=== PATIENT | male | born 1955 | race Caucasian/White ===

== ENCOUNTER 2016-02-26 08:08 | Day surgery (SDC) | payer BC ==
[2016-02-23 09:57] VITALS: BMI 29.3
[~2016-02-26 08:08] MED LIST: LACTATED RINGERS 1,000 ML IV SCH; LIDOCAINE 1% 20 ML VIAL (10MG/ML) FOR IV START INTRADERMA PRN
[2016-02-26 08:38] VITALS: RESP 18; TEMP 98.6
[2016-02-26] MEDS ORDERED: LIDOCAINE 1% 20 ML VIAL (10MG/ML) FOR IV START INTRADERMA ONE (08:45)
[2016-02-26 08:50] LABS: Glucose,Whole Blood 197 mg/dL (75-99)
[2016-02-26] MEDS ORDERED: LIDOCAINE 1% INJ 10MG/ML (20 ML MDV) ONE (09:21)
[2016-02-26] MEDS ORDERED: PROPOFOL 10 MG/ML 20 ML VIAL IV ONE (09:21)
--- NOTE | 2016-02-26 09:56 | P.PCN ---
Date of Procedure: 02/26/16 Procedure(s) Performed: Procedure: Total colonoscopy. Preoperative diagnosis: Screening for neoplasia. Postoperative diagnosis: Exam within normal limits. Preparation: HalfLytely prep. Sedation: Was provided by anesthesia. Brief clinical history: The patient is a 60-year-old male who is referred for this evaluation for screening for neoplasia, age being his risk factor. He had a prior exam 10 years ago. At this time, he has no abdominal complaints, bleeding or anemia. Procedure: With the patient on his left lateral decubitus position and after informed consent and adequate sedation, the perianal area was inspected and it did not show any fissures or fistulas. There were no masses felt on digital rectal examination. The Olympus CFQ 160L video colonoscope was then inserted in the rectum in the usual fashion and advanced to the cecum. The preparation was good. The mucosa appeared healthy. No polyps or tumors were seen or any obvious diverticular disease. I retroflexed endoscope in the rectum before the endoscope was withdrawn. The patient tolerated the procedure well. Plan: The patient was reassured. He will follow up with you as planned and I recommended repeat exam in 10 years.
[2016-02-26 10:12] VITALS: BP 135/89; PULSE 70
== END 2016-02-26 10:45 | disposition home or self-care (01) ==
LOC: ORWHC2ENDO 08:08
DX: Z12.11 Encounter for screening for malignant neoplasm of colon (principal); E11.9 Type 2 diabetes mellitus without complications; M19.90 Unspecified osteoarthritis, unspecified site; I10 Essential (primary) hypertension; F41.9 Anxiety disorder, unspecified; K21.9 Gastro-esophageal reflux disease without esophagitis; G47.33 Obstructive sleep apnea (adult) (pediatric); Z88.8 Allergy status to other drugs, medicaments and biological substances; Z79.899 Other long term (current) drug therapy; Z79.84 Long term (current) use of oral hypoglycemic drugs
CPT/HCPCS: J2001; J2704; G0121; 45378; 99153

== ENCOUNTER 2016-11-21 18:26 | Inpatient (IN) | payer BC ==
[2016-11-21] MEDS ORDERED: SODIUM CHLORIDE 0.9% 1,000 ML IV ONE (19:07)
[2016-11-21] MEDS ORDERED: SODIUM CHLORIDE 0.9% 500 ML IV ONE (19:07)
--- NOTE | 2016-11-21 19:15 | ED ---
General Adult HPI - General Chief complaint: Altered Mental Status Stated complaint: Weakness, poss altered mental status Time Seen by Provider: 11/21/16 18:37 Source: patient, RN notes reviewed, old records reviewed Mode of arrival: wheelchair Limitations: no limitations - History of Present Illness Initial comments: This is a 61 male to the ED co altered mental status. Patient's poor story and history obtained by . Patient has a week or so increasing weakness lethargy sleeping. Patient's baseline activity level is not high but he has been and has recently undergoing change. No change in medications. Patient himself denies any complaints. But family states is acting appropriately and easily tries to walk he is very weak. Which is far from his baseline. Patient himself denies complaints of headache chest pain shortness of breath or abdominal pain, denies drugs Anselmo. Denies not taking any medications. Denies and family denies any prior history of similar symptoms - Related Data Home Medications Medication Instructions Recorded Confirmed ALPRAZolam [Alprazolam] 0.5 mg PO TID PRN 02/23/16 11/21/16 DULoxetine HCL [Cymbalta] 20 mg PO QAM 02/23/16 11/21/16 Enalapril [Vasotec] 20 mg PO DAILY 02/23/16 11/21/16 Hydrochlorothiazide [Hydrodiuril] 12.5 mg PO QAM 02/23/16 11/21/16 Hydrocodone/Acetaminophen [[place] 1 tab PO QID PRN 02/23/16 11/21/16 10-325] Metoprolol Tartrate [Lopressor] 50 mg PO DAILY 02/23/16 11/21/16 Omeprazole 20 mg PO DAILY 02/23/16 11/21/16 Zolpidem Tartrate [Zolpidem 10 mg PO HS 02/23/16 11/21/16 Tartrate] metFORMIN HCL [Glucophage] 1,000 mg PO BID 02/23/16 11/21/16 ARIPiprazole [Abilify] 10 mg PO DAILY 11/21/16 11/21/16 Atorvastatin Calcium [Lipitor] 80 mg PO DAILY 11/21/16 11/21/16 Pioglitazone [Actos] 45 mg PO DAILY 11/21/16 11/21/16 Allergies Allergy/AdvReac Type Severity Reaction Status Date / Time oxaprozin [From Daypro] Allergy Severe Swelling Verified 11/21/16 19:10 throat & tongue, reddened face Review of Systems ROS Statement: Those systems with pertinent positive or pertinent negative responses have been documented in the HPI. ROS Other: All systems not noted in ROS Statement are negative. Past Medical History Past Medical History: Diabetes Mellitus, GERD/Reflux, Hyperlipidemia, Hypertension, Osteoarthritis (OA), Sleep Apnea/CPAP/BIPAP Additional Past Medical History / Comment(s): Does not wear CPAP. Hx. of blurred vision. History of Any Multi-Drug Resistant Organisms: None Reported Past Surgical History: Hernia Repair, Joint Replacement, Orthopedic Surgery Additional Past Surgical History / Comment(s): 2 right rotator cuff repair. Lt hip replaced. Johnson. inguinal hernia repair. Past Anesthesia/Blood Transfusion Reactions: No Reported Reaction Additional Past Anesthesia/Blood Transfusion Reaction / Comment(s): States had transfusion at . Past Psychological History: Anxiety, Depression Smoking Status: Former smoker Past Alcohol Use History: Occasional Past Drug Use History: None Reported - Past Family History Brother(s) Family Medical History: Cancer, Deep Vein Thrombosis (DVT) Additional Family Medical History / Comment(s): 1 brother with Esophageal CA. 2 brothers with DVT. Sister(s) Family Medical History: Cancer Additional Family Medical History / Comment(s): Brain CA. General Exam Limitations: altered mental status General appearance: alert, in no apparent distress Head exam: Present: atraumatic, normocephalic, normal inspection Eye exam: Present: normal appearance, PERRL, EOMI. Absent: scleral icterus, conjunctival injection, periorbital swelling ENT exam: Present: normal exam, mucous membranes moist Neck exam: Present: normal inspection. Absent: tenderness, meningismus, lymphadenopathy Respiratory exam: Present: normal lung sounds bilaterally. Absent: respiratory distress, wheezes, rales, rhonchi, stridor Cardiovascular Exam: Present: regular rate, normal rhythm, normal heart sounds. Absent: systolic murmur, diastolic murmur, rubs, gallop, clicks GI/Abdominal exam: Present: soft, normal bowel sounds. Absent: distended, tenderness, guarding, rebound, rigid Extremities exam: Present: normal inspection, full ROM, normal capillary refill. Absent: tenderness, pedal edema, joint swelling, calf tenderness Back exam: Present: normal inspection Neurological exam: Present: alert, oriented X3, CN II-XII intact Psychiatric exam: Present: normal affect, normal mood Skin exam: Present: warm, dry, intact, normal color. Absent: rash Course Vital Signs 11/21/16 11/21/16 11/21/16 18:29 19:21 19:43 Temperature 97.9 F Pulse Rate 88 89 86 Respiratory 18 18 18 Rate Blood Pressure 137/78 128/65 136/75 O2 Sat by Pulse 94 L 95 94 L Oximetry 11/21/16 20:13 Temperature Pulse Rate 86 Respiratory 18 Rate Blood Pressure 145/75 O2 Sat by Pulse 94 L Oximetry - Reevaluation(s) Reevaluation #1: 11/21/16 19:57 Patient at this point has no clinical improvement Reevaluation #2: 11/21/16 20:33 Patient still five-week, no clinical improvement in symptoms EKG Findings - EKG Comments: EKG Findings:: EKG shows normal sinus rhythm rate 86, LA 146, QRS 78, QTC 421 Medical Decision Making - Medical Decision Making 61 male the ER for evaluation of weakness and lethargy, patient likely suffered recent and STEMI, no significant EKG changes noted, will admit for cardiac observation and neuro evaluation - Lab Data Result diagrams: 11/21/16 18:55 11/21/16 18:55 Lab Results 11/21/16 11/21/16 11/21/16 Range/Units 18:55 18:55 18:55 WBC 8.5 (3.8-10.6) k/uL RBC 4.68 (4.30-5.90) m/uL Hgb 14.3 (13.0-17.5) gm/dL Hct 46.3 (39.0-53.0) % MCV 98.9 (80.0-100.0) fL MCH 30.6 (25.0-35.0) pg MCHC 30.9 L (31.0-37.0) g/dL RDW 16.7 H (11.5-15.5) % Plt Count 300 (150-450) k/uL Neutrophils % 65 % Lymphocytes % 22 % Monocytes % 6 % Eosinophils % 3 % Basophils % 1 % Neutrophils # 5.5 (1.3-7.7) k/uL Lymphocytes # 1.9 (1.0-4.8) k/uL Monocytes # 0.5 (0-1.0) k/uL Eosinophils # 0.3 (0-0.7) k/uL Basophils # 0.1 (0-0.2) k/uL Hypochromasia Slight Anisocytosis Slight Macrocytosis Slight PT (9.0-12.0) sec INR (<1.2) APTT (22.0-30.0) sec Sodium 137 (137-145) mmol/L Potassium 4.9 (3.5-5.1) mmol/L Chloride 95 L (98-107) mmol/L Carbon Dioxide 29 (22-30) mmol/L Anion Gap 13 mmol/L BUN 15 (9-20) mg/dL Creatinine 0.73 (0.66-1.25) mg/dL Est GFR (MDRD) Af Amer >60 (>60 ml/min/1.73 sqM) Est GFR (MDRD) Non-Af >60 (>60 ml/min/1.73 sqM) Glucose 291 H (74-99) mg/dL Calcium 9.5 (8.4-10.2) mg/dL Phosphorus 3.8 (2.5-4.5) mg/dL Magnesium 1.6 (1.6-2.3) mg/dL Total Bilirubin 0.6 (0.2-1.3) mg/dL AST 30 (17-59) U/L ALT 54 (21-72) U/L Alkaline Phosphatase 110 (38-126) U/L Ammonia (<30) umol/L Total Creatine Kinase 43 L (55-170) U/L CK-MB (CK-2) 0.9 (0.0-2.4) ng/mL CK-MB (CK-2) Rel Index 2.1 Troponin I 0.081 H* (0.000-0.034) ng/mL Total Protein 7.2 (6.3-8.2) g/dL Albumin 4.4 (3.5-5.0) g/dL Urine Color Urine Appearance (Clear) Urine pH (5.0-8.0) Ur Specific [place] (1.001-1.035) Urine Protein (Negative) Urine Glucose (UA) (Negative) Urine Ketones (Negative) Urine Blood (Negative) Urine Nitrite (Negative) Urine Bilirubin (Negative) Urine Urobilinogen (<2.0) mg/dL Ur Leukocyte Esterase (Negative) Urine Opiates Screen (NotDetected) Ur Oxycodone Screen (NotDetected) Urine Methadone Screen (NotDetected) Ur Propoxyphene Screen (NotDetected) Ur Barbiturates Screen (NotDetected) U Tricyclic Antidepress (NotDetected) Ur Phencyclidine Scrn (NotDetected) Ur Amphetamines Screen (NotDetected) U Methamphetamines Scrn (NotDetected) U Benzodiazepines Scrn (NotDetected) Urine Cocaine Screen (NotDetected) U Marijuana (THC) Screen (NotDetected) 11/21/16 11/21/16 11/21/16 Range/Units 18:55 19:21 19:25 WBC (3.8-10.6) k/uL RBC (4.30-5.90) m/uL Hgb (13.0-17.5) gm/dL Hct (39.0-53.0) % MCV (80.0-100.0) fL MCH (25.0-35.0) pg MCHC (31.0-37.0) g/dL RDW (11.5-15.5) % Plt Count (150-450) k/uL Neutrophils % % Lymphocytes % % Monocytes % % Eosinophils % % Basophils % % Neutrophils # (1.3-7.7) k/uL Lymphocytes # (1.0-4.8) k/uL Monocytes # (0-1.0) k/uL Eosinophils # (0-0.7) k/uL Basophils # (0-0.2) k/uL Hypochromasia Anisocytosis Macrocytosis PT 11.1 (9.0-12.0) sec INR 1.1 (<1.2) APTT 22.7 (22.0-30.0) sec Sodium (137-145) mmol/L Potassium (3.5-5.1) mmol/L Chloride (98-107) mmol/L Carbon Dioxide (22-30) mmol/L Anion Gap mmol/L BUN (9-20) mg/dL Creatinine (0.66-1.25) mg/dL Est GFR (MDRD) Af Amer (>60 ml/min/1.73 sqM) Est GFR (MDRD) Non-Af (>60 ml/min/1.73 sqM) Glucose (74-99) mg/dL Calcium (8.4-10.2) mg/dL Phosphorus (2.5-4.5) mg/dL Magnesium (1.6-2.3) mg/dL Total Bilirubin (0.2-1.3) mg/dL AST (17-59) U/L ALT (21-72) U/L Alkaline Phosphatase (38-126) U/L Ammonia 23 (<30) umol/L Total Creatine Kinase (55-170) U/L CK-MB (CK-2) (0.0-2.4) ng/mL CK-MB (CK-2) Rel Index Troponin I (0.000-0.034) ng/mL Total Protein (6.3-8.2) g/dL Albumin (3.5-5.0) g/dL Urine Color Light Yellow Urine Appearance Clear (Clear) Urine pH 5.5 (5.0-8.0) Ur Specific [place] 1.005 (1.001-1.035) Urine Protein Negative (Negative) Urine Glucose (UA) 3+ H (Negative) Urine Ketones Negative (Negative) Urine Blood Negative (Negative) Urine Nitrite Negative (Negative) Urine Bilirubin Negative (Negative) Urine Urobilinogen <2.0 (<2.0) mg/dL Ur Leukocyte Esterase Negative (Negative) Urine Opiates Screen Detected H (NotDetected) Ur Oxycodone Screen Not Detected (NotDetected) Urine Methadone Screen Not Detected (NotDetected) Ur Propoxyphene Screen Not Detected (NotDetected) Ur Barbiturates Screen Not Detected (NotDetected) U Tricyclic Antidepress Not Detected (NotDetected) Ur Phencyclidine Scrn Not Detected (NotDetected) Ur Amphetamines Screen Not Detected (NotDetected) U Methamphetamines Scrn Not Detected (NotDetected) U Benzodiazepines Scrn Detected H (NotDetected) Urine Cocaine Screen Not Detected (NotDetected) U Marijuana (THC) Screen Not Detected (NotDetected) - Radiology Data Radiology results: report reviewed (CT brain and chest x-ray are negative), image reviewed Critical Care Time Critical Care Time: Yes Total Critical Care Time: 31 Disposition Clinical Impression: Altered mental status, NSTEMI (non-ST elevated myocardial infarction), Weakness Disposition: ADMITTED IP TO THIS HOSP Condition: Fair Instructions: Altered Mental Status (ED) Referrals: Palmer Ariza MD [Primary Care Provider] - 1-2 days
[2016-11-21 19:20] LABS: Anisocytosis Slight; Basophils # (A) 0.1 k/uL (0-0.2); Basophils % (A) 1 %; CH 30.9; CHCM 31.5; Eosinophils # (A) 0.3 k/uL (0-0.7); Eosinophils % (A) 3 %; HCT 46.3 % (39.0-53.0); HDW 3.23; HGB 14.3 gm/dL (13.0-17.5); Hypochromasia Slight; Luc # (Auto) 0.19; Luc % (Auto) 2; Lymphocytes # (A) 1.9 k/uL (1.0-4.8); Lymphocytes % (A) 22 %; MCH 30.6 pg (25.0-35.0); MCHC 30.9 g/dL (31.0-37.0); MCV 98.9 fL (80.0-100.0); Macrocytosis Slight; Mean Platelet Volume 8.6; Monocytes # (A) 0.5 k/uL (0-1.0); Monocytes % (A) 6 %; Neutrophils # (A) 5.5 k/uL (1.3-7.7); Neutrophils % (A) 65 %; RBC 4.68 m/uL (4.30-5.90); RDW 16.7 % (11.5-15.5); WBC 8.5 k/uL (3.8-10.6)
[2016-11-21 19:33] LABS: ALT 54 U/L (21-72); AST 30 U/L (17-59); Alkaline Phosphatase 110 U/L (38-126); Anion Gap 13 mmol/L; Blood Urea Nitrogen 15 mg/dL (9-20); Calcium 9.5 mg/dL (8.4-10.2); Carbon Dioxide 29 mmol/L (22-30); Chloride 95 mmol/L (98-107); Glucose 291 mg/dL (74-99); Magnesium 1.6 mg/dL (1.6-2.3); Non-African American GFR(MDRD) >60 (>60 ml/min/1.73 sqM); Phosphorus 3.8 mg/dL (2.5-4.5); Potassium 4.9 mmol/L (3.5-5.1); Sodium 137 mmol/L (137-145); Total Bilirubin 0.6 mg/dL (0.2-1.3); Total Protein 7.2 g/dL (6.3-8.2)
[2016-11-21 19:38] LABS: Appearance,Urine Clear (Clear); Bilirubin,Urine Negative (Negative); Glucose,Urine (UA) 3+ (Negative); Ketones,Urine Negative (Negative); Leukocyte Esterase,Urine Negative (Negative); Nitrite,Urine Negative (Negative); PH, Urine 5.5 (5.0-8.0); Protein,Urine Negative (Negative); Specific Gravity,Urine 1.005 (1.001-1.035); UA Billing (MACRO vs. MICRO) CHEM; Urobilinogen,Urine <2.0 mg/dL (<2.0)
[2016-11-21 19:47] LABS: Partial Thromboplastin Time 22.7 sec (22.0-30.0)
[2016-11-21 19:48] LABS: INR 1.1 (<1.2); Prothrombin Time 11.1 sec (9.0-12.0)
[2016-11-21 20:04] LABS: Creatine Kinase MB 0.9 ng/mL (0.0-2.4)
--- NOTE | 2016-11-21 20:04 | CT ---
EXAMINATION TYPE: CT brain wo con DATE OF EXAM: 11/21/2016 COMPARISON: NONE HISTORY: Altered mental status. CT DLP: 1266.00 mGycm Automated exposure control for dose reduction was used. FINDINGS: There are generalized changes of sulcal prominence and ventriculomegaly, compatible with atrophic jamie nge. There is mild, diffuse periventricular white matter lucency, compatible with chronic white matte r ischemic change. There is no acute focal lesion, mass effect or midline shift identified. I do not see evidence of intracranial blood. There is underaeration of the mastoid air cells. There is minimal ethmoidal sinus mucosal disease. No depressed skull fracture is seen. IMPRESSION: 1. NO ACUTE INTRACRANIAL ABNORMALITY. 2. MILD ATROPHY. 3. CHRONIC WHITE MATTER ISCHEMIC CHANGE. 4. MINIMAL SINUS MUCOSAL DISEASE INVOLVING THE ETHMOID SINUSES. 5. UNDERAERATION OF THE MASTOID AIR CELLS MAY REFLECT CHRONIC MASTOIDITIS.
--- NOTE | 2016-11-21 20:05 | XR ---
EXAMINATION TYPE: XR chest 2V DATE OF EXAM: 11/21/2016 HISTORY: altered mental status. REFERENCE: Previous study dated 01/07/2012. FINDINGS: The heart is enlarged. The lungs are clear. Pleural spaces are clear. IMPRESSION: CARDIOMEGALY.
[2016-11-21 20:20] LABS: Troponin I 0.081 ng/mL (0.000-0.034)
[2016-11-21] MEDS ORDERED: NITROGLYCERIN SL TABS 0.4 MG TAB SUBLINGUAL PRN (20:25)
[2016-11-21] MEDS ORDERED: ASPIRIN 81 MG PO STA (20:25)
[2016-11-21] MEDS ORDERED: HEPARIN SODIUM,PORCINE 5,000 UNIT/ML 1 ML VIAL IV ONE (20:25)
[2016-11-21] MEDS ORDERED: HEPARIN SODIUM,PORCINE 5,000 UNIT/ML 1 ML VIAL IV PRN (20:25)
[2016-11-21] MEDS ORDERED: HEPARIN SODIUM,PORCINE/D5W PMX 25,000 UNIT in DEXTROSE/WATER 1 500ML.BAG IV SCH (20:30)
[2016-11-21] MEDS ORDERED: ACETAMINOPHEN TAB 325 MG TAB PO PRN (23:31)
[2016-11-21] MEDS ORDERED: MELATONIN 3 MG TABLET PO PRN (23:33)
[2016-11-22 01:52] LABS: Creatine Kinase MB 0.8 ng/mL (0.0-2.4)
[2016-11-22 01:53] LABS: Troponin I 0.067 ng/mL (0.000-0.034)
[2016-11-22] MEDS: PANTOPRAZOLE 40 MG TABLET PO SCH (06:32)
[2016-11-22 06:41] LABS: Mean Platelet Volume 8.1
[2016-11-22 07:03] LABS: Cholesterol 224 mg/dL (<200); HDL Cholesterol 40 mg/dL (40-60)
[2016-11-22 07:16] LABS: Creatine Kinase MB 0.9 ng/mL (0.0-2.4)
[2016-11-22 07:28] LABS: Troponin I 0.07 ng/mL (0.000-0.034)
[2016-11-22 07:35] LABS: Glucose,Whole Blood 223 mg/dL (75-99)
[2016-11-22] MEDS ORDERED: ALPRAZolam 0.5 MG TAB PO PRN (07:56)
[2016-11-22] MEDS ORDERED: ATORVASTATIN 80 MG TAB PO STA (07:56)
[2016-11-22] MEDS ORDERED: NITROGLYCERIN SL TABS 0.4 MG TAB SUBLINGUAL PRN ×2 (07:56→11:15)
[2016-11-22] MEDS ORDERED: ASPIRIN 325 MG TAB PO STA (07:56)
[2016-11-22] MEDS ORDERED: SODIUM CHLORIDE 0.9% 1,000 ML in EMPTY BAG 1 BAG IV ONE (07:56)
--- NOTE | 2016-11-22 08:19 | P.HPIM ---
History of Present Illness Chief complaint Patient presented here yesterday evening to the emergency room with weakness and change in mental status. History of present illness Patient is a 61-year-old gentleman who apparently according to patient and family history for the past week or so he has been in bed most of the time apparently been very weak. Not up to his usual baseline activity. The patient states that he has been taking his medications regularly. He has not been checking his blood sugars at home. He denied any fever or chills. No chest pain. No nausea or vomiting. He has not been using his BiPAP for his sleep apnea. He states that he has gained a lot of weight. Past medical history The patient does have underlying history for several years of diabetes type 2 Hyperlipidemia History of hypertension History of underlying depression and anxiety History of osteoarthritis of the lumbar spine for which he is on chronic analgesics. Patient has history of sleep apnea but has not been using his BiPAP or had evaluation lately. He has declined in the past. Gastroesophageal reflux. Surgical history: positive for total hip replacement on the left and previous repair of right shoulder 2. He has had throat and nasal surgery in the past History of penile surgery for correction of abnormality by Dr. Weldon. Bilateral hernia repair. Medications: ALLERGIES to Daypro /oxaprozin with throat and tongue swelling. Home medications Metformin thousand milligrams twice a day Zolpidem 10 mg at at bedtime for insomnia Actos 45 mg daily Omeprazole 20 mg daily Metoprolol tartrate 50 mg daily Hydrocodone/acetaminophen 10-325 one 4 times a day as needed for pain Hydrochlorothiazide 12.5 daily Enalapril 20 mg daily Cymbalta 20 mg in the morning Atorvastatin 80 mg daily Abilify 10 mg daily Alprazolam 0.53 times a day if needed for anxiety. Family history: Patient has had 1 brother with esophageal cancer. 2 brothers have had problems with DVTs. One family member also with underlying brain cancer. Social history: The patient is a former smoker. Only occasional alcohol usage. He does live locally with his . He is not employed. Physical examination: Patient is easily arousable this morning. Vital signs reveal temperature of 97 with a pulse of 99 and regular with respirations of 18 and unlabored and blood pressure 138/97. He is 92% saturated on 2 L nasal cannula. Head and neck exam unremarkable. Extraocular movements intact. No carotid bruits or adenopathy or definitive thyromegaly detected. Lungs are clear to auscultation. Heart tones are regular without murmurs or rubs. Abdomen is obese but nontender without organomegaly. Extremities revealed grade 1-2 edema. Rectal and genital exam deferred. Neurologically she is overall alert. Moving all extremities without focal weakness. Cranial nerves intact. Laboratory White count 8.5 with hemoglobin 14.3 and an MCV of 98.9. Platelets 300 INR 1.1 with a PTT of 22.7 Electrolytes generally unremarkable. Sodium 137. Potassium 4.9. BUN of 15 with creatinine of 0.73 given him a GFR greater than 60. Blood sugar was 291. Liver function tests were unremarkable. CKs have been low in the 30-40 range. Troponins have been mildly elevated with initial troponin 0.081 which is decreased on third reading down to 0.070 Cholesterol is elevated with an LDL cholesterol 140 and total cholesterol 224. B12 and TSH values were normal. Urine was negative for leukocyte esterase. But 3+ glucose positive Toxicology and urine detected opiates and benzodiazepine consistent with his usage. EKG showed normal sinus rhythm without evidence of acute ischemic changes. Chest x-ray showed element of cardiomegaly but otherwise lungs were clear. Computed tomography scan of the brain showed no acute intracranial abnormality. Impressions: 1. Elevated troponin values possibly indicating some myocardial ischemia. Discussed with cardiology this morning and plans are for likely catheterization to evaluate further. Patient does have the multiple local risk factors as listed above in the past medical history. 2. Obstructive sleep apnea that is not being treated as patient is not using his BiPAP at home. And this may be affecting mental status. 3. Patient has been long time user of opiates and benzodiazepine. No definite history of any over the taking of his medication by office records. 4. Underlying depression which has been chronic but may be worsening 5. Other past medical history as listed above including his underlying diabetes , hypertension and hyperlipidemia that raises risk for underlying coronary artery disease. 6. Please see other comorbidities in the past medical history Plans: At this point plans are for cardiology evaluation with catheterization and echocardiogram. Neurology has also been consulted through the emergency room for their evaluation. We have held or decreased his benzodiazepine and opiates for now. He will need further outpatient evaluation for sleep apnea and proper treatment. B12 and thyroid studies are normal. Basic chemistries other than blood sugar and hematology are unremarkable. Further recommendations for evaluation and treatment pending clinical response and results of above. Past Medical History Past Medical History: Diabetes Mellitus, GERD/Reflux, Hyperlipidemia, Hypertension, Osteoarthritis (OA), Sleep Apnea/CPAP/BIPAP Additional Past Medical History / Comment(s): Does not wear CPAP. Hx. of blurred vision. History of Any Multi-Drug Resistant Organisms: None Reported Past Surgical History: Hernia Repair, Joint Replacement, Orthopedic Surgery Additional Past Surgical History / Comment(s): 2 right rotator cuff repair. Lt hip replaced. Johnson. inguinal hernia repair. Past Anesthesia/Blood Transfusion Reactions: No Reported Reaction Additional Past Anesthesia/Blood Transfusion Reaction / Comment(s): States had transfusion at . Past Psychological History: Anxiety, Depression Smoking Status: Never smoker Past Alcohol Use History: Occasional Additional Past Alcohol Use History / Comment(s): Smoked 1 ppd for 1 year, started at age 17y.o. Past Drug Use History: None Reported - Past Family History Brother(s) Family Medical History: Cancer, Deep Vein Thrombosis (DVT) Additional Family Medical History / Comment(s): 1 brother with Esophageal CA. 2 brothers with DVT. Sister(s) Family Medical History: Cancer Additional Family Medical History / Comment(s): Brain CA. Medications and Allergies Home Medications Medication Instructions Recorded Confirmed Type ALPRAZolam [Alprazolam] 0.5 mg PO TID PRN 02/23/16 11/21/16 History DULoxetine HCL [Cymbalta] 20 mg PO QAM 02/23/16 11/21/16 History Enalapril [Vasotec] 20 mg PO DAILY 02/23/16 11/21/16 History Hydrochlorothiazide [Hydrodiuril] 12.5 mg PO QAM 02/23/16 11/21/16 History Hydrocodone/Acetaminophen [[place] 1 tab PO QID PRN 02/23/16 11/21/16 History 10-325] Metoprolol Tartrate [Lopressor] 50 mg PO DAILY 02/23/16 11/21/16 History Omeprazole 20 mg PO DAILY 02/23/16 11/21/16 History Zolpidem Tartrate [Zolpidem 10 mg PO HS 02/23/16 11/21/16 History Tartrate] metFORMIN HCL [Glucophage] 1,000 mg PO BID 02/23/16 11/21/16 History ARIPiprazole [Abilify] 10 mg PO DAILY 11/21/16 11/21/16 History Atorvastatin Calcium [Lipitor] 80 mg PO DAILY 11/21/16 11/21/16 History Pioglitazone [Actos] 45 mg PO DAILY 11/21/16 11/21/16 History Allergies Allergy/AdvReac Type Severity Reaction Status Date / Time oxaprozin [From Daypro] Allergy Severe Swelling Verified 11/21/16 19:10 throat & tongue, reddened face Physical Exam Vitals: Vital Signs Temp Pulse Pulse Resp BP BP Pulse Ox 11/22/16 04:00 99 18 11/22/16 03:58 97.0 F L 99 18 138/97 92 L 11/22/16 00:00 97.0 F L 91 16 140/78 92 L 11/21/16 22:00 86 18 11/21/16 21:14 80 18 137/60 94 L 11/21/16 20:47 97.6 F 86 16 132/90 96 11/21/16 20:43 84 18 146/70 95 11/21/16 20:13 86 18 145/75 94 L 11/21/16 19:43 86 18 136/75 94 L 11/21/16 19:21 89 18 128/65 95 11/21/16 18:29 97.9 F 88 18 137/78 94 L Intake and Output 11/21/16 11/22/16 11/22/16 22:59 06:59 14:59 Intake Total 1115 Balance 1115 Intake: Intake, IV Titration 1115 Amount Heparin Sodium,Porcine/ 315 D5w Pmx 25,000 unit In Dextrose/Water 1 500ml. bag @ 10.6 UNITS/KG/HR 20 mls/hr IV .Q24H SAMIR Rx#: [id number] Sodium Chloride 0.9% 1, 800 000 ml @ 100 mls/hr IV . Q10H ONE Rx#:[id number] Other: Voiding Method Toilet Toilet # Voids 1 Weight 94.3 kg 97.7 kg Results CBC & Chem 7: 11/22/16 06:26 11/21/16 18:55 Labs: Abnormal Lab Results - Last 24 Hours (Table) 11/21/16 11/21/16 11/21/16 Range/Units 18:55 18:55 18:55 MCHC 30.9 L (31.0-37.0) g/dL RDW 16.7 H (11.5-15.5) % Chloride 95 L (98-107) mmol/L Glucose 291 H (74-99) mg/dL POC Glucose (mg/dL) (75-99) mg/dL Total Creatine Kinase 43 L (55-170) U/L Troponin I 0.081 H* (0.000-0.034) ng/mL Triglycerides (<150) mg/dL Cholesterol (<200) mg/dL LDL Cholesterol, Calc (0-99) mg/dL Urine Glucose (UA) (Negative) Urine Opiates Screen (NotDetected) U Benzodiazepines Scrn (NotDetected) 11/21/16 11/22/16 11/22/16 Range/Units 19:25 00:56 06:26 MCHC (31.0-37.0) g/dL RDW (11.5-15.5) % Chloride (98-107) mmol/L Glucose (74-99) mg/dL POC Glucose (mg/dL) (75-99) mg/dL Total Creatine Kinase 36 L 31 L (55-170) U/L Troponin I 0.067 H* 0.070 H* (0.000-0.034) ng/mL Triglycerides (<150) mg/dL Cholesterol (<200) mg/dL LDL Cholesterol, Calc (0-99) mg/dL Urine Glucose (UA) 3+ H (Negative) Urine Opiates Screen Detected H (NotDetected) U Benzodiazepines Scrn Detected H (NotDetected) 11/22/16 11/22/16 Range/Units 06:26 07:33 MCHC (31.0-37.0) g/dL RDW (11.5-15.5) % Chloride (98-107) mmol/L Glucose (74-99) mg/dL POC Glucose (mg/dL) 223 H (75-99) mg/dL Total Creatine Kinase (55-170) U/L Troponin I (0.000-0.034) ng/mL Triglycerides 221 H (<150) mg/dL Cholesterol 224 H (<200) mg/dL LDL Cholesterol, Calc 140 H (0-99) mg/dL Urine Glucose (UA) (Negative) Urine Opiates Screen (NotDetected) U Benzodiazepines Scrn (NotDetected) Microbiology - Last 24 Hours (Table) 11/21/16 19:25 Urine Culture - Preliminary Urine,Voided Thrombosis Risk Factor Assmnt - Choose All That Apply Any of the Below Risk Factors Present?: Yes Each Factor Represents 1 point: Age 41-60 years Other Risk Factors: No Thrombosis Risk Factor Assessment Total Risk Factor Score: 1 Thrombosis Risk Factor Assessment Level: Low Risk
[2016-11-22] MEDS: INSULIN LISPRO (humaLOG) 300 UNIT/3 ML VIAL SQ SCH ×4 (08:24→21:26)
--- NOTE | 2016-11-22 08:27 | CONS ---
CONSULTATION Mr. Cade is a 61-year-old male with known history of hypertension, hyperlipidemia, diabetes mellitus, who presented according to him because his felt that he was not acting right. There was a question of slurred speech and some drooping in the face. This morning he feels that his speech and face are normal. He said that those symptoms have been going on for about a week. He denies any symptoms of chest discomfort. He denies any dyspnea, yet he is not active physically. He has no PND, orthopnea, or peripheral edema. No dizziness, palpitation, or syncope. He has no prior documented history of coronary artery disease. His coronary risk factors are remarkable for hypertension, hyperlipidemia, and diabetes. He is a nonsmoker. MEDICATION: His medications include alprazolam, Abilify, Lipitor 80 mg daily, Cymbalta 20 mg daily, Vasotec 20 mg daily, hydrochlorothiazide 12.5 mg daily, metoprolol tartrate 50 mg daily, omeprazole 20 mg daily, Actos 45 mg daily. metformin 1 gram twice a day and zolpidem. REVIEW OF SYSTEMS: RESPIRATORY SYSTEM: He has no recent wheezing. No cough. No history of documented obstructive lung disease. He has history of obstructive sleep apnea, but he has not been using his CPAP. GI SYSTEM: No recent GI bleeding. No peptic ulcer disease. SYSTEM: No dysuria or hematuria. NERVOUS SYSTEM: No stroke or seizure. PHYSICAL EXAMINATION: A 61-year-old male, alert, oriented, in no apparent distress. Blood pressure 138/90 with a heart rate in 90s. HEAD: Normocephalic. EYES: Sclerae anicteric. NECK: Good upstroke. No bruits. No jugular venous distention. LUNGS: Clear to auscultation. HEART: Regular rate and rhythm. S1, S2. No S3. No rub. No significant murmur. ABDOMEN: Soft, nontender. Positive bowel sounds. No organomegaly. EXTREMITIES: No edema. Intact distal pulses. LAB DATA: Lab data revealed a cholesterol 224, LDL of 140. BUN and creatinine 15 and 0.73. Troponin 0.081, 0.067, 0.070. Potassium 4.9. Hemoglobin 14.3. CT scan of the brain revealed no acute event. EKG revealed a sinus mechanism with a normal axis and intervals; no acute changes. Chest x-ray revealed cardiomegaly. IMPRESSION: 1. Change in mental status of unclear etiology. 2. Elevation of the troponin in a patient with multiple risk factors, rule out non ST- segment elevation myocardial infarction. 3. History of hypertension. 4. Hyperlipidemia. 5. Diabetes mellitus. 6. Obstructive sleep apnea, not treated. RECOMMENDATION: I would recommend to obtain echocardiogram. I have recommended proceeding with coronary angiography to assess his status and guide his treatment. The rationale behind the procedure as well as the risks and complication were discussed with the patient who is in full understanding and agreement. Depending on his progress, further recommendation will be made. Thank you for this consult. We will follow with you. MMODL / IJN: [id number] /
[2016-11-22] MEDS: ATORVASTATIN 80 MG TAB PO SCH (08:30)
[2016-11-22] MEDS: METOPROLOL TARTRATE 50 MG TAB PO SCH (08:30)
[2016-11-22] MEDS ORDERED: ASPIRIN 325 MG TAB PO SCH (09:00)
--- NOTE | 2016-11-22 09:27 | ECHOF ---
Referral Reason:elevTrop MEASUREMENTS -------- HEIGHT: 170.2 cm WEIGHT: 97.5 kg BP: 138/97 RVIDd: 3.3 cm (< 3.3) IVSd: 1.4 cm (0.6 - 1.1) LVIDd: 3.5 cm (3.9 - 5.3) LVPWd: 1.4 cm (0.6 - 1.1) IVSs: 1.6 cm LVIDs: 2.5 cm LVPWs: 2.1 cm LA Diam: 3.4 cm (2.7 - 3.8) LAESV Index (A-L): 20.38 ml/m Ao Diam: 3.6 cm (2.0 - 3.7) AV Cusp: 1.6 cm (1.5 - 2.6) MV EXCURSION: 14.577 mm (> 18.000) MV EF SLOPE: 57 mm/s (70 - 150) EPSS: 0.7 cm MV E Ottoniel: 1.07 m/s MV DecT: 204 ms MV A Ottoniel: 1.25 m/s MV E/A Ratio: 0.86 AV maxP.19 mmHg AV meanP.23 mmHg RAP: 5.00 mmHg RVSP: 26.20 mmHg FINDINGS -------- Sinus rhythm. This was a technically adequate study. The left ventricular size is normal. There is moderate concentric left ventricular hypertrophy. Overall left ventricular systolic function is normal with, an EF between 60 - 65 %. The right ventricle is mildly enlarged. Normal LA size by volume 22+/-6 ml/m2. The right atrium is normal in size. There is mild aortic valve sclerosis. The mitral valve leaflets are mildly thickened. There is trace mitral regurgitation. Mild tricuspid regurgitation present. Right ventricular systolic pressure is normal at < 35 mmHg. Trace/mild (physiologic) pulmonic regurgitation. The aortic root size is normal. Normal inferior vena cava with normal inspiratory collapse consistent with estimated right atrial pressure of 5 mmHg. There is no pericardial effusion. CONCLUSIONS -------- 1. Sinus rhythm. 2. The mitral valve leaflets are mildly thickened. 3. There is trace mitral regurgitation. 4. Mild tricuspid regurgitation present. 5. Right ventricular systolic pressure is normal at < 35 mmHg. 6. Trace/mild (physiologic) pulmonic regurgitation. 7. The aortic root size is normal. 8. Normal inferior vena cava with normal inspiratory collapse consistent with estimated right atrial pressure of 5 mmHg. 9. There is no pericardial effusion. 10. This was a technically adequate study. 11. The left ventricular size is normal. 12. There is moderate concentric left ventricular hypertrophy. 13. Overall left ventricular systolic function is normal with, an EF between 60 - 65 %. 14. The right ventricle is mildly enlarged. 15. Normal LA size by volume 22+/-6 ml/m2. 16. The right atrium is normal in size. 17. There is mild aortic valve sclerosis. HEAT TREATER HELPER: Josy Portillo RDCS
[2016-11-22] MEDS ORDERED: LIDOCAINE 2% INJ 20 MG/ML (20 ML MDV) ONE (09:34)
[2016-11-22] MEDS ORDERED: VERAPAMIL 2.5 MG/ML 2 ML AMP ONE (09:34)
[2016-11-22] MEDS ORDERED: HEPARIN SODIUM 1,000 UN/ML (10ML VL) ONE (09:34)
[2016-11-22] MEDS ORDERED: fentaNYL (PF) 50 MCG/ML 2 ML AMP ONE (09:34)
[2016-11-22] MEDS ORDERED: diphenhydrAMINE 50 MG/ML 1 ML VIAL ONE (09:34)
[2016-11-22] MEDS ORDERED: IV FLUID CONTINUATION 1,000 ML IV ONE (09:47)
[2016-11-22] MEDS ORDERED: fentaNYL (PF) 50 MCG/ML 2 ML AMP IV ONE (10:00)
[2016-11-22] MEDS ORDERED: LIDOCAINE 2% INJ 20 MG/ML SQ ONE (10:07)
[2016-11-22 10:13] LABS: Hemoglobin A1C 8.2 % (4.2-6.1)
[2016-11-22] MEDS ORDERED: VERAPAMIL SYRINGE (5 MG/10 ML) INTRAARTER ONE (10:18)
[2016-11-22] MEDS ORDERED: PRASUGREL 10 MG TAB ONE (10:33)
[2016-11-22] MEDS ORDERED: BIVALIRUDIN BOLUS 250 MG/50 ML IV ONE (10:33)
[2016-11-22] MEDS ORDERED: BIVALIRUDIN 250 MG in SODIUM CHLORIDE 0.9% 40 ML IV ONE (10:33)
[2016-11-22] MEDS ORDERED: PRASUGREL 10 MG TAB PO ONE (10:36)
[2016-11-22] MEDS ORDERED: NITROGLYCERIN 1000MCG/10ML SYRINGE INTRACORON ONE (10:37)
[2016-11-22] MEDS ORDERED: IOHEXOL 350 MG/ML 125ML BOTTLE INJ ONE (10:55)
[2016-11-22] MEDS ORDERED: ATROPINE SULFATE 0.1 MG/ML 10ML SYRINGE IV PRN (11:15)
[2016-11-22] MEDS ORDERED: MAG HYDROX/AL HYDROX/SIMETH 30 ML CUP PO PRN (11:15)
[2016-11-22] MEDS ORDERED: ZOLPIDEM 5 MG TAB PO PRN (11:15)
[2016-11-22] MEDS ORDERED: SODIUM CHLORIDE 0.9% 1,000 ML IV SCH (11:15)
[2016-11-22] MEDS ORDERED: RX INFO: IV CONTRAST WAS GIVEN 1 EACH MISC MISCELLANE PRN (11:15)
[2016-11-22 11:30] LABS: Glucose,Whole Blood 175 mg/dL (75-99)
--- NOTE | 2016-11-22 11:30 | CC ---
CARDIAC CATHETERIZATION REPORT Mr. Cade is 61-year-old male known history of hypertension, hyperlipidemia, diabetes mellitus, who presented with vague symptoms of not feeling well, getting confused with some issue with the speech. On presentation, he was found to have abnormal troponins and in view of that and in view of his multiple risk factors, recommendation was made regarding cardiac catheterization. The procedure as well as the risks and the complications were discussed with the patient who is in full understanding and agreement. PROCEDURE: Patient was brought to the labeling specialist in the fasting semi-sedated state after receiving fentanyl and Benadryl and obtaining moderate conscious sedated state. Using Xylocaine anesthesia in the Seldinger technique, a 6-Wallisian sheath was introduced in the right radial artery. Selective right and left coronary angiography was performed using 5- Wallisian 3-1/2 bend right and left Andrea catheter. Multiple views of the coronary artery including hemiaxial views were obtained. Following that, a 5-Wallisian tight pigtail catheter was introduced in the left ventricle and a 30-degree JORDAN view of the left ventricle was obtained. Following that, catheters were removed. Images were reviewed. FINDINGS: FLUOROSCOPY: There was calcification involving the ostium of the right coronary artery as well as the proximal LAD. LEFT MAIN: This is a short size vessel bifurcating left circumflex and left anterior descending artery. The left main coronary artery has no evidence of high-grade stenosis. LEFT ANTERIOR DESCENDING ARTERY: This is a large-size vessel reaching to the apex with a wraparound apex segment giving rise to 2 diagonal branches. The second one is large in caliber. The left anterior descending artery proximally has a 30% plaque without any evidence of high-grade stenosis. LEFT CIRCUMFLEX: This is a nondominant vessel giving rise to 2 obtuse marginal branches. The left circumflex as well as branches have no evidence of obstructive coronary artery disease. RIGHT CORONARY ARTERY: This is a large dominant vessel bifurcating in PDA and posterolateral segment and branches. The ostium is calcified. In the mid segment, there is a long tubular lesion with area of stenosis up to 70% to 80%. The rest of the vessel has no high-grade stenosis. LEFT VENTRICULOGRAM: The left ventriculogram was performed in 30-degree JORDAN view and revealed a mid inferior wall hypokinesis. The ejection fraction is estimated at 50%. There was no significant mitral regurgitation. HEMODYNAMICS: There was no gradient across the aortic valve. The left ventricular end- diastolic pressure was 20 to 24 mmHg. CONCLUSION: 1. Calcified ostial right coronary artery as well as proximal left anterior descending artery. 2. Significant disease in the mid right coronary artery. 3. Mild disease in the proximal left anterior descending artery. 4. Minimally impaired left ventricular systolic function. RECOMMENDATION: In view of finding and the anatomy, I recommend proceeding with angioplasty and stenting of the right coronary artery. The procedure as well as the risks and the complications were discussed with the patient who is in full understanding and agreement. MMODL / IJN: [id number] /
--- NOTE | 2016-11-22 11:39 | PTCA ---
PERCUTANEOUSTRANS CORORONARY ANGIOGRAPHY Mr. Cade is a 61-year-old male who presented with symptoms of change in mental status and was found to have abnormal troponin. He has a history of diabetes, hyperlipidemia, and hypertension. He underwent cardiac catheterization, was found to have significant disease involving the mid right coronary artery. In view of that, recommendation was made regarding angioplasty and stenting. The procedure as well as the risks and the complications were discussed with the patient who is in full understanding and agreement. PROCEDURE: A 6-Lao FR4 guiding catheter was introduced in the system. After cannulating the right coronary ostium, 0.014 balanced medium weight J-wire was advanced across the lesion, positioned distally, attempts to advance a 2.75 x 28 mm Xience Alpine stent were unsuccessful. That stent was removed and another 0.014 balanced medium weight J- wire was advanced next to the first one in a sadaf fashion and the stent was advanced, positioned, deployed and post dilated at 14 atmospheres. After the last inflation, after appropriate wait, the balloon and the guidewire were withdrawn back in the guiding catheter. Images were obtained and repeated. Those images reveal stable successful stenting. At that point, the guiding catheter, the balloon and the guidewire were removed. The sheath was removed. Hemostasis was obtained with deployment of a TR band. There was no immediate complication. The patient was returned to his room in stable condition. Of note, the patient received Angiomax per protocol as well as oral loading dose of Effient. He had no significant chest pain with the inflation, but he had EKG changes that resolved at the end of procedure. At the start of his cardiac catheterization, he received care intra-arterial verapamil. RESULTS: Successful stenting of a long segment of the mid right coronary artery with reduction of stenosis from 80% to 0%. RECOMMENDATION: The patient will be continued on aspirin, Effient, beta blockers, JOSE EDUARDO inhibitor, statin. The importance of dual antiplatelet treatment was discussed with the patient and his family and they are in full understanding and agreement. Duration of the procedure is 49 minutes. MMODL / IJN: [id number] /
--- NOTE | 2016-11-22 11:45 | LTR ---
November 22, 2016 Re: Palmer Lemusevelyn Dear Dr. Ariza: I had the opportunity to perform cardiac catheterization and coronary angioplasty and stenting on Mr. Cade at [facility] on the 22 of November and a full copy procedure note will be forwarded to you. In brief, he was found to have a significant stenosis in the mid right coronary artery, underwent successful stenting of that vessel using a drug-eluting stent. I am hopeful that this procedure will stabilize his status. Thank you again for allowing me the opportunity to participate in his care. Please feel free to call for any questions. Sincerely yours, MD NOVA LakeL / LOREEN: [id number] /
[2016-11-22 11:55] VITALS: BMI 33.7
[2016-11-22] MEDS: PIOGLITAZONE 45 MG TAB PO SCH (12:03)
[2016-11-22] MEDS: ARIPiprazole 10 MG TAB PO SCH (12:03)
[2016-11-22] MEDS: HYDROCHLOROTHIAZIDE 12.5 MG CAP PO SCH (12:03)
[2016-11-22] MEDS: LISINOPRIL 20 MG TAB PO SCH (12:03)
[2016-11-22] MEDS: ALPRAZolam 0.25 MG TAB PO PRN ×2 (12:09→21:30)
[2016-11-22] MEDS: HYDROcodone/APAP 10-325MG 1 EACH TAB PO PRN ×2 (15:18→21:24)
[2016-11-22 16:29] LABS: Glucose,Whole Blood 223 mg/dL (75-99)
--- NOTE | 2016-11-22 20:30 | P.CNNES ---
History of Present Illness Consult date: 11/22/16 Requesting physician: Phil Myrick Reason for Consult: altered mental status Chief complaint: altered mental status, chest pain, unstable angina History of Present Illness: Neurology is being requested to consult on a 61-year-old male who reports that he has been having extreme fatigue and inability to perform activities of daily living over the past week. Patient has also been noted to be very weak. Patient is also reported not to be at his normal baseline activity level. Patient stated that he had been taking his medications regularly. He has not been monitoring his blood sugars as directed. Patient does have a history of sleep apnea but has not been using his BiPAP machine as directed. Patient also states he has been gaining weight on a regular basis. Patient states he also was presented to the ED at the encouragement of his who noted that his fatigue was becoming an escalating situation and he was becoming less alert and interactive. On contact, the patient was alert and oriented 3, supine in bed, resting in no acute distress. Family is at the bedside including his . Patient states that since he has had cardiac catheterization earlier this morning he has increased energy, decreased fatigue and increased mentation. He states that he does not have any other lateralizing weakness, no neurological symptoms. Patient's spouse agreed that the patient has no neurological symptoms as discussed and was improving significantly. Review of Systems all systems not noted in HPI or negative. Past Medical History Past Medical History: Diabetes Mellitus, GERD/Reflux, Hyperlipidemia, Hypertension, Osteoarthritis (OA), Sleep Apnea/CPAP/BIPAP Additional Past Medical History / Comment(s): Does not wear CPAP. Hx. of blurred vision. History of Any Multi-Drug Resistant Organisms: None Reported Past Surgical History: Hernia Repair, Joint Replacement, Orthopedic Surgery Additional Past Surgical History / Comment(s): 2 right rotator cuff repair. Lt hip replaced. Johnson. inguinal hernia repair. Past Anesthesia/Blood Transfusion Reactions: No Reported Reaction Additional Past Anesthesia/Blood Transfusion Reaction / Comment(s): States had transfusion at . Past Psychological History: Anxiety, Depression Smoking Status: Never smoker Past Alcohol Use History: Occasional Additional Past Alcohol Use History / Comment(s): Smoked 1 ppd for 1 year, started at age 17y.o. Past Drug Use History: None Reported - Past Family History Brother(s) Family Medical History: Cancer, Deep Vein Thrombosis (DVT) Additional Family Medical History / Comment(s): 1 brother with Esophageal CA. 2 brothers with DVT. Sister(s) Family Medical History: Cancer Additional Family Medical History / Comment(s): Brain CA. Medications and Allergies Home Medications Medication Instructions Recorded Confirmed Type ALPRAZolam [Alprazolam] 0.5 mg PO TID PRN 02/23/16 11/21/16 History DULoxetine HCL [Cymbalta] 20 mg PO QAM 02/23/16 11/21/16 History Enalapril [Vasotec] 20 mg PO DAILY 02/23/16 11/21/16 History Hydrochlorothiazide [Hydrodiuril] 12.5 mg PO QAM 02/23/16 11/21/16 History Hydrocodone/Acetaminophen [Mendham 1 tab PO QID PRN 02/23/16 11/21/16 History 10-325] Metoprolol Tartrate [Lopressor] 50 mg PO DAILY 02/23/16 11/21/16 History Omeprazole 20 mg PO DAILY 02/23/16 11/21/16 History Zolpidem Tartrate [Zolpidem 10 mg PO HS 02/23/16 11/21/16 History Tartrate] metFORMIN HCL [Glucophage] 1,000 mg PO BID 02/23/16 11/21/16 History ARIPiprazole [Abilify] 10 mg PO DAILY 11/21/16 11/21/16 History Atorvastatin Calcium [Lipitor] 80 mg PO DAILY 11/21/16 11/21/16 History Pioglitazone [Actos] 45 mg PO DAILY 11/21/16 11/21/16 History Allergies Allergy/AdvReac Type Severity Reaction Status Date / Time oxaprozin [From Daypro] Allergy Severe Swelling Verified 11/21/16 19:10 throat & tongue, reddened face Physical Examination - Vital Signs Vital Signs: Vital Signs Temp Pulse Pulse Pulse Resp BP BP 11/22/16 15:16 98.2 F 88 16 148/91 11/22/16 14:00 84 16 142/78 11/22/16 13:00 83 20 138/83 11/22/16 12:30 84 20 134/89 11/22/16 12:00 83 20 140/90 11/22/16 11:45 79 20 123/90 11/22/16 11:30 78 20 135/93 10/06/17 11:15 98.2 F 78 22 114/84 11/22/16 08:00 97.9 F 99 24 135/83 11/22/16 04:00 99 18 11/22/16 03:58 97.0 F L 99 18 138/97 11/22/16 00:00 97.0 F L 91 16 140/78 11/21/16 22:00 86 18 11/21/16 21:14 80 18 137/60 11/21/16 20:47 97.6 F 86 16 132/90 11/21/16 20:43 84 18 146/70 Pulse Ox 11/22/16 15:16 95 11/22/16 14:00 96 11/22/16 13:00 95 11/22/16 12:30 98 11/22/16 12:00 96 11/22/16 11:45 97 11/22/16 11:30 97 11/22/16 11:15 96 11/22/16 08:00 96 11/22/16 04:00 11/22/16 03:58 92 L 11/22/16 00:00 92 L 11/21/16 22:00 11/21/16 21:14 94 L 11/21/16 20:47 96 11/21/16 20:43 95 Intake and Output 11/22/16 11/22/16 11/22/16 06:59 14:59 22:59 Intake Total 8687 952 2382 Output Total 450 Balance 1115 369 590 Intake: IV 129 800 Sodium Chloride 0.9% 1, 800 000 ml @ 100 mls/hr IV . Q10H [facility] Rx#:[id number] Intake, IV Titration 1115 Amount Heparin Sodium,Porcine/ 315 D5w Pmx 25,000 unit In Dextrose/Water 1 500ml. bag @ 10.6 UNITS/KG/HR 20 mls/hr IV .Q24H [facility] Rx#: [id number] Sodium Chloride 0.9% 1, 800 000 ml @ 100 mls/hr IV . Q10H [facility] Rx#:[id number] Oral 240 240 Output: Urine 450 Other: Voiding Method Toilet Toilet Urinal Urinal # Voids 2 Weight 97.7 kg 97.7 kg Patient Weight 11/23/16 06:59 Weight 97.7 kg Constitutional: AOx3, cooperative HEENT: NC/AT, no facial asymmetry is seen. Throat: Supple, no masses Respiratory: No increased work of breathing Cardiac: Regular rate and Rhythm GI: non tender, non distended Musculoskeletal: Plow Mechanic strengths are equal bilaterally 5/5, Lower extremity strengths are equal bilaterally at 5/5. Neurological: CN II-XII in tact, patient was AOx3, speech and language are normal, no unilateralizing weakness, no seizure activity note on physical exam. Sensation was normal. Integementary: no rash, no erythema Psychiatric: mood and affect appropriate Results - Laboratory Findings CBC and BMP: 11/22/16 06:26 11/21/16 18:55 Abnormal Lab Findings: Abnormal Labs 11/21/16 11/21/16 11/21/16 18:55 18:55 18:55 MCHC 30.9 L RDW 16.7 H Chloride 95 L Glucose 291 H POC Glucose (mg/dL) Hemoglobin A1c Total Creatine Kinase 43 L Troponin I 0.081 H* Triglycerides Cholesterol LDL Cholesterol, Calc Urine Glucose (UA) Urine Opiates Screen U Benzodiazepines Scrn 11/21/16 11/22/16 11/22/16 19:25 00:56 06:26 MCHC RDW Chloride Glucose POC Glucose (mg/dL) Hemoglobin A1c Total Creatine Kinase 36 L 31 L Troponin I 0.067 H* 0.070 H* Triglycerides Cholesterol LDL Cholesterol, Calc Urine Glucose (UA) 3+ H Urine Opiates Screen Detected H U Benzodiazepines Scrn Detected H 11/22/16 11/22/16 11/22/16 06:26 06:26 07:33 MCHC RDW Chloride Glucose POC Glucose (mg/dL) 223 H Hemoglobin A1c 8.2 H Total Creatine Kinase Troponin I Triglycerides 221 H Cholesterol 224 H LDL Cholesterol, Calc 140 H Urine Glucose (UA) Urine Opiates Screen U Benzodiazepines Scrn 11/22/16 11/22/16 11:19 16:26 MCHC RDW Chloride Glucose POC Glucose (mg/dL) 175 H 223 H Hemoglobin A1c Total Creatine Kinase Troponin I Triglycerides Cholesterol LDL Cholesterol, Calc Urine Glucose (UA) Urine Opiates Screen U Benzodiazepines Scrn - Diagnostic Findings Comments: CT brain was negative Assessment and Plan (1) Altered mental status Status: Acute (2) Weakness Status: Acute Plan: 1. Altered mental status 2. Fatigue 3. Hyperlipidemia On physical exam and after discussing the matter with the patient, it does appear with reasonable medical certainty that the patient's current status which caused him to present at the ED was most likely related to his cardiac status and subsequent cardiac cath. CT of the brain was negative. Physical exam revealed no neurological deficits. Musculoskeletal assessment was equal bilaterally. At this time it does not appear that the patient has any neurological etiology that requires follow-up or diagnostic workup at this time. Status: Neurology will be available to reconsult on an as-needed basis. At this point, the patient can be cleared from a neurological standpoint. Contact our office with any questions or any request for reconsult. I discussed the patient's pertinent medical information with Dr. Garcia. He agrees with the plan of care as implemented.
[2016-11-22 21:01] LABS: Glucose,Whole Blood 205 mg/dL (75-99)
[2016-11-23] MEDS: HYDROcodone/APAP 10-325MG 1 EACH TAB PO PRN ×2 (03:48→09:51)
[2016-11-23 06:12] LABS: Glucose,Whole Blood 229 mg/dL (75-99)
[2016-11-23] MEDS: INSULIN LISPRO (humaLOG) 300 UNIT/3 ML VIAL SQ SCH ×2 (06:16→12:07)
[2016-11-23] MEDS: PANTOPRAZOLE 40 MG TABLET PO SCH (06:16)
[2016-11-23 07:03] LABS: Mean Platelet Volume 8.2
[2016-11-23 07:22] LABS: Anion Gap 10 mmol/L; Blood Urea Nitrogen 10 mg/dL (9-20); Calcium 9.1 mg/dL (8.4-10.2); Carbon Dioxide 28 mmol/L (22-30); Chloride 101 mmol/L (98-107); Glucose 247 mg/dL (74-99); Non-African American GFR(MDRD) >60 (>60 ml/min/1.73 sqM); Potassium 4.8 mmol/L (3.5-5.1); Sodium 139 mmol/L (137-145)
[2016-11-23] MEDS ORDERED: ASPIRIN 81 MG PO SCH (09:00)
--- NOTE | 2016-11-23 09:37 | P.DS ---
Providers Date of admission: 11/21/16 20:25 Attending physician: Palmer Ariza Consults: 11/21/16 20:25 Consult Physician Routine Consulting Provider: Kim Garcia Consult Reason/Comments: ams Do you want consulting provider notified?: Yes Consult Physician Urgent Consulting Provider: Ramon Boyd Consult Reason/Comments: nstemi Do you want consulting provider notified?: Yes 11/22/16 11:15 Consult Physician Routine Consulting Provider: [facility] Consult Reason/Comments: Post Interventional patient Do you want consulting provider notified?: Already Contacted Primary care physician: Palmer Ariza The patient is a 61-year-old patient who presented initially to the emergency room with weakness and change in mental status. Evaluation showed elevation of his troponin and patient was admitted to the telemetry unit where he was seen in consult by cardiology. EKG did not show much in the way of ischemic changes but further troponin levels were still elevated. Echocardiogram revealed generally good LV function with an ejection fraction of 60-65%. There was mild right ventricular enlargement. Right ventricular systolic pressure was normal at less than 35 mmHg. Other laboratory values revealed a white count of 8.5 with a hemoglobin 14.3 and a platelet count of 300. Coagulation studies were unremarkable with an INR of 1.1 and a PTT of 22.7. Electrolytes were normal and a BUN of 15 with a creatinine of 0.73 related to a GFR greater than 60. Blood sugar was elevated to 91. Other liver function testing was good. A TSH was normal at 1.69 and vitamin B12 normal at 368. Her cholesterol was elevated to with a total of 224 , triglycerides 221, LDL cholesterol 140 and HDL cholesterol 40. Urinalysis was negative for infection along with culture. Chest x-ray and CAT scan did not show any acute changes. Patient was seen in consultation by neurology who did not feel that further workup was necessary. Please refer to the consultation. Patient underwent cardiac catheterization and because of the mid right coronary stenosis he underwent stenting using a drug eluding stent. Discharge medications pending any further changes per cardiology: Effient 10 mg daily Aspirin 81 mg daily Xanax 0.5 mg 3 times a day Abilify 10 mg daily Atorvastatin 80 mg daily Hydrochlorothiazide 12.5 daily Enalapril 20 mg daily Cymbalta 20 mg daily Resume metformin thousand milligrams twice a day Zolpidem 10 mg at at bedtime for sleep as needed Actos 45 mg daily for diabetes Omeprazole 20 mg daily for gastroesophageal reflux Metoprolol titrate 50 mg daily Hydrocodone/acetaminophen 10-325 one 4 times a day when necessary for pain Final discharge diagnoses: 1. Non-ST segment myocardial infarction with stenosis and now angioplasty and stenting with a drug-eluting stent of the mid right coronary artery. 2. Sleep apnea for which he will need further referral to the sleep center for study and new BiPAP machine. 3. Obesity 4. Diabetes type 2 5. Hyperlipidemia 6. Hypertension 7 history of depression and anxiety 8 lumbar osteoarthritis for which he is on chronic analgesics 9 gastroesophageal reflux 10 surgical history with the left hip replacement and right shoulder surgeries in the past History of nasal surgery Bilateral hernia repair History of penile surgery by Dr. Weldon, urology. We did discuss with patient that down the line besides further treatment of the sleep apnea there are available intensive classes for control of weight and diabetes as an outpatient. Along with possible cardiac rehab. And these can be arranged as an outpatient. He has declined in the past. Hopefully patient will be motivated in the future. He should now to continue with gradual ambulation. Use of his home sleep BiPAP and future sleep study. Follow-up with myself next week Follow-up with cardiology as they schedule. Patient Condition at Discharge: Fair Plan - Discharge Summary New Discharge Prescriptions: No Action metFORMIN HCL [Glucophage] 1,000 mg PO BID Omeprazole 20 mg PO DAILY Enalapril [Vasotec] 20 mg PO DAILY Hydrochlorothiazide [Hydrodiuril] 12.5 mg PO QAM Zolpidem Tartrate [Zolpidem Tartrate] 10 mg PO HS Metoprolol Tartrate [Lopressor] 50 mg PO DAILY Hydrocodone/Acetaminophen [[place] 10-325] 1 tab PO QID PRN PRN Reason: Pain DULoxetine HCL [Cymbalta] 20 mg PO QAM ALPRAZolam [Alprazolam] 0.5 mg PO TID PRN PRN Reason: Anxiety Pioglitazone [Actos] 45 mg PO DAILY ARIPiprazole [Abilify] 10 mg PO DAILY Atorvastatin Calcium [Lipitor] 80 mg PO DAILY Discharge Medication List ALPRAZolam [Alprazolam] 0.5 mg PO TID PRN 02/23/16 [History] DULoxetine HCL [Cymbalta] 20 mg PO QAM 02/23/16 [History] Enalapril [Vasotec] 20 mg PO DAILY 02/23/16 [History] Hydrochlorothiazide [Hydrodiuril] 12.5 mg PO QAM 02/23/16 [History] Hydrocodone/Acetaminophen [[place] 10-325] 1 tab PO QID PRN 02/23/16 [History] Metoprolol Tartrate [Lopressor] 50 mg PO DAILY 02/23/16 [History] Omeprazole 20 mg PO DAILY 02/23/16 [History] Zolpidem Tartrate [Zolpidem Tartrate] 10 mg PO HS 02/23/16 [History] metFORMIN HCL [Glucophage] 1,000 mg PO BID 02/23/16 [History] ARIPiprazole [Abilify] 10 mg PO DAILY 11/21/16 [History] Atorvastatin Calcium [Lipitor] 80 mg PO DAILY 11/21/16 [History] Pioglitazone [Actos] 45 mg PO DAILY 11/21/16 [History] Follow up Appointment(s)/Referral(s): Palmer Ariza MD [Primary Care Provider] - 1-2 days Patient Instructions/Handouts: Altered Mental Status (ED) Activity/Diet/Wound Care/Special Instructions: REFERRAL TO SLEEP CENTER AFTER DISCHARGE Pt copay for Effient is $10/month
[2016-11-23] MEDS: HYDROCHLOROTHIAZIDE 12.5 MG CAP PO SCH (09:45)
[2016-11-23] MEDS: METOPROLOL TARTRATE 50 MG TAB PO SCH (09:45)
[2016-11-23] MEDS: ARIPiprazole 10 MG TAB PO SCH (09:45)
[2016-11-23] MEDS: LISINOPRIL 20 MG TAB PO SCH (09:45)
[2016-11-23] MEDS: PIOGLITAZONE 45 MG TAB PO SCH (09:45)
[2016-11-23] MEDS: ATORVASTATIN 80 MG TAB PO SCH (09:46)
[2016-11-23] MEDS ORDERED: PRASUGREL 10 MG TAB PO SCH (11:16)
[2016-11-23 11:43] LABS: Glucose,Whole Blood 241 mg/dL (75-99)
[2016-11-23 12:43] VITALS: BP 121/80; PULSE 73; RESP 18; TEMP 97.2
--- NOTE | 2016-11-23 13:16 | PN ---
PROGRESS NOTE Mr. Cade 61-year-old male who presented with change in mental status, was noted to have abnormal 3rd troponin, underwent cardiac catheterization. He was found to have significant obstructive disease in the mid right coronary artery, underwent stenting of that vessel. He is doing well this morning. He is denying any chest pain. His breathing has been stable. He denies any dizziness or palpitation. He denies any nausea. He feels better overall. He continues to be at this time on aspirin once a day, Effient 10 mg daily, Lipitor 80 mg daily, metoprolol tartrate 50 mg daily, lisinopril 40 mg daily. PHYSICAL EXAMINATION: Blood pressure 140/90 with a heart rate in the 90s. LUNGS: Clear. Heart regular rate and rhythm. S1, S2. No S3. No rub. ABDOMEN: Soft, nontender. EXTREMITIES: No edema. Right radial pulse is intact. LAB DATA: Revealed BUN creatinine of 10 and 0.7, potassium 4.8. IMPRESSION: 1. Status post stenting of the right coronary artery with non ST-segment elevation myocardial infarction. 2. Hypertension. 3. Hyperlipidemia. 4. Diabetes mellitus. RECOMMENDATION: The patient should be able to be discharged home today and followed as an outpatient. MMODL / IJN: [id number] /
== END 2016-11-23 13:26 | disposition home or self-care (01) | DRG 247 ==
LOC: EC 18:26 → 6SEL 20:25
PROVIDERS: ADMIT Internal Medicine; ATTEND Internal Medicine
PROC: B2111ZZ Fluoroscopy of Multiple Coronary Arteries using Low Osmolar Contrast (ICD-10-PCS; 2016-11-22)
PROC: B2151ZZ Fluoroscopy of Left Heart using Low Osmolar Contrast (ICD-10-PCS; 2016-11-22)
PROC: 027034Z Dilation of Coronary Artery, One Artery with Drug-eluting Intraluminal Device, Percutaneous Approach (ICD-10-PCS; principal; 2016-11-22 09:41)
PROC: 4A023N7 Measurement of Cardiac Sampling and Pressure, Left Heart, Percutaneous Approach (ICD-10-PCS; 2016-11-22 09:41)
DX: I21.4 Non-ST elevation (NSTEMI) myocardial infarction (principal); E11.69 Type 2 diabetes mellitus with other specified complication; E66.9 Obesity, unspecified; E78.5 Hyperlipidemia, unspecified; F32.9 Major depressive disorder, single episode, unspecified; F41.9 Anxiety disorder, unspecified; G47.00 Insomnia, unspecified; G47.33 Obstructive sleep apnea (adult) (pediatric); I10 Essential (primary) hypertension; K21.9 Gastro-esophageal reflux disease without esophagitis; M47.816 Spondylosis without myelopathy or radiculopathy, lumbar region; R41.82 Altered mental status, unspecified; Z79.84 Long term (current) use of oral hypoglycemic drugs; Z79.899 Other long term (current) drug therapy; Z87.891 Personal history of nicotine dependence; Z96.642 Presence of left artificial hip joint; Z88.8 Allergy status to other drugs, medicaments and biological substances
CPT/HCPCS: 36415; 70450; 71020; 80048; 80053; 80061; 80306; 81003; 82140; 82550; 82553; 82607; 83036; 83735; 84100; 84443; 84484; 85025; 85049; 85610; 85730; 87086; 93005; 93306; 93458; 96361; 96365; 96376; 99291

== ENCOUNTER → 2017-02-13 | Outpatient (CLI) | payer BC ==
--- NOTE | 2017-02-13 22:01 | CONS ---
CONSULTATION DATE OF SERVICE: 02/13/2017 A 61-year-old gentleman has been evaluated in the sleep center for obstructive sleep apnea-hypopnea syndrome. HISTORY OF PRESENT ILLNESS AND SLEEP-WAKE EVALUATION: The patient had been diagnosed with obstructive sleep apnea around 2005. At that time, he was recommended to use the treatment with positive air pressure with a pressure of 11 cm of water. The patient started to use it for a short period of time, but had difficulties with the mask and stopped using it. After that, patient underwent oral surgery for obstructive sleep apnea by Dr. Philip and after surgery, his snoring became less than before, but then the patient again developed all symptoms of sleep apnea. At the present time, his sleep schedule is from around 9:00 p.m. until 7:30 a.m. Sometimes he has problem with falling asleep. He has TV set in bedroom. He snores, has episodes of stopped breathing during sleep. According to his , wakes up with a choking, nocturia, dry mouth, grinding teeth, panic attack, heartburn, gasping for air, sweating and sleep talking. The patient wakes up from sleep up to 4 times with 3 episodes of nocturia. No history of hypnagogic hallucinations, sleep paralysis or cataplexy. Snoring is very loud. During the day, patient feels significantly sleepy. [place] Sleepiness Scale in extremely high range of 21. Recently patient has been hospitalized with difficulties to breathe and after that, he strongly recommended to restart treatment with the CPAP. Medications at the present time are: 1. Alprazolam. 2. Aspirin. 3. Cymbalta. 4. [place]. 5. Metoprolol. 6. Omeprazole. 7. Effient. 8. Metformin. 9. Amlodipine. 10.Augmentin. 11.Levemir. 12.DuoNeb. PAST MEDICAL HISTORY: Positive for hypertension, coronary artery disease, diabetes, hyperlipidemia, acid reflux, back problems, shoulder problems. PAST SURGICAL HISTORY: Stent insertion during this year after heart attack in November of 2016, left hip replacement and possibly UPPP around 2005. SOCIAL HISTORY: Negative for smoking. Alcohol consumption occasional. FAMILY HISTORY: Hypertension, heart problems, hyperlipidemia, sleep apnea, snoring, lung problem, arthritis, acid reflux, ulcers, diabetes, nasal polyps, mental illness. REVIEW OF SYSTEMS: Multiple awakenings from sleep with choking and gasping for air, extremely high sleepiness during the day. PHYSICAL EXAMINATION: GENERAL gentleman without distress. VITAL SIGNS BP 114/69, HR 94, RR 16, height 5 feet 7 inches, weight 212.8, BMI 33.2, temperature 97.6, oxygen saturation at room air 92%. HEENT PERRLA, EOMI, evaluation of oropharynx showed tongue protrudes midline, extremely low position of soft palate. Mallampati IV. Restriction of nasal breathing bilaterally. Neck Supple, no JVD. Thyroid is not palpable. Wide neck, 16-3/4 inches in circumference. LUNGS Clear to percussion and to auscultation. Good air exchange. No wheezing or rhonchi. HEART S1, S2 regular. No murmurs, gallops, or rubs. ABDOMEN Obese, soft and nontender. Bowel sounds are present. No organomegaly appreciated. EXTREMITIES No clubbing or cyanosis, up to 1+ ankle edema. 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 Cranial nerves 2 to 7 intact. There is no fasciculation or atrophy. noted. No focal deficits observed. IMPRESSION: 1. Snoring, witnessed episodes of sleep apnea, extremely low position of soft palate, multiple awakenings from sleep, obstructive sleep apnea-hypopnea syndrome. 2. Extremely high excessive daytime sleepiness. [place] Sleepiness Scale of 21. Hypersomnia should be included in differential diagnosis. 3. Coronary artery disease, status post heart attack in November of 2016, status post stent insertions. 4. Hypertension. 5. Diabetes mellitus. 6. Acid reflux. 7. Hyperlipidemia. 8. Back pain. 9. Shoulder problems. 10.Status post left hip replacement. 11.Status post uvulopalatopharyngoplasty. PLAN: 1. Polysomnography for evaluation of patient's breathing during sleep. 2. CPAP/BiPAP titration if sleep study confirms obstructive sleep apnea-hypopnea syndrome. 3. Preferable position during sleep on the side. 4. No driving if patient feels any sleepiness. Patient is aware of civil and criminal liability for unsafe driving. 5. I will see patient for follow up visit to explain results of testing and following plan. Thank you very much for referring this patient for re-evaluation. Sincerely, Cameron Garcia MD, PhD, FAASM Diplomat of [employer] X Ray Technologist of [facility] [place] MMFÁTIMAL / LOREEN: [id number] /
== END | disposition home or self-care (01) ==
LOC: SLEEP 15:29
PROVIDERS: ATTEND Internal Medicine
DX: G47.33 Obstructive sleep apnea (adult) (pediatric) (principal); I25.10 Atherosclerotic heart disease of native coronary artery without angina pectoris; I10 Essential (primary) hypertension; K21.9 Gastro-esophageal reflux disease without esophagitis; E11.9 Type 2 diabetes mellitus without complications; E78.5 Hyperlipidemia, unspecified; Z96.642 Presence of left artificial hip joint; Z98.890 Other specified postprocedural states; Z79.899 Other long term (current) drug therapy; Z79.4 Long term (current) use of insulin; Z79.82 Long term (current) use of aspirin
CPT/HCPCS: 99211

== ENCOUNTER → 2017-03-07 | Outpatient (CLI) | payer BC ==
[2017-03-07 11:21] LABS: ALT 35 U/L (21-72); AST 21 U/L (17-59); Albumin 4.4 g/dL (3.5-5.0); Alkaline Phosphatase 115 U/L (38-126); Anion Gap 12 mmol/L; Blood Urea Nitrogen 13 mg/dL (9-20); Calcium 10.2 mg/dL (8.4-10.2); Carbon Dioxide 32 mmol/L (22-30); Chloride 99 mmol/L (98-107); Cholesterol 222 mg/dL (<200); Glucose 122 mg/dL (74-99); HDL Cholesterol 36 mg/dL (40-60); LDL Cholesterol,Calculated 137 mg/dL (0-99); Potassium 4.8 mmol/L (3.5-5.1); Sodium 143 mmol/L (137-145); Total Bilirubin 0.7 mg/dL (0.2-1.3); Total Protein 7.3 g/dL (6.3-8.2); Triglycerides 246 mg/dL (<150)
== END | disposition home or self-care (01) ==
LOC: LABWHC1 10:07
PROVIDERS: ATTEND Internal Medicine Interventional Cardiology
DX: E78.2 Mixed hyperlipidemia (principal)
CPT/HCPCS: 36415; 80053; 80061

== ENCOUNTER → 2017-06-26 | Outpatient (CLI) | payer BC ==
--- NOTE | 2017-06-26 17:26 | PN ---
PROGRESS NOTE DATE OF SERVICE: 06/26/2017 61-year-old gentleman has been followed in Sleep Center for treatment of obstructive sleep apnea-hypopnea syndrome. Recently patient had a home sleep apnea test and CPAP titration and I discussed results of the sleep studies with patient in details. Home sleep apnea test showed severe sleep apnea with apnea-hypopnea index 71.8 and oxygen desaturation to 61%. Subsequently, patient was started on treatment with CPAP and today is his first visit with his CPAP unit. He sleeps better with the machine. He does not feel tired and sleepy during the day as before. I checked his CPAP unit. CPAP pressure is 14 cm of water. Usage is 100% of the time more than 4 hours. Average usage is 10.2 hours. Apnea-hypopnea index on the machine for the last month only 2.3. The patient is using nasal pillows mask and machine showed quite significant leak 55 L/minute which is probably related to opening his mouth. [place] Sleepiness Scale today is 0. MEDICATIONS: Metformin, amlodipine, Levemir, DuoNeb, alprazolam, aspirin, duloxetine, hydrochlorothiazide, metoprolol, omeprazole, [place], Effient. PHYSICAL EXAM: During physical examination, patient in no distress. BP 117/74, HR 82, RR 16, weight 192, temp 98.2, oxygen saturation on room air 99%. Oropharynx low position of soft palate. Neck Supple, no JVD. Thyroid is not palpable. LUNGS Clear to percussion and to auscultation. Good air exchange. No wheezing or rhonchi. HEART S1, S2 regular. No murmurs, gallops, or rubs. ABDOMEN: Obese. Soft and nontender. Bowel sounds are present. No organomegaly appreciated. EXTREMITIES No clubbing or cyanosis. 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 Cranial nerves 2 to 7 intact. There is no fasciculation or atrophy. noted. No focal deficits observed. IMPRESSION: 1. Extremely severe obstructive sleep apnea-hypopnea syndrome; apnea-hypopnea index 71.8 with oxygen desaturation 61% by results of home sleep apnea test on control with CPAP at 14 cm of water. The patient demonstrated 100% compliance with treatment benefitting from treatment. 2. Hypertension. 3. Coronary artery disease, status post heart attack in November 2016 and status post stent insertion. 4. Diabetes mellitus. 5. Acid reflux. 6. Hyperlipidemia. 7. Back problem. 8. Shoulder problems. 9. Status post left hip replacement. 10.Status post uvulopalatopharyngoplasty. PLAN: 1. Patient will continue to use CPAP every night for the whole night. 2. Watching and losing weight. 3. Sleep hygiene with time in bed for at least 8 hours. 4. No driving if feeling sleepiness. 5. Followup visit in 10 months. 6. We will add a chinstrap to the treatment. Thank you very much for allowing me to participate in the management of your patient. Sincerely, Cameron Garcia MD, PhD, FAASM Diplomat of [employer] Lead Business Systems Analyst of [facility] [place] MMODL / LOREEN: [id number] /
== END | disposition home or self-care (01) ==
LOC: SLEEP 16:34
PROVIDERS: ATTEND Internal Medicine
DX: G47.33 Obstructive sleep apnea (adult) (pediatric) (principal); I25.10 Atherosclerotic heart disease of native coronary artery without angina pectoris; E11.9 Type 2 diabetes mellitus without complications; K21.9 Gastro-esophageal reflux disease without esophagitis; E78.5 Hyperlipidemia, unspecified; Z96.642 Presence of left artificial hip joint; Z98.890 Other specified postprocedural states; Z99.89 Dependence on other enabling machines and devices; Z79.84 Long term (current) use of oral hypoglycemic drugs; Z79.51 Long term (current) use of inhaled steroids; Z86.79 Personal history of other diseases of the circulatory system; Z79.82 Long term (current) use of aspirin; Z95.5 Presence of coronary angioplasty implant and graft; Z79.891 Long term (current) use of opiate analgesic; Z79.899 Other long term (current) drug therapy

== ENCOUNTER → 2017-12-26 | Outpatient (CLI) | payer BC ==
[2017-12-26 19:07] LABS: Albumin 4.9 g/dL (3.80-4.90); Albumin/Globulin Ratio 2.23 (1.20-2.10); Anion Gap 13.2 mmol/L (4.00-12.00); Calcium 9.6 mg/dL (8.7-10.3); Carbon Dioxide 25.8 mmol/L (21.6-31.8); Globulin 2.2 g/dL (2.1-3.7); LDL Cholesterol,Calculated 95.6 mg/dL (0.0-131.0); Potassium 4.2 mmol/L (3.5-5.5); Total Bilirubin 0.6 mg/dL (0.2-1.2); Total Protein 7.1 g/dL (6.2-8.2); VLDL Calculation 45.4 mg/dL (5.00-40.00)
== END | disposition home or self-care (01) ==
LOC: LABWHC1 11:32
PROVIDERS: ATTEND Internal Medicine Interventional Cardiology
DX: E78.2 Mixed hyperlipidemia (principal)
CPT/HCPCS: 36415; 80053; 80061

== ENCOUNTER 2018-03-03 21:38 | Emergency (ER) | payer BC ==
[2018-03-03 21:52] LABS: Glucose,Whole Blood 354 mg/dL (75-99)
[2018-03-03] MEDS ORDERED: INSULIN REGULAR 100 UNIT/ML VIAL SQ ONE (22:02)
[2018-03-03] MEDS ORDERED: predniSONE 20 MG TAB PO STA (22:05)
[2018-03-03] MEDS ORDERED: valACYclovir 500 MG TAB PO STA (22:05)
--- NOTE | 2018-03-03 22:12 | ED ---
Neuro HPI - General Chief Complaint: Neuro Symptoms/Deficit Stated Complaint: Rt side of face numb Time Seen by Provider: 03/03/18 21:51 Source: patient Mode of arrival: ambulatory Limitations: no limitations - History of Present Illness Is the patient presenting with stroke symptoms?: No Initial Comments: Palmer is a 62-year-old male with past medical history documented below who presents the emergency department today for evaluation of right-sided facial droop. Patient reports he's been in his usual state of health aside from having hyperglycemia. He reports that around 8:30 this evening he noticed that the right side of his mouth seemed to be drooping and his eyes seemed to be watering. The symptoms prompted his to bring him to the ER for evaluation. Patient reports that the symptoms began suddenly. He has had around runny nose and congestion recently but attributed this to seasonal ALLERGIES. Patient denies any headache, vision change, trouble with speech or swallowing, weakness in the arms or legs, trouble with walking. - Related Data Home Medications: Home Medications Medication Instructions Recorded Confirmed ALPRAZolam [Alprazolam] 0.5 mg PO TID PRN 02/23/16 03/03/18 Hydrochlorothiazide [Hydrodiuril] 12.5 mg PO QAM 02/23/16 03/03/18 Metoprolol Tartrate [Lopressor] 50 mg PO DAILY 02/23/16 03/03/18 Omeprazole 20 mg PO DAILY 02/23/16 03/03/18 metFORMIN HCL [Glucophage] 1,000 mg PO BID 02/23/16 03/03/18 Aspirin 81 mg PO DAILY 02/02/17 03/03/18 Prasugrel [Effient] 10 mg PO DAILY 02/02/17 03/03/18 HYDROcodone/APAP 7.5-325MG [[place] 1 tab PO QID PRN 03/03/18 03/03/18 7.5-325] Insulin Detemir [Levemir Flextouch] 44 units SQ HS 03/03/18 03/03/18 amLODIPine [Norvasc] 10 mg PO DAILY 03/03/18 03/03/18 Previous Rx's Medication Instructions Recorded predniSONE [Deltasone] See Taper PO DAILY #21 tablet 03/03/18 valACYclovir HCL [Valtrex] 1,000 mg PO Q8HR #30 tab 03/03/18 Allergies/Adverse Reactions: Allergies Allergy/AdvReac Type Severity Reaction Status Date / Time oxaprozin [From Daypro] Allergy Severe Swelling Verified 03/03/18 22:02 throat & tongue, reddened face Review of Systems ROS Statement: Those systems with pertinent positive or pertinent negative responses have been documented in the HPI. ROS Other: All systems not noted in ROS Statement are negative. General Exam - General Exam Comments Initial Comments: GENERAL: Patient is well-developed and well-nourished. Patient is nontoxic and well-hydrated and is in no distress. HENT: Normocephalic, Atraumatic. Neck is soft and supple. TMs normal bilaterally No significant lymphadenopathy is noted. Oropharynx is clear. Moist mucous membranes. Neck has full range of motion without eliciting any pain. EYES: The sclera were anicteric and conjunctiva were pink and moist. Extraocular movements were intact and pupils were equal round and reactive to light. Right eye is tearing PULMONARY: Unlabored respirations. Good breath sounds bilaterally. No audible rales rhonchi or wheezing was noted. CARDIOVASCULAR: There is a regular rate and rhythm without any murmurs gallops or rubs. ABDOMEN: Soft and nontender with normal bowel sounds. SKIN: Skin is clear with no lesions or rashes and otherwise unremarkable. NEUROLOGIC: Patient is alert and oriented x3. Normal speech, volume and content. Symmetrical smile. Right-sided facial droop involving the forehead, eyebrow, inability to fully close the right eye, tearing of the right eye MUSCULOSKELETAL: Normal extremities with adequate strength and full range of motion. No lower extremity swelling or edema. No calf tenderness. LYMPHATICS: No significant lymphadenopathy is noted PSYCHIATRIC: Normal psychiatric evaluation. 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 Level of Consciousness: (0) alert 1b. LOC Questions: (0) answers correctly 1c. LOC Commands: (0) performs tasks correctly 2. Best Gaze: (0) normal 3. Visual: (0) no visual loss 4. Facial Palsy: (3) complete paralysis 5a. Motor Arm Left: (0) no drift 5b. Motor Arm Right: (0) no drift 6a. Motor Leg Left: (0) no drift 6b. Motor Leg Right: (0) no drift 7. Limb Ataxia: (0) absent 8. Sensory: (0) normal 9. Best Language: (0) no aphasia 10. Dysarthria: (0) normal 11. Extinction/Inattention: (0) no abnormality - Medical Decision Making The patient was seen and evaluated immediately upon arrival to the emergency department for assessment of possible stroke Physical exam is concerning for Mustafa's palsy as the patient's right-sided facial droop involves the forehead and the inability to close his right eye completely as well as tearing of the right eye At this time I do not have any concern for acute stroke - we'll plan to treat for Mustafa's palsy with steroids and Valtrex The patient's [id number] glucose is elevated in the 340s, patient does have a history of poorly controlled diabetes, insulin ordered Patient's glucose decreasing At this time patient is stable for discharge with out patient follow up, all questions pertaining to care were answered to the best of my ability and return parameters were discussed. Patient discharged home in stable condition with prescriptions for Valtrex and prednisone taper. Patient was advised that prednisone can cause hyperglycemia he needs to monitor her sugars closely and follow with his primary care physician closely. - EKG Data -: EKG Interpreted by Me EKG shows normal: sinus rhythm Rate: normal EKG obtained at 9:58 PM, rate is 97 rhythm is sinus surgery normal axis, normal intervals, MD 166, QRS 70, QTC 46. There are no acute ST elevations or depressions no evidence of acute ischemia infarction or arrhythmia. 03/03/18 22:40 Past Medical History Past Medical History: Diabetes Mellitus, GERD/Reflux, Hyperlipidemia, Hypertension, Myocardial Infarction (SC), Osteoarthritis (OA), Sleep Apnea/CPAP/ BIPAP Additional Past Medical History / Comment(s): Obesity, diabetes mellitus, hyperlipidemia, hypertension, coronary artery disease with recent acute myocardial infarction post cardiac catheterization and angioplasty and stenting of RCA. The patient had a successful stenting of RCA. Acid reflux. Obstructive sleep apnea the patient is not wearing any CPAP therapy. Last Myocardial Infarction Date:: 11/17/16 History of Any Multi-Drug Resistant Organisms: None Reported Past Surgical History: Heart Catheterization With Stent, Hernia Repair, Joint Replacement, Orthopedic Surgery Additional Past Surgical History / Comment(s): 2 right rotator cuff repair. Lt hip replaced. Johnson. inguinal hernia repair. Past Anesthesia/Blood Transfusion Reactions: No Reported Reaction Additional Past Anesthesia/Blood Transfusion Reaction / Comment(s): States had transfusion at . Date of Last Stent Placement:: NOV 2016 Past Psychological History: Anxiety, Depression Smoking Status: Never smoker Past Alcohol Use History: None Reported Past Drug Use History: None Reported - Past Family History Brother(s) Family Medical History: Cancer, Deep Vein Thrombosis (DVT) Additional Family Medical History / Comment(s): 1 brother with Esophageal CA. 2 brothers with DVT. Sister(s) Family Medical History: Cancer Additional Family Medical History / Comment(s): Brain CA. Course Vital Signs 03/03/18 03/04/18 21:46 00:09 Temperature 98.9 F 98.7 F Pulse Rate 100 91 Respiratory 20 16 Rate Blood Pressure 163/98 158/86 O2 Sat by Pulse 100 98 Oximetry Critical Care Time Critical Care Time: Yes Total Critical Care Time: 15 Critical Care Time: Critical care time was exclusive of separately billable procedures and treating other patients. Critical care was necessary to treat or prevent imminent or life-threatening deterioration. Critical care was time spent personally by me on the following activities: development of treatment plan with patient or surrogate, discussions with consultants, discussions with primary provider, evaluation of patient's response to treatment, examination of patient, obtaining history from patient or surrogate, ordering and performing treatments and interventions, ordering and review of laboratory studies, ordering and review of radiographic studies, pulse oximetry, re-evaluation of patient's condition and review of old charts. Disposition Clinical Impression: Mustafa's palsy Disposition: HOME SELF-CARE Condition: Stable Instructions: Mustafa Palsy (ED) Prescriptions: predniSONE [Deltasone] See Taper PO DAILY #21 tablet valACYclovir HCL [Valtrex] 1,000 mg PO Q8HR #30 tab Is patient prescribed a controlled substance at d/c from ED?: No Referrals: Palmer Ariza MD [Primary Care Provider] - 1-2 days
[2018-03-03 23:10] LABS: Glucose,Whole Blood 315 mg/dL (75-99)
[2018-03-04 00:09] VITALS: BP 158/86; PULSE 91; RESP 16; TEMP 98.7
[2018-03-04 00:34] LABS: Glucose,Whole Blood 277 mg/dL (75-99)
== END 2018-03-04 00:13 | disposition home or self-care (01) ==
LOC: EC 21:38
DX: G51.0 Bell's palsy (principal); E11.65 Type 2 diabetes mellitus with hyperglycemia; J34.89 Other specified disorders of nose and nasal sinuses; I10 Essential (primary) hypertension; I25.10 Atherosclerotic heart disease of native coronary artery without angina pectoris; K21.9 Gastro-esophageal reflux disease without esophagitis; M19.90 Unspecified osteoarthritis, unspecified site; I25.2 Old myocardial infarction; Z88.6 Allergy status to analgesic agent; Z79.4 Long term (current) use of insulin; Z79.02 Long term (current) use of antithrombotics/antiplatelets; Z79.82 Long term (current) use of aspirin; Z79.899 Other long term (current) drug therapy; Z95.5 Presence of coronary angioplasty implant and graft; Z96.642 Presence of left artificial hip joint
CPT/HCPCS: 36415; 93005; 99284; J7512

== ENCOUNTER → 2018-03-12 | Outpatient (CLI) | payer BC ==
[2018-03-12 14:28] LABS: Blood Urea Nitrogen 19 mg/dL (9-20)
--- NOTE | 2018-03-12 15:07 | CT ---
EXAMINATION TYPE: CT brain wo/w con DATE OF EXAM: 03/12/2018 COMPARISON: 02/02/2017 HISTORY: Facial weakness right side face, bells palsy CT DLP: 2345 mGycm Automated exposure control for dose reduction was used. CONTRAST: CT scan of the head is performed without and with IV Contrast, patient injected with 100 mL of Isovue 300. FINDINGS: There is no evidence of acute intracranial hemorrhage, acute ischemic changes, mass, mass-effect, or extra-axial fluid collection. There is no effacement of cerebral sulci or basal subarachnoid cisterns . There is no hydrocephalus. There is no midline shift. Lewis-white matter distinction is preserved. Patchy white matter hypodensities in both cerebral hemispheres unchanged from prior. Moderate mucosal thickening throughout the ethmoid air cells. Opacification within the right mastoid air cells. IMPRESSION: 1. Degenerative and nonspecific white matter changes most typical of remote white matter ischemia. 2. Small remote lacunar infarction involving the basal ganglia 3. No pathologic enhancement. 4. Extensive severe changes of severe sinusitis. 5. Correlate for chronic mastoiditis.
--- NOTE | 2018-03-12 15:17 | US ---
EXAMINATION TYPE: US carotid duplex BILAT DATE OF EXAM: 03/12/2018 COMPARISON: CLINICAL HISTORY: R29.810 facial weakness. 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 HTN. No hx of TIA. EXAM MEASUREMENTS: RIGHT: Peak Systolic Velocity (PSV) cm/sec ----- Right CCA: 83.3 ----- Right ICA: 86.6 ----- Right ECA: 184.6 ICA/CCA ratio: 1.0 RIGHT: End Diastole cm/sec ----- Right CCA: 21.6 ----- Right ICA: 22.7 ----- Right ECA: 36.7 LEFT: Peak Systolic Velocity (PSV) cm/sec ----- Left CCA: 91.5 ----- Left ICA: 120.0 ----- Left ECA: 112.2 ICA/CCA ratio: 1.3 LEFT: End Diastole cm/sec ----- Left CCA: 22.8 ----- Left ICA: 33.2 ----- Left ECA: 26.7 VERTEBRALS (direction of flow): Right Vertebral: Antegrade Left Vertebral: Antegrade Rhythm: Normal Plaque seen in bilateral bulbs. Bilateral wall thickening. No elevated velocities or significant st enosis. IMPRESSION: 1. Atheromatous plaquing. Significant flow-limiting stenosis within the internal carotid arteries is not evident. 2. There is some mild narrowing of less than 50% within the left internal carotid system. Criteria for Assigning % of Stenosis / Diameter reduction (Estimation based on the indirect measurements of the internal carotid artery velocities (ICA PSV). 1. Normal (no stenosis)=ICA PSV < 125 cm/s: ratio < 2.0: ICA EDV<40 cm/s. 2. Less than 50% stenosis=ICA PSV < 125 cm/s: ratio < 2.0: ICA EDV<40 cm/s. 3. 50 to 69% stenosis=ICA PSV of 125 to 230 cm/s: ration 2.0 ? 4.0: ICA EDV 40-100 cm/s. 4. Greater than 70% stenosis to near occlusion= ICA PSV > 230 cm/s: ratio > 4.0: ICA EDV > 100 cm/s. 5. Near occlusion= ICA PSV velocities may be low or undetectable: variable ratio and ICA EDV. 6. Total occlusion=unable to detect flow.
== END ==
LOC: RADCTMAIN 13:39
PROVIDERS: ATTEND Internal Medicine
DX: I65.22 Occlusion and stenosis of left carotid artery (principal); I70.90 Unspecified atherosclerosis; R90.89 Other abnormal findings on diagnostic imaging of central nervous system
CPT/HCPCS: 82565; 84520; 93880; 70470; 36415; Q9967

== ENCOUNTER → 2018-06-15 | Outpatient (CLI) | payer BC ==
[2018-06-15 12:18] LABS: HCT 41.7 % (39.0-53.0); HGB 13.5 gm/dL (13.0-17.5); MCH 28.8 pg (25.0-35.0); MCHC 32.5 g/dL (31.0-37.0); MCV 88.5 fL (80.0-100.0); Mean Platelet Volume 7.8; Platelet Count 306 k/uL (150-450); RBC 4.71 m/uL (4.30-5.90); RDW 13.5 % (11.5-15.5); WBC 9.7 k/uL (3.8-10.6)
[2018-06-15 16:41] LABS: Albumin/Globulin Ratio 2.63 (1.60-3.17); Anion Gap 12.9 mmol/L (4.00-12.00); Calcium 9.9 mg/dL (8.7-10.3); Carbon Dioxide 27.1 mmol/L (21.6-31.8); Globulin 1.9 g/dL (1.6-3.3); LDL Cholesterol,Calculated 80.8 mg/dL (0.0-131.0); Potassium 4.6 mmol/L (3.5-5.5); Total Protein 6.9 g/dL (6.2-8.2); VLDL Calculation 76.2 mg/dL (5.00-40.00)
[2018-06-15 20:00] LABS: Hemoglobin A1C 8.6 % (4.0-6.0)
== END ==
LOC: LABWHC1 11:11
PROVIDERS: ATTEND Internal Medicine
DX: E11.9 Type 2 diabetes mellitus without complications (principal); E87.8 Other disorders of electrolyte and fluid balance, not elsewhere classified; E78.49 Other hyperlipidemia; R53.83 Other fatigue
CPT/HCPCS: 36415; 80053; 80061; 83036; 85027

== ENCOUNTER 2018-08-16 22:36 | Observation (INO) | payer BC ==
[2018-08-16] MEDS ORDERED: DIPH,PERTUS(ACELL)TETVAC-LF 0.5 ML VIAL IM ONE (22:43)
[2018-08-16] MEDS ORDERED: SODIUM CHLORIDE 0.9% 1,000 ML IV STA (22:43)
--- NOTE | 2018-08-16 22:59 | ED ---
Trauma HPI <ArleneJuanita Handy - Last Filed: 08/17/18 01:25> - General Source: EMS Mode of arrival: EMS Limitations: no limitations <Shawanda Barton - Last Filed: 08/17/18 03:30> - General Stated Complaint: Fall/Head Injury Time Seen by Provider: 08/16/18 22:43 - History of Present Illness Initial Comments: Palmer is a 62-year-old gentleman who presents the emergency department today after a mechanical trip and fall. Patient reports that he has been drinking alcohol throughout the afternoon, he states he's had a 12 pack of beer followed by 2 or 3 tall cans. Patient states he was sitting in a chair when he stood lost his balance and fell forward falling through a glass door. He does not believe he lost consciousness. He does take aspirin but no other antiplatelet or anticoagulant medications. Patient's noted immediate bleeding and called 911. (Shawanda Barton) - Related Data Home Medications Medication Instructions Recorded Confirmed ALPRAZolam [Alprazolam] 0.5 mg PO TID PRN 02/23/16 08/16/18 RX: Hydrochlorothiazide 12.5 mg PO QAM 02/23/16 08/16/18 [Hydrodiuril] RX: Metoprolol Tartrate [Lopressor] 50 mg PO DAILY 02/23/16 08/16/18 RX: Omeprazole 20 mg PO DAILY 02/23/16 08/16/18 metFORMIN HCL [Glucophage] 1,000 mg PO BID 02/23/16 08/16/18 Prasugrel [Effient] 10 mg PO DAILY 02/02/17 08/16/18 RX: Aspirin 81 mg PO DAILY 02/02/17 08/16/18 Insulin Detemir [Levemir Flextouch] 60 units SQ HS 03/03/18 08/16/18 amLODIPine [Norvasc] 10 mg PO DAILY 03/03/18 08/16/18 DULoxetine HCL [Cymbalta] 20 mg PO DAILY 08/16/18 08/16/18 HYDROcodone/APAP 10-325MG [Farson 1 tab PO BID PRN 08/16/18 08/16/18 10-325] Ipratropium-Albuterol Nebulize 3 ml INHALATION RT-QID PRN 08/16/18 08/16/18 [Duoneb 0.5 mg-3 mg/3 ml Soln] Pioglitazone HCl [Actos] 15 mg PO DAILY 08/16/18 08/16/18 Allergies Allergy/AdvReac Type Severity Reaction Status Date / Time oxaprozin [From Daypro] Allergy Severe Swelling Verified 08/16/18 23:27 throat & tongue, reddened face Review of Systems ROS Other: All systems not noted in ROS Statement are negative. <Juanita Jacobs L - Last Filed: 08/17/18 01:25> ROS Other: All systems not noted in ROS Statement are negative. <Shawanda Barton P - Last Filed: 08/17/18 03:30> ROS Statement: Those systems with pertinent positive or pertinent negative responses have been documented in the HPI. Past Medical History Past Medical History: Diabetes Mellitus, GERD/Reflux, Hyperlipidemia, Hypertension, Myocardial Infarction ([place]), Osteoarthritis (OA), Sleep Apnea/CPAP/BIPAP Additional Past Medical History / Comment(s): Obesity, diabetes mellitus, hyperlipidemia, hypertension, coronary artery disease with recent acute myocardial infarction post cardiac catheterization and angioplasty and stenting of RCA. The patient had a successful stenting of RCA. Acid reflux. Obstructive sleep apnea the patient is not wearing any CPAP therapy. Last Myocardial Infarction Date:: 11/17/16 History of Any Multi-Drug Resistant Organisms: None Reported Past Surgical History: Heart Catheterization With Stent, Hernia Repair, Joint Replacement, Orthopedic Surgery Additional Past Surgical History / Comment(s): 2 right rotator cuff repair. Lt hip replaced. Johnson. inguinal hernia repair. Past Anesthesia/Blood Transfusion Reactions: No Reported Reaction Additional Past Anesthesia/Blood Transfusion Reaction / Comment(s): States had transfusion at . Date of Last Stent Placement:: NOV 2016 Past Psychological History: Anxiety, Depression Smoking Status: Never smoker Past Alcohol Use History: Heavy Past Drug Use History: None Reported - Past Family History Brother(s) Family Medical History: Cancer, Deep Vein Thrombosis (DVT) Additional Family Medical History / Comment(s): 1 brother with Esophageal CA. 2 brothers with DVT. Sister(s) Family Medical History: Cancer Additional Family Medical History / Comment(s): Brain CA. <Shawanda Barton P - Last Filed: 08/17/18 03:30> General Exam Limitations: no limitations <Shawanda Barton - Last Filed: 08/17/18 03:30> - General Exam Comments Initial Comments: Physical Exam GENERAL: Intoxicated with head injury HENT: Normocephalic Laceration to left cheek approximately 3cm in laceration Laceration to left cheek overlying TMJ, flap in nature, approximately 3cm in total length, small arteriole bleeding Laceration to posterior pinna of the ear with visible cartilage Patient is able to smile, raises eyebrows, open and close eyes, pop out cheeks and has normal motor and sensory of left face no signs of facial nerve damage EYES: PERRL, EOMI PULMONARY: Unlabored respirations. No audible rales rhonchi or wheezing was noted. CARDIOVASCULAR: There is a regular rate and rhythm without any murmurs gallops or rubs. ABDOMEN: Soft and nontender with normal bowel sounds. SKIN: Lacerations as noted above : Deferred NEUROLOGIC: Patient is alert and oriented x3. Moving all extremities spontaneously Slurred speech MUSCULOSKELETAL: Normal extremities with adequate strength and full range of motion. No lower extremity swelling or edema. No calf tenderness. PSYCHIATRIC: Normal psychiatric evaluation (Shawanda Barton) Course <Shawanda Barton - Last Filed: 08/17/18 03:30> Vital Signs 08/16/18 08/16/18 08/16/18 22:37 23:33 23:35 Temperature 98.6 F Pulse Rate 83 81 Respiratory 18 18 Rate Blood Pressure 147/88 131/82 O2 Sat by Pulse 99 91 L 94 L Oximetry 08/17/18 08/17/18 08/17/18 00:17 01:10 01:15 Temperature Pulse Rate 82 98 71 Respiratory 18 18 18 Rate Blood Pressure 123/78 119/87 90/75 O2 Sat by Pulse 97 96 100 Oximetry 08/17/18 08/17/18 01:56 03:11 Temperature 97.7 F Pulse Rate 82 84 Respiratory 18 19 Rate Blood Pressure 129/83 119/75 O2 Sat by Pulse 98 94 L Oximetry - Reevaluation(s) Reevaluation #1: Patient has been resting comfortably in bed since laceration repair. At this time the 4 x 4 dressing applied to his ear does have some blood but there is not soaking through and no additional bleeding. 08/17/18 03:30 (Shawanda Barton) Procedures - Laceration Laceration #1 Consent Obtained: verbal consent Indication: laceration Site: face (Left cheek) Size (cm): 1 Description: linear Depth: simple, single layer Anesthetic Used: lidocaine 1% Anesthesia Technique: local infiltration Amount (mls): 1 Pre-repair: irrigated extensively Type of Sutures: nylon Size of Sutures: 4-0 Number of Sutures: 2 Technique: simple, interrupted Patient Tolerated Procedure: well Laceration #2 Consent Obtained: verbal consent Indication: laceration Site: face (Large laceration extending from below the ear to up behind the ear.) Size (cm): 6 Description: flap, irregular Depth: simple, single layer Anesthetic Used: lidocaine 1% Anesthesia Technique: local infiltration Amount (mls): 2 Pre-repair: wound explored, irrigated extensively Type of Sutures: nylon Size of Sutures: 4-0 Number of Sutures: 12 Technique: simple, interrupted Complications: bleeding Patient Tolerated Procedure: well Laceration #3 Consent Obtained: verbal consent Indication: laceration Site: other (Left earlobe) Size (cm): 0 (0.5cm) Description: linear Depth: simple, single layer Anesthetic Used: lidocaine 1% Anesthesia Technique: local infiltration Amount (mls): 1 Pre-repair: irrigated extensively Type of Sutures: nylon Size of Sutures: 5-0 Number of Sutures: 2 Technique: simple, interrupted Patient Tolerated Procedure: well <Juanita Jacobs - Last Filed: 08/17/18 01:25> - Laceration Laceration #2 Additional Comments: Hematoma under the wound. Bleeding is controlled at this time (Juanita Jacobs) Medical Decision Making - Lab Data Result diagrams: 08/16/18 22:53 08/16/18 22:53 <Juanita Jaocbs - Last Filed: 08/17/18 01:25> - Lab Data Result diagrams: 08/17/18 01:25 08/16/18 22:53 <Shawanda Barton - Last Filed: 08/17/18 03:30> - Medical Decision Making Patient was seen and evaluated, history was obtained from the patient and EMS The patient was intoxicated had a mechanical fall through a glass door and has multiple lacerations the left side of his face, bleeding controlled with direct pressure There is concern for possible underlying jaw fracture as there is clicking with opening the jaw, she reports this is chronic however I will CT brain and cervical spine as well as facial bones Labs and imaging were ordered TDaP was ordered and administered Ancef was ordered due to the laceration to the ear and concern for underlying exposed cartilage Laceration repair was done by mid-level provider Juanita Jacobs. Patient had persistent oozing of blood during laceration repair, after repair the patient was noted become pale and diaphoretic. Blood glucose at that time was 208. TXA was ordered and then Mr. for persistent bleeding The hemoglobin was ordered and resulted with a hemoglobin of 11.8 Patient remained hemodynamically stable, he was able to stand at bedside provide a urine Results were discussed with the patient and at bedside given that he is remarkably intoxicated, somewhat confused and has persistent ooze of blood from the left ear decision was made to admit the patient. Patient care was discussed with trauma physician contour path tape mill operator Dr. Marquez who agrees with plan for admission and requests that medicine be consult at. Patient care was discussed with the patient's primary care physician Dr. Ariza who is familiar with the patient and will medically manage the patient while in the hospital. (Shawanda Barton) - Lab Data Lab Results 08/16/18 08/16/18 08/16/18 Range/Units 22:53 22:53 22:53 WBC 15.8 H (3.8-10.6) k/uL RBC 4.25 L (4.30-5.90) m/uL Hgb 12.2 L (13.0-17.5) gm/dL Hct 36.9 L (39.0-53.0) % MCV 86.9 (80.0-100.0) fL MCH 28.8 (25.0-35.0) pg MCHC 33.2 (31.0-37.0) g/dL RDW 13.9 (11.5-15.5) % Plt Count 336 (150-450) k/uL Neutrophils % % Lymphocytes % % Monocytes % % Monocytes % (Manual) 45 % Eosinophils % % Eosinophils % (Manual) 43 % Basophils % % Metamyelocytes % 5 % Myelocytes % 7 % Neutrophils # (1.3-7.7) k/uL Lymphocytes # (1.0-4.8) k/uL Monocytes # (0-1.0) k/uL Monocytes # (Manual) 7.11 H (0-1.0) k/uL Eosinophils # (0-0.7) k/uL Eosinophils # (Manual) 6.79 H (0-0.7) k/uL Basophils # (0-0.2) k/uL Metamyelocytes # (Man) 0.79 H (0) k/uL Myelocytes # (Manual) 1.11 H (0) k/uL Nucleated RBCs 0 (0-0) /100 WBC Manual Slide Review Performed RBC Morphology Normal PT 10.4 (9.0-12.0) sec INR 1.0 (<1.2) APTT 24.8 (22.0-30.0) sec Sodium 129 L (137-145) mmol/L Potassium 4.0 (3.5-5.1) mmol/L Chloride 89 L (98-107) mmol/L Carbon Dioxide 23 (22-30) mmol/L Anion Gap 17 mmol/L BUN 10 (9-20) mg/dL Creatinine 0.73 (0.66-1.25) mg/dL Est GFR (CKD-EPI)AfAm >90 (>60 ml/min/1.73 sqM) Est GFR (CKD-EPI)NonAf >90 (>60 ml/min/1.73 sqM) Glucose 179 H (74-99) mg/dL POC Glucose (mg/dL) (75-99) mg/dL POC Glu Roll On Man ID Calcium 9.0 (8.4-10.2) mg/dL Total Bilirubin 0.7 (0.2-1.3) mg/dL AST 27 (17-59) U/L ALT 31 (21-72) U/L Alkaline Phosphatase 83 (38-126) U/L Troponin I (0.000-0.034) ng/mL Total Protein 7.1 (6.3-8.2) g/dL Albumin 4.5 (3.5-5.0) g/dL Urine Color Urine Appearance (Clear) Urine pH (5.0-8.0) Ur Specific [place] (1.001-1.035) Urine Protein (Negative) Urine Glucose (UA) (Negative) Urine Ketones (Negative) Urine Blood (Negative) Urine Nitrite (Negative) Urine Bilirubin (Negative) Urine Urobilinogen (<2.0) mg/dL Ur Leukocyte Esterase (Negative) Urine Opiates Screen (NotDetected) Ur Oxycodone Screen (NotDetected) Urine Methadone Screen (NotDetected) Ur Propoxyphene Screen (NotDetected) Ur Barbiturates Screen (NotDetected) U Tricyclic Antidepress (NotDetected) Ur Phencyclidine Scrn (NotDetected) Ur Amphetamines Screen (NotDetected) U Methamphetamines Scrn (NotDetected) U Benzodiazepines Scrn (NotDetected) Urine Cocaine Screen (NotDetected) U Marijuana (THC) Screen (NotDetected) Serum Alcohol 235 H* mg/dL Blood Type Blood Type Recheck Antibody Screen Spec Expiration Date 08/16/18 08/16/18 08/16/18 Range/Units 22:53 22:53 23:11 WBC (3.8-10.6) k/uL RBC (4.30-5.90) m/uL Hgb (13.0-17.5) gm/dL Hct (39.0-53.0) % MCV (80.0-100.0) fL MCH (25.0-35.0) pg MCHC (31.0-37.0) g/dL RDW (11.5-15.5) % Plt Count (150-450) k/uL Neutrophils % % Lymphocytes % % Monocytes % % Monocytes % (Manual) % Eosinophils % % Eosinophils % (Manual) % Basophils % % Metamyelocytes % % Myelocytes % % Neutrophils # (1.3-7.7) k/uL Lymphocytes # (1.0-4.8) k/uL Monocytes # (0-1.0) k/uL Monocytes # (Manual) (0-1.0) k/uL Eosinophils # (0-0.7) k/uL Eosinophils # (Manual) (0-0.7) k/uL Basophils # (0-0.2) k/uL Metamyelocytes # (Man) (0) k/uL Myelocytes # (Manual) (0) k/uL Nucleated RBCs (0-0) /100 WBC Manual Slide Review RBC Morphology PT (9.0-12.0) sec INR (<1.2) APTT (22.0-30.0) sec Sodium (137-145) mmol/L Potassium (3.5-5.1) mmol/L Chloride (98-107) mmol/L Carbon Dioxide (22-30) mmol/L Anion Gap mmol/L BUN (9-20) mg/dL Creatinine (0.66-1.25) mg/dL Est GFR (CKD-EPI)AfAm (>60 ml/min/1.73 sqM) Est GFR (CKD-EPI)NonAf (>60 ml/min/1.73 sqM) Glucose (74-99) mg/dL POC Glucose (mg/dL) (75-99) mg/dL POC Glu Roll On Man ID Calcium (8.4-10.2) mg/dL Total Bilirubin (0.2-1.3) mg/dL AST (17-59) U/L ALT (21-72) U/L Alkaline Phosphatase (38-126) U/L Troponin I <0.012 (0.000-0.034) ng/mL Total Protein (6.3-8.2) g/dL Albumin (3.5-5.0) g/dL Urine Color Colorless Urine Appearance Clear (Clear) Urine pH 5.0 (5.0-8.0) Ur Specific [place] 1.003 (1.001-1.035) Urine Protein Negative (Negative) Urine Glucose (UA) Negative (Negative) Urine Ketones Negative (Negative) Urine Blood Negative (Negative) Urine Nitrite Negative (Negative) Urine Bilirubin Negative (Negative) Urine Urobilinogen <2.0 (<2.0) mg/dL Ur Leukocyte Esterase Negative (Negative) Urine Opiates Screen Detected H (NotDetected) Ur Oxycodone Screen Not Detected (NotDetected) Urine Methadone Screen Not Detected (NotDetected) Ur Propoxyphene Screen Not Detected (NotDetected) Ur Barbiturates Screen Not Detected (NotDetected) U Tricyclic Antidepress Not Detected (NotDetected) Ur Phencyclidine Scrn Not Detected (NotDetected) Ur Amphetamines Screen Not Detected (NotDetected) U Methamphetamines Scrn Not Detected (NotDetected) U Benzodiazepines Scrn Detected H (NotDetected) Urine Cocaine Screen Not Detected (NotDetected) U Marijuana (THC) Screen Not Detected (NotDetected) Serum Alcohol mg/dL Blood Type A Positive Blood Type Recheck CABO Indicated Antibody Screen NEGATIVE Spec Expiration Date 08/19/2018235208/17/18 08/17/18 Range/Units 01:25 01:25 WBC 12.8 H (3.8-10.6) k/uL RBC 4.03 L (4.30-5.90) m/uL Hgb 11.8 L (13.0-17.5) gm/dL Hct 34.9 L (39.0-53.0) % MCV 86.5 (80.0-100.0) fL MCH 29.4 (25.0-35.0) pg MCHC 34.0 (31.0-37.0) g/dL RDW 13.8 (11.5-15.5) % Plt Count 409 (150-450) k/uL Neutrophils % 54 % Lymphocytes % 36 % Monocytes % 4 % Monocytes % (Manual) % Eosinophils % 4 % Eosinophils % (Manual) % Basophils % 1 % Metamyelocytes % % Myelocytes % % Neutrophils # 6.9 (1.3-7.7) k/uL Lymphocytes # 4.5 (1.0-4.8) k/uL Monocytes # 0.5 (0-1.0) k/uL Monocytes # (Manual) (0-1.0) k/uL Eosinophils # 0.5 (0-0.7) k/uL Eosinophils # (Manual) (0-0.7) k/uL Basophils # 0.1 (0-0.2) k/uL Metamyelocytes # (Man) (0) k/uL Myelocytes # (Manual) (0) k/uL Nucleated RBCs (0-0) /100 WBC Manual Slide Review RBC Morphology PT (9.0-12.0) sec INR (<1.2) APTT (22.0-30.0) sec Sodium (137-145) mmol/L Potassium (3.5-5.1) mmol/L Chloride (98-107) mmol/L Carbon Dioxide (22-30) mmol/L Anion Gap mmol/L BUN (9-20) mg/dL Creatinine (0.66-1.25) mg/dL Est GFR (CKD-EPI)AfAm (>60 ml/min/1.73 sqM) Est GFR (CKD-EPI)NonAf (>60 ml/min/1.73 sqM) Glucose (74-99) mg/dL POC Glucose (mg/dL) 207 H (75-99) mg/dL POC Glu Roll On Man ID Arft Eduardo Calcium (8.4-10.2) mg/dL Total Bilirubin (0.2-1.3) mg/dL AST (17-59) U/L ALT (21-72) U/L Alkaline Phosphatase (38-126) U/L Troponin I (0.000-0.034) ng/mL Total Protein (6.3-8.2) g/dL Albumin (3.5-5.0) g/dL Urine Color Urine Appearance (Clear) Urine pH (5.0-8.0) Ur Specific [place] (1.001-1.035) Urine Protein (Negative) Urine Glucose (UA) (Negative) Urine Ketones (Negative) Urine Blood (Negative) Urine Nitrite (Negative) Urine Bilirubin (Negative) Urine Urobilinogen (<2.0) mg/dL Ur Leukocyte Esterase (Negative) Urine Opiates Screen (NotDetected) Ur Oxycodone Screen (NotDetected) Urine Methadone Screen (NotDetected) Ur Propoxyphene Screen (NotDetected) Ur Barbiturates Screen (NotDetected) U Tricyclic Antidepress (NotDetected) Ur Phencyclidine Scrn (NotDetected) Ur Amphetamines Screen (NotDetected) U Methamphetamines Scrn (NotDetected) U Benzodiazepines Scrn (NotDetected) Urine Cocaine Screen (NotDetected) U Marijuana (THC) Screen (NotDetected) Serum Alcohol mg/dL Blood Type Blood Type Recheck Antibody Screen Spec Expiration Date Critical Care Time Critical Care Time: Yes Total Critical Care Time: 30 <Shawanda Barton - Last Filed: 08/17/18 03:30> Disposition <Juanita Jacobs - Last Filed: 08/17/18 01:25> <Shawanda Barton - Last Filed: 08/17/18 03:30> Clinical Impression: Fall, Laceration of left cheek, Laceration of left ear, Alcohol intoxication Disposition: ADMITTED IP TO THIS [facility] Condition: Stable Referrals: Palmer Ariza MD [Primary Care Provider] - 1-2 days
[2018-08-16 23:28] LABS: HCT 36.9 % (39.0-53.0); HGB 12.2 gm/dL (13.0-17.5); MCH 28.8 pg (25.0-35.0); MCHC 33.2 g/dL (31.0-37.0); MCV 86.9 fL (80.0-100.0); Mean Platelet Volume 7.3; Platelet Count 336 k/uL (150-450); RBC 4.25 m/uL (4.30-5.90); RDW 13.9 % (11.5-15.5); WBC 15.8 k/uL (3.8-10.6)
[2018-08-16] MEDS ORDERED: BUPIVACAINE (PF) 0.25% 30 ML VIAL SQ ONE (23:33)
[2018-08-16] MEDS ORDERED: LIDOCAINE 1% INJ 10MG/ML (20 ML MDV) SQ ONE (23:33)
[2018-08-16 23:35] LABS: Partial Thromboplastin Time 24.8 sec (22.0-30.0); Prothrombin Time 10.4 sec (9.0-12.0)
[2018-08-16 23:38] LABS: African American GFR (CKD) >90 (>60 ml/min/1.73 sqM); Albumin 4.5 g/dL (3.5-5.0); Anion Gap 17 mmol/L; Blood Urea Nitrogen 10 mg/dL (9-20); Carbon Dioxide 23 mmol/L (22-30); Chloride 89 mmol/L (98-107); Glucose 179 mg/dL (74-99); Sodium 129 mmol/L (137-145); Total Bilirubin 0.7 mg/dL (0.2-1.3); Total Protein 7.1 g/dL (6.3-8.2)
[2018-08-16 23:40] LABS: ALT 31 U/L (21-72); AST 27 U/L (17-59); Alcohol 235 mg/dL; Alkaline Phosphatase 83 U/L (38-126)
[2018-08-16 23:49] LABS: Appearance,Urine Clear (Clear); Bilirubin,Urine Negative (Negative); Blood,Urine Negative (Negative); Color,Urine Colorless; Glucose,Urine (UA) Negative (Negative); Ketones,Urine Negative (Negative); Leukocyte Esterase,Urine Negative (Negative); Nitrite,Urine Negative (Negative); Protein,Urine Negative (Negative); Specific Gravity,Urine 1.003 (1.001-1.035); Urobilinogen,Urine <2.0 mg/dL (<2.0)
[2018-08-16 23:57] LABS: Eosinophils # (M) 6.79 k/uL (0-0.7); Metamyelocytes # (M) 0.79 k/uL (0); Metamyelocytes % 5 %; Monocytes # (M) 7.11 k/uL (0-1.0); Myelocytes # (M) 1.11 k/uL (0); Myelocytes % 7 %; Nucleated Red Blood Cells 0 /100 WBC (0-0); Total Cells Counted 100
[2018-08-16 23:59] LABS: Amphetamine Screen,Urine Not Detected (NotDetected); Barbiturate Screen,Urine Not Detected (NotDetected); Benzodiazepines Screen,Urine Detected (NotDetected); Cocaine Screen,Urine Not Detected (NotDetected); Methadone Screen, Urine Not Detected (NotDetected); Opiate Screen,Urine Detected (NotDetected); Oxycodone Screen, Urine Not Detected (NotDetected); Phencyclidine Screen,Urine Not Detected (NotDetected); Tricyclic Antidepressant,Urine Not Detected (NotDetected); Urn Cannabinoid Scrn Not Detected (NotDetected)
--- NOTE | 2018-08-17 00:03 | XR ---
EXAM: XR Chest, 1 View CLINICAL HISTORY: ITS.REASON XR Reason: trauma TECHNIQUE: Frontal view of the chest. COMPARISON: No relevant prior studies available. FINDINGS: Lungs: Possible left base infiltrate. Lateral view could further assess.. Pleural space: Unremarkable. No pneumothorax. Heart: Mild cardiomegaly. Mediastinum: Unremarkable. Bones/joints: Unremarkable. IMPRESSION: No evidence of acute thoracic injury. Possible left base infiltrate. Lateral view could further assess. Mild cardiomegaly.
--- NOTE | 2018-08-17 00:04 | XR ---
EXAM: XR Pelvis, 1 or 2 Views CLINICAL HISTORY: ITS.REASON XR Reason: Trauma TECHNIQUE: Frontal view of the pelvis. COMPARISON: No relevant prior studies available. FINDINGS: Bones/joints: Left femoral head prosthesis. No acute fracture. No dislocation. Soft tissues: Unremarkable. IMPRESSION: No fracture or dislocation
--- NOTE | 2018-08-17 00:23 | CT ---
EXAM: CT Head Without Intravenous Contrast CLINICAL HISTORY: ITS.REASON CT Reason: trauma TECHNIQUE: Axial computed tomography images of the head/brain without intravenous contrast. CTDI is 25.8 mGy and DLP is 746.8 mGy-cm. This CT exam was performed using one or more of the following dose reduction techniques: automated exposure control, adjustment of the mA and/or kV according to patient size, and/or use of iterative reconstruction technique. COMPARISON: 03/12/18 FINDINGS: Brain: No intracranial hemorrhage or mass effect. Chronic basal ganglia infarcts. Generalized involutional and microvascular ischemic changes again noted. Ventricles: Unremarkable. No ventriculomegaly. Bones/joints: Unremarkable. No acute fracture. Soft tissues: Suspected superficial lacerations to the left occipitoparietal scalp. These are difficult to identify as there is cloth against the skin. Sinuses: Sinus disease has markedly improved in the interval. Mastoid air cells: Interval development of right mastoid and middle ear effusions. No temporal bone fracture to explain this finding. Consider otomastoiditis. IMPRESSION: No acute brain or skull injury. Chronic brain findings as above. Interval development of right mastoid and middle ear effusions. EXAM: CT Cervical Spine Without Intravenous Contrast CLINICAL HISTORY: ITS.REASON CT Reason: trauma TECHNIQUE: Axial computed tomography images of the cervical spine without intravenous contrast. CTDI is 14.8 mGy and DLP is 391.3 mGy-cm. This CT exam was performed using one or more of the following dose reduction techniques: automated exposure control, adjustment of the mA and/or kV according to patient size, and/or use of iterative reconstruction technique. COMPARISON: No relevant prior studies available. FINDINGS: Vertebrae: No acute fracture. Discs/spinal canal/neural foramina: Degenerative changes are most pronounced at the atlantodental joint. Soft tissues: Carotid atherosclerosis. IMPRESSION: No fracture
--- NOTE | 2018-08-17 00:28 | CT ---
EXAM: CT Maxillofacial Without Intravenous Contrast CLINICAL HISTORY: ITS.REASON CT Reason: trauma TECHNIQUE: Axial computed tomography images of the face without intravenous contrast. CTDI is 25.8 mGy and DLP is 746.8 mGy-cm. This CT exam was performed using one or more of the following dose reduction techniques: automated exposure control, adjustment of the mA and/or kV according to patient size, and/or use of iterative reconstruction technique. COMPARISON: Head CT of 03/12/18. FINDINGS: Bones/joints: No acute fracture. Deformity of the tip of the nasal bridge appears chronic Soft tissues: Question superficial laceration or other injury along the left lateral face/periauricular region, but difficult to assess as there is a cloth against the face. Orbits: Unremarkable. Sinuses: Mild frontoethmoidal and maxillary sinus mucosal thickening. This has significantly improved since prior head CT. IMPRESSION: No acute fracture.
[2018-08-17] MEDS ORDERED: TRANEXAMIC ACID 1,000 MG in SODIUM CHLORIDE 0.9% 250 ML IV ONE (01:20)
[2018-08-17] MEDS ORDERED: TRANEXAMIC ACID 1,000 MG in SODIUM CHLORIDE 0.9% 100 ML IV STA (01:20)
[2018-08-17 01:26] LABS: Glucose,Whole Blood 207 mg/dL (75-99)
[2018-08-17 01:57] LABS: Basophils # (A) 0.1 k/uL (0-0.2); Basophils % (A) 1 %; Eosinophils # (A) 0.5 k/uL (0-0.7); Eosinophils % (A) 4 %; HCT 34.9 % (39.0-53.0); HGB 11.8 gm/dL (13.0-17.5); Lymphocytes # (A) 4.5 k/uL (1.0-4.8); Lymphocytes % (A) 36 %; MCH 29.4 pg (25.0-35.0); MCV 86.5 fL (80.0-100.0); Mean Platelet Volume 7.4; Monocytes # (A) 0.5 k/uL (0-1.0); Monocytes % (A) 4 %; Neutrophils # (A) 6.9 k/uL (1.3-7.7); Neutrophils % (A) 54 %; Platelet Count 409 k/uL (150-450); RBC 4.03 m/uL (4.30-5.90); RDW 13.8 % (11.5-15.5); WBC 12.8 k/uL (3.8-10.6)
[2018-08-17] MEDS ORDERED: NALOXONE 0.4 MG/ML 1 ML VIAL IV PRN (03:17)
[2018-08-17] MEDS ORDERED: IPRATROPIUM-ALBUTEROL 3 ML NEB INHALATION PRN (03:24)
--- NOTE | 2018-08-17 07:50 | P.CONS ---
History of Present Illness - History of Present Illness The patient presented yesterday after a fall and head injury. History of present illness The patient is a 62-year-old gentleman who apparently had been drinking heavily yesterday evening. When he got up from sitting in a chair he apparently fell through a glass door. He told me he does not remember anything after that until awakening in the emergency room. Patient is on chronic analgesics and benzodiazepines for chronic pain and anxiety. In the emergency room apparently patient had laceration to the left cheek. 3 cm. Also laceration to the left cheek overlying the TMJ. 3 cm also. An laceration to the left ear. 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 ALLERGIES: Daypro with tongue swelling. Home medications Actos 15 mg daily DuoNeb respiratory treatments 4 times a day as needed Levemir insulin 60 units subcu at at bedtime [place] one tablet twice a day as needed for pain Alprazolam 0.5 mg 3 times a day for anxiety Cymbalta 20 mg daily for depression Metformin 1000 mg twice a day for his diabetes Amlodipine 10 mg daily for blood pressure Effient 10 mg daily Omeprazole 20 mg daily Metoprolol tartrate 50 mg daily Hydrochlorothiazide 12.5 daily Aspirin 81 mg daily Review of systems Patient is morning denies any chest pain. No shortness of breath. No visual changes. No nausea or vomiting. No urinary or bowel symptoms. No focal weakness. Family history 1 brother with esophageal cancer. 2 brothers have had DVTs in the past. Also a family member with brain cancer. Social history Patient is a former smoker. He is disabled and unable to work. Lives locally with his in the area. Physical examination Generally patient is alert this morning following instructions. Able to converse appropriately. Last vital signs show temperature 90.8 with a pulse of 47-89. Respirations 15, blood pressure 124/62 and he is 97% saturated on room air. The scalp is bandaged with a Pj wrap. Extraocular movements are intact. Pupils are equal and reactive. Neck is not stiff. Lungs are clear to auscultation. Heart tones were regular without murmurs. Abdomen is soft and nontender. Rectal scrotal exam deferred. Extremities reveal no edema. Neurologically he is alert and oriented. Moving all extremities. No focal weakness noted. Laboratory White counts a been 15.8 and 12.8. Hemoglobin 12.2 and 11.8. Stable. Platelet count is good. INR is 1.0 with a PTT of 24.8. Initial blood sugar was 179. Liver function tests were stable. Albumin 4.5. Urinalysis was clear. Drug screen was positive for alcohol at 235. Also positive for opiates and benzodiazepine as patient is taking them for his chronic problems. CT of brain and cervical spine did not show any evidence of fracture or intracranial abnormalities. Chest x-ray shows mild cardiomegaly but no evidence of intrathoracic injury. Impression Fall with facial lacerations. Likely postconcussive syndrome. No evidence for acute cardiac abnormality or arrhythmia. Patient has multiple comorbidities as stated above. Did discuss at length with patient that alcohol combining with his other medications is definitely contraindicated the patient states that this will not happen again. We'll continue his basic maintenance medications for the underlying medical concerns as previously listed. He will be on Accu-Cheks with coverage for his diabetes. Further recommendations to follow pending clinical response. Past Medical History Past Medical History: Diabetes Mellitus, GERD/Reflux, Hyperlipidemia, Hypertension, Myocardial Infarction (NV), Osteoarthritis (OA), Sleep Apnea/CPAP/BIPAP Additional Past Medical History / Comment(s): Obesity, diabetes mellitus, hyperlipidemia, hypertension, coronary artery disease with recent acute myocardial infarction post cardiac catheterization and angioplasty and stenting of RCA. The patient had a successful stenting of RCA. Acid reflux. Obstructive sleep apnea the patient is not wearing any CPAP therapy. Last Myocardial Infarction Date:: 11/17/16 History of Any Multi-Drug Resistant Organisms: None Reported Past Surgical History: Heart Catheterization With Stent, Hernia Repair, Joint Replacement, Orthopedic Surgery Additional Past Surgical History / Comment(s): 2 right rotator cuff repair. Lt hip replaced. Johnson. inguinal hernia repair. Past Anesthesia/Blood Transfusion Reactions: No Reported Reaction Additional Past Anesthesia/Blood Transfusion Reaction / Comm: States had transfusion at . Date of Last Stent Placement:: NOV 2016 Past Psychological History: Anxiety, Depression Smoking Status: Current every day smoker Past Alcohol Use History: Heavy Additional Past Alcohol Use History / Comment(s): Smoked 1 ppd per year, started at age 17y.o; Drinks 6-12 beers about 3 days a week Past Drug Use History: None Reported - Past Family History Brother(s) Family Medical History: Cancer, Deep Vein Thrombosis (DVT) Additional Family Medical History / Comment(s): 1 brother with Esophageal CA. 2 brothers with DVT. Sister(s) Family Medical History: Cancer Additional Family Medical History / Comment(s): Brain CA. Medications and Allergies Home Medications Medication Instructions Recorded Confirmed Type ALPRAZolam [Alprazolam] 0.5 mg PO TID PRN 02/23/16 08/16/18 History Hydrochlorothiazide [Hydrodiuril] 12.5 mg PO QAM 02/23/16 08/16/18 History Metoprolol Tartrate [Lopressor] 50 mg PO DAILY 02/23/16 08/16/18 History Omeprazole 20 mg PO DAILY 02/23/16 08/16/18 History metFORMIN HCL [Glucophage] 1,000 mg PO BID 02/23/16 08/16/18 History Aspirin 81 mg PO DAILY 02/02/17 08/16/18 History Prasugrel [Effient] 10 mg PO DAILY 02/02/17 08/16/18 History Insulin Detemir [Levemir Flextouch] 60 units SQ HS 03/03/18 08/16/18 History amLODIPine [Norvasc] 10 mg PO DAILY 03/03/18 08/16/18 History DULoxetine HCL [Cymbalta] 20 mg PO DAILY 08/16/18 08/16/18 History HYDROcodone/APAP 10-325MG [[place] 1 tab PO BID PRN 08/16/18 08/16/18 History 10-325] Ipratropium-Albuterol Nebulize 3 ml INHALATION RT-QID PRN 08/16/18 08/16/18 History [Duoneb 0.5 mg-3 mg/3 ml Soln] Pioglitazone HCl [Actos] 15 mg PO DAILY 08/16/18 08/16/18 History Allergies Allergy/AdvReac Type Severity Reaction Status Date / Time oxaprozin [From Daypro] Allergy Severe Swelling Verified 08/16/18 23:27 throat & tongue, reddened face Physical Exam Vitals: Vital Signs Temp Pulse Pulse Resp BP BP Pulse Ox 08/17/18 04:51 98.0 F 47 L 15 124/62 97 08/17/18 04:06 97.8 F 89 18 119/84 96 08/17/18 04:00 18 08/17/18 03:57 17 08/17/18 03:11 84 19 119/75 94 L 08/17/18 01:56 97.7 F 82 18 129/83 98 08/17/18 01:15 71 18 90/75 100 08/17/18 01:10 98 18 119/87 96 08/17/18 00:17 82 18 123/78 97 08/16/18 23:35 94 L 08/16/18 23:33 81 18 131/82 91 L 08/16/18 22:37 98.6 F 83 18 147/88 99 Intake and Output 08/16/18 08/17/18 08/17/18 22:59 06:59 14:59 Other: Voiding Method Urinal # Voids 1 Weight 86.636 kg Results CBC & Chem 7: 08/17/18 01:25 08/16/18 22:53 Labs: Abnormal Lab Results - Last 24 Hours (Table) 08/16/18 08/16/18 08/16/18 Range/Units 22:53 22:53 23:11 WBC 15.8 H (3.8-10.6) k/uL RBC 4.25 L (4.30-5.90) m/uL Hgb 12.2 L (13.0-17.5) gm/dL Hct 36.9 L (39.0-53.0) % Monocytes # (Manual) 7.11 H (0-1.0) k/uL Eosinophils # (Manual) 6.79 H (0-0.7) k/uL Metamyelocytes # (Man) 0.79 H (0) k/uL Myelocytes # (Manual) 1.11 H (0) k/uL Sodium 129 L (137-145) mmol/L Chloride 89 L (98-107) mmol/L Glucose 179 H (74-99) mg/dL POC Glucose (mg/dL) (75-99) mg/dL Urine Opiates Screen Detected H (NotDetected) U Benzodiazepines Scrn Detected H (NotDetected) Serum Alcohol 235 H* mg/dL 08/17/18 08/17/18 Range/Units 01:25 01:25 WBC 12.8 H (3.8-10.6) k/uL RBC 4.03 L (4.30-5.90) m/uL Hgb 11.8 L (13.0-17.5) gm/dL Hct 34.9 L (39.0-53.0) % Monocytes # (Manual) (0-1.0) k/uL Eosinophils # (Manual) (0-0.7) k/uL Metamyelocytes # (Man) (0) k/uL Myelocytes # (Manual) (0) k/uL Sodium (137-145) mmol/L Chloride (98-107) mmol/L Glucose (74-99) mg/dL POC Glucose (mg/dL) 207 H (75-99) mg/dL Urine Opiates Screen (NotDetected) U Benzodiazepines Scrn (NotDetected) Serum Alcohol mg/dL
[2018-08-17 08:45] LABS: Glucose,Whole Blood 205 mg/dL (75-99)
[2018-08-17] MEDS: INSULIN ASPART (NovoLOG) 100 UNIT/ML VIAL SQ SCH ×4 (08:49→19:56)
[2018-08-17] MEDS: DULoxetine HCL 20 MG CAPSULE.DR PO SCH (08:50)
[2018-08-17] MEDS: METOPROLOL TARTRATE 50 MG TAB PO SCH (08:50)
[2018-08-17] MEDS: HYDROCHLOROTHIAZIDE 12.5 MG CAP PO SCH (08:50)
[2018-08-17] MEDS: PANTOPRAZOLE 40 MG TABLET PO SCH (08:50)
[2018-08-17] MEDS: HYDROcodone/APAP 10-325MG 1 EACH TAB PO PRN ×2 (10:08→19:57)
[2018-08-17 11:51] LABS: Glucose,Whole Blood 163 mg/dL (75-99)
[2018-08-17 15:51] VITALS: RESP 18
[2018-08-17 16:54] LABS: Glucose,Whole Blood 158 mg/dL (75-99)
[2018-08-17 19:54] LABS: Glucose,Whole Blood 178 mg/dL (75-99)
[2018-08-17 23:46] VITALS: TEMP 97.5
[2018-08-18 06:39] LABS: Glucose,Whole Blood 222 mg/dL (75-99)
--- NOTE | 2018-08-18 07:36 | P.PN ---
Progress Note - Text The patient was brought into the hospital yesterday after an episode where he had been drinking heavily and an attempt to stand up apparently passed out and fell through a glass door suffering lacerations to the left side of his face. X-rays and CAT scans were negative for any intracranial injury or fractures. He does have underlying history of coronary artery disease, diabetes, hypertension, hyperlipidemia. He also has chronic back pain for which she is on [facility] and also chronic anxiety for which she is on a benzodiazepine. The patient is easily arousable this morning. Denies any unusual pain. Vital signs show a temperature of 97.5 with a pulse of 100 and regular. Respirations are 18. Blood pressure 118/82 and he is 99% saturated on 2 L nasal cannula. Lung and heart exam is clear and regular. He is alert and moving all extremities without focal deficits. Blood sugar Accu-Cheks have ranged from 158 up to 222. Impressions and plans Patient with episode of postural hypotension and fall. Postconcussive syndrome. Patient did suffer multiple lacerations to the left side of his face and ear. Discussed with patient and with nursing staff this morning. From the medical standpoint patient can be discharged today. Recommend follow- up with surgery regarding the wounds for further care and suture removal. Patient to resume his home medications. Routine office follow up for his medical concerns
[2018-08-18 07:39] VITALS: BP 132/87; PULSE 110
[2018-08-18 08:01] LABS: Basophils # (A) 0.1 k/uL (0-0.2); Basophils % (A) 1 %; Eosinophils # (A) 0.2 k/uL (0-0.7); Eosinophils % (A) 2 %; HCT 32.2 % (39.0-53.0); Lymphocytes # (A) 1.8 k/uL (1.0-4.8); Lymphocytes % (A) 18 %; MCH 29.7 pg (25.0-35.0); MCHC 34.1 g/dL (31.0-37.0); Mean Platelet Volume 7.6; Monocytes # (A) 0.7 k/uL (0-1.0); Monocytes % (A) 7 %; Neutrophils # (A) 7.2 k/uL (1.3-7.7); Neutrophils % (A) 70 %; Platelet Count 334 k/uL (150-450); RDW 14.3 % (11.5-15.5); WBC 10.3 k/uL (3.8-10.6)
[2018-08-18 08:32] LABS: African American GFR (CKD) >90 (>60 ml/min/1.73 sqM); Anion Gap 14 mmol/L; Blood Urea Nitrogen 10 mg/dL (9-20); Calcium 9.6 mg/dL (8.4-10.2); Carbon Dioxide 26 mmol/L (22-30); Chloride 98 mmol/L (98-107); Glucose 217 mg/dL (74-99); Potassium 3.9 mmol/L (3.5-5.1); Sodium 138 mmol/L (137-145)
[2018-08-18] MEDS: INSULIN ASPART (NovoLOG) 100 UNIT/ML VIAL SQ SCH ×2 (08:44→12:32)
[2018-08-18] MEDS: PANTOPRAZOLE 40 MG TABLET PO SCH (08:44)
[2018-08-18] MEDS: HYDROCHLOROTHIAZIDE 12.5 MG CAP PO SCH (08:45)
[2018-08-18] MEDS: METOPROLOL TARTRATE 50 MG TAB PO SCH (08:45)
[2018-08-18] MEDS: DULoxetine HCL 20 MG CAPSULE.DR PO SCH (08:45)
[2018-08-18] MEDS ORDERED: ALPRAZolam 0.25 MG TAB PO PRN (08:45)
[2018-08-18] MEDS: HYDROcodone/APAP 10-325MG 1 EACH TAB PO PRN (09:05)
[2018-08-18 11:49] LABS: Glucose,Whole Blood 214 mg/dL (75-99)
--- NOTE | 2018-08-19 05:58 | DS ---
DISCHARGE SUMMARY Mr. Cade is a 62-year-old who was brought in by EMS to the emergency room here at [facility]. Apparently, patient had a fall as he was getting up from a chair in his home. He had been drinking and actually fell through some glass, suffering lacerations to the left side of his face and the ear. The patient states that he does not remember coming into the emergency room. He denied any chest pain or unusual shortness of breath. The patient was sutured in the emergency room. Apparently had a 3 cm laceration over the left cheek overlying the TMJ region and also a laceration on the left cheek, 3 cm. The patient's testing showed a white count of 15.8 with a hemoglobin 12.2 that decreased down to 11.8. INR was 1.0, PTT 24.8. Blood sugar 179. Liver function tests were stable. Urinalysis was clear. CT scan of the brain and cervical spine did not show any evidence of fracture or intracranial abnormalities. Chest x-ray showed some mild cardiomegaly but no intrathoracic injury. He did have a drug screen was positive for alcohol at a level of 235, also positive for opiates and benzodiazepine which patient was taking for his other chronic problems. The patient was observed in the observation unit, did not have any problems with his blood pressure during hospitalization and was able to be ambulated without difficulties and at this time plans are for discharge to home. He will continue taking his home medications that will include alprazolam 0.5 mg 3 times a day, aspirin 81 mg daily, Cymbalta 20 mg daily, hydrocortisone 1 twice a day, hydrochlorothiazide 12.5 daily. He is on Levemir insulin 60 units subcu at bedtime. He is on DuoNeb respiratory treatments 3 times a day, metoprolol 50 mg daily and omeprazole 20 mg daily, Actos 15 mg daily, Effient 10 mg daily, Norvasc 10 mg daily and metformin a 1000 mg twice a day. He is to follow up with Dr. Torres from surgery for suture removal and myself over the next week. FINAL DISCHARGE DIAGNOSES BEING: Fall with glass injury at the left face, requiring sutures for the lacerations as previously described associated with concussion and closed head injury with the patient having a medical history for treated type 2 diabetes, hyperlipidemia, hypertension, depression and anxiety, chronic osteoarthritic back pain of the lumbar spine, sleep apnea, gastroesophageal reflux, previous total left hip replacement and previous right shoulder surgeries x2, previous bilateral hernia repairs, underlying coronary artery disease with previous catheterization and stenting of the right coronary artery. JARRED / LOREEN: [id number] / MTDD
== END 2018-08-18 14:15 | disposition home or self-care (01) ==
LOC: EC 22:36 → 1SOBS 08-17 03:17
PROVIDERS: ADMIT Internal Medicine; ATTEND Internal Medicine
DX: S01.412A Laceration without foreign body of left cheek and temporomandibular area, initial encounter (principal); S01.312A Laceration without foreign body of left ear, initial encounter; F07.81 Postconcussional syndrome; F10.129 Alcohol abuse with intoxication, unspecified; Z23 Encounter for immunization; W01.0XXA Fall on same level from slipping, tripping and stumbling without subsequent striking against object, initial encounter; I25.10 Atherosclerotic heart disease of native coronary artery without angina pectoris; F32.9 Major depressive disorder, single episode, unspecified; Y90.7 Blood alcohol level of 200-239 mg/100 ml; G47.33 Obstructive sleep apnea (adult) (pediatric); E11.9 Type 2 diabetes mellitus without complications; F17.210 Nicotine dependence, cigarettes, uncomplicated; E78.5 Hyperlipidemia, unspecified; F41.9 Anxiety disorder, unspecified; I10 Essential (primary) hypertension; M47.9 Spondylosis, unspecified; K21.9 Gastro-esophageal reflux disease without esophagitis; I25.2 Old myocardial infarction; Z95.5 Presence of coronary angioplasty implant and graft; Z96.642 Presence of left artificial hip joint; Z79.899 Other long term (current) drug therapy; Z79.82 Long term (current) use of aspirin; Z79.4 Long term (current) use of insulin; Z88.8 Allergy status to other drugs, medicaments and biological substances; Z80.0 Family history of malignant neoplasm of digestive organs; Z80.8 Family history of malignant neoplasm of other organs or systems; Z83.2 Family history of diseases of the blood and blood-forming organs and certain disorders involving the immune mechanism
CPT/HCPCS: 96366 ×2; 96365; 96367; 99291; 12014; 36415 ×2; 93005; 86900; 86901; 80053; 80048; 84484; 85025 ×3; 85610; 85730; 86850; 81003; 80306; 80320; 72170; 71045; 72125; 70486; 70450; 90715; G0378 ×2; J0690; J2001

== ENCOUNTER → 2018-09-04 | Day surgery (SDC) | payer BC ==
--- NOTE | 2018-09-03 23:27 | HP ---
HISTORY AND PHYSICAL HISTORY AND PHYSICAL ADDENDUM: CHIEF COMPLAINT: Dehiscent laceration of the left ear. HISTORY OF PRESENT ILLNESS: It is to be noted that this patient was originally scheduled to undergo surgery on 08/28/2018. However, he called and canceled the surgery and rescheduled it for 09/04/2018. Please refer to the history and physical for his surgery that was scheduled for 08/28/2018 for details. There have not been any changes in the history of present illness, past medical history, review of systems or the physical exam since that time. IMPRESSION: Dehiscent laceration of the left ear. PLAN: The patient is scheduled to undergo closure of dehiscent laceration of the left ear under general anesthesia in the morning. Attention RNs in the pre-surgical area: I have ordered for this patient to receive 3 grams of Ancef IV, to be given once an intravenous line has been established. If the pharmacy department sends a different pre-surgical prophylactic antibiotic to the pre- surgical area for this patient, please cancel that order and return that medication to the pharmacy department. Also, please make sure that the patient's account is credited appropriately. In addition, because of this patient's history of heavy alcohol use, I have not ordered any Ofirmev. I have discussed the risks, benefits and alternative therapies for the above-mentioned procedure and for both sedation/analgesia as well as necessary blood product administration, if indicated, as they pertain to this patient. The patient has indicated his or her understanding and acceptance of the risks and procedures discussed. MMDARLINE / LOREEN: [id number] /
[~2018-09-04] MED LIST changes: +BACITRACIN OINT 1 EACH PACKET TOPICAL ONE; +DEXAMETHASONE SOD PHOS (MDV) 100 MG/10 ML VIAL ONE; +DEXAMETHASONE SOD PHOSPHATE 10 MG/ML 1 ML VIAL IV ONE; +LACTATED RINGERS 1,000 ML IV ONE; +LIDOCAINE 1% 20 ML VIAL (10MG/ML) FOR IV START INTRADERMA ONE; -LIDOCAINE 1% 20 ML VIAL (10MG/ML) FOR IV START INTRADERMA PRN; +MIDAZOLAM 2 MG/2 ML VIAL ONE; +NEOSTIGMINE 1 MG/ML 10 ML VIAL ONE; +ONDANSETRON 4 MG/2 ML VIAL IVP ONE; +PROPOFOL 10 MG/ML 20 ML VIAL IV ONE; +Pre Op ABX Message 1 EACH MISC MISCELLANE ONE; +ROCURONIUM BROMIDE 10 MG/ML 10 ML VIAL IV ONE; +SUCCINYLCHOLINE CHLORIDE VIAL 200 MG/10 ML VIAL IV ONE; +fentaNYL (PF) 50 MCG/ML 2 ML AMP ONE
[2018-09-04 10:17] LABS: Glucose,Whole Blood 153 mg/dL (75-99)
[2018-09-04 12:44] VITALS: RESP 16; TEMP 97
[2018-09-04 12:52] LABS: Glucose,Whole Blood 157 mg/dL (75-99)
[2018-09-04 13:48] VITALS: BP 141/88; PULSE 87
--- NOTE | 2018-09-05 18:07 | OP ---
OPERATIVE REPORT DATE OF SERVICE: 09/04/2018. PREOPERATIVE DIAGNOSIS: Dehiscent wound/laceration of the inferior aspect of the left ear. POSTOPERATIVE DIAGNOSIS: Dehiscent wound/laceration of the inferior aspect of the left ear. ANESTHESIA: General. OPERATIVE PROCEDURE: Complex repair of a dehiscent/laceration of the left ear and reconstruction withan advancement flap . SURGEON: Dr. Steward. COMPLICATIONS: None. ESTIMATED BLOOD LOSS: Less than 20 mL. OPERATIVE PROCEDURE: The patient is placed on the operating table in supine position. After an uneventful induction and endotracheal intubation, satisfactory general anesthesia was obtained. Next, the patient's left ear was draped and prepped in the usual and customary fashion. Initial inspection revealed that the wound had dehisced and there were several remaining sutures which were cut and discarded. In addition to this, the wound had started to epithelialize along the edges and furthermore there was a necrotic edge of the skin flap that was present at the inferior aspect of the laceration. Further inspection of this flap revealed that some epithelialization had started to occurred especially along the posterior aspect of the laceration. Therefore, initially the edge of the skin edge of the wound was de-epithelialized using a pair of sharp Barry scissors. In addition to this, a superficial layer of the fatty tissue was removed from the wound bed on the patient's face in an effort to improve the vascular supply. The necrotic tip of the wound flap was excised and discarded. Approximately a 3-5 mm necrotic portion of this flap had to be excised using a pair of straight sharp Barry scissors. Furthermore, the edges of the flap which had been created by laceration, had to be de-epithelialized and again this was accomplished using a pair of sharp Barry scissors. This was done to the point that the skin was removed so that there was bleeding along all edges of the skin ensuring good vascularization. Because of the removal of a portion of the skin flap, it was elected to create a small inferior advancement flap so that the wound could be closed without tension/distortion. This advancement flap was created inferiorly in the usual and customary fashion. The wound was closed in multiple layers in a complex fashion. That is to say, the subcutaneous fat layers were carefully approximated for the earlobe and the face using 4-0 rapid absorbing vicryl interrupted buried sutures to tack this area down. Nex,t attention was directed toward the posterior aspect of the wound and significant undermining had to be accomplished along both the edges of the flap itself as well as along the edges of the wound in the bed. This was necessary even though an advancement flap had been created. Care was taken not to disrupt the natural blood supply to the skin. The skin edges were approximated beginning posteriorly using 4-0 rapid absorbing Vicryl in an interrupted fashion. This interrupted suturing was continued inferiorly and working around to the anterior aspect of the ear. The very inferior aspect of the earlobe was carefully approximated in its more natural position again using 4-0 rapid absorbing Vicryl in interrupted fashion. The closure was continued on to the anterior portion of this flap that had been created by the laceration again using 4-0 rapid absorbing Vicryl in an interrupted fashion. Care was taken not to strangulate any of the tissues because of the patient's known underlying poorly controlled type 1 diabetes mellitus. All efforts were made to ensure a well-vascularized bed for this the flap to become adherent. Bacitracin ointment was applied to the to the incision and no dressing was applied. Cautery was avoided in an effort to decrease the amount of traumatized/damaged tissue in the wound bed as well as in an effort to avoid further disrupting the blood supply. Estimated blood loss was less than 20 mL. This procedure took approximately 2 hours and 7 minutes, which is well beyond the normal 15 to 20 minutes that this would have taken to close this wound primarily at the time of the patient's initial injury.The reason for the extended time was because again the wound had dehisced, healing had already commenced, and there was significant epithelialization along the wound edges and finally because there was necrosis of the tip of the flap that had been created by the laceration. Resection of this flap necessitated the creation of an advancement flap in an effort to approximate the closure in a tension free manner. Therefore, this was a complex closure. At this point, the procedure was terminated. There were no intraoperative complications. The patient tolerated the procedure well and was returned to the recovery room in satisfactory condition. NOVAL / LOREEN: [id number] / [place]TD[place]
== END | disposition home or self-care (01) ==
LOC: OR 09:07
PROVIDERS: ATTEND Otolaryngology
DX: T81.33XA Disruption of traumatic injury wound repair, initial encounter (principal); E10.9 Type 1 diabetes mellitus without complications; I25.10 Atherosclerotic heart disease of native coronary artery without angina pectoris; Z95.1 Presence of aortocoronary bypass graft; I25.2 Old myocardial infarction; I10 Essential (primary) hypertension; K21.9 Gastro-esophageal reflux disease without esophagitis; G47.33 Obstructive sleep apnea (adult) (pediatric); Z99.89 Dependence on other enabling machines and devices; Z79.82 Long term (current) use of aspirin; Z79.4 Long term (current) use of insulin; Z79.891 Long term (current) use of opiate analgesic; Z79.899 Other long term (current) drug therapy; Z88.6 Allergy status to analgesic agent
CPT/HCPCS: 14060; J2250; J0330; J1100 ×2; J2710; J0690; J2405; J3010; J2704

== ENCOUNTER → 2020-02-24 | Outpatient (CLI) | payer BC ==
--- NOTE | 2020-02-24 16:25 | MR ---
EXAMINATION TYPE: MR lumbar spine wo con DATE OF EXAM: 02/24/2020 COMPARISON: None HISTORY: Low back pain. CONTRAST: 0 mL intravenous Gadavist. TECHNIQUE: Multiplanar, multisequence images of the lumbar spine were acquired. FINDINGS: L5-S1: No significant disc bulge or disc herniation. No spinal canal stenosis. No foraminal stenosi s. L4-L5: No significant disc bulge or disc herniation. No spinal canal stenosis. No foraminal stenosi s. L3-L4: No significant disc bulge or disc herniation. No spinal canal stenosis. No foraminal stenosi s. L2-L3: No significant disc bulge or disc herniation. No spinal canal stenosis. No foraminal stenosi s. L1-L2: No significant disc bulge or disc herniation. No spinal canal stenosis. No foraminal stenosi s. T12-L1: No significant disc bulge or disc herniation. No spinal canal stenosis. No foraminal stenos is. IMPRESSION: 1. Normal MRI lumbar spine
== END | disposition home or self-care (01) ==
LOC: RADMRIMAIN 15:13
PROVIDERS: ATTEND Nurse Practitioner Family
DX: M47.819 Spondylosis without myelopathy or radiculopathy, site unspecified (principal)
CPT/HCPCS: 72148

== ENCOUNTER → 2020-03-02 | Outpatient (CLI) | payer BC ==
--- NOTE | 2020-03-03 00:02 | SFUN ---
SLEEP CENTER FOLLOW UP NOTE DATE OF SERVICE: 03/02/2020 64-year-old gentleman who has been followed in Sleep Center for treatment of obstructive sleep apnea-hypopnea syndrome. The patient successfully continued to use his CPAP equipment getting his supplies, did not come to sleep center for about 2 and half years. Leon Sleepiness Scale today increased to 16. I checked his CPAP unit. CPAP pressure is 14 cm of water, usage 29 out of 30 nights for more than 4 hours. Average usage 8.8 hours per night. Leak is increased to 36 L/minute. Apnea-hypopnea index at the same time absolutely perfect only 2.2. The patient using an AirFit P10 medium size nasal pillow mask. MEDICATIONS: Metformin, Levemir, alprazolam, aspirin 81 mg, hydrochlorothiazide, metoprolol, omeprazole, [place]. PHYSICAL EXAM: Patient in no distress. BP 149/83, HR 72, RR of 15, height 5 feet 7 inches, weight 202, BMI 31.6, temperature 98.1. Oxygen saturation at room air 97%. Oropharynx: Low position of soft palate. NECK: Supple, no JVD. Thyroid is not palpable. LUNGS: Clear to percussion and to auscultation. Good air exchange. No wheezing or rhonchi. HEART: S1, S2 regular. No murmurs, gallops, or rubs. ABDOMEN: Slightly obese. Soft and nontender. Bowel sounds are present. No organomegaly appreciated. EXTREMITIES: No clubbing or cyanosis. [employer]: Awake, alert, and oriented X3. Cranial nerves 2 to 7 intact. There is no fasciculation or atrophy. noted. No focal deficits observed. IMPRESSION: 1. Obstructive sleep apnea-hypopnea syndrome in severe range. Apnea-hypopnea index on the basic of sleep study was 71.8 with oxygen desaturation to 61%. The patient demonstrated 100% compliance with treatment benefitting from treatment. 2. Obesity. 3. Hypertension. 4. Coronary artery disease, status post heart attack in November 2016 and post stent insertion. 5. Diabetes mellitus. 6. Acid reflux. 7. Hyperlipidemia. 8. Shoulder problems. 9. Back problems. 10.Status post left hip replacement. 11.Status post uvulopalatopharyngoplasty. PLAN: 1. 1.Patient will continue to use PAP equipment every night for the whole night. 2. 2.Sleep hygiene with regular time in bed for at least 7-1/2 to 8 hours. 3. 3.Precautions related to driving. No driving if feeling sleepiness. 4. 4.I will maintain all necessary prescription for PAP supplies including mask, tube, filters. 5. 5. Watching weight. 6. 6. No driving if feeling sleepiness. 7. 7.Follow-up visit in 6 months or earlier if patient has any problems. Thank you very much for allowing me to participate in management of your patient. Sincerely, Cameron Garcia MD, PhD, FAASM Diplomat of [employer] Script Editor of [facility] Cameron Garcia MD, PhD, FAASM Diplomat of [employer] Script Editor of [facility] MMDARLINE / DARLIN: [id number] /
== END | disposition home or self-care (01) ==

== ENCOUNTER → 2020-03-29 | Outpatient (CLI) | payer BC ==
[2020-03-29 12:14] VITALS: BP 142/78; PULSE 88; RESP 16; TEMP 97.7
--- NOTE | 2020-03-29 12:27 | P.PAINCN ---
History of Present Illness - Reason for Consult Consult date: 03/29/20 - History of Present Illness Palmer 64-year-old gentleman presented today for new patient evaluation secondary to low back pain. He reports she's had back pain for quite some time. He describes his pain as a aching sensation limiting his activity and a daily basis. He feels unable stand for long periods time. He feels that walking for more than a few minutes causes significant pain as well. He denies any radiation to the lower extremities. His a history of left total hip replacement 2007. He has a history of right shoulder surgery in the past as well. Overall he denies any radiation into his lower extremities, denies any bowel or bladder incontinence. At this point he uses benzodiazepines as well as hydrocodone 7.5 mg 4 times a day. MRI of the lumbar spine was reviewed and is completely normal. There are no changes noted. Review of Systems Negative except as noted in the HPI Past Medical History Past Medical History: Coronary Artery Disease (CAD), Diabetes Mellitus, GERD/Reflux, Hyperlipidemia, Hypertension, Myocardial Infarction (IN), Osteoarthritis (OA), Sleep Apnea/CPAP/BIPAP Additional Past Medical History / Comment(s): Obstructive sleep apnea the patient is not wearing any CPAP therapy. Recently fell through a storm door and has lacerations to his L ear. Last Myocardial Infarction Date:: 11/17/16 History of Any Multi-Drug Resistant Organisms: None Reported Past Surgical History: Heart Catheterization With Stent, Hernia Repair, Joint Replacement, Orthopedic Surgery Additional Past Surgical History / Comment(s): 2 right rotator cuff repair. Lt hip replaced. Johnson. inguinal hernia repair. Past Anesthesia/Blood Transfusion Reactions: No Reported Reaction Additional Past Anesthesia/Blood Transfusion Reaction / Comm: States had transfusion at . Date of Last Stent Placement:: NOV 2016 Past Psychological History: Anxiety, Depression Smoking Status: Unknown if ever smoked Past Alcohol Use History: Occasional Additional Past Alcohol Use History / Comment(s): Smoked 1 ppd per year, started at age 17y.o; Drinks 6-12 beers about 3 days a week Past Drug Use History: None Reported - Past Family History Brother(s) Family Medical History: Cancer, Deep Vein Thrombosis (DVT) Additional Family Medical History / Comment(s): 1 brother with Esophageal CA. 2 brothers with DVT. Sister(s) Family Medical History: Cancer Additional Family Medical History / Comment(s): Brain CA. Medications and Allergies Home Medications Medication Instructions Recorded Confirmed Type ALPRAZolam [Alprazolam] 0.5 mg PO TID PRN 02/23/16 09/02/18 History Metoprolol Tartrate [Lopressor] 50 mg PO DAILY 02/23/16 09/02/18 History Omeprazole 20 mg PO DAILY 02/23/16 09/02/18 History hydroCHLOROthiazide [Hydrodiuril] 12.5 mg PO QAM 02/23/16 09/02/18 History metFORMIN HCL [Glucophage] 1,000 mg PO BID 02/23/16 09/04/18 History Aspirin 81 mg PO DAILY 02/02/17 09/04/18 History Insulin Detemir [Levemir Flextouch] 66 units SQ HS 03/03/18 09/04/18 History amLODIPine [Norvasc] 10 mg PO DAILY 03/03/18 09/02/18 History DULoxetine HCL [Cymbalta] 20 mg PO DAILY 08/16/18 09/02/18 History HYDROcodone/APAP 10-325MG [Newton 1 tab PO BID PRN 08/16/18 09/02/18 History 10-325] Ipratropium-Albuterol Nebulize 3 ml INHALATION RT-QID PRN 08/16/18 09/02/18 History [Duoneb 0.5 mg-3 mg/3 ml Soln] Pioglitazone HCl [Actos] 15 mg PO DAILY 08/16/18 09/02/18 History Cefdinir [Omnicef] 600 mg PO Q24HR #20 capsule 09/03/18 Rx Allergies Allergy/AdvReac Type Severity Reaction Status Date / Time oxaprozin [From Daypro] Allergy Severe Swelling Verified 09/02/18 10:57 throat & tongue, reddened face Physical Exam Vitals: Vital Signs Temp Pulse Resp BP Pulse Ox 03/29/20 12:08 97.7 F 88 16 142/78 98 Intake and Output 03/28/20 03/29/20 03/29/20 22:59 06:59 14:59 Other: Weight 88.451 kg General: Awake and alert oriented 3 no distress Respiratory exam: No audible wheezing no accessory muscle usage Cardiovascular exam: regular rate, palpable bilateral pulses, no lower extremity edema Abdominal exam: No distention nontender to palpation Cervical spine: Normal alignment, Spurling's negative, facet loading negative, 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 Straight leg raise is negative. Limited range of motion due to pain with flexion, extension and side bending. Sacroiliac joints: Nontender to palpation, CHENG is negative, Gaenselon negative Neuro exam: Normal sensation in bilateral upper extremities, deep tendon reflexes are 2+ bilateral upper extremities. Normal sensation in bilateral lower extremities. Deep tendon reflexes are 2+ in lower extremities Psych exam: Cooperative, appropriate mood Assessment and Plan Assessment: #1 low back pain #2 chronic opioid dependence Plan: This point discussed with Palmer that his pain is likely not due to his lumbar spine pathology. I believe he has significant atrophy of the muscles in the lumbar spine secondary to chronic debility. He does not exercise, he does not walk, he does not work. I expect and that he will likely not improve unless he gets back to physical activity. I've offered physical therapy prescription that he reports he like to get up from his primary care doctor. He wants to continue using Newton. He is inquiring about higher doses. Using pain medications are not appropriate for his condition. Also explained that he is using benzodiazepines this increases the risk of respiratory depression and . He is welcome to follow up as needed in the future. I have spent 35 minutes on patient care today. The time was used to review the medical records including relevant urine studies and Prescription history (MAPs), review of the available imaging, evaluation and examination of the patient, coordination of care with the medical staff and if applicable referring physicians, as well as creation of the medical record. PQRS Measure Charge Sheet Measure #130: Documentation of Current Meds in Medical Chart: Patient's medications documented in chart PQRS Narrative: Smoking Status Former smoker Blood Pressure 142/78 Pain Intensity [Lower Back] 5 Scale Used Numeric (1 - 10) Hx Alcohol Use (MH) No Home Medications: Ambulatory Orders ALPRAZolam [Alprazolam] 0.5 mg PO TID PRN 02/23/16 Metoprolol Tartrate [Lopressor] 50 mg PO DAILY 02/23/16 Omeprazole 20 mg PO DAILY 02/23/16 hydroCHLOROthiazide [Hydrodiuril] 12.5 mg PO QAM 02/23/16 metFORMIN HCL [Glucophage] 1,000 mg PO BID 02/23/16 Aspirin 81 mg PO DAILY 02/02/17 Insulin Detemir [Levemir Flextouch] 66 units SQ HS 03/03/18 amLODIPine [Norvasc] 10 mg PO DAILY 03/03/18 DULoxetine HCL [Cymbalta] 20 mg PO DAILY 08/16/18 HYDROcodone/APAP 10-325MG [Newton 10-325] 1 tab PO BID PRN 08/16/18 Ipratropium-Albuterol Nebulize [Duoneb 0.5 mg-3 mg/3 ml Soln] 3 ml INHALATION RT-QID PRN 08/16/18 Pioglitazone HCl [Actos] 15 mg PO DAILY 08/16/18 Cefdinir [Omnicef] 600 mg PO Q24HR #20 capsule 09/03/18
== END | disposition home or self-care (01) ==
LOC: PNWHC3 11:52
PROVIDERS: ATTEND Hospitalist
DX: M54.5 Low back pain (principal); F11.20 Opioid dependence, uncomplicated; I10 Essential (primary) hypertension; E11.9 Type 2 diabetes mellitus without complications; I25.10 Atherosclerotic heart disease of native coronary artery without angina pectoris; K21.9 Gastro-esophageal reflux disease without esophagitis; E78.5 Hyperlipidemia, unspecified; I21.9 Acute myocardial infarction, unspecified; Z79.82 Long term (current) use of aspirin; Z79.4 Long term (current) use of insulin; Z79.899 Other long term (current) drug therapy; Z88.8 Allergy status to other drugs, medicaments and biological substances
CPT/HCPCS: 99211

== ENCOUNTER → 2020-10-12 | Outpatient (CLI) | payer BC ==
--- NOTE | 2020-10-12 13:17 | XR ---
EXAMINATION TYPE: XR chest 2V DATE OF EXAM: 10/12/2020 COMPARISON: 08/16/2018 HISTORY: 64 year-old male shortness of breath TECHNIQUE: Frontal and lateral views FINDINGS: The cardiomediastinal silhouette, aorta, and pulmonary vasculature are within normal limits. Mild hyp erinflation. Lungs and pleural spaces are clear. IMPRESSION: Mild hyperinflation may relate to depth of inspiration or underlying emphysema. Otherwise, no acute c ardiopulmonary process.
[2020-10-12 20:24] LABS: Chol/HDL Ratio 6.81
== END | disposition home or self-care (01) ==
LOC: LABWHC1 11:31
PROVIDERS: ATTEND Family Medicine
DX: J98.11 Atelectasis (principal); E78.5 Hyperlipidemia, unspecified
CPT/HCPCS: 36415; 71046; 80061; 83721

== ENCOUNTER → 2020-10-27 | Outpatient (CLI) | payer BC ==
[2020-10-27 22:30] LABS: African American GFR (CKD) 93.1 (60.0-200.0); Albumin 4.7 g/dL (3.80-4.90); Albumin/Globulin Ratio 2.14 (1.60-3.17); Anion Gap 13.2 mmol/L (4.00-12.00); Carbon Dioxide 27.8 mmol/L (21.6-31.8); Chol/HDL Ratio 4.26; Globulin 2.2 g/dL (1.6-3.3); LDL Cholesterol,Calculated 76.4 mg/dL (0.0-131.0); Non-African American GFR(CKD) 80.3 (60.0-200.0); Potassium 4.7 mmol/L (3.5-5.5); Total Bilirubin 0.5 mg/dL (0.3-1.2); Total Protein 6.9 g/dL (6.2-8.2); VLDL Calculation 34.6 mg/dL (5.00-40.00)
== END | disposition home or self-care (01) ==
LOC: LABWHC1 09:28
PROVIDERS: ATTEND Nurse Practitioner Adult Health
DX: I10 Essential (primary) hypertension (principal); E78.2 Mixed hyperlipidemia
CPT/HCPCS: 36415; 80053; 80061

== ENCOUNTER 2020-10-31 05:48 | Day surgery (SDC) | payer BC ==
[2020-10-25 14:48] VITALS: BMI 30.7
[2020-10-31] MEDS ORDERED: ALPRAZolam 0.5 MG TAB PO PRN (05:50)
[2020-10-31] MEDS ORDERED: SODIUM CHLORIDE 0.9% 1,000 ML in EMPTY BAG 1 BAG IV ONE (05:50)
[2020-10-31] MEDS ORDERED: ALPRAZolam 0.25 MG TAB PO PRN (05:50)
[2020-10-31] MEDS ORDERED: NITROGLYCERIN SL TABS 0.4 MG TAB SUBLINGUAL PRN ×2 (05:50→08:39)
[2020-10-31] MEDS ORDERED: SODIUM CHLORIDE 0.9% 1,000 ML IV ONE (06:17)
[2020-10-31 06:26] LABS: Glucose,Whole Blood 130 mg/dL (75-99)
[2020-10-31 06:34] VITALS: RESP 16; TEMP 98.2
[2020-10-31 06:34] LABS: Basophils # (A) 0.1 k/uL (0-0.2); Basophils % (A) 1 %; Eosinophils # (A) 0.5 k/uL (0-0.7); Eosinophils % (A) 3 %; HCT 43.7 % (39.0-53.0); HGB 15.1 gm/dL (13.0-17.5); Lymphocytes # (A) 3.1 k/uL (1.0-4.8); Lymphocytes % (A) 22 %; MCH 30.9 pg (25.0-35.0); MCHC 34.5 g/dL (31.0-37.0); MCV 89.7 fL (80.0-100.0); Monocytes % (A) 7 %; Neutrophils # (A) 9.2 k/uL (1.3-7.7); Neutrophils % (A) 65 %; Platelet Count 365 k/uL (150-450); RBC 4.87 m/uL (4.30-5.90); RDW 13.9 % (11.5-15.5); WBC 14.1 k/uL (3.8-10.6)
[2020-10-31] MEDS ORDERED: METOPROLOL TARTRATE 50 MG TAB PO ONE (07:00)
[2020-10-31] MEDS ORDERED: ATORVASTATIN 80 MG TAB PO ONE (07:00)
[2020-10-31] MEDS ORDERED: LIDOCAINE 1% INJ 10MG/ML (20 ML MDV) ONE (07:07)
[2020-10-31] MEDS ORDERED: fentaNYL (PF) 50 MCG/ML 2 ML AMP ONE (07:08)
[2020-10-31] MEDS ORDERED: VERAPAMIL 2.5 MG/ML 2 ML AMP ONE (07:08)
[2020-10-31] MEDS ORDERED: HEPARIN SODIUM 1,000 UN/ML (10ML VL) ONE (07:37)
[2020-10-31] MEDS ORDERED: fentaNYL (PF) 50 MCG/ML 2 ML AMP IV ONE (07:43)
[2020-10-31] MEDS ORDERED: LIDOCAINE 1% INJ 10MG/ML (10 ML MDV) SQ ONE (07:46)
[2020-10-31] MEDS ORDERED: VERAPAMIL SYRINGE (5 MG/10 ML) INTRAARTER ONE (07:48)
[2020-10-31] MEDS ORDERED: MIDAZOLAM 2 MG/2 ML VIAL IV ONE (07:49)
[2020-10-31] MEDS: HEPARIN SODIUM 1,000 UN/ML (10ML VL) IV ONE ×4 (07:52→08:36)
[2020-10-31] MEDS ORDERED: CLOPIDOGREL 75 MG TAB ONE (07:58)
[2020-10-31] MEDS ORDERED: CLOPIDOGREL 75 MG TAB PO ONE (08:02)
[2020-10-31] MEDS ORDERED: IOPAMIDOL-370 125ML BTL INJ ONE (08:22)
[2020-10-31] MEDS ORDERED: IOPAMIDOL-370 100ML BTL INJ ONE (08:30)
[2020-10-31] MEDS ORDERED: ZOLPIDEM 5 MG TAB PO PRN (08:39)
[2020-10-31] MEDS ORDERED: ATROPINE SULFATE 0.1 MG/ML 10ML SYRINGE IV PRN (08:39)
[2020-10-31] MEDS ORDERED: MAG HYDROX/AL HYDROX/SIMETH 30 ML CUP PO PRN (08:39)
[2020-10-31] MEDS ORDERED: RX INFO: IV CONTRAST WAS GIVEN 1 EACH MISC MISCELLANE PRN (08:39)
[2020-10-31] MEDS ORDERED: SODIUM CHLORIDE 0.9% 1,000 ML IV SCH (08:45)
--- NOTE | 2020-10-31 09:16 | CC ---
CARDIAC CATHETERIZATION REPORT Mr. De La Torre is a 64-year-old male with a known history of coronary artery disease status post percutaneous revascularization in 2017, history of hypertension, hyperlipidemia, diabetes who presented with progressive symptoms of dyspnea on exertion with minimal activity. In view of that, recommendation was made regarding cardiac catheterization. The procedure as well as the risks and the complications were discussed with the patient who is in full understanding and agreement. 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 Selective left and left coronary angiography performed using 5-Yemeni 3 and a half bend right and left Andrea catheter. Multiple views of the coronary arteries including hemiaxial views were obtained. Following that, a 5-Yemeni tight pigtail catheter was introduced in the left ventricle and left ventricular end-diastolic pressure was calculated. Following that, catheter was removed. Images were reviewed. FINDINGS: FLUOROSCOPY: There was calcification involving the left anterior descending artery, left main and mid right coronary artery. SELECTIVE CORONARY ANGIOGRAM: LEFT MAIN: This is a large-sized vessel bifurcating into left circumflex, left anterior descending artery, left main coronary artery has no evidence of high-grade stenosis. LEFT ANTERIOR DESCENDING ARTERY: This is a large-sized vessel reaching to the apex giving rise to a moderately sized diagonal branch in the mid segment. The left anterior descending coronary artery has mild intimal disease in the proximal mid segment of 10 to 20% without any evidence of high-grade stenosis. LEFT CIRCUMFLEX: This is a nondominant, moderate sized vessel giving rise to an obtuse marginal branch that is tortuous. The left circumflex has mild intimal disease proximally of 20 to 30% without any evidence of high-grade stenosis. RIGHT CORONARY ARTERY: This is a large dominant vessel bifurcating distally into PDA and posterolateral segment and branches. The distal right coronary artery has a 95% stenosis prior to the bifurcation. The mid segment has two areas of stenosis up to 90%. The stented segment in the mid right coronary artery is patent. LEFT VENTRICULOGRAM: Left ventriculogram was not performed. HEMODYNAMICS: There was no gradient across the aortic valve. The left ventricular end-diastolic pressure was 16-20 mmHg. CONCLUSION: 1. Patent stent to the RCA with critical stenosis in the distal RCA and the proximal mid segment. 2. Mild disease in the left circumflex. 3. Calcified coronary arteries. RECOMMENDATION: In view of findings and anatomy, I recommend proceeding with angioplasty and stenting. The procedure as well as the risks and the complications were discussed with the patient who is in full understanding and agreement. MMDARLINE / DARLIN: [id number] /
--- NOTE | 2020-10-31 09:16 | PTCA ---
PERCUTANEOUSTRANS CORORONARY ANGIOGRAPHY Mr. Cade is a 64-year-old male with a history of coronary artery disease who presented with symptoms of progressive dyspnea, underwent cardiac catheterization and was found to have severe stenosis involving the distal and proximal mid segment of the RCA. In view of that, recommendation made regarding angioplasty and stenting. The procedure as well as the risks and the complications were discussed with the patient who is in full understanding and agreement. PROCEDURE: A 6-Malagasy FR4 guiding catheter was introduced into the system. After cannulating the right coronary ostium, a 0.014 balanced medium weight J-wire was advanced across the lesion positioned distally. Then a 2.5 x 12 mm NC Trek balloon was advanced and inflation in distal and mid segments were done at maximum of 10 atmospheres. Following that, the balloon was removed and another 0.014 balanced medium weight J-wire was advanced next to the first one in a sadaf fashion. Subsequently a 2.75 x 15 mm Xience Skypoint stent was advanced distally, deployed and postdilated at 16 atmospheres. After removing the balloon, a 3.0 x 23 mm Xience SkyPoint stent was deployed in the mid segment and deployed and was dilated at 16 atmospheres. After the last inflation, after appropriate wait, the balloon and the guidewire were withdrawn back in the guiding catheter. Images were obtained and repeated. Those images reveal stable successful stenting. At that point, the guiding catheter, the balloon and the guidewire were removed. The sheath was removed. Hemostasis was obtained with deployment of a TR band. There was no immediate complication. Patient is returned to his room in stable condition. Of note, the patient received a total of 9000 units of intravenous heparin during the procedure and oral loading dose of clopidogrel. His ACT was followed. He had EKG changes with the mid inflation but no significant chest discomfort. RESULT: 1. Successful stenting of the distal right coronary artery with reduction of stenosis from 95% percent to 0%. 2. Successful stenting of the mid right coronary artery with reduction of stenosis from 90% to 0%. RECOMMENDATIONS: Patient will be continued on aspirin, Plavix, JOSE EDUARDO inhibitor and statin. The importance of dual antiplatelet treatment was discussed with the patient and his family who are in full understanding and agreement. Duration of sedation is 44 minutes. MMODL / IJN: [id number] / [facility]
--- NOTE | 2020-10-31 09:19 | LTR ---
DATE OF SERVICE: 10/31/[address] De La Torre: I had the pleasure of performing cardiac catheterization and coronary angioplasty and stenting on Mr. Cade at [facility] on October 31. A full copy of procedure note will be forwarded to you. In brief, he was found to have severe stenosis involving the mid and distal right coronary artery, underwent successful stenting of that vessel. I am hopeful that this procedure will stabilize his status. Thank you again for allowing me to participate in his care. Please feel free to call for any questions. Sincerely, JARRED / LOREEN: [id number] /
[2020-10-31] MEDS ORDERED: DULoxetine HCL 20 MG CAPSULE.DR PO SCH (12:00)
[2020-10-31] MEDS ORDERED: PIOGLITAZONE 15 MG TAB PO SCH (12:00)
[2020-10-31] MEDS ORDERED: PANTOPRAZOLE 40 MG TABLET PO SCH (12:00)
[2020-10-31] MEDS ORDERED: HYDROcodone/APAP 7.5-325MG 1 EACH TAB PO ONE (12:51)
[2020-10-31] MEDS ORDERED: HYDROcodone/APAP 7.5-325MG 1 EACH TAB ONE (12:52)
[2020-10-31 13:46] VITALS: BP 126/80; PULSE 68
[2020-10-31] MEDS ORDERED: INSULIN DETEMIR (LEVEMIR) 100 UNIT/ML SYR SQ SCH (21:00)
[2020-11-01] MEDS ORDERED: METOPROLOL TARTRATE 50 MG TAB PO SCH (09:00)
[2020-11-01] MEDS ORDERED: ASPIRIN 81 MG PO SCH (09:00)
[2020-11-01] MEDS ORDERED: CLOPIDOGREL 75 MG TAB PO SCH (09:00)
[2020-11-01] MEDS ORDERED: NON FORMULARY DRUG (Empagliflozin [Jardiance] 10 MG Tablet) PO SCH (09:00)
== END 2020-10-31 13:35 | disposition home or self-care (01) ==
LOC: CATHCVL 05:48 → 6NMEDSUR 11:18 → CATHCVL 13:35
PROVIDERS: ATTEND Internal Medicine Interventional Cardiology
DX: I25.10 Atherosclerotic heart disease of native coronary artery without angina pectoris (principal); I25.84 Coronary atherosclerosis due to calcified coronary lesion; Z95.5 Presence of coronary angioplasty implant and graft; I10 Essential (primary) hypertension; E11.9 Type 2 diabetes mellitus without complications; M19.90 Unspecified osteoarthritis, unspecified site; I34.0 Nonrheumatic mitral (valve) insufficiency; Z79.899 Other long term (current) drug therapy; Z79.82 Long term (current) use of aspirin; E78.2 Mixed hyperlipidemia; Z82.49 Family history of ischemic heart disease and other diseases of the circulatory system
CPT/HCPCS: 93458; 85025; 87635; C9600; J2250; J3010; J1644; J2001; Q9967 ×2

== ENCOUNTER → 2020-11-16 | Outpatient (CLI) | payer BC ==
--- NOTE | 2020-11-17 08:27 | US ---
EXAMINATION TYPE: US abdomen complete DATE OF EXAM: 11/16/2020 COMPARISON: NONE CLINICAL HISTORY: R94.5 Abnormal liver function test. EXAM MEASUREMENTS: Liver Length: 15.0 cm Gallbladder Wall: 0.2 cm CBD: 0.3 cm Spleen: 11.0 cm Right Kidney: 12.2 x 5.9 x 5.2 cm Left Kidney: 11.8 x 5.4 x 4.2 cm Pancreas: limited by overlying Liver: increased echogenicity within the liver. There is a 3.0cm hypoechoic area within the liver, a dditional evaluation recommended. Gallbladder: wnl Evidence for sonographic Cisneros's sign: no CBD: visualized portions wnl, limited by overlying bowel gas Spleen: wnl Right Kidney: wnl Left Kidney: wnl Upper IVC: wnl Abd Aorta: visualized portions wnl, limited by overlying midline bowel gas IMPRESSION: 1. Ill-defined hypoechoic region within the liver. CT with contrast is recommended for additional emerita luation.
== END | disposition home or self-care (01) ==
LOC: RADUSWWP 15:41
PROVIDERS: ATTEND Family Medicine
DX: R94.5 Abnormal results of liver function studies (principal)
CPT/HCPCS: 76700

== ENCOUNTER → 2020-12-07 | Outpatient (CLI) | payer BC ==
--- NOTE | 2020-12-07 17:02 | CT ---
EXAMINATION TYPE: CT abdomen w con DATE OF EXAM: 12/07/2020 COMPARISON: Ultrasound 11/16/2020 HISTORY: Liver lesion CT DLP: 1301.4 mGycm CONTRAST: CT scan of the abdomen is performed with Oral Contrast and with IV Contrast, patient injected with 10 0 mL of Isovue 300. FINDINGS: LUNG BASES-: No visible nodule. No infiltrate. LIVER/GB: No calcified gallstones. No space occupying hepatic lesion. Biliary tree is of normal ca liber. PANCREAS: No inflammation. No distinct mass. SPLEEN: No splenic enlargement. No lesion seen. ADRENALS: No nodule. No thickening. KIDNEYS/BLADDER: No hydronephrosis. No nephrolithiasis. No distinct renal mass. Urinary bladder g rossly unremarkable. BOWEL: Normal appendix. Normal bowel caliber. No inflammation. LYMPH NODES: No greater than 1cm abdominal or pelvic lymph nodes are appreciated. AORTA: No significant abnormality. OSSEOUS STRUCTURES: No significant abnormality is seen. OTHER: No significant additional abnormality is seen. IMPRESSION: 1. No hepatic lesion is identified at this time.
== END | disposition home or self-care (01) ==
LOC: RADCTMAIN 15:48
PROVIDERS: ATTEND Family Medicine
DX: K76.9 Liver disease, unspecified (principal)
CPT/HCPCS: 82565; 84520; 74160; 36415; Q9967

== ENCOUNTER 2020-12-27 16:34 | Inpatient (IN) | payer BC ==
[2020-12-27 17:46] LABS: Glucose,Whole Blood 113 mg/dL (75-99)
--- NOTE | 2020-12-27 18:03 | ED ---
Neuro HPI - General Chief Complaint: Neuro Symptoms/Deficit Stated Complaint: abn MRI results Time Seen by Provider: 12/27/20 17:00 Source: patient Mode of arrival: ambulatory Limitations: no limitations - History of Present Illness Is the patient presenting with stroke symptoms?: Yes Initial Comments: Patient is a 65-year-old male with past medical history of diabetes, coronary artery disease, MA with stent placement who presents to the emergency department with abnormal MRI results. Patient follows with Dr. Light in the outpatient setting. Reported to him one month ago that he was having headaches and Dr. Light ordered an MRI. States that starting one week ago he began having left- sided facial droop. 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 He knew he had his MRI upcoming and therefore waited to be seen. Patient had his MRI done yesterday which demonstrated an acute infarct involving the right basal ganglia. was called today and was told results. He was told to go immediately into the hospital. He denies previous history of stroke. No worsening symptoms. States that his facial droop is improving. Denies any visual changes. No speech difficulties. Denies any unilateral numbness or weakness in the extremities. No fevers or chills. No head trauma. No other alleviating, precipitating or modifying factors - Related Data Home Medications: Home Medications Medication Instructions Recorded Confirmed ALPRAZolam [Alprazolam] 0.5 mg PO BID PRN 02/23/16 12/27/20 Omeprazole 20 mg PO DAILY 02/23/16 12/27/20 hydroCHLOROthiazide [Hydrodiuril] 12.5 mg PO DAILY 02/23/16 12/27/20 metFORMIN HCL [Glucophage] 1,000 mg PO BID 02/23/16 12/27/20 Aspirin 81 mg PO DAILY 02/02/17 12/27/20 Insulin Detemir [Levemir Flextouch 75 units SQ HS 03/03/18 12/27/20 Pen] Pioglitazone HCl [Actos] 15 mg PO DAILY 08/16/18 12/27/20 Empagliflozin [Jardiance] 10 mg PO DAILY 10/25/20 12/27/20 Atorvastatin Calcium [Lipitor] 80 mg PO HS 12/27/20 12/27/20 DULoxetine HCL [Cymbalta] 60 mg PO DAILY 12/27/20 12/27/20 Ezetimibe [Zetia] 10 mg PO DAILY 12/27/20 12/27/20 HYDROcodone/APAP 7.5-325MG [[place] 1 tab PO DAILY PRN 12/27/20 12/27/20 7.5-325] Metoprolol Tartrate [Lopressor] 100 mg PO DAILY 12/27/20 12/27/20 [place]-3 Fatty Acids/Fish Oil [Fish 1 cap PO DAILY 12/27/20 12/27/20 Oil 1,000 mg Softgel] Previous Rx's Medication Instructions Recorded Ticagrelor [Brilinta] 90 mg PO BID #60 tab 12/29/20 Allergies/Adverse Reactions: Allergies Allergy/AdvReac Type Severity Reaction Status Date / Time oxaprozin [From Daypro] Allergy Severe Swelling Verified 12/27/20 19:54 throat & tongue, reddened face Review of Systems ROS Statement: Those systems with pertinent positive or pertinent negative responses have been documented in the HPI. ROS Other: All systems not noted in ROS Statement are negative. General Exam Limitations: no limitations General appearance: alert, in no apparent distress Head exam: Present: atraumatic, normocephalic, normal inspection Eye exam: Present: normal appearance, PERRL, EOMI. Absent: scleral icterus, conjunctival injection, periorbital swelling ENT exam: Present: mucous membranes moist, other (left sided facial droop - left lower face) Neck exam: Present: normal inspection. Absent: tenderness, meningismus, lymphadenopathy Respiratory exam: Present: normal lung sounds bilaterally. Absent: respiratory distress, wheezes, rales, rhonchi, stridor Cardiovascular Exam: Present: regular rate, normal rhythm, normal heart sounds. Absent: systolic murmur, diastolic murmur, rubs, gallop, clicks GI/Abdominal exam: Present: soft, normal bowel sounds. Absent: distended, tenderness, guarding, rebound, rigid Extremities exam: Present: normal inspection, full ROM, normal capillary refill. Absent: tenderness, pedal edema, joint swelling, calf tenderness Back exam: Present: normal inspection Neurological exam: Present: alert, oriented X3, CN II-XII intact Psychiatric exam: Present: normal affect, normal mood Skin exam: Present: warm, dry, intact, normal color. Absent: rash Stroke MDM - Lab Data Result diagrams: 12/28/20 06:08 12/28/20 06:08 Lab Results 12/27/20 12/27/20 12/27/20 Range/Units 17:44 18:18 18:18 WBC 10.2 (3.8-10.6) k/uL RBC 4.64 (4.30-5.90) m/uL Hgb 13.9 (13.0-17.5) gm/dL Hct 42.1 (39.0-53.0) % MCV 90.7 (80.0-100.0) fL MCH 29.9 (25.0-35.0) pg MCHC 32.9 (31.0-37.0) g/dL RDW 13.8 (11.5-15.5) % Plt Count 309 (150-450) k/uL MPV 8.2 Neutrophils % 62 % Lymphocytes % 27 % Monocytes % 6 % Eosinophils % 3 % Basophils % 1 % Neutrophils # 6.3 (1.3-7.7) k/uL Lymphocytes # 2.7 (1.0-4.8) k/uL Monocytes # 0.6 (0-1.0) k/uL Eosinophils # 0.3 (0-0.7) k/uL Basophils # 0.1 (0-0.2) k/uL PT 10.0 (9.0-12.0) sec INR 0.9 (<1.2) APTT 23.3 (22.0-30.0) sec Sodium (137-145) mmol/L Potassium (3.5-5.1) mmol/L Chloride (98-107) mmol/L Carbon Dioxide (22-30) mmol/L Anion Gap mmol/L BUN (9-20) mg/dL Creatinine (0.66-1.25) mg/dL Est GFR (CKD-EPI)AfAm (>60 ml/min/1.73 sqM) Est GFR (CKD-EPI)NonAf (>60 ml/min/1.73 sqM) Glucose (74-99) mg/dL POC Glucose (mg/dL) 113 H (75-99) mg/dL POC Glu Company Secretary ID Jignesh Ramey Calcium (8.4-10.2) mg/dL Total Bilirubin (0.2-1.3) mg/dL AST (17-59) U/L ALT (4-49) U/L Alkaline Phosphatase (38-126) U/L Troponin I (0.000-0.034) ng/mL Total Protein (6.3-8.2) g/dL Albumin (3.5-5.0) g/dL 12/27/20 12/27/20 Range/Units 18:18 18:18 WBC (3.8-10.6) k/uL RBC (4.30-5.90) m/uL Hgb (13.0-17.5) gm/dL Hct (39.0-53.0) % MCV (80.0-100.0) fL MCH (25.0-35.0) pg MCHC (31.0-37.0) g/dL RDW (11.5-15.5) % Plt Count (150-450) k/uL MPV Neutrophils % % Lymphocytes % % Monocytes % % Eosinophils % % Basophils % % Neutrophils # (1.3-7.7) k/uL Lymphocytes # (1.0-4.8) k/uL Monocytes # (0-1.0) k/uL Eosinophils # (0-0.7) k/uL Basophils # (0-0.2) k/uL PT (9.0-12.0) sec INR (<1.2) APTT (22.0-30.0) sec Sodium 137 (137-145) mmol/L Potassium 4.4 (3.5-5.1) mmol/L Chloride 96 L (98-107) mmol/L Carbon Dioxide 30 (22-30) mmol/L Anion Gap 11 mmol/L BUN 14 (9-20) mg/dL Creatinine 0.76 (0.66-1.25) mg/dL Est GFR (CKD-EPI)AfAm >90 (>60 ml/min/1.73 sqM) Est GFR (CKD-EPI)NonAf >90 (>60 ml/min/1.73 sqM) Glucose 117 H (74-99) mg/dL POC Glucose (mg/dL) (75-99) mg/dL POC Glu Company Secretary ID Calcium 10.1 (8.4-10.2) mg/dL Total Bilirubin 0.5 (0.2-1.3) mg/dL AST 26 (17-59) U/L ALT 32 (4-49) U/L Alkaline Phosphatase 106 (38-126) U/L Troponin I <0.012 (0.000-0.034) ng/mL Total Protein 7.8 (6.3-8.2) g/dL Albumin 4.8 (3.5-5.0) g/dL - Medical Decision Making On arrival reviewed the patient's MRI results which demonstrates a right basal ganglia infarct. Symptoms are greater than one week old. Laboratory studies are completed and reviewed. Recommended admission for neurology consultation. Patient given an aspirin. Spoke with sound physicians who agreed to admit the patient. 12/27/20 18:59 EKG demonstrates a sinus rhythm with a ventricular rate of 71. OK interval 170. Dressing V2. QTC of 408. No acute ST segment elevations or depressions concerning for ischemic changes Past Medical History Past Medical History: Coronary Artery Disease (CAD), Diabetes Mellitus, GERD/Reflux, Hyperlipidemia, Hypertension, Myocardial Infarction (MA), Osteoarthritis (OA), Sleep Apnea/CPAP/BIPAP Additional Past Medical History / Comment(s): uses cpap, shortness of breath , bells palsy Last Myocardial Infarction Date:: 11/17/16 History of Any Multi-Drug Resistant Organisms: None Reported Past Surgical History: Heart Catheterization With Stent, Hernia Repair, Joint Replacement, Orthopedic Surgery Additional Past Surgical History / Comment(s): 2 right rotator cuff repair. Lt hip replaced. Johnson. inguinal hernia repair. Past Anesthesia/Blood Transfusion Reactions: No Reported Reaction Additional Past Anesthesia/Blood Transfusion Reaction / Comment(s): States had transfusion at . Date of Last Stent Placement:: NOV 2016 Past Psychological History: Anxiety, Depression Smoking Status: Never smoker Past Alcohol Use History: None Reported Past Drug Use History: None Reported - Past Family History Brother(s) Family Medical History: Cancer, Deep Vein Thrombosis (DVT) Additional Family Medical History / Comment(s): 1 brother with Esophageal CA. 2 brothers with DVT. Sister(s) Family Medical History: Cancer Additional Family Medical History / Comment(s): Brain CA. Course Vital Signs 12/27/20 12/27/20 12/27/20 16:59 17:36 22:50 Temperature 98.1 F Pulse Rate 78 80 79 Pulse Rate [ Pulse Oximetery ] Respiratory 20 16 20 Rate Blood Pressure 142/83 166/91 152/80 Blood Pressure [Right Arm] O2 Sat by Pulse 97 98 96 Oximetry 12/28/20 12/28/20 12/28/20 00:45 02:00 03:54 Temperature 97.6 F Pulse Rate Pulse Rate [ 72 Pulse Oximetery ] Respiratory 18 18 18 Rate Blood Pressure Blood Pressure 124/73 [Right Arm] O2 Sat by Pulse 95 Oximetry 12/28/20 12/28/20 12/28/20 09:42 12:47 16:00 Temperature Pulse Rate 85 Pulse Rate [ 66 69 Pulse Oximetery ] Respiratory 18 18 16 Rate Blood Pressure 149/104 Blood Pressure 138/82 131/85 [Right Arm] O2 Sat by Pulse 91 L 91 L 97 Oximetry Disposition Clinical Impression: Cerebrovascular accident (CVA) Disposition: ADMITTED IP TO THIS [facility] Condition: Stable Is patient prescribed a controlled substance at d/c from ED?: No Decision to Admit Reason: Admit from EC Decision Date: 12/27/20 Decision Time: 19:05
[2020-12-27 18:21] LABS: Basophils # (A) 0.1 k/uL (0-0.2); Basophils % (A) 1 %; Eosinophils # (A) 0.3 k/uL (0-0.7); Eosinophils % (A) 3 %; HCT 42.1 % (39.0-53.0); HGB 13.9 gm/dL (13.0-17.5); Lymphocytes # (A) 2.7 k/uL (1.0-4.8); Lymphocytes % (A) 27 %; MCH 29.9 pg (25.0-35.0); MCHC 32.9 g/dL (31.0-37.0); MCV 90.7 fL (80.0-100.0); Mean Platelet Volume 8.2; Monocytes # (A) 0.6 k/uL (0-1.0); Monocytes % (A) 6 %; Neutrophils # (A) 6.3 k/uL (1.3-7.7); Neutrophils % (A) 62 %; Platelet Count 309 k/uL (150-450); RBC 4.64 m/uL (4.30-5.90); RDW 13.8 % (11.5-15.5); WBC 10.2 k/uL (3.8-10.6)
[2020-12-27 18:30] LABS: INR 0.9 (<1.2); Partial Thromboplastin Time 23.3 sec (22.0-30.0)
[2020-12-27 18:32] LABS: AST 26 U/L (17-59); African American GFR (CKD) >90 (>60 ml/min/1.73 sqM); Albumin 4.8 g/dL (3.5-5.0); Anion Gap 11 mmol/L; Blood Urea Nitrogen 14 mg/dL (9-20); Calcium 10.1 mg/dL (8.4-10.2); Carbon Dioxide 30 mmol/L (22-30); Chloride 96 mmol/L (98-107); Glucose 117 mg/dL (74-99); Non-African American GFR(CKD) >90 (>60 ml/min/1.73 sqM); Potassium 4.4 mmol/L (3.5-5.1); Sodium 137 mmol/L (137-145); Total Bilirubin 0.5 mg/dL (0.2-1.3); Total Protein 7.8 g/dL (6.3-8.2)
[2020-12-27 18:33] LABS: ALT 32 U/L (4-49); Alkaline Phosphatase 106 U/L (38-126)
[2020-12-27 18:41] LABS: Appearance,Urine Clear (Clear); Bilirubin,Urine Negative (Negative); Blood,Urine Negative (Negative); Color,Urine Colorless; Glucose,Urine (UA) 4+ (Negative); Ketones,Urine Negative (Negative); Leukocyte Esterase,Urine Negative (Negative); Nitrite,Urine Negative (Negative); PH, Urine 6.5 (5.0-8.0); Protein,Urine Negative (Negative); Specific Gravity,Urine 1.001 (1.001-1.035); Urobilinogen,Urine <2.0 mg/dL (<2.0)
[2020-12-27] MEDS ORDERED: NALOXONE 0.4 MG/ML 1 ML VIAL IV PRN (19:05)
[2020-12-27] MEDS ORDERED: ASPIRIN 325 MG TAB PO STA (19:12)
--- NOTE | 2020-12-27 19:17 | XR ---
EXAMINATION TYPE: XR chest 2V DATE OF EXAM: 12/27/2020 COMPARISON: 10/12/2020 HISTORY: Altered mental status TECHNIQUE: FINDINGS: Heart and mediastinum are normal. Lungs are clear. Diaphragm is normal. Bony thorax is inta ct. There are chest leads. IMPRESSION: No active cardiopulmonary disease. No change.
--- NOTE | 2020-12-27 21:24 | US ---
EXAMINATION TYPE: US carotid duplex BILAT DATE OF EXAM: 12/27/2020 COMPARISON: 03/12/2018 CLINICAL HISTORY: cva. CVA, left facial drooping. Hx hypertension, hyperlipidemia, myocardial infarct ion, 2 cardiac stents placed. EXAM MEASUREMENTS: RIGHT: Peak Systolic Velocity (PSV) cm/sec ----- Right CCA: 107.8 ----- Right ICA: 101.3 ----- Right ECA: 200.5 ICA/CCA ratio: 0.9 RIGHT: End Diastole cm/sec ----- Right CCA: 22.4 ----- Right ICA: 25.0 ----- Right ECA: 21.6 LEFT: Peak Systolic Velocity (PSV) cm/sec ----- Left CCA: 123.7 ----- Left ICA: 98.7 ----- Left ECA: 164.5 ICA/CCA ratio: 0.8 LEFT: End Diastole cm/sec ----- Left CCA: 22.0 ----- Left ICA: 26.3 ----- Left ECA: 16.8 VERTEBRALS (direction of flow): Right Vertebral: Antegrade Left Vertebral: Antegrade Rhythm: Normal Wall thickening seen within bilateral carotid arteries. Plaque seen within right carotid bulb, bilate ral ICA, and right ECA. Elevated velocities noted within bilateral ECA and left mid CCA. Hypoechoic area with hyperechoic center seen within left neck: 1.4 x 1.2 x 0.5 cm. IMPRESSION: There is antegrade flow in the vertebral arteries. There is bilateral plaque formation and estimated 50% stenosis in the common and internal carotid art eries bilaterally. Criteria for Assigning % of Stenosis / Diameter reduction (Estimation based on the indirect measurements of the internal carotid artery velocities (ICA PSV). 1. Normal (no stenosis)=ICA PSV < 125 cm/s: ratio < 2.0: ICA EDV<40 cm/s. 2. Less than 50% stenosis=ICA PSV < 125 cm/s: ratio < 2.0: ICA EDV<40 cm/s. 3. 50 to 69% stenosis=ICA PSV of 125 to 230 cm/s: ration 2.0 ? 4.0: ICA EDV 40-100 cm/s. 4. Greater than 70% stenosis to near occlusion= ICA PSV > 230 cm/s: ratio > 4.0: ICA EDV > 100 cm/s. 5. Near occlusion= ICA PSV velocities may be low or undetectable: variable ratio and ICA EDV. 6. Total occlusion=unable to detect flow.
[2020-12-27] MEDS ORDERED: INSULIN DETEMIR (LEVEMIR) 100 UNIT/ML SYR SQ SCH (21:30)
[2020-12-27 21:39] LABS: Glucose,Whole Blood 185 mg/dL (75-99)
--- NOTE | 2020-12-27 22:03 | P.HPIM ---
History of Present Illness H&P Date: 12/27/20 The patient is a 65-year-old male with a PMH of type II DM, hypertension, hyperlipidemia, Mustafa's palsy, coronary artery disease status post 3 stents who was sent to the emergency room for an abnormal MRI. The patient reports that he has been following with Dr. Kirby the neurologist for several years for chronic lower back pain. He however had started experiencing intermittent headaches roughly 2-3 months ago for which an MRI was ordered by the neurologist. Roughly a week ago though, he developed left sided facial droop, which he attributed to likely Mustafa's palsy as he had previously experienced several years ago. He went for his regularly scheduled MRI of the brain yesterday and was contacted earlier today for an abnormal results. The MRI of the brain had revealed a 1.7 cm acute infarct involving the right basal ganglia as well as moderate chronic small vessel ischemic disease. A lumbar spine MRI without contrast revealed mild degenerative changes with no other acute findings. The patient was advised to go to the emergency room. At time of the interview, he reports ongoing left facial droop but denied any additional complaints. He denied experiencing weakness, numbness, tingling, visual changes, speech impairment, abnormal gait. Further denied palpitations, chest pain, shortness of breath, nausea, vomiting, diaphoresis, abdominal pain, diarrhea. The patient reports compliance with his aspirin, Plavix, and Lipitor at home. EKG in the emergency room revealed normal sinus rhythm at [address]/T-wave changes noted as reviewed by me. Chest x-ray was unremarkable. Carotid Doppler revealed bilateral affirmation with estimated 50% stenosis in the common and internal carotid arteries bilaterally. Laboratory evaluation was reviewed and was unremarkable. Review of systems: Pertinent positives and negatives as discussed in HPI, a complete review of systems was performed and all other systems are negative. Physical examination: General: non toxic, no distress, appears at stated age, normal weight Derm: no unusual rashes/lesions no unusual ecchymoses, warm, dry Head: atraumatic, normocephalic, symmetric Eyes: EOMI, no lid lag, anicteric sclera, pupils equal round reactive to light ENT: Nose and ears atraumatic, no thrush, no pharyngeal erythema Neck: No thyromegaly, no cervical lymphadenopathy, trachea midline, supple Mouth: no lip lesion, mucus membranes moist Cardiovascular: S1S2 reg, no murmur, positive posterior tibial pulse bilateral, no edema, capillary refill less than 2 seconds Lungs: CTA bilateral, no rhonchi, no rales , no accessory muscle use Abdominal: soft, nontender to palpation, no guarding, no appreciable organomegaly, normal bowel sounds Ext: no gross muscle atrophy, muscle strength 5 out of 5 in all 4 extremities grossly, no contractures, Neuro: CN II-XI intact except for left lower facial droop noted with sparing of the eyelid and forehead, light touch intact all 4 extremities, finger to nose within normal limits, no pronator drift noted, Babinski downwards Psych: Alert, oriented, appropriate affect Assessment/plan Acute CVA involving the right basal ganglia -Neurology consulted -Continue with aspirin, Plavix, statin -Neuro checks -Permissive hypertension for now -ACID RETORT OPERATOR evaluation -Echocardiogram -Cardiac monitoring Chronic conditions: Type II DM, coronary artery disease, hypertension, hyperlipidemia -Continue with home meds -Levemir 60 units daily at bedtime with sliding scale -Check A1c -Hold oral hypoglycemics DVT prophylaxis -Heparin subcu The patient is admitted with an anticipated greater than 2 midnight stay for evaluation of acute CVA CODE STATUS: Full Code Discussed with: Patient Anticipated discharge date: 2-[address]: Home Past Medical History Past Medical History: Coronary Artery Disease (CAD), Diabetes Mellitus, GERD/Reflux, Hyperlipidemia, Hypertension, Myocardial Infarction ([place]), Osteoarthritis (OA), Sleep Apnea/CPAP/BIPAP Additional Past Medical History / Comment(s): uses cpap, shortness of breath , bells palsy Last Myocardial Infarction Date:: 11/17/16 History of Any Multi-Drug Resistant Organisms: None Reported Past Surgical History: Heart Catheterization With Stent, Hernia Repair, Joint Replacement, Orthopedic Surgery Additional Past Surgical History / Comment(s): 2 right rotator cuff repair. Lt hip replaced. Johnson. inguinal hernia repair. Past Anesthesia/Blood Transfusion Reactions: No Reported Reaction Additional Past Anesthesia/Blood Transfusion Reaction / Comment(s): States had transfusion at . Date of Last Stent Placement:: NOV 2016 Past Psychological History: Anxiety, Depression Smoking Status: Never smoker Past Alcohol Use History: None Reported Past Drug Use History: None Reported - Past Family History Brother(s) Family Medical History: Cancer, Deep Vein Thrombosis (DVT) Additional Family Medical History / Comment(s): 1 brother with Esophageal CA. 2 brothers with DVT. Sister(s) Family Medical History: Cancer Additional Family Medical History / Comment(s): Brain CA. Medications and Allergies Home Medications Medication Instructions Recorded Confirmed Type ALPRAZolam [Alprazolam] 0.5 mg PO BID PRN 02/23/16 12/27/20 History Omeprazole 20 mg PO DAILY 02/23/16 12/27/20 History hydroCHLOROthiazide [Hydrodiuril] 12.5 mg PO DAILY 02/23/16 12/27/20 History metFORMIN HCL [Glucophage] 1,000 mg PO BID 02/23/16 12/27/20 History Aspirin 81 mg PO DAILY 02/02/17 12/27/20 History Insulin Detemir [Levemir Flextouch 75 units SQ HS 03/03/18 12/27/20 History Pen] Pioglitazone HCl [Actos] 15 mg PO DAILY 08/16/18 12/27/20 History Empagliflozin [Jardiance] 10 mg PO DAILY 10/25/20 12/27/20 History Clopidogrel [Plavix] 75 mg PO DAILY #90 tablet 10/31/20 12/27/20 Rx Atorvastatin Calcium [Lipitor] 80 mg PO HS 12/27/20 12/27/20 History DULoxetine HCL [Cymbalta] 60 mg PO DAILY 12/27/20 12/27/20 History Ezetimibe [Zetia] 10 mg PO DAILY 12/27/20 12/27/20 History HYDROcodone/APAP 7.5-325MG [[place] 1 tab PO DAILY PRN 12/27/20 12/27/20 History 7.5-325] Metoprolol Tartrate [Lopressor] 100 mg PO DAILY 12/27/20 12/27/20 History [place]-3 Fatty Acids/Fish Oil [Fish 1 cap PO DAILY 12/27/20 12/27/20 History Oil 1,000 mg Softgel] Allergies Allergy/AdvReac Type Severity Reaction Status Date / Time oxaprozin [From Daypro] Allergy Severe Swelling Verified 12/27/20 19:54 throat & tongue, reddened face Physical Exam Vitals: Vital Signs Temp Pulse Resp BP Pulse Ox 12/27/20 17:36 80 16 166/91 98 12/27/20 16:59 98.1 F 78 20 142/83 97 Intake and Output 12/27/20 12/27/20 12/27/20 06:59 14:59 22:59 Other: Weight 88.451 kg Results CBC & Chem 7: 12/27/20 18:18 12/27/20 18:18 Labs: Abnormal Lab Results - Last 24 Hours (Table) 12/27/20 12/27/20 12/27/20 Range/Units 17:44 18:18 21:38 Chloride 96 L (98-107) mmol/L Glucose 117 H (74-99) mg/dL POC Glucose (mg/dL) 113 H 185 H (75-99) mg/dL Urine Glucose (UA) (Negative) 12/27/20 Range/Units Unknown Chloride (98-107) mmol/L Glucose (74-99) mg/dL POC Glucose (mg/dL) (75-99) mg/dL Urine Glucose (UA) 4+ H (Negative)
[2020-12-27 22:48] LABS: Glucose,Whole Blood 190 mg/dL (75-99)
[2020-12-27] MEDS: ALPRAZolam 0.5 MG TAB PO PRN (23:08)
[2020-12-27] MEDS: HYDROcodone/APAP 7.5-325MG 1 EACH TAB PO PRN (23:09)
[2020-12-28] MEDS: INSULIN DETEMIR (LEVEMIR) 100 UNIT/ML SYR SQ SCH ×2 (01:15→21:28)
[2020-12-28] MEDS: HEPARIN SODIUM,PORCINE/PF 5,000 UNIT/0.5 ML SYRINGE SQ SCH ×4 (01:28→23:14)
[2020-12-28 06:13] LABS: Glucose,Whole Blood 82 mg/dL (75-99)
[2020-12-28] MEDS: INSULIN ASPART (NovoLOG) 100 UNIT/ML VIAL SQ SCH ×4 (06:14→20:52)
[2020-12-28 06:38] LABS: Basophils # (A) 0.1 k/uL (0-0.2); Basophils % (A) 1 %; Eosinophils # (A) 0.3 k/uL (0-0.7); Eosinophils % (A) 4 %; HCT 41.6 % (39.0-53.0); HGB 13.8 gm/dL (13.0-17.5); Lymphocytes # (A) 2.8 k/uL (1.0-4.8); Lymphocytes % (A) 35 %; MCH 30.4 pg (25.0-35.0); MCHC 33.2 g/dL (31.0-37.0); MCV 91.5 fL (80.0-100.0); Mean Platelet Volume 8.2; Monocytes # (A) 0.7 k/uL (0-1.0); Monocytes % (A) 8 %; Neutrophils % (A) 50 %; Platelet Count 268 k/uL (150-450); RBC 4.54 m/uL (4.30-5.90); RDW 13.9 % (11.5-15.5)
[2020-12-28 07:11] LABS: African American GFR (CKD) >90 (>60 ml/min/1.73 sqM); Anion Gap 10 mmol/L; Blood Urea Nitrogen 15 mg/dL (9-20); Calcium 9.8 mg/dL (8.4-10.2); Carbon Dioxide 28 mmol/L (22-30); Chloride 100 mmol/L (98-107); Glucose 85 mg/dL (74-99); Non-African American GFR(CKD) >90 (>60 ml/min/1.73 sqM); Potassium 3.8 mmol/L (3.5-5.1); Sodium 138 mmol/L (137-145)
[2020-12-28] MEDS ORDERED: NON FORMULARY DRUG (Omega-3 Fatty Acids/Fish Oil [Fish Oil 1,000 Mg Softgel] 1 EACH Capsul PO SCH (09:00)
[2020-12-28] MEDS: CLOPIDOGREL 75 MG TAB PO SCH (09:26)
[2020-12-28] MEDS: ASPIRIN 81 MG PO SCH (09:26)
[2020-12-28] MEDS: PANTOPRAZOLE 40 MG TABLET PO SCH (09:27)
[2020-12-28] MEDS: EZETIMIBE 10 MG TAB PO SCH (09:27)
[2020-12-28] MEDS: hydroCHLOROthiazide 12.5 MG CAP PO SCH (09:27)
[2020-12-28] MEDS: DULoxetine HCL 60 MG CAPSULE.DR PO SCH (09:27)
[2020-12-28] MEDS: METOPROLOL TARTRATE 50 MG TAB PO SCH (09:28)
[2020-12-28] MEDS: HYDROcodone/APAP 7.5-325MG 1 EACH TAB PO PRN ×2 (09:34→20:57)
[2020-12-28] MEDS: ALPRAZolam 0.5 MG TAB PO PRN ×2 (09:34→20:57)
[2020-12-28 12:54] LABS: Glucose,Whole Blood 131 mg/dL (75-99)
[2020-12-28 16:34] LABS: Glucose,Whole Blood 154 mg/dL (75-99)
--- NOTE | 2020-12-28 16:46 | P.PN ---
Subjective Patient was seen and evaluated by me this evening. For some reason neurology consult was placed last night to the wrong provider and patient unfortunately is not seen by neurology. patient still having left facial droop. He denies any numbness or tingling anywhere in his body. No weakness anywhere. 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 Objective - Vital Signs Vital signs: Vital Signs Temp 97.6 F 12/28/20 03:54 Pulse 69 12/28/20 16:00 Resp 16 12/28/20 16:00 BP 131/85 12/28/20 16:00 Pulse Ox 97 12/28/20 16:00 Intake & Output 12/27/20 12/28/20 12/28/20 18:59 06:59 18:59 Intake Total 237 0 Output Total 750 Balance 237 -750 Weight 88.451 kg 88.451 kg Intake: Oral 237 0 Output: Urine 750 Other: Voiding Method Toilet Toilet Urinal # Voids 2 - Exam General: The patient is awake and alert, in no distress. Left facial droop noted Eye: there is normal conjunctiva bilaterally. Neck: The neck is supple, there is no JVD. Cardiovascular: Normal S1-S2, no S3-S4, no murmurs. Respiratory: Lungs clear to auscultation bilaterally Gastrointestinal: Abdomen is soft, nontender Musculoskeletal: There is no pedal edema. Neurological:. Speech is normal. Skin: Skin is warm and dry - Labs CBC & Chem 7: 12/28/20 06:08 12/28/20 06:08 Labs: Abnormal Lab Results - Last 24 Hours (Table) 12/27/20 12/27/20 12/27/20 Range/Units 17:44 18:18 21:38 Chloride 96 L (98-107) mmol/L Glucose 117 H (74-99) mg/dL POC Glucose (mg/dL) 113 H 185 H (75-99) mg/dL Hemoglobin A1c (4.0-6.0) % Urine Glucose (UA) (Negative) 12/27/20 12/27/20 12/28/20 Range/Units 22:47 Unknown 06:08 Chloride (98-107) mmol/L Glucose (74-99) mg/dL POC Glucose (mg/dL) 190 H (75-99) mg/dL Hemoglobin A1c 6.6 H (4.0-6.0) % Urine Glucose (UA) 4+ H (Negative) 12/28/20 12/28/20 Range/Units 12:53 16:32 Chloride (98-107) mmol/L Glucose (74-99) mg/dL POC Glucose (mg/dL) 131 H 154 H (75-99) mg/dL Hemoglobin A1c (4.0-6.0) % Urine Glucose (UA) (Negative) Assessment and Plan Assessment: This is a 65-year-old male with complex past medical history noted below who presented to the emergency room for further evaluation of left facial droop and an abnormal MRI done as an outpatient with his neurologist. Patient was evaluated in the ER and admitted to the hospital for further management of his medical problems noted below. 1. Acute infarct involving the right basal ganglia, noted on MRI of the brain done outpatient on 12/27/2020. I reviewed the MRI report. Patient is on dual antiplatelet therapy with aspirin and Plavix. Neurology consulted for further evaluation. Echocardiogram of the heart done pending report. Carotid ultrasound showed no hemodynamically significant stenosis with a questionable Hypoechoic area noted in the left neck awaiting CT angiogram for further evaluation 2. History of coronary artery disease status post stent placement in October. Continue optimal medical management. 3. Type 2 diabetes, relatively well controlled. A1c 6.6. Continue home dose of insulin plus sliding scale. 4. Hypertension, blood pressure within acceptable range Today, I reviewed his medication list and lab work results. Continue current management. Awaiting echocardiogram report and neurology evaluation. Check fasting lipid profile and thyroid function test in the morning.
--- NOTE | 2020-12-28 18:38 | CT ---
EXAMINATION TYPE: CT angio head neck with contrast and with 3-D reconstruction DATE OF EXAM: 12/28/2020 HISTORY: abnormal US COMPARISON: Carotid Doppler ultrasound 12/27/2020 CT DLP: 569.1 mGycm. Automated Exposure Control for Dose Reduction was Utilized. TECHNIQUE: CTA scan of the neck is performed with IV Contrast, patient injected with 65cc mL of Isov ue 370, axial images are obtained, coronal and sagittal reformatted images are reviewed. 3D reconstru cted images are created on an independent workstation and reviewed. FINDINGS: Bilateral CCA: Negative for hemodynamically significant stenosis. RAY: Negative for hemodynamically significant stenosis. Mild-moderate proximal ICA short-segment mix ed plaque noted. LICA: Negative for hemodynamically significant stenosis. Mild-moderate proximal ICA short-segment mix ed plaque noted. Bilateral vertebral arteries: Negative for hemodynamically significant stenosis. Intracranial arteries: Both the anterior circulation and the posterior circulation are negative for s ignificant findings, without significant stenosis or other focal findings. Multifocal nonaneurysmal a therosclerotic intimal calcifications noted. Other/Miscellaneous: No acute extra-arterial findings. IMPRESSION: NO SIGNIFICANT ABNORMALITY. NASCET criteria used in interpretation of this exam.
[2020-12-28 20:40] LABS: Glucose,Whole Blood 123 mg/dL (75-99)
[2020-12-28] MEDS ORDERED: INSULIN DETEMIR (LEVEMIR) 100 UNIT/ML SYR SQ SCH (21:00)
[2020-12-28] MEDS ORDERED: ATORVASTATIN 80 MG TAB PO SCH (21:00)
[2020-12-28 22:58] VITALS: RESP 18; TEMP 97.5
[2020-12-29] MEDS: HYDROcodone/APAP 7.5-325MG 1 EACH TAB PO PRN ×2 (02:05→10:45)
[2020-12-29 04:40] VITALS: PULSE 77
[2020-12-29 06:15] LABS: Glucose,Whole Blood 87 mg/dL (75-99)
[2020-12-29] MEDS: INSULIN ASPART (NovoLOG) 100 UNIT/ML VIAL SQ SCH ×2 (06:16→12:36)
[2020-12-29] MEDS ORDERED: TICAGRELOR 90 MG TAB PO STA (09:42)
--- NOTE | 2020-12-29 09:51 | P.CNNES ---
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 The patient was complaining of a headache over bilateral central region and he felt was a significant headache but denied any photophobia or any photophobia or nausea vomiting and he could not describe the headache for many. As a result the he followed up with his neurologist and got MRI of the brain on 12/26/2020 as outpatient. Per the primary team they read the report as acute infarct involving the right basal ganglia and as a result his neurologist send the patient to the hospital. He follows-up with Dr. Garcia for his neurological management. Patient denies any focal weakness, numbness, visual disturbance, difficulty swallowing, difficulty getting his words out. He feels his headache is resolved. He stated that he is on aspirin 81 mg and Plavix 75 mg for his history of coronary artery disease. He stated that he is on atorvastatin but he could not tell me the dose but per EMR it is reported that he is on 80 mg daily at bedtime. Patient denies any history of strokes or TIAs in the past. He den ies of any tobacco use or any illicit drug use. He states that he socially drinks alcohol on upon asking him how much she states that he drinks about the 6 cans of beers twice to 3 times a week. He does have family history of stroke and he had a brother with a stroke in his 50s. Some of the workup in our facility consisted of: Initial vital signs: Blood pressure of 142/83, heart rate of 78, respiratory of 20, temperature of 98.1 Fahrenheit oral and pulse ox of 97% room air. CBC with differential is unremarkable. Most recent chemistry panel is sodium 138, creatinine is 0.75, AST is 26 ALT of 32. His hemoglobin A1c is 6.6. Coronavirus PCR was not detected. Carotid duplex was reported as there is antegrade flow in the vertebral arteries. There is bilateral plaque formation and estimated 50% stenosis in the common or internal carotid arteries bilaterally. CT angiography of the head and neck was reported as mild to moderate proximal ICA short segment plaque noted over the right ICA and the left ICA otherwise the the rest is a negative. So reviewed the CT angiography and I felt the was able to appreciate the right the basal ganglia infarct. Review of Systems Review of system: The 12 point system was reviewed and apparent positive and negative per HPI. Past Medical History Past Medical History: Coronary Artery Disease (CAD), Diabetes Mellitus, GERD/Reflux, Hyperlipidemia, Hypertension, Myocardial Infarction (PA), Osteoarthritis (OA), Sleep Apnea/CPAP/BIPAP Additional Past Medical History / Comment(s): uses cpap, shortness of breath , bells palsy Last Myocardial Infarction Date:: 11/17/16 History of Any Multi-Drug Resistant Organisms: None Reported Past Surgical History: Heart Catheterization With Stent, Hernia Repair, Joint Replacement, Orthopedic Surgery Additional Past Surgical History / Comment(s): 2 right rotator cuff repair. Lt hip replaced. Johnson. inguinal hernia repair. 2 stents in october, Past Anesthesia/Blood Transfusion Reactions: No Reported Reaction Additional Past Anesthesia/Blood Transfusion Reaction / Comment(s): States had transfusion at . Date of Last Stent Placement:: oct 2020 Past Psychological History: Anxiety, Depression Smoking Status: Never smoker Past Alcohol Use History: None Reported Additional Past Alcohol Use History / Comment(s): Smoked 1 ppd per year, started at age 17y.o; Drinks 6-12 beers about 3 days a week Past Drug Use History: None Reported - Past Family History Brother(s) Family Medical History: Cancer, Deep Vein Thrombosis (DVT) Additional Family Medical History / Comment(s): 1 brother with Esophageal CA. 2 brothers with DVT. Sister(s) Family Medical History: Cancer Additional Family Medical History / Comment(s): Brain CA. Medications and Allergies Home Medications Medication Instructions Recorded Confirmed Type ALPRAZolam [Alprazolam] 0.5 mg PO BID PRN 02/23/16 12/27/20 History Omeprazole 20 mg PO DAILY 02/23/16 12/27/20 History hydroCHLOROthiazide [Hydrodiuril] 12.5 mg PO DAILY 02/23/16 12/27/20 History metFORMIN HCL [Glucophage] 1,000 mg PO BID 02/23/16 12/27/20 History Aspirin 81 mg PO DAILY 02/02/17 12/27/20 History Insulin Detemir [Levemir Flextouch 75 units SQ HS 03/03/18 12/27/20 History Pen] Pioglitazone HCl [Actos] 15 mg PO DAILY 08/16/18 12/27/20 History Empagliflozin [Jardiance] 10 mg PO DAILY 10/25/20 12/27/20 History Clopidogrel [Plavix] 75 mg PO DAILY #90 tablet 10/31/20 12/27/20 Rx Atorvastatin Calcium [Lipitor] 80 mg PO HS 12/27/20 12/27/20 History DULoxetine HCL [Cymbalta] 60 mg PO DAILY 12/27/20 12/27/20 History Ezetimibe [Zetia] 10 mg PO DAILY 12/27/20 12/27/20 History HYDROcodone/APAP 7.5-325MG [[place] 1 tab PO DAILY PRN 12/27/20 12/27/20 History 7.5-325] Metoprolol Tartrate [Lopressor] 100 mg PO DAILY 12/27/20 12/27/20 History [place]-3 Fatty Acids/Fish Oil [Fish 1 cap PO DAILY 12/27/20 12/27/20 History Oil 1,000 mg Softgel] Allergies Allergy/AdvReac Type Severity Reaction Status Date / Time oxaprozin [From Daypro] Allergy Severe Swelling Verified 12/27/20 19:54 throat & tongue, reddened face Physical Examination - Vital Signs Vital Signs: Vital Signs Temp Pulse Pulse Resp BP BP Pulse Ox 12/29/20 04:00 77 18 133/80 95 12/29/20 00:00 72 18 148/79 96 12/28/20 20:00 97.5 F L 75 18 157/84 96 12/28/20 16:00 69 16 131/85 97 12/28/20 12:47 66 18 138/82 91 L 12/28/20 09:42 85 18 149/104 91 L Intake and Output 12/28/20 12/29/20 12/29/20 22:59 06:59 14:59 Intake Total 240 Balance 240 Intake: Oral 240 Other: # Voids 1 3 Weight 90 kg GENERAL: The patient is lying in bed and is not in acute distress. CHEST: The heart rate is regular rate rhythm. No murmurs to auscultation. No carotid bruit bilaterally. LUNG: Clear to auscultation bilaterally no wheezing noted throughout. Not labored breathing. ABDOMEN/GI: Bowel sounds present in all 4 quadrants. No tenderness to palpation throughout. NEUROLOGICAL: Higher mental function: The patient is awake, alert, oriented to self, place and time. Patient is following commands. No aphasia and no neglect. Cranial nerves: The pupils are round, equal and reactive to light and accommodation. Visual hardy are full to confrontation throughout. Extraocular movement is intact no nystagmus is noted. Facial sensation is normal to touch throughout. Has left nasolabial flattening. Hearing is mildly decreased bilaterally to hand rub. Tongue is midline and moved [id number] without any d ifficulty. No dysarthria is noted. Shoulder shrug is normal bilaterally. Motor: Gait is normal with normal arm swings. The strength is 5 over 5 throughout. Normal tone and bulk. Cerebellum: Normal finger to nose heel to gu bilaterally. Sensation: Sensation is normal to touch throughout. Reflexes (right/left): 2+ throughout Plantars are downgoing bilaterally. Results - Laboratory Findings CBC and BMP: 12/28/20 06:08 12/28/20 06:08 Abnormal Lab Findings: Abnormal Labs 12/27/20 12/27/20 12/27/20 17:44 18:18 21:38 Chloride 96 L Glucose 117 H POC Glucose (mg/dL) 113 H 185 H Hemoglobin A1c Urine Glucose (UA) 12/27/20 12/27/20 12/28/20 22:47 Unknown 06:08 Chloride Glucose POC Glucose (mg/dL) 190 H Hemoglobin A1c 6.6 H Urine Glucose (UA) 4+ H 12/28/20 12/28/20 12/28/20 12:53 16:32 20:29 Chloride Glucose POC Glucose (mg/dL) 131 H 154 H 123 H Hemoglobin A1c Urine Glucose (UA) Assessment and Plan Assessment: Acute right basal ganglia (had MRI Brain as outpatient on 12/26/2020 and has left facial droop). No IV tpa since outside window. Strokes seems a due to small vessel disease because of patient's risk factors. History of coronary artery disease status post that History of type 2 diabetes Hypertension Plan: Currently the patient is on aspirin 81 mg and Plavix 75 mg a daily (both are home medication). I stopped Plavix since he failed drug and started the patient on Brilinta 180mg once loading then 90mg 1 tab bid. From a neurology perspective the patient to continue dual antiplatelets then consider stopping aspirin but will defer the final decision to the cardiology team since she was on dual antiplatelets the for a cardiac standpoint. On his home dose of Lipitor 80 mg daily at bedtime which is sufficient for secondary stroke prophylaxis 2-D echo, lipid panel, TSH are ordered and are pending Continue neuro checks PT, OT and PLATING TANK OPERATOR APPRENTICE are consulted. Patient was couseled on cutting down his alcohol since can drink about 6 can of beer/day and does it 2-3X/week. I started the patient on thiamine 100mg daily. We'll defer the rest of the medical management to the primary team. For DVT prophylaxis the patient is on subcu heparin. Upon discharge the patient needs to continue to follow up with his neurologist (Dr. Garcia) as an outpatient recommend the patient to follow-up within 1-2 w eeks. If the workup above is within normal limits then the patient is clear from a neurological standpoint. The plan is discussed with his patient and his nurse. Thank you for the consultation. Angel Luis Kay M.D. Neuro-hospitalist Time with Patient: Greater than 30
[2020-12-29] MEDS: ASPIRIN 81 MG PO SCH (09:59)
[2020-12-29] MEDS: EZETIMIBE 10 MG TAB PO SCH (09:59)
[2020-12-29] MEDS: hydroCHLOROthiazide 12.5 MG CAP PO SCH (09:59)
[2020-12-29] MEDS: HEPARIN SODIUM,PORCINE/PF 5,000 UNIT/0.5 ML SYRINGE SQ SCH (09:59)
[2020-12-29] MEDS: DULoxetine HCL 60 MG CAPSULE.DR PO SCH (09:59)
[2020-12-29] MEDS: METOPROLOL TARTRATE 50 MG TAB PO SCH (09:59)
[2020-12-29] MEDS: PANTOPRAZOLE 40 MG TABLET PO SCH (09:59)
[2020-12-29] MEDS ORDERED: THIAMINE 100 MG TAB PO SCH (10:00)
[2020-12-29] MEDS: CLOPIDOGREL 75 MG TAB PO SCH (10:18)
[2020-12-29] MEDS: ALPRAZolam 0.5 MG TAB PO PRN (10:45)
[2020-12-29 11:49] LABS: Glucose,Whole Blood 134 mg/dL (75-99)
[2020-12-29 13:18] VITALS: BP 138/74
[2020-12-29 14:05] LABS: Chol/HDL Ratio 3.63 Ratio; LDL Cholesterol,Calculated 65.4 mg/dL (0.0-131.0)
--- NOTE | 2020-12-29 15:13 | P.DS ---
Providers Date of admission: 12/27/20 19:05 Expected date of discharge: 12/29/20 Attending physician: Amadeo Guerrero MD Consults: 12/28/20 16:23 Consult Physician Routine Consulting Provider: Angel Luis Kay Consult Reason/Comments: stroke Do you want consulting provider notified?: Yes [facility] Course: This is a 65-year-old male with complex past medical history noted below who presented to the emergency room for further evaluation of left facial droop and an abnormal MRI done as an outpatient with his neurologist. Patient was evaluated in the ER and admitted to the hospital for further management of his medical problems noted below. 1. Acute infarct involving the right basal ganglia, noted on MRI of the brain done outpatient on 12/27/2020. I reviewed the MRI report. Patient is on dual antiplatelet therapy with aspirin and Plavix. Neurology consulted for further evaluation. Plavix switch to Brillenta. Echocardiogram of the heart done pending report. Carotid ultrasound showed no hemodynamically significant stenosis with a questionable Hypoechoic area noted in the left neck but CT angiogram showed no acute findings 2. History of coronary artery disease status post stent placement in October. Continue optimal medical management. 3. Type 2 diabetes, relatively well controlled. A1c 6.6. Continue home dose of insulin plus oral agents 4. Hypertension, blood pressure within acceptable range Today, I reviewed his medication list and lab work results. I called the echo lab to inquire about echo reportedly as is not uploaded in the computer and I was reassured that the echo is completely normal and reported when sewn be uploaded in the computer. Patient will be discharged home in a stable condition. Physical exam: General: The patient is awake and alert, in no distress. There is left facial droop significantly better since admission Eye: there is normal conjunctiva bilaterally. Neck: The neck is supple, there is no JVD. Cardiovascular: Normal S1-S2, no S3-S4, no murmurs. Respiratory: Lungs clear to auscultation bilaterally Gastrointestinal: Abdomen is soft, nontender Musculoskeletal: There is no pedal edema. Neurological:. Speech is normal. Skin: Skin is warm and dry Patient Condition at Discharge: Stable Plan - Discharge Summary Discharge Rx Participant: No New Discharge Prescriptions: New Ticagrelor [Brilinta] 90 mg PO BID #60 tab Continue metFORMIN HCL [Glucophage] 1,000 mg PO BID Omeprazole 20 mg PO DAILY hydroCHLOROthiazide [Hydrodiuril] 12.5 mg PO DAILY ALPRAZolam [Alprazolam] 0.5 mg PO BID PRN PRN Reason: Anxiety Aspirin 81 mg PO DAILY Insulin Detemir [Levemir Flextouch Pen] 75 units SQ HS Pioglitazone HCl [Actos] 15 mg PO DAILY Atorvastatin Calcium [Lipitor] 80 mg PO HS Ezetimibe [Zetia] 10 mg PO DAILY HYDROcodone/APAP 7.5-325MG [[place] 7.5-325] 1 tab PO DAILY PRN PRN Reason: Pain Metoprolol Tartrate [Lopressor] 100 mg PO DAILY [place]-3 Fatty Acids/Fish Oil [Fish Oil 1,000 mg Softgel] 1 cap PO DAILY Empagliflozin [Jardiance] 10 mg PO DAILY DULoxetine HCL [Cymbalta] 60 mg PO DAILY Discontinued Clopidogrel [Plavix] 75 mg PO DAILY #90 tablet Discharge Medication List ALPRAZolam [Alprazolam] 0.5 mg PO BID PRN 02/23/16 [History] Omeprazole 20 mg PO DAILY 02/23/16 [History] hydroCHLOROthiazide [Hydrodiuril] 12.5 mg PO DAILY 02/23/16 [History] metFORMIN HCL [Glucophage] 1,000 mg PO BID 02/23/16 [History] Aspirin 81 mg PO DAILY 02/02/17 [History] Insulin Detemir [Levemir Flextouch Pen] 75 units SQ HS 03/03/18 [History] Pioglitazone HCl [Actos] 15 mg PO DAILY 08/16/18 [History] Empagliflozin [Jardiance] 10 mg PO DAILY 10/25/20 [History] Atorvastatin Calcium [Lipitor] 80 mg PO HS 12/27/20 [History] DULoxetine HCL [Cymbalta] 60 mg PO DAILY 12/27/20 [History] Ezetimibe [Zetia] 10 mg PO DAILY 12/27/20 [History] HYDROcodone/APAP 7.5-325MG [[place] 7.5-325] 1 tab PO DAILY PRN 12/27/20 [History] Metoprolol Tartrate [Lopressor] 100 mg PO DAILY 12/27/20 [History] [place]-3 Fatty Acids/Fish Oil [Fish Oil 1,000 mg Softgel] 1 cap PO DAILY 12/27/20 [History] Ticagrelor [Brilinta] 90 mg PO BID #60 tab 12/29/20 [Rx] Follow up Appointment(s)/Referral(s): Sarah De La Torre MD [Primary Care Provider] - 1-2 days Discharge Disposition: HOME SELF-CARE
--- NOTE | 2020-12-29 18:01 | ECHOF ---
Referral Reason:cva MEASUREMENTS -------- HEIGHT: 170.2 cm WEIGHT: 88.5 kg BP: RVIDd: 3.0 cm (< 3.3) IVSd: 1.1 cm (0.6 - 1.1) LVIDd: 3.9 cm (3.9 - 5.3) LVPWd: 1.1 cm (0.6 - 1.1) IVSs: 1.4 cm LVIDs: 3.1 cm LVPWs: 1.2 cm LA Diam: 3.9 cm (2.7 - 3.8) LAESV Index (A-L): 22.38 ml/m Ao Diam: 3.4 cm (2.0 - 3.7) AV Cusp: 1.5 cm (1.5 - 2.6) LA Diam: 3.7 cm (2.7 - 3.8) MV EXCURSION: 13.883 mm (> 18.000) MV EF SLOPE: 45 mm/s (70 - 150) EPSS: 0.5 cm MV E Ottoniel: 0.60 m/s MV DecT: 227 ms MV A Ottoniel: 0.90 m/s MV E/A Ratio: 0.66 RAP: 5.00 mmHg RVSP: 10.65 mmHg FINDINGS -------- Sinus rhythm. This was a technically adequate study. LV size, wall thickness and systolic function are normal, with an EF greater than 55%. The left joe tricular size is normal. The diastolic filling pattern is normal for the age of the patient 8.55. The right ventricle is normal in size. Normal LA size by volume 22+/-6 ml/m2. The right atrial size is normal. There is mild aortic valve sclerosis. There is no evidence of aortic regurgitation. Mild mitral annular calcification present. Mild mitral regurgitation is present. The tricuspid valve appears structurally normal. Mild tricuspid regurgitation present. Right vent ricular systolic pressure is normal at < 35 mmHg. There is no pulmonic regurgitation present. The aortic root size is normal. Echo free space represents a pericardial fat pad. CONCLUSIONS -------- 1. LV size, wall thickness and systolic function are normal, with an EF greater than 55%. 2. Normal LA size by volume 22+/-6 ml/m2. 3. There is mild aortic valve sclerosis. 4. Mild mitral regurgitation is present. 5. Mild tricuspid regurgitation present. 6. Echo free space represents a pericardial fat pad. NECKTIE TURNER: Cheryl Zamarripa RDCS
[2020-12-29] MEDS ORDERED: TICAGRELOR 90 MG TAB PO SCH (21:00)
== END 2020-12-29 15:45 | disposition home or self-care (01) | DRG 66 ==
LOC: EC 16:34 → 3SCARD 19:05
PROVIDERS: ADMIT Internal Medicine; ATTEND Internal Medicine
DX: I63.9 Cerebral infarction, unspecified (principal); R29.810 Facial weakness; Z20.822 Contact with and (suspected) exposure to COVID-19; I25.10 Atherosclerotic heart disease of native coronary artery without angina pectoris; I25.2 Old myocardial infarction; E78.5 Hyperlipidemia, unspecified; F32.9 Major depressive disorder, single episode, unspecified; F41.9 Anxiety disorder, unspecified; I10 Essential (primary) hypertension; Z79.02 Long term (current) use of antithrombotics/antiplatelets; Z79.4 Long term (current) use of insulin; Z79.82 Long term (current) use of aspirin; Z79.84 Long term (current) use of oral hypoglycemic drugs; Z79.899 Other long term (current) drug therapy; Z96.642 Presence of left artificial hip joint; Z95.5 Presence of coronary angioplasty implant and graft; Z82.3 Family history of stroke; Z80.8 Family history of malignant neoplasm of other organs or systems; Z80.0 Family history of malignant neoplasm of digestive organs; E11.9 Type 2 diabetes mellitus without complications; G89.29 Other chronic pain; K21.9 Gastro-esophageal reflux disease without esophagitis; M19.90 Unspecified osteoarthritis, unspecified site; I15.9 Secondary hypertension, unspecified; M54.50 Low back pain, unspecified
CPT/HCPCS: 36415; 70496; 70498; 71046; 80048; 80053; 80061; 81003; 83036; 84443; 84484; 85025; 85610; 85730; 87635; 93005; 93306; 93880; 96372; 99285

== ENCOUNTER → 2021-02-20 | Outpatient (CLI) | payer BC ==
[2021-02-21 01:58] LABS: ALT 49 U/L (10-49); AST 22 U/L (14-35); African American GFR (CKD) 110.2 (60.0-200.0); Albumin 4.9 g/dL (3.8-4.9); Albumin/Globulin Ratio 2.23 (1.60-3.17); Alkaline Phosphatase 113 U/L (41-126); Blood Urea Nitrogen 12.8 mg/dL (9.0-27.0); Calcium 9.5 mg/dL (8.7-10.3); Carbon Dioxide 21.5 mmol/L (20.0-27.5); Chloride 100 mmol/L (96-109); Chol/HDL Ratio 3.65 Ratio; Globulin 2.2 g/dL (1.6-3.3); Glucose 136 mg/dL (70-110); Non-African American GFR(CKD) 95.1 (60.0-200.0); Potassium 4.3 mmol/L (3.5-5.5); Sodium 138 mmol/L (135-145); Total Protein 7.1 g/dL (6.2-8.2)
== END | disposition home or self-care (01) ==
LOC: LABWHC1 15:07
PROVIDERS: ATTEND Physician Assistant
DX: I63.9 Cerebral infarction, unspecified (principal); E78.2 Mixed hyperlipidemia
CPT/HCPCS: 36415; 80053; 80061; 83090

== ENCOUNTER → 2021-04-19 | Outpatient (CLI) | payer BC ==
--- NOTE | 2021-04-19 18:41 | SFUN ---
SLEEP CENTER FOLLOW UP NOTE DATE OF SERVICE: 04/19/2021 This 65-year-old gentleman has been followed in Sleep Center for treatment of obstructive sleep apnea-hypopnea syndrome. The patient continues to use his machine every night, but recently his heated humidifier does not work and the machine has a sign on the screen that his humidifier is not working. [place] Sleepiness Scale today is 7. I checked his CPAP unit. Pressure is 14 cm of water. Usage is 30/30 nights and 29/30 nights for more than 4 hours, average 8.3 hours per night. Leak is 38 L/minute. Apnea- hypopnea index is 1.4, which is normal. The heated humidifier is not working in the machine. On the screen of the machine there is a note that the heating system is not working. MEDICATIONS: Omeprazole, metformin, Levemir, alprazolam, metoprolol, Brilinta, aspirin 81 mg, [place], hydrochlorothiazide. PHYSICAL EXAMINATION: GENERAL: Pleasant patient in no distress. VITAL SIGNS: BP 144/91, HR 105, RR 16, height 5 feet 7 inches, weight 203 pounds, body mass index 31.6, temperature 97.8, oxygen saturation at room air 96%. HEENT: PERRLA, EOMI, evaluation of oropharynx showed tongue protrudes midline. Low position of soft palate. NECK: Supple, no JVD. Thyroid is not palpable. LUNGS: Clear to percussion and to auscultation. Good air exchange. No wheezing or rhonchi. HEART: S1, S2 regular. No murmurs, gallops, or rubs. ABDOMEN: Slightly obese. EXTREMITIES: No clubbing or cyanosis. GOLF BALL WINDER: Awake, alert, and oriented X3. Cranial nerves 2 to 7 intact. There is no fasciculation or atrophy. noted. No focal deficits observed. IMPRESSION: 1. Obstructive sleep apnea-hypopnea syndrome. Apnea-hypopnea index 71.8 with oxygen desaturation to 61% during original sleep study. The patient demonstrated 100% compliance with treatment, benefitting from treatment. Normal respiration on CPAP. CPAP unit heating system does not work. 2. Hypertension. 3. Coronary artery disease, status post heart attack in November 2016, status post stent insertion. 4. Diabetes mellitus. 5. Mild obesity. 6. Acid reflux. 7. Hyperlipidemia. 8. Shoulder problems. 9. Back problems. 10.Status post left hip replacement. 11.Status post uvulopalatopharyngoplasty. PLAN: 1. Prescription to fix or replace CPAP unit. 2. Patient will continue to use PAP equipment every night for the whole night. 3. Sleep hygiene with regular time in bed for at least 7-1/2 to 8 hours. 4. Precautions related to driving. No driving if feeling sleepiness. 5. I will maintain all necessary prescription for PAP supplies including mask, tube, filters. 6. Watching weight. 7. Follow-up visit after the patient receives his new CPAP unit. Thank you very much for allowing me to participate in the management of your patient. Sincerely, Cameron Garcia MD, PhD, FAASM Diplomat of [place] [employer] Sleep Medicine Board of [place] [employer] [facility] [place] MMFÁTIMAL / DARLIN: [id number] /
== END | disposition home or self-care (01) ==
LOC: SLEEP 15:54
PROVIDERS: ATTEND Internal Medicine
DX: G47.33 Obstructive sleep apnea (adult) (pediatric) (principal); I10 Essential (primary) hypertension; I25.10 Atherosclerotic heart disease of native coronary artery without angina pectoris; E11.9 Type 2 diabetes mellitus without complications; K21.9 Gastro-esophageal reflux disease without esophagitis; E66.9 Obesity, unspecified; E78.5 Hyperlipidemia, unspecified; Z98.890 Other specified postprocedural states; Z96.642 Presence of left artificial hip joint

== ENCOUNTER 2021-07-20 05:35 | Day surgery (SDC) | payer BC ==
[2021-07-18 16:21] VITALS: BMI 32.2
[2021-07-20] MEDS ORDERED: ALPRAZolam 0.5 MG TAB PO PRN ×2 (06:06→08:21)
[2021-07-20] MEDS ORDERED: SODIUM CHLORIDE 0.9% 1,000 ML in EMPTY BAG 1 BAG IV SCH (06:06)
[2021-07-20] MEDS ORDERED: ALPRAZolam 0.25 MG TAB PO PRN (06:06)
[2021-07-20] MEDS ORDERED: NITROGLYCERIN SL TABS 0.4 MG TAB SUBLINGUAL PRN (06:06)
[2021-07-20 06:23] LABS: Glucose,Whole Blood 191 mg/dL (75-99)
[2021-07-20 06:24] VITALS: RESP 18; TEMP 98.1
[2021-07-20 06:33] LABS: Basophils # (A) 0.2 k/uL (0-0.2); Basophils % (A) 2 %; Eosinophils # (A) 0.4 k/uL (0-0.7); Eosinophils % (A) 4 %; HGB 13.8 gm/dL (13.0-17.5); Lymphocytes # (A) 2.2 k/uL (1.0-4.8); Lymphocytes % (A) 19 %; MCHC 31.3 g/dL (31.0-37.0); MCV 92.7 fL (80.0-100.0); Mean Platelet Volume 8.4; Monocytes # (A) 0.9 k/uL (0-1.0); Monocytes % (A) 8 %; Neutrophils # (A) 7.8 k/uL (1.3-7.7); Neutrophils % (A) 67 %; Platelet Count 347 k/uL (150-450); RBC 4.75 m/uL (4.30-5.90); RDW 14.3 % (11.5-15.5); WBC 11.7 k/uL (3.8-10.6)
[2021-07-20 06:51] LABS: African American GFR (CKD) >90 (>60 ml/min/1.73 sqM); Anion Gap 12 mmol/L; Blood Urea Nitrogen 13 mg/dL (9-20); Calcium 9.3 mg/dL (8.4-10.2); Carbon Dioxide 26 mmol/L (22-30); Chloride 104 mmol/L (98-107); Glucose 182 mg/dL (74-99); Non-African American GFR(CKD) >90 (>60 ml/min/1.73 sqM); Potassium 3.8 mmol/L (3.5-5.1); Sodium 142 mmol/L (137-145)
[2021-07-20] MEDS ORDERED: VERAPAMIL 2.5 MG/ML 2 ML AMP ONE (07:18)
[2021-07-20] MEDS ORDERED: fentaNYL (PF) 50 MCG/ML 2 ML AMP ONE (07:25)
[2021-07-20] MEDS ORDERED: HEPARIN SODIUM 1,000 UN/ML (10ML VL) ONE (07:25)
[2021-07-20] MEDS ORDERED: fentaNYL (PF) 50 MCG/ML 2 ML AMP IV ONE (07:49)
[2021-07-20] MEDS ORDERED: LIDOCAINE 1% INJ 10MG/ML (5 ML VIAL-PF) SQ ONE ×4 (07:49→07:57)
[2021-07-20] MEDS ORDERED: VERAPAMIL SYRINGE (5 MG/10 ML) INTRAARTER ONE (07:58)
[2021-07-20] MEDS ORDERED: HEPARIN SODIUM 1,000 UN/ML (10ML VL) IV ONE (08:02)
[2021-07-20] MEDS ORDERED: IOPAMIDOL-370 125ML BTL INJ ONE (08:12)
[2021-07-20] MEDS ORDERED: RX INFO: IV CONTRAST WAS GIVEN 1 EACH MISC MISCELLANE PRN (08:20)
--- NOTE | 2021-07-20 08:28 | P.CARDCATH ---
Date of Procedure: 07/20/21 Description of Procedure: Cardiac Catheterization: The patient is a 65-year-old male with a known history of hypertension, hyperlipidemia and diabetes mellitus as well as stenting of the RCA who presented with symptoms of progressive dyspnea. His MPI showed evidence of stress induced ischemia. Recommendations were made regarding cardiac catheterization, the risks and the complications were discussed with the patient who is in full understanding and agreement. Procedure Description: Patient was brought to poultry farm laborer in fasting semi-sedated state after receiving Fentanyl and Benadryl achieiving moderate conscious sedated state. Using Xylocaine Anesthesia and Seldinger technique, a 6-Somali sheath was introduced in the right radial artery . Subsequently, selective coronary angiography performed using a 5-Somali 3.5 bend left and 4 bend right Andrea catheter. Multiple views of the coronary artery including hemiaxial views were obtained. The 5-Somali pigtail catheter was used to cross the aortic valve and LVEDP was calculated. Following that, catheter and sheath were removed. Hemostasis was obtained with deployment of TR band . There was no immediate complication. Patient was returned to room in stable condition. Of note, the patient received a total of 5000 units of intravenous heparin as well as intra-arterial verapamil. There was no immediate complications. Findings: Fluoroscopy: Significant calcifications of all the coronary arteries was noted. Left main: This is a size vessel, bifurcating into LAD and left circumflex, left main has no evidence of high-grade stenosis LAD: This is a size vessel, reaching to the apex with wrap around the apex segment giving rise to 2 diagonal branch, the LAD has 30-40% plaque in the proximal and midsegment with no evidence of high-grade stenosis. Left circumflex: This is a nondominant vessel giving rise to 2 obtuse marginal branch. The first obtuse marginal branch has an area of 50% stenosis in the midsegment intimal disease was noted in the second obtuse marginal branch RCA: This is a large dominant vessel, bifurcating into PDA and PLV. This stented segment in the proximal and mid right coronary artery are patent. There is mild plaque of 30% in the mid and distal segment with no high-grade stenosis Left Ventriculogram: Was not performed Hemodynamics: There was no gradient across the aortic valve, LVEDP was 14-16 mmHg Conclusion: 1. Calcified coronary arteries 2. Patent stents in the RCA 3. Mild to moderate obstructive disease involving the LAD and left circumflex 4. Mild to moderate disease in the RCA Recommendations: In view of the findings and the anatomy I would recommend continuing present medical therapy with the aggressive coronary risks modifications that have been initiated. The findings and the recommendations were discussed with the patient and his family. They were in full understanding and agreement. Duration of sedation is 18 minutes.
[2021-07-20] MEDS ORDERED: SODIUM CHLORIDE 0.9% 1,000 ML IV SCH (08:30)
[2021-07-20] MEDS ORDERED: hydroCHLOROthiazide 12.5 MG CAP PO SCH (09:00)
[2021-07-20] MEDS ORDERED: NON FORMULARY DRUG (Empagliflozin [Jardiance] 10 MG Tablet) PO SCH (09:00)
[2021-07-20] MEDS ORDERED: DULoxetine HCL 60 MG CAPSULE.DR PO SCH (09:00)
[2021-07-20] MEDS ORDERED: TICAGRELOR 90 MG TAB PO SCH (09:00)
[2021-07-20] MEDS ORDERED: ASPIRIN 81 MG PO SCH (09:00)
[2021-07-20] MEDS ORDERED: PIOGLITAZONE 15 MG TAB PO SCH (09:00)
[2021-07-20] MEDS ORDERED: NON FORMULARY DRUG (Omega-3 Fatty Acids/Fish Oil [Fish Oil 1,000 Mg Softgel] 1 EACH Capsul PO SCH (09:00)
[2021-07-20] MEDS ORDERED: NON FORMULARY DRUG (Metoprolol Tartrate [Lopressor] 100 MG Tablet) PO SCH (09:00)
[2021-07-20] MEDS ORDERED: NON FORMULARY DRUG (Omeprazole [Omeprazole] 20 MG Capsule.Dr) PO SCH (09:00)
[2021-07-20] MEDS ORDERED: HYDROcodone/APAP 7.5-325MG 1 EACH TAB PO ONE ×2 (10:46→11:00)
[2021-07-20] MEDS ORDERED: ALPRAZolam 0.5 MG TAB PO ONE (11:00)
[2021-07-20 13:00] VITALS: BP 145/74; PULSE 74
[2021-07-20] MEDS ORDERED: INSULN SQ SCH (21:00)
[2021-07-20] MEDS ORDERED: INSULIN DETEMIR 100 UNIT/ML SQ SCH (21:00)
[2021-07-20] MEDS ORDERED: ATORVASTATIN 80 MG TAB PO SCH (21:00)
== END 2021-07-20 13:01 | disposition home or self-care (01) ==
LOC: CATHCVL 05:35
PROVIDERS: ATTEND Internal Medicine Interventional Cardiology
DX: I25.10 Atherosclerotic heart disease of native coronary artery without angina pectoris (principal); I25.84 Coronary atherosclerosis due to calcified coronary lesion; Z79.82 Long term (current) use of aspirin; Z79.899 Other long term (current) drug therapy; Z95.5 Presence of coronary angioplasty implant and graft; E11.9 Type 2 diabetes mellitus without complications; E78.2 Mixed hyperlipidemia; Z98.890 Other specified postprocedural states; R94.39 Abnormal result of other cardiovascular function study; Z20.822 Contact with and (suspected) exposure to COVID-19; E78.00 Pure hypercholesterolemia, unspecified; Z96.649 Presence of unspecified artificial hip joint; Z82.49 Family history of ischemic heart disease and other diseases of the circulatory system; Z87.891 Personal history of nicotine dependence; Z79.84 Long term (current) use of oral hypoglycemic drugs; Z79.4 Long term (current) use of insulin; Z88.8 Allergy status to other drugs, medicaments and biological substances
CPT/HCPCS: 93458; 80048; 85025; 87635; C1894; C1769; J2001; J3010; J1644; Q9967

== ENCOUNTER → 2021-10-25 | Outpatient (CLI) | payer BC ==
--- NOTE | 2021-10-25 15:55 | US ---
EXAMINATION TYPE: US abdomen limited DATE OF EXAM: 10/25/2021 COMPARISON: CT 12/07/2020 CLINICAL HISTORY: 65-year-old male K43.6 Unspecified abdominal hernia without obstruction. Assess for hernia at location of: left flank Technique: Real-time scanning was performed by the brattice builder utilizing Valsalva and additional amanda everett maneuvers to assess for hernia. FINDINGS: Deputy Head notes: Left flank scanned using valsalva maneuvers, no hernia seen at palpable area. IMPRESSION: Targeted scanning along the left flank shows no discrete abdominal wall defect or abdominal wall jewel ia. If symptoms persist, consider follow-up CT.
== END | disposition home or self-care (01) ==
LOC: RADUSWWP 11:15
PROVIDERS: ATTEND Family Medicine
DX: K46.9 Unspecified abdominal hernia without obstruction or gangrene (principal)
CPT/HCPCS: 76705

== ENCOUNTER → 2021-11-03 | Outpatient (CLI) | payer BC ==
[2021-11-03 16:12] LABS: ALT 29 U/L (10-49); AST 17 U/L (14-35); Chol/HDL Ratio 3.16 Ratio; LDL Cholesterol,Calculated 86.5 mg/dL (0.0-131.0)
== END | disposition home or self-care (01) ==
LOC: LABWHC1 10:20
PROVIDERS: ATTEND Internal Medicine Interventional Cardiology
DX: E78.2 Mixed hyperlipidemia (principal)
CPT/HCPCS: 36415; 80061; 84450; 84460

== ENCOUNTER → 2021-12-06 | Outpatient (CLI) | payer BC ==
[2021-12-06 18:44] LABS: ALT 39 U/L (10-49); AST 21 U/L (14-35); LDL Cholesterol,Calculated 76.6 mg/dL (0.0-131.0)
== END | disposition home or self-care (01) ==
LOC: LABWHC1 11:14
PROVIDERS: ATTEND Internal Medicine Interventional Cardiology
DX: E78.2 Mixed hyperlipidemia (principal)
CPT/HCPCS: 36415; 80061; 84450; 84460

== ENCOUNTER 2022-09-15 22:15 | Emergency (ER) | payer BC ==
[2022-09-15 22:28] VITALS: TEMP 97
[2022-09-15] MEDS ORDERED: DIPH,PERTUS(ACELL)TETVAC-LF 0.5 ML VIAL IM ONE (22:34)
[2022-09-15] MEDS ORDERED: KETOROLAC 15 MG/ML 1 ML VIAL IM STA (22:34)
[2022-09-15] MEDS ORDERED: HYDROmorphone 1 MG/ML 1 ML SYRINGE IM STA (22:37)
--- NOTE | 2022-09-15 22:50 | ED ---
Wound/Laceration HPI - General Chief Complaint: Wound/Laceration Stated Complaint: Left hand injury Time Seen by Provider: 09/15/22 22:32 Source: patient Mode of arrival: wheelchair - History of Present Illness Initial Comments: 66-year-old male presenting with chief complaint of laceration. Patient was cutting some wood and injured the second and third digits on a chainsaw. He admits to 6 out of 10 pain at this time. Limited range of motion secondary to pain. Does not know when his last tetanus shot was. - Related Data Home Medications Medication Instructions Recorded Confirmed ALPRAZolam [Alprazolam] 0.5 mg PO BID PRN 02/23/16 07/18/21 Omeprazole 20 mg PO DAILY 02/23/16 07/18/21 hydroCHLOROthiazide [Hydrodiuril] 12.5 mg PO DAILY 02/23/16 07/18/21 metFORMIN HCL [Glucophage] 1,000 mg PO BID 02/23/16 07/20/21 Aspirin 81 mg PO DAILY 02/02/17 07/20/21 Insulin Detemir [Levemir Flextouch 75 units SQ HS 03/03/18 07/20/21 Pen] Pioglitazone HCl [Actos] 15 mg PO DAILY 08/16/18 07/20/21 Empagliflozin [Jardiance] 10 mg PO DAILY 10/25/20 07/20/21 Atorvastatin Calcium [Lipitor] 80 mg PO HS 12/27/20 07/18/21 DULoxetine HCL [Cymbalta] 60 mg PO DAILY 12/27/20 07/18/21 HYDROcodone/APAP 7.5-325MG [[facility] 1 tab PO BID 12/27/20 07/20/21 7.5-325] Metoprolol Tartrate [Lopressor] 100 mg PO DAILY 12/27/20 07/18/21 Puposky-3 Fatty Acids/Fish Oil [Fish 1 cap PO DAILY 12/27/20 07/18/21 Oil 1,000 mg Softgel] Previous Rx's Medication Instructions Recorded Ticagrelor [Brilinta] 90 mg PO BID #60 tab 12/29/20 Cephalexin [Keflex] 500 mg PO Q6HR 7 Days #28 cap 09/16/22 Allergies Allergy/AdvReac Type Severity Reaction Status Date / Time oxaprozin [From Daypro] Allergy Severe Swelling Verified 09/15/22 22:27 throat & tongue, reddened face Review of Systems ROS Statement: Those systems with pertinent positive or pertinent negative responses have been documented in the HPI. ROS Other: All systems not noted in ROS Statement are negative. Past Medical History Past Medical History: Coronary Artery Disease (CAD), CVA/TIA, Diabetes Mellitus, GERD/Reflux, Hyperlipidemia, Hypertension, Myocardial Infarction (PA), Osteoarthritis (OA), Seizure Disorder, Sleep Apnea/CPAP/BIPAP Additional Past Medical History / Comment(s): Chronic back pain. 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 CPAP use. "Hx mild seizure when ran out of Xanax few months ago". Last Myocardial Infarction Date:: 11/17/16 History of Any Multi-Drug Resistant Organisms: None Reported Past Surgical History: Heart Catheterization With Stent, Hernia Repair, Joint Replacement, Orthopedic Surgery Additional Past Surgical History / Comment(s): Right rotator cuff repair X2. Left hip replacement. Bilateral inguinal hernia repair. Stent replacement 11/07. Past Anesthesia/Blood Transfusion Reactions: No Reported Reaction Additional Past Anesthesia/Blood Transfusion Reaction / Comment(s): States had transfusion at . Date of Last Stent Placement:: 10/2020 Past Psychological History: Anxiety, Depression Smoking Status: Never smoker Past Alcohol Use History: Occasional Past Drug Use History: None Reported - Past Family History Brother(s) Family Medical History: Cancer, Deep Vein Thrombosis (DVT) Additional Family Medical History / Comment(s): 1 brother with Esophageal CA. 2 brothers with DVT. Sister(s) Family Medical History: Cancer Additional Family Medical History / Comment(s): Brain CA. 2nd sister had breast CA. General Exam Limitations: no limitations General appearance: alert, in no apparent distress Head exam: Present: atraumatic, normocephalic, normal inspection Eye exam: Present: normal appearance, EOMI Neck exam: Present: normal inspection, full ROM Neurological exam: Present: alert, oriented X3, CN II-XII intact Psychiatric exam: Present: normal affect, normal mood Expanded Type of lesion: Present: laceration (multiple lacerations to the 2nd and 3rd digits) Course Vital Signs 09/15/22 09/16/22 22:23 01:46 Temperature 97 F L Pulse Rate 81 83 Respiratory 18 16 Rate Blood Pressure 177/98 152/78 O2 Sat by Pulse 97 95 Oximetry Procedures - Laceration Laceration #1 Consent Obtained: verbal consent Indication: laceration Site: hand Description: flap, avulsion Depth: simple, single layer Anesthetic Used: lidocaine 1%, without epi Anesthesia Technique: local infiltration Pre-repair: wound explored, irrigated extensively Type of Sutures: nylon Size of Sutures: 4-0 Technique: simple, interrupted Patient Tolerated Procedure: well Laceration #2 Consent Obtained: verbal consent Indication: laceration Site: hand Description: linear Depth: simple, single layer Anesthetic Used: lidocaine 1%, without epi Anesthesia Technique: local infiltration Pre-repair: wound explored, irrigated extensively Type of Sutures: nylon Size of Sutures: 4-0 Technique: simple, interrupted Patient Tolerated Procedure: well - Nerve Block Consent Obtained: verbal consent Local Anesthetic Used: Lidocaine 1% Side: left Nerve Blocks: digital Procedure Successful: Yes Patient Tolerated Procedure: well Medical Decision Making - Medical Decision Making Was pt. sent in by a medical professional or institution (, PA, QUALITY ASSURANCE INTERN, urgent care, hospital, or [place] health care facility...) When possible be specific @ -No Did you speak to anyone other than the patient for history (EMS, parent, family, police, friend...)? What history was obtained from this source @ -No Did you review nursing and triage notes (agree or disagree)? Why? @ -I reviewed and agree with nursing and triage notes Were old charts reviewed (outside hosp., previous admission, EMS record, old EKG, old radiological studies, urgent care reports/EKG's, [place] health care facility records)? Report findings @ -No old charts were reviewed Differential Diagnosis (chest pain, altered mental status, abdominal pain women, abdominal pain men, vaginal bleeding, weakness, fever, dyspnea, syncope, headache, dizziness, GI bleed, back pain, seizure, CVA, palpatations, mental health, musculoskeletal)? @ -not applicable EKG interpreted by me (3pts min.). @ -As above X-rays interpreted by me (1pt min.). @ -X-rays show no fracture or dislocation CT interpreted by me (1pt min.). @ -None done U/S interpreted by me (1pt. min.). @ -None done What testing was considered but not performed or refused? (CT, X-rays, U/S, labs)? Why? @ -None What meds were considered but not given or refused? Why? @ -None Did you discuss the management of the patient with other professionals (professionals i.e. , PA, QUALITY ASSURANCE INTERN, lab, RT, psych nurse, sexual assault social worker, tourist home keeper, teacher, unarmed security officer, piano case maker)? Give summary @ -No Was smoking cessation discussed for >3mins.? @ -No Was critical care preformed (if so, how long)? @ -No Were there social determinants of health that impacted care today? How? (Homelessness, low income, unemployed, alcoholism, drug addiction, transportation, low edu. Level, literacy, decrease access to med. care, alf, rehab)? @ -No Was there de-escalation of care discussed even if they declined (Discuss DNR or withdrawal of care, Hospice)? DNR status @ -No What co-morbidities impacted this encounter? (DM, HTN, Smoking, COPD, CAD, Cancer, CVA, ARF, Chemo, Hep., AIDS, mental health diagnosis, sleep apnea, morbid obesity)? @ -None Was patient admitted / discharged? Hospital course, mention meds given and route, prescriptions, significant lab abnormalities, going to OR and other pertinent info. @ -66-year-old male presenting with chief complaint of multiple lacerations to the second third and fourth digits on the left hand. Patient injured the fingers while using a chainsaw today. Does not known his last tetanus was, tetanus is updated today. X-rays show no fracture or dislocation. Lacerations are repaired, fourth digit appears to have some skin avulsions, was repaired to the best of our ability is an patient is referred to hand surgery. He has good range of motion and sensation is intact. Follow-up with PCP. Report back to ER with any new or worsening symptoms. Discussed return parameters and answered all questions. Patient conveyed verbal understanding and agreed to the plan. I discussed this case in detail with my attending Dr. Myrick Undiagnosed new problem with uncertain prognosis? @ -No Drug Therapy requiring intensive monitoring for toxicity (Heparin, Nitro, Insulin, Cardizem)? @ -No Were any procedures done? @ -Laceration repair, see procedure note Diagnosis/symptom? @ -Finger lacerations Acute, or Chronic, or Acute on Chronic? @ -Acute Uncomplicated (without systemic symptoms) or Complicated (systemic symptoms)? @ -Uncomplicated Side effects of treatment? @ -No Exacerbation, Progression, or Severe Exacerbation? @ -No Poses a threat to life or bodily function? How? (Chest pain, [place], PA, pneumonia, PE, COPD, DKA, ARF, appy, cholecystitis, CVA, Diverticulitis, Homicidal, Suicidal, threat to staff... and all critical care pts) @ -No Disposition Clinical Impression: Laceration Disposition: HOME SELF-CARE Condition: Fair Instructions (If sedation given, give patient instructions): Care For Your Stitches (ED), Finger Laceration (ED) Additional Instructions: Follow-up with PCP and hand surgeon. Report back to ER with any new or worsening symptoms. Keep the wound clean, dry, and covered. You may wash gently with soap and water. Do not fully submerge the wound, such as swimming or baths. Sutures may be removed in 10-14 days. Prescriptions: Cephalexin [Keflex] 500 mg PO Q6HR 7 Days #28 cap Is patient prescribed a controlled substance at d/c from ED?: No Referrals: None,Stated [REFERRING] - 1-2 days Harish Perkins DO [Doctor of Osteopathic Medicine] - 1-2 days Time of Disposition: 00:53
--- NOTE | 2022-09-15 23:17 | XR ---
EXAM: XR Left Hand Complete, 3 or More Views CLINICAL HISTORY: ITS.REASON XR Reason: lac 2nd and 3rd digit TECHNIQUE: Frontal, lateral and oblique views of the left hand. COMPARISON: No relevant prior studies available. FINDINGS: Bones/joints: Unremarkable. No acute fracture. No dislocation. Soft tissues: Unremarkable. No radiopaque foreign body. IMPRESSION: No fracture or dislocation.
[2022-09-16 01:48] VITALS: BP 152/78; PULSE 83; RESP 16
== END 2022-09-16 01:46 | disposition home or self-care (01) ==
LOC: EC 22:15
DX: S61.213A Laceration without foreign body of left middle finger without damage to nail, initial encounter (principal); S61.211A Laceration without foreign body of left index finger without damage to nail, initial encounter; I10 Essential (primary) hypertension; I25.10 Atherosclerotic heart disease of native coronary artery without angina pectoris; I25.2 Old myocardial infarction; K21.9 Gastro-esophageal reflux disease without esophagitis; M19.90 Unspecified osteoarthritis, unspecified site; E11.9 Type 2 diabetes mellitus without complications; E78.5 Hyperlipidemia, unspecified; F32.A Depression, unspecified; F41.9 Anxiety disorder, unspecified; Z86.73 Personal history of transient ischemic attack (TIA), and cerebral infarction without residual deficits; Z88.8 Allergy status to other drugs, medicaments and biological substances; Z79.4 Long term (current) use of insulin; Z79.82 Long term (current) use of aspirin; Z79.84 Long term (current) use of oral hypoglycemic drugs; Z79.899 Other long term (current) drug therapy; Z23 Encounter for immunization; W29.3XXA Contact with powered garden and outdoor hand tools and machinery, initial encounter
CPT/HCPCS: 73130; 90715; 99283; 90471; 96372 ×2; 12001; J1170; J1885

== ENCOUNTER 2022-09-19 16:21 | Emergency (ER) | payer BC ==
[2022-09-19 16:43] VITALS: RESP 18
--- NOTE | 2022-09-19 16:49 | ED ---
General Adult HPI <Kath Flores - Last Filed: 09/19/22 16:43> <Shawanda Barton - Last Filed: 09/19/22 23:21> - General Stated complaint: chest pain,sent by Dr - History of Present Illness Initial comments: 66-year-old male presents to the emergency department for chief complaint of left arm and left sided chest pain x5 days. He reports this pain comes and goes. He reports that this pain lasts for about an hour at a time. He reports associated diaphoresis. He reports his pain as a sharp sensation. Patient reports 2 prior stent placements. (Kath Flores) Palmer a 66-year-old male with a history of coronary artery disease status post stenting in 2019. Patient reports that he is on a blood thinner and blood pressure medications and he is compliant with his medications. He states that on Friday he cut his left hand with a chain saw he came to the hospital and had stitches but he also had tetanus shot in the left upper arm. Patient reports that since that time he has had pain in the left deltoid. Patient reports a constant aching this kept him from sleeping. He has taken Tylenol at home with no improvement. Patient followed up with orthopedics today regarding the injury to his fingers and advised him he been having aching pain in his arm seems to radiate to his left lateral chest and they advised him to come to the ER for further evaluation. Pain is not exertional, not relieved by rest, and not associated with any shortness of breath. Patient has had occasional diaphoresis but not associated with the pain. (Shawanda Barton) - Related Data Home Medications Medication Instructions Recorded Confirmed Omeprazole 20 mg PO DAILY 02/23/16 09/19/22 metFORMIN HCL [Glucophage] 1,000 mg PO BID 02/23/16 09/19/22 Insulin Detemir [Levemir Flextouch 70 units SQ HS 03/03/18 09/19/22 Pen] Pioglitazone HCl [Actos] 15 mg PO DAILY 08/16/18 09/19/22 Empagliflozin [Jardiance] 10 mg PO DAILY 10/25/20 09/19/22 Atorvastatin Calcium [Lipitor] 80 mg PO DAILY 12/27/20 09/19/22 DULoxetine HCL [Cymbalta] 60 mg PO DAILY 12/27/20 09/19/22 HYDROcodone/APAP 7.5-325MG [[place] 1 tab PO BID PRN 12/27/20 09/19/22 7.5-325] Metoprolol Tartrate [Lopressor] 100 mg PO DAILY 12/27/20 09/19/22 Acetaminophen Tab [Tylenol Tab] 1,000 mg PO Q6HR PRN 09/19/22 09/19/22 Acetaminophen-Codeine 300-30mg 1 tab PO Q6H PRN 09/19/22 09/19/22 [Tylenol w/codeine #3] Ezetimibe [Zetia] 10 mg PO HS 09/19/22 09/19/22 Vitamin E (Dl,Tocopheryl Acet) 400 unit PO DAILY 09/19/22 09/19/22 [Vitamin E (400 Iu = 180 mg)] lisinopriL [Zestril] 5 mg PO DAILY 09/19/22 09/19/22 Previous Rx's Medication Instructions Recorded Cephalexin [Keflex] 500 mg PO Q6HR 7 Days #28 cap 09/16/22 Allergies Allergy/AdvReac Type Severity Reaction Status Date / Time oxaprozin [From Daypro] Allergy Severe Swelling Verified 09/19/22 20:37 throat & tongue, reddened face Review of Systems ROS Other: All systems not noted in ROS Statement are negative. <Kath Flores - Last Filed: 09/19/22 16:43> ROS Other: All systems not noted in ROS Statement are negative. <Shawanda Barton - Last Filed: 09/19/22 23:21> ROS Statement: Those systems with pertinent positive or pertinent negative responses have been documented in the HPI. Past Medical History Past Medical History: Coronary Artery Disease (CAD), CVA/TIA, Diabetes Mellitus, GERD/Reflux, Hyperlipidemia, Hypertension, Myocardial Infarction (OH), Osteoarthritis (OA), Seizure Disorder, Sleep Apnea/CPAP/BIPAP Additional Past Medical History / Comment(s): Chronic back pain. 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 CPAP use. "Hx mild seizure when ran out of Xanax few months ago". Last Myocardial Infarction Date:: 11/17/16 History of Any Multi-Drug Resistant Organisms: None Reported Past Surgical History: Heart Catheterization With Stent, Hernia Repair, Joint Replacement, Orthopedic Surgery Additional Past Surgical History / Comment(s): Right rotator cuff repair X2. Left hip replacement. Bilateral inguinal hernia repair. Stent replacement 11/07. Past Anesthesia/Blood Transfusion Reactions: No Reported Reaction Additional Past Anesthesia/Blood Transfusion Reaction / Comment(s): States had transfusion at . Date of Last Stent Placement:: 10/2020 Past Psychological History: Anxiety, Depression Smoking Status: Never smoker Past Alcohol Use History: Occasional Past Drug Use History: None Reported - Past Family History Brother(s) Family Medical History: Cancer, Deep Vein Thrombosis (DVT) Additional Family Medical History / Comment(s): 1 brother with Esophageal CA. 2 brothers with DVT. Sister(s) Family Medical History: Cancer Additional Family Medical History / Comment(s): Brain CA. 2nd sister had breast CA. <Kath Flores - Last Filed: 09/19/22 16:43> General Exam <Kath Flores - Last Filed: 09/19/22 16:43> <Shawanda Barton - Last Filed: 09/19/22 23:21> - General Exam Comments Initial Comments: Visual Physical Exam Vital signs reviewed General: Well-appearing, nontoxic, no acute distress. Head: Normocephalic, atraumatic Eyes: PERRLA, EOMI ENT: Airway patent Chest: Nonlabored breathing Skin: No visual rash, normal skin tone Neuro: Alert and oriented 3 Musculoskeletal: No gross abnormalities (Kath Flores) Physical Exam GENERAL: Patient is well-developed and well-nourished. Patient is nontoxic and well-hydrated and is in no distress. HENT: Normocephalic, Atraumatic. EYES: PERRL, EOMI PULMONARY: Unlabored respirations. CARDIOVASCULAR: RRR Warm and well perfused extremities ABDOMEN: Non-distended SKIN: No rashes or bruising There is minimal palpable tender lymphadenopathy in the left axilla : Deferred NEUROLOGIC: Alert and oriented Normal speech Normal gait MUSCULOSKELETAL: Moving all extremities with no apparent injury PSYCHIATRIC: No SI/HI (Shawanda Barton) Course Vital Signs 09/19/22 09/19/22 09/19/22 16:40 18:31 19:36 Temperature 98.2 F Pulse Rate 69 71 71 Respiratory 18 18 18 Rate Blood Pressure 152/88 171/93 164/91 O2 Sat by Pulse 97 97 96 Oximetry 09/19/22 20:50 Temperature 98.1 F Pulse Rate 75 Respiratory 18 Rate Blood Pressure 171/84 O2 Sat by Pulse 97 Oximetry EKG Findings - EKG Comments: EKG Findings:: EKG interpreted by me, EKG obtained due to complaint of left arm aching, EKG obtained at 1647 rate is 70 rhythm is narrow complex regular rhythm. Before each QRS is sinus rhythm with a normal axis, normal intervals, [place] 160, QRS 78, QTC 391, no acute ST elevations or depressions no evidence of acute ischemia infarction. <Shawanda Barton - Last Filed: 09/19/22 23:21> Medical Decision Making <Kath Flores - Last Filed: 09/19/22 16:43> - Lab Data Result diagrams: 09/19/22 16:52 09/19/22 16:52 <Shawanda Barton - Last Filed: 09/19/22 23:21> - Medical Decision Making I preformed the quick note portion of this chart. Electronically signed by Kath Flores PA-C (Kath Flores) The patient was seen and evaluated this gentleman has had pain in the left shoulder and left axilla to the left chest wall since getting his tetanus shot on Friday. Pain is not exertional pain is not associated with diaphoresis lightheadedness or shortness of breath. Pain is not relieved by rest. The pain persists during rest makes it uncomfortable for the patient to sleep. He has taken Tylenol without relief. Cardiac workup was initiated, EKG was nonischemic chest x-ray was normal and troponins were negative 2. It did offer admission for evaluation by cardiology however patient was adamant that he leave. The patient does have cardiac risk factors however with this negative workup has a cause for pain, the history was discussed with Dr Thompson who agreed that with alternative cause of pain and 2 negative trops, the patient can be discharged home with close turn parameters and close outpatient follow-up. With Shared decision making it was decided the patient would be discharged home as return parameters Was pt. sent in by a medical professional or institution (, PA, FAMILY WORKER, urgent care, hospital, or [place] health care facility...) When possible be specific @ -No Did you speak to anyone other than the patient for history (EMS, parent, family, police, friend...)? What history was obtained from this source @ - at bedside Did you review nursing and triage notes (agree or disagree)? Why? @ -I reviewed and agree with nursing and triage notes Were old charts reviewed (outside hosp., previous admission, EMS record, old EKG, old radiological studies, urgent care reports/EKG's, [place] health care facility records)? Report findings @ -Visit from Friday was reviewed Differential Diagnosis (chest pain, altered mental status, abdominal pain women, abdominal pain men, vaginal bleeding, weakness, fever, dyspnea, syncope, headache, dizziness, GI bleed, back pain, seizure, CVA, palpatations, mental health, musculoskeletal)? @ -Differential Chest Pain: Stable Angina, Unstable Angina, STEMI, NSTEMI Aortic Dissection, Pneumothorax, Musculoskeletal, Esophageal Spasm GERD, Cholecystitis, Pancreatitis, Zoster, this is not meant to be an all-inclusive list. EKG interpreted by me (3pts min.). @ -As above X-rays interpreted by me (1pt min.). @ -I see no acute cardiopulmonary process CT interpreted by me (1pt min.). @ -None done U/S interpreted by me (1pt. min.). @ -None done What testing was considered but not performed or refused? (CT, X-rays, U/S, labs)? Why? @ -None What meds were considered but not given or refused? Why? @ -None Did you discuss the management of the patient with other professionals (professionals i.e. , PA, FAMILY WORKER, lab, RT, psych nurse, social work specialist, consultant internship, teacher, health promotion officer, case assistant)? Give summary @ -Patient care discussed with line production cook Dr. Thompson Was smoking cessation discussed for >3mins.? @ -No Was critical care preformed (if so, how long)? @ -No Were there social determinants of health that impacted care today? How? (Homelessness, low income, unemployed, alcoholism, drug addiction, tra nsportation, low edu. Level, literacy, decrease access to med. care, half-way, rehab)? @ -No Was there de-escalation of care discussed even if they declined (Discuss DNR or withdrawal of care, Hospice)? DNR status @ -No What co-morbidities impacted this encounter? (DM, HTN, Smoking, COPD, CAD, Cancer, CVA, ARF, Chemo, Hep., AIDS, mental health diagnosis, sleep apnea, morbid obesity)? @ -CAD Was patient admitted / discharged? Hospital course, mention meds given and route, prescriptions, significant lab abnormalities, going to OR and other pertinent info. @ -Discharge Undiagnosed new problem with uncertain prognosis? @ -No Drug Therapy requiring intensive monitoring for toxicity (Heparin, Nitro, Insulin, Cardizem)? @ -No Were any procedures done? @ -No Diagnosis/symptom? @ -Atypical chest pain, postvaccination pain Acute, or Chronic, or Acute on Chronic? @ -default Uncomplicated (without systemic symptoms) or Complicated (systemic symptoms)? @ -default Side effects of treatment? @ -No Exacerbation, Progression, or Severe Exacerbation? @ -No Poses a threat to life or bodily function? How? (Chest pain, [place], [place], pneumonia, PE, COPD, DKA, ARF, appy, cholecystitis, CVA, Diverticulitis, Homicidal, Suicidal, threat to staff... and all critical care pts) @ -No (Shawanda Barton) - Lab Data Lab Results 09/19/22 09/19/22 09/19/22 Range/Units 16:52 16:52 16:52 WBC 11.3 H (3.8-10.6) k/uL RBC 4.38 (4.30-5.90) m/uL Hgb 13.6 (13.0-17.5) gm/dL Hct 40.1 (39.0-53.0) % MCV 91.6 (80.0-100.0) fL MCH 31.0 (25.0-35.0) pg MCHC 33.9 (31.0-37.0) g/dL RDW 13.6 (11.5-15.5) % Plt Count 314 (150-450) k/uL MPV 8.2 Neutrophils % 63 % Lymphocytes % 24 % Monocytes % 6 % Eosinophils % 4 % Basophils % 1 % Neutrophils # 7.1 (1.3-7.7) k/uL Lymphocytes # 2.7 (1.0-4.8) k/uL Monocytes # 0.7 (0-1.0) k/uL Eosinophils # 0.4 (0-0.7) k/uL Basophils # 0.1 (0-0.2) k/uL PT 9.7 (9.0-12.0) sec INR 0.9 (<1.2) APTT 23.1 (22.0-30.0) sec Sodium 138 (137-145) mmol/L Potassium 4.4 (3.5-5.1) mmol/L Chloride 102 (98-107) mmol/L Carbon Dioxide 24 (22-30) mmol/L Anion Gap 12 mmol/L BUN 12 (9-20) mg/dL Creatinine 0.74 (0.66-1.25) mg/dL Est GFR (CKD-EPI)AfAm >90 (>60 ml/min/1.73 sqM) Est GFR (CKD-EPI)NonAf >90 (>60 ml/min/1.73 sqM) Glucose 113 H (74-99) mg/dL Calcium 9.9 (8.4-10.2) mg/dL Magnesium 1.9 (1.6-2.3) mg/dL Total Bilirubin 0.6 (0.2-1.3) mg/dL AST 32 (17-59) U/L ALT 35 (4-49) U/L Alkaline Phosphatase 102 (38-126) U/L Troponin I (0.000-0.034) ng/mL Total Protein 7.3 (6.3-8.2) g/dL Albumin 4.5 (3.5-5.0) g/dL 09/19/22 09/19/22 Range/Units 16:52 19:35 WBC (3.8-10.6) k/uL RBC (4.30-5.90) m/uL Hgb (13.0-17.5) gm/dL Hct (39.0-53.0) % MCV (80.0-100.0) fL MCH (25.0-35.0) pg MCHC (31.0-37.0) g/dL RDW (11.5-15.5) % Plt Count (150-450) k/uL MPV Neutrophils % % Lymphocytes % % Monocytes % % Eosinophils % % Basophils % % Neutrophils # (1.3-7.7) k/uL Lymphocytes # (1.0-4.8) k/uL Monocytes # (0-1.0) k/uL Eosinophils # (0-0.7) k/uL Basophils # (0-0.2) k/uL PT (9.0-12.0) sec INR (<1.2) APTT (22.0-30.0) sec Sodium (137-145) mmol/L Potassium (3.5-5.1) mmol/L Chloride (98-107) mmol/L Carbon Dioxide (22-30) mmol/L Anion Gap mmol/L BUN (9-20) mg/dL Creatinine (0.66-1.25) mg/dL Est GFR (CKD-EPI)AfAm (>60 ml/min/1.73 sqM) Est GFR (CKD-EPI)NonAf (>60 ml/min/1.73 sqM) Glucose (74-99) mg/dL Calcium (8.4-10.2) mg/dL Magnesium (1.6-2.3) mg/dL Total Bilirubin (0.2-1.3) mg/dL AST (17-59) U/L ALT (4-49) U/L Alkaline Phosphatase (38-126) U/L Troponin I <0.012 <0.012 (0.000-0.034) ng/mL Total Protein (6.3-8.2) g/dL Albumin (3.5-5.0) g/dL Disposition <Kath Flores - Last Filed: 09/19/22 16:43> Is patient prescribed a controlled substance at d/c from ED?: No <Shawanda Barton - Last Filed: 09/19/22 23:21> Clinical Impression: Atypical chest pain, Post-vaccination reaction Disposition: HOME SELF-CARE Condition: Stable Additional Instructions: Return to the ER immediately if pain worsens, pain is associated with shortness of breath, lightheadedness, palpitations or sweatiness. Or if your pain is worse with exertion and relieved by rest. Contact Dr Pennington on Friday for follow up even if your symptoms have resolved Referrals: Seven Varghese MD [Primary Care Provider] - 1-2 days
[2022-09-19 17:22] LABS: Basophils # (A) 0.1 k/uL (0-0.2); Basophils % (A) 1 %; Eosinophils # (A) 0.4 k/uL (0-0.7); Eosinophils % (A) 4 %; HCT 40.1 % (39.0-53.0); HGB 13.6 gm/dL (13.0-17.5); Lymphocytes # (A) 2.7 k/uL (1.0-4.8); Lymphocytes % (A) 24 %; MCHC 33.9 g/dL (31.0-37.0); MCV 91.6 fL (80.0-100.0); Mean Platelet Volume 8.2; Monocytes # (A) 0.7 k/uL (0-1.0); Monocytes % (A) 6 %; Neutrophils # (A) 7.1 k/uL (1.3-7.7); Neutrophils % (A) 63 %; Platelet Count 314 k/uL (150-450); RBC 4.38 m/uL (4.30-5.90); RDW 13.6 % (11.5-15.5); WBC 11.3 k/uL (3.8-10.6)
[2022-09-19 17:30] LABS: INR 0.9 (<1.2); Partial Thromboplastin Time 23.1 sec (22.0-30.0); Prothrombin Time 9.7 sec (9.0-12.0)
[2022-09-19 17:35] LABS: Potassium 4.4 mmol/L (3.5-5.1)
[2022-09-19 17:36] LABS: ALT 35 U/L (4-49); AST 32 U/L (17-59); African American GFR (CKD) >90 (>60 ml/min/1.73 sqM); Albumin 4.5 g/dL (3.5-5.0); Alkaline Phosphatase 102 U/L (38-126); Anion Gap 12 mmol/L; Blood Urea Nitrogen 12 mg/dL (9-20); Calcium 9.9 mg/dL (8.4-10.2); Carbon Dioxide 24 mmol/L (22-30); Chloride 102 mmol/L (98-107); Glucose 113 mg/dL (74-99); Magnesium 1.9 mg/dL (1.6-2.3); Non-African American GFR(CKD) >90 (>60 ml/min/1.73 sqM); Sodium 138 mmol/L (137-145); Total Bilirubin 0.6 mg/dL (0.2-1.3); Total Protein 7.3 g/dL (6.3-8.2)
--- NOTE | 2022-09-19 19:35 | XR ---
EXAMINATION TYPE: XR chest 2V DATE OF EXAM: 09/19/2022 COMPARISON: 12/27/2020 HISTORY: 66-year-old male with chest pain TECHNIQUE: PA and lateral views FINDINGS: Heart upper limits of normal in size. Aorta and pulmonary vasculature within normal limits. Mild inte rstitial prominence is a chronic appearance. Mild hyperinflation. No consolidation or pleural effusio n. IMPRESSION: Hyperinflation may relate to depth of inspiration or underlying emphysema. No acute process seen.
[2022-09-19 20:53] VITALS: BP 171/84; PULSE 75; TEMP 98.1
== END 2022-09-19 20:56 | disposition home or self-care (01) ==
LOC: EC 16:21
DX: R07.89 Other chest pain (principal); T50.A95A Adverse effect of other bacterial vaccines, initial encounter; E11.9 Type 2 diabetes mellitus without complications; I10 Essential (primary) hypertension; E78.5 Hyperlipidemia, unspecified; F32.A Depression, unspecified; F41.9 Anxiety disorder, unspecified; I25.10 Atherosclerotic heart disease of native coronary artery without angina pectoris; I25.2 Old myocardial infarction; K21.9 Gastro-esophageal reflux disease without esophagitis; Z79.84 Long term (current) use of oral hypoglycemic drugs; Z79.4 Long term (current) use of insulin; Z79.899 Other long term (current) drug therapy; Z88.6 Allergy status to analgesic agent
CPT/HCPCS: 36415; 71046; 80053; 83735; 84484; 85025; 85610; 85730; 93005; 99285

== ENCOUNTER 2023-02-10 21:41 | Inpatient (IN) | payer BC, MEDICARE ==
[2023-02-10 22:00] LABS: Glucose,Whole Blood 102 mg/dL (70-110)
[2023-02-10 22:22] LABS: Basophils # (A) 0.1 k/uL (0-0.2); Basophils % (A) 1 %; Eosinophils # (A) 0.5 k/uL (0-0.7); Eosinophils % (A) 4 %; HCT 41.4 % (39.0-53.0); HGB 13.5 gm/dL (13.0-17.5); Lymphocytes # (A) 3.3 k/uL (1.0-4.8); Lymphocytes % (A) 29 %; MCH 29.7 pg (25.0-35.0); MCHC 32.6 g/dL (31.0-37.0); MCV 90.9 fL (80.0-100.0); Mean Platelet Volume 8.8; Monocytes # (A) 0.6 k/uL (0-1.0); Monocytes % (A) 5 %; Neutrophils # (A) 6.8 k/uL (1.3-7.7); Neutrophils % (A) 59 %; Platelet Count 306 k/uL (150-450); RBC 4.55 m/uL (4.30-5.90); RDW 13.5 % (11.5-15.5); WBC 11.5 k/uL (3.8-10.6)
[2023-02-10 22:24] LABS: ALT 39 U/L (4-49); AST 59 U/L (17-59); African American GFR (CKD) >90 (>60 ml/min/1.73 sqM); Albumin 4.9 g/dL (3.5-5.0); Alkaline Phosphatase 110 U/L (38-126); Anion Gap 13 mmol/L; Blood Urea Nitrogen 17 mg/dL (9-20); Calcium 9.5 mg/dL (8.4-10.2); Carbon Dioxide 22 mmol/L (22-30); Chloride 101 mmol/L (98-107); Creatine Kinase 91 U/L (55-170); Glucose 101 mg/dL (74-99); Non-African American GFR(CKD) >90 (>60 ml/min/1.73 sqM); Sodium 136 mmol/L (137-145); Total Bilirubin 1.2 mg/dL (0.2-1.3)
[2023-02-10 22:26] LABS: INR 0.9 (<1.2); Partial Thromboplastin Time 24.8 sec (22.0-30.0); Prothrombin Time 10.1 sec (10.0-12.5)
--- NOTE | 2023-02-10 22:33 | CT ---
EXAM: CT Head Without Intravenous Contrast CLINICAL HISTORY: ITS.REASON CT Reason: Neuro deficit, acute, stroke suspected TECHNIQUE: Axial computed tomography images of the head/brain without intravenous contrast. CTDI is 49.1 mGy and DLP is 1230.6 mGy-cm. This CT exam was performed using one or more of the following dose reduction techniques: automated exposure control, adjustment of the mA and/or kV according to patient size, and/or use of iterative reconstruction technique. COMPARISON: No relevant prior studies available. FINDINGS: Brain: Patchy white matter hypodensities in keeping with chronic small vessel ischemic disease. Chronic lacunar infarct right brady radiata/basal ganglia. Lewis-white matter differentiation maintained. No acute intracranial hemorrhage, mass-effect, or parenchymal edema. Ventricles: Unremarkable. No hydrocephalus. Bones/joints: Unremarkable. No acute fracture. Soft tissues: Unremarkable. Sinuses: Unremarkable as visualized. No acute sinusitis. Mastoid air cells: Unremarkable as visualized. No mastoid effusion. IMPRESSION: No acute intracranial process.
[2023-02-10] MEDS ORDERED: SODIUM CHLORIDE 0.9% 1,000 ML IV ONE (22:42)
--- NOTE | 2023-02-10 22:44 | ED ---
General Adult HPI - General Chief complaint: Neuro Symptoms/Deficit Stated complaint: possible stroke Time Seen by Provider: 02/10/23 21:51 Source: patient, family, RN notes reviewed, old records reviewed Mode of arrival: ambulatory Limitations: no limitations - History of Present Illness Initial comments: 67-year-old male presenting with left-sided facial droop and slurred speech which began at 2044. History is obtained with the patient and his . They have been together at the time which she noted the symptoms. He states that he has remote history of CVA. He denies residual symptoms. 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 He reports headache which began several hours prior to arrival. He denies limb weakness or numbness. - Related Data Home Medications Medication Instructions Recorded Confirmed Omeprazole 20 mg PO DAILY 02/23/16 09/19/22 metFORMIN HCL [Glucophage] 1,000 mg PO BID 02/23/16 09/19/22 Insulin Detemir [Levemir Flextouch 70 units SQ HS 03/03/18 09/19/22 Pen] Pioglitazone HCl [Actos] 15 mg PO DAILY 08/16/18 09/19/22 Empagliflozin [Jardiance] 10 mg PO DAILY 10/25/20 09/19/22 Atorvastatin Calcium [Lipitor] 80 mg PO DAILY 12/27/20 09/19/22 DULoxetine HCL [Cymbalta] 60 mg PO DAILY 12/27/20 09/19/22 HYDROcodone/APAP 7.5-325MG [[place] 1 tab PO BID PRN 12/27/20 09/19/22 7.5-325] Metoprolol Tartrate [Lopressor] 100 mg PO DAILY 12/27/20 09/19/22 Acetaminophen Tab [Tylenol Tab] 1,000 mg PO Q6HR PRN 09/19/22 09/19/22 Acetaminophen-Codeine 300-30mg 1 tab PO Q6H PRN 09/19/22 09/19/22 [Tylenol w/codeine #3] Ezetimibe [Zetia] 10 mg PO HS 09/19/22 09/19/22 Vitamin E (Dl,Tocopheryl Acet) 400 unit PO DAILY 09/19/22 09/19/22 [Vitamin E (400 Iu = 180 mg)] lisinopriL [Zestril] 5 mg PO DAILY 09/19/22 09/19/22 Previous Rx's Medication Instructions Recorded Cephalexin [Keflex] 500 mg PO Q6HR 7 Days #28 cap 09/16/22 Allergies Allergy/AdvReac Type Severity Reaction Status Date / Time oxaprozin [From Daypro] Allergy Severe Swelling Verified 02/10/23 21:50 throat & tongue, reddened face Review of Systems ROS Statement: Those systems with pertinent positive or pertinent negative responses have been documented in the HPI. ROS Other: All systems not noted in ROS Statement are negative. Past Medical History Past Medical History: Coronary Artery Disease (CAD), CVA/TIA, Diabetes Mellitus, GERD/Reflux, Hyperlipidemia, Hypertension, Myocardial Infarction (SC), Osteoarthritis (OA), Seizure Disorder, Sleep Apnea/CPAP/BIPAP Additional Past Medical History / Comment(s): Chronic back pain. 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 CPAP use. "Hx mild seizure when ran out of Xanax few months ago". Last Myocardial Infarction Date:: 11/17/16 History of Any Multi-Drug Resistant Organisms: None Reported Past Surgical History: Heart Catheterization With Stent, Hernia Repair, Joint Replacement, Orthopedic Surgery Additional Past Surgical History / Comment(s): Right rotator cuff repair X2. Left hip replacement. Bilateral inguinal hernia repair. Stent replacement 11/07. Past Anesthesia/Blood Transfusion Reactions: No Reported Reaction Additional Past Anesthesia/Blood Transfusion Reaction / Comment(s): States had transfusion at . Date of Last Stent Placement:: 10/2020 Past Psychological History: Anxiety, Depression Smoking Status: Never smoker Past Alcohol Use History: Occasional Past Drug Use History: None Reported - Past Family History Brother(s) Family Medical History: Cancer, Deep Vein Thrombosis (DVT) Additional Family Medical History / Comment(s): 1 brother with Esophageal CA. 2 brothers with DVT. Sister(s) Family Medical History: Cancer Additional Family Medical History / Comment(s): Brain CA. 2nd sister had breast CA. General Exam Limitations: no limitations General appearance: alert, in no apparent distress Head exam: Present: atraumatic, normocephalic Eye exam: Present: normal appearance, PERRL Respiratory exam: Present: normal lung sounds bilaterally. Absent: respiratory distress, wheezes Cardiovascular Exam: Present: regular rate, normal rhythm GI/Abdominal exam: Present: soft. Absent: distended, tenderness, guarding Extremities exam: Present: normal inspection, normal capillary refill. Absent: pedal edema Neurological exam: Present: alert, motor sensory deficit (Left-sided facial droop, mild dysarthria, NIH of 2) Psychiatric exam: Present: normal affect, normal mood Skin exam: Present: warm, dry, intact Course Vital Signs 02/10/23 02/10/23 02/10/23 21:46 22:00 22:05 Temperature 97.4 F L Pulse Rate 151 H 93 95 Respiratory 16 22 20 Rate Blood Pressure 151/71 163/84 165/85 O2 Sat by Pulse 97 95 95 Oximetry 02/10/23 22:20 Temperature Pulse Rate 93 Respiratory 20 Rate Blood Pressure 154/79 O2 Sat by Pulse 96 Oximetry Medical Decision Making - Medical Decision Making Was pt. sent in by a medical professional or institution (, PA, APPLIED BEHAVIOR SCIENCE SPECIALIST, urgent care, hospital, or longterm...) When possible be specific @ -No Did you speak to anyone other than the patient for history (EMS, parent, family, police, friend...)? What history was obtained from this source @ -No Did you review nursing and triage notes (agree or disagree)? Why? @ -I reviewed and agree with nursing and triage notes Were old charts reviewed (outside hosp., previous admission, EMS record, old EKG, old radiological studies, urgent care reports/EKG's, longterm records)? Report findings @ -No old charts were reviewed Differential Diagnosis (chest pain, altered mental status, abdominal pain women, abdominal pain men, vaginal bleeding, weakness, fever, dyspnea, syncope, h eadache, dizziness, GI bleed, back pain, seizure, CVA, palpatations, mental health, musculoskeletal)? @ -[Differential CVA Ischemic stroke, hemorrhagic stroke, brain tumor, atypical migraine, Wernicke's encephalopathy, seizure, multiple sclerosis, meningitis, encephalitis, hypog lycemia, Guillain-Shah, electrolytes disturbance, myasthenia gravis.... This is not meant to be an all-inclusive list EKG interpreted by me (3pts min.). @ Sinus rhythm rate of 90, SD interval 162, QRS duration 77, QTC [address] segment elevation. X-rays interpreted by me (1pt min.). @ -[Chest x-ray negative for acute cardiopulmonary findings CT interpreted by me (1pt min.). @ -[CT brain negative for intracranial hemorrhage or mass effect U/S interpreted by me (1pt. min.). @ -None done What testing was considered but not performed or refused? (CT, X-rays, U/S, labs)? Why? @ -None What meds were considered but not given or refused? Why? @ -None Did you discuss the management of the patient with other professionals (professionals i.e. DrTammy, PA, APPLIED BEHAVIOR SCIENCE SPECIALIST, lab, RT, psych nurse, social media marketing manager, beef cattle specialist, teacher, zoology technical officer, caser)? Give summary @ -Dr. Gore Was smoking cessation discussed for >3mins.? @ -No Was critical care preformed (if so, how long)? @ -Yes, 35 minutes Were there social determinants of health that impacted care today? How? (Homelessness, low income, unemployed, alcoholism, drug addiction, transportation, low edu. Level, literacy, decrease access to med. care, senior care, rehab)? @ -No Was there de-escalation of care discussed even if they declined (Discuss DNR or withdrawal of care, Hospice)? DNR status @ -No What co-morbidities impacted this encounter? (DM, HTN, Smoking, COPD, CAD, Cancer, CVA, ARF, Chemo, Hep., AIDS, mental health diagnosis, sleep apnea, morbid obesity)? @ -[Diabetes, hypertension Was patient admitted / discharged? Hospital course, mention meds given and route, prescriptions, significant lab abnormalities, going to OR and other pertinent info. @67-year-old male presents with left-sided facial droop and dysarthria. NIH of 2. A code alteplase is activated upon arrival. Patient is taken immediately to computed tomography scan. I discussed case with the stroke intervention was Dr. Vizcarra, at the onset. Patient not a TPA or thrombectomy candidate due to the low NIH and improvement in symptoms. CT brain is negative for intracranial hemorrhage or mass effect. Laboratory testing is unremarkable. The patient given an aspirin in the emergency department will be admitted for further stroke evaluation. Undiagnosed new problem with uncertain prognosis? @ -No Drug Therapy requiring intensive monitoring for toxicity (Heparin, Nitro, Insulin, Cardizem)? @ -No Were any procedures done? @ -No Diagnosis/symptom? @ -[CVA Acute, or Chronic, or Acute on Chronic? @ -Acute Uncomplicated (without systemic symptoms) or Complicated (systemic symptoms)? @Complicated Side effects of treatment? @ -No Exacerbation, Progression, or Severe Exacerbation? @ -No Poses a threat to life or bodily function? How? (Chest pain, USA, SC, pneumonia, PE, COPD, DKA, ARF, appy, cholecystitis, CVA, Diverticulitis, Homicidal, Suicidal, threat to staff... and all critical care pts) @ -yes, CVA - Lab Data Result diagrams: 02/10/23 22:02 02/10/23 22:02 Lab Results 02/10/23 02/10/23 02/10/23 Range/Units 21:57 22:02 22:02 WBC 11.5 H (3.8-10.6) k/uL RBC 4.55 (4.30-5.90) m/uL Hgb 13.5 (13.0-17.5) gm/dL Hct 41.4 (39.0-53.0) % MCV 90.9 (80.0-100.0) fL MCH 29.7 (25.0-35.0) pg MCHC 32.6 (31.0-37.0) g/dL RDW 13.5 (11.5-15.5) % Plt Count 306 (150-450) k/uL MPV 8.8 Neutrophils % 59 % Lymphocytes % 29 % Monocytes % 5 % Eosinophils % 4 % Basophils % 1 % Neutrophils # 6.8 (1.3-7.7) k/uL Lymphocytes # 3.3 (1.0-4.8) k/uL Monocytes # 0.6 (0-1.0) k/uL Eosinophils # 0.5 (0-0.7) k/uL Basophils # 0.1 (0-0.2) k/uL PT 10.1 (10.0-12.5) sec INR 0.9 (<1.2) APTT 24.8 (22.0-30.0) sec Sodium (137-145) mmol/L Potassium (3.5-5.1) mmol/L Chloride (98-107) mmol/L Carbon Dioxide (22-30) mmol/L Anion Gap mmol/L BUN (9-20) mg/dL Creatinine (0.66-1.25) mg/dL Est GFR (CKD-EPI)AfAm (>60 ml/min/1.73 sqM) Est GFR (CKD-EPI)NonAf (>60 ml/min/1.73 sqM) Glucose (74-99) mg/dL POC Glucose (mg/dL) 102 (70-110) mg/dL POC Glu Sleep Scientist ID Deniz Sosa Calcium (8.4-10.2) mg/dL Total Bilirubin (0.2-1.3) mg/dL AST (17-59) U/L ALT (4-49) U/L Alkaline Phosphatase (38-126) U/L Creatine Kinase (55-170) U/L Troponin I (0.000-0.034) ng/mL Total Protein (6.3-8.2) g/dL Albumin (3.5-5.0) g/dL 02/10/23 02/10/23 Range/Units 22:02 22:02 WBC (3.8-10.6) k/uL RBC (4.30-5.90) m/uL Hgb (13.0-17.5) gm/dL Hct (39.0-53.0) % MCV (80.0-100.0) fL MCH (25.0-35.0) pg MCHC (31.0-37.0) g/dL RDW (11.5-15.5) % Plt Count (150-450) k/uL MPV Neutrophils % % Lymphocytes % % Monocytes % % Eosinophils % % Basophils % % Neutrophils # (1.3-7.7) k/uL Lymphocytes # (1.0-4.8) k/uL Monocytes # (0-1.0) k/uL Eosinophils # (0-0.7) k/uL Basophils # (0-0.2) k/uL PT (10.0-12.5) sec INR (<1.2) APTT (22.0-30.0) sec Sodium 136 L (137-145) mmol/L Potassium (3.5-5.1) mmol/L Chloride 101 (98-107) mmol/L Carbon Dioxide 22 (22-30) mmol/L Anion Gap 13 mmol/L BUN 17 (9-20) mg/dL Creatinine 0.73 (0.66-1.25) mg/dL Est GFR (CKD-EPI)AfAm >90 (>60 ml/min/1.73 sqM) Est GFR (CKD-EPI)NonAf >90 (>60 ml/min/1.73 sqM) Glucose 101 H (74-99) mg/dL POC Glucose (mg/dL) (70-110) mg/dL POC Glu Sleep Scientist ID Calcium 9.5 (8.4-10.2) mg/dL Total Bilirubin 1.2 (0.2-1.3) mg/dL AST 59 (17-59) U/L ALT 39 (4-49) U/L Alkaline Phosphatase 110 (38-126) U/L Creatine Kinase 91 (55-170) U/L Troponin I <0.012 (0.000-0.034) ng/mL Total Protein 8.0 (6.3-8.2) g/dL Albumin 4.9 (3.5-5.0) g/dL Disposition Clinical Impression: Cerebrovascular accident (CVA) Disposition: ADMITTED IP TO THIS HOSP Condition: Stable Is patient prescribed a controlled substance at d/c from ED?: No Referrals: Seven Varghese MD [Primary Care Provider] - 1-2 days Time of Disposition: 23:44
[2023-02-10] MEDS ORDERED: ASPIRIN 325 MG TAB PO STA (23:11)
--- NOTE | 2023-02-10 23:14 | XR ---
EXAM: XR Chest, 1 View CLINICAL HISTORY: ITS.REASON XR Reason: altered mental status TECHNIQUE: Frontal view of the chest. COMPARISON: No relevant prior studies available. FINDINGS: Lungs: Unremarkable. No consolidation. Pleural space: Unremarkable. No pleural effusion or pneumothorax. Heart: Unremarkable. No cardiomegaly or pulmonary vascular congestion. Bones/joints: No acute fracture. No dislocation. IMPRESSION: No evidence of acute cardiopulmonary disease.
--- NOTE | 2023-02-10 23:14 | CT ---
EXAM: CT Angiography Head With Intravenous Contrast CLINICAL HISTORY: ITS.REASON CT Reason: Neuro deficit, acute, stroke suspected TECHNIQUE: Axial computed tomographic angiography images of the head with intravenous contrast. CTDI is 12.7 mGy and DLP is 627.4 mGy-cm. This CT exam was performed using one or more of the following dose reduction techniques: automated exposure control, adjustment of the mA and/or kV according to patient size, and/or use of iterative reconstruction technique. MIP reconstructed images were created and reviewed. COMPARISON: No relevant prior studies available. FINDINGS: Right internal carotid artery: Multifocal mild to moderate stenosis within the intracranial right ICA. No aneurysm. Right anterior cerebral artery: Unremarkable. No occlusion or significant stenosis. No aneurysm. Right middle cerebral artery: Unremarkable. No occlusion or significant stenosis. No aneurysm. Right posterior cerebral artery: origin of the right ARC WELDER APPRENTICE, a developmental variant. No occlusion or significant stenosis. No aneurysm. Right vertebral artery: Severe stenosis in the midportion of the right vertebral artery. Left internal carotid artery: Multifocal mild to moderate stenosis within the intracranial left ICA. No aneurysm. Left anterior cerebral artery: Unremarkable. No occlusion or significant stenosis. No aneurysm. Left middle cerebral artery: Unremarkable. No occlusion or significant stenosis. No aneurysm. Left posterior cerebral artery: Mild to moderate stenosis within the left P1 segment. No aneurysm. Left vertebral artery: Unremarkable as visualized. Basilar artery: Unremarkable. No occlusion or significant stenosis. No aneurysm. Brain: Intracranial atherosclerosis. IMPRESSION: Patent intracranial circulation. Multifocal stenoses as detailed above. Given multiplicity of intracranial stenoses, consider MRI evaluation. EXAM: CT Angiography Neck With Intravenous Contrast CLINICAL HISTORY: ITS.REASON CT Reason: Neuro deficit, acute, stroke suspected TECHNIQUE: Routine carotid CT angiography protocol was performed with intravenous contrast. NASCET criteria using the distal ICAs for comparison were used for evaluation of stenoses. CTDI is 12.7 mGy and DLP is 627.4 mGy-cm. This CT exam was performed using one or more of the following dose reduction techniques: automated exposure control, adjustment of the mA and/or kV according to patient size, and/or use of iterative reconstruction technique. MIP reconstructed images were created and reviewed. COMPARISON: None. FINDINGS: VASCULATURE: Right common carotid artery: Unremarkable. No occlusion or significant stenosis. No dissection. Right internal carotid artery: Bulky calcific plaque produces 50% stenosis in the proximal segment of the right ICA. No dissection. Right external carotid artery: Unremarkable. No occlusion. Right vertebral artery: Unremarkable. No occlusion or significant stenosis. No dissection. Left common carotid artery: Unremarkable. No occlusion or significant stenosis. No dissection. Left internal carotid artery: Mixed atherosclerotic plaque produces up to 50% stenosis in the proximal segment of the left ICA. No dissection. Left external carotid artery: Unremarkable. No occlusion. Left vertebral artery: Unremarkable. No occlusion or significant stenosis. No dissection. Aorta: There is four-vessel aortic arch branch anatomy with direct origin of the left vertebral artery from the arch. NECK: Bones/joints: Unremarkable. No acute fracture. Soft tissues: Unremarkable. Thyroid: Left thyroid lobe nodule measuring 10 mm; no follow-up indicated due to size less than 15 mm. Lung apices: Clear lung apices. CAROTID STENOSIS REFERENCE USING NASCET CRITERIA: % ICA stenosis = (1 - narrowest ICA diameter/diameter of distal cervical ICA) x 100. Mild - <50% stenosis. Moderate - 50-69% stenosis. Severe - 70-94% stenosis. Near occlusion - 95-99% stenosis. Occluded - 100% stenosis. IMPRESSION: Atherosclerosis producing 50% stenoses in the proximal segments of both ICAs.
[2023-02-11] MEDS ORDERED: HYDROcodone/APAP 7.5-325MG 1 EACH TAB PO ONE (00:24)
[2023-02-11] MEDS ORDERED: ACETAMINOPHEN TAB 500 MG TAB PO PRN (03:56)
[2023-02-11] MEDS ORDERED: DEXTROSE 50% SYRINGE 50 ML IVP PRN ×2 (03:57)
--- NOTE | 2023-02-11 04:16 | P.HPIM ---
History of Present Illness H&P Date: 02/11/23 Chief Complaint: slurred speech 67 year old male with history of stroke, DM , hypertension patient coming in after sudden onset slurred speech started yesterday late in the evening around 2044 ,when he noticed slurred speech , hand shaking, and left facial droop. he was concerned about a new onset stroke and was brought in immediately for evaluation . this was also associated with headache, but no changes in vision , hearing, denies any LOC , nausea , vomiting, deneis any recent falls or head injury he was evaluated in the ED, and was not given tpa due to resolution of symptoms . at time of my evaluation , patient reports feeling back to normal . he denies any associated chest pain or trouble breathing, falls, fever, changes in vision or hearing . denies tobacco smoking, illicit drugs or alcohol review of systems Pertinent positives as noted in HPI. All other systems were reviewed and are negative on exam Constitutional: No acute distress, conversant, pleasant Eyes: Anicteric sclerae, moist conjunctiva, Pupils equal round reactive to light ENMT: NC/AT Oropharynx clear, no erythema, or exudates Neck: Supple, no masses, or JVD No carotid bruits No thyromegaly Lungs: Clear to auscultation Clear to percussion Normal respiratory effort, no accessory muscle use Cardiovascular: Heart regular in rate and rhythm, No murmurs, gallops, or rubs No peripheral edema Abdominal: Soft Nontender, no guarding, rebound or rigidity Abdomen moving with respiration Normoactive bowel sounds No hepatomegaly, No splenomegaly No palpable mass No abdominal wall hernia noted Extremities: No digital cyanosis No clubbing Pedal pulses intact and symmetrical Radial pulses intact and symmetrical No calf tenderness Psychiatric: Alert and oriented to person, place and time Appropriate affect fair judgement Neuro Muscles Strength 5/5 in all 4 extremities Sensation to light touch grossly present throughout Cranial nerves II-XII grossly intact finger nose exam, heel gu exam , no dysmetria or dysdiadikokinesis Lymphatics: no palpable cervical or supraclavicular lymph nodes Past Medical History Past Medical History: Coronary Artery Disease (CAD), CVA/TIA, Diabetes Mellitus, GERD/Reflux, Hyperlipidemia, Hypertension, Myocardial Infarction (CO), Osteoarthritis (OA), Seizure Disorder, Sleep Apnea/CPAP/BIPAP Additional Past Medical History / Comment(s): Chronic back pain. 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 CPAP use. "Hx mild seizure when ran out of Xanax few months ago". Last Myocardial Infarction Date:: 11/17/16 History of Any Multi-Drug Resistant Organisms: None Reported Past Surgical History: Heart Catheterization With Stent, Hernia Repair, Joint Replacement, Orthopedic Surgery Additional Past Surgical History / Comment(s): Right rotator cuff repair X2. Left hip replacement. Bilateral inguinal hernia repair. Stent replacement 11/07. Past Anesthesia/Blood Transfusion Reactions: No Reported Reaction Additional Past Anesthesia/Blood Transfusion Reaction / Comment(s): States had transfusion at . Date of Last Stent Placement:: 10/2020 Past Psychological History: Anxiety, Depression Smoking Status: Never smoker Past Alcohol Use History: Occasional Past Drug Use History: None Reported - Past Family History Brother(s) Family Medical History: Cancer, Deep Vein Thrombosis (DVT) Additional Family Medical History / Comment(s): 1 brother with Esophageal CA. 2 brothers with DVT. Sister(s) Family Medical History: Cancer Additional Family Medical History / Comment(s): Brain CA. 2nd sister had breast CA. Medications and Allergies Home Medications Medication Instructions Recorded Confirmed Type Omeprazole 20 mg PO DAILY 02/23/16 09/19/22 History metFORMIN HCL [Glucophage] 1,000 mg PO BID 02/23/16 09/19/22 History Insulin Detemir [Levemir Flextouch 70 units SQ HS 03/03/18 09/19/22 History Pen] Pioglitazone HCl [Actos] 15 mg PO DAILY 08/16/18 09/19/22 History Empagliflozin [Jardiance] 10 mg PO DAILY 10/25/20 09/19/22 History Atorvastatin Calcium [Lipitor] 80 mg PO DAILY 12/27/20 09/19/22 History DULoxetine HCL [Cymbalta] 60 mg PO DAILY 12/27/20 09/19/22 History HYDROcodone/APAP 7.5-325MG [[place] 1 tab PO BID PRN 12/27/20 09/19/22 History 7.5-325] Metoprolol Tartrate [Lopressor] 100 mg PO DAILY 12/27/20 09/19/22 History Cephalexin [Keflex] 500 mg PO Q6HR 7 Days #28 cap 09/16/22 09/19/22 Rx Acetaminophen Tab [Tylenol Tab] 1,000 mg PO Q6HR PRN 09/19/22 09/19/22 History Acetaminophen-Codeine 300-30mg 1 tab PO Q6H PRN 09/19/22 09/19/22 History [Tylenol w/codeine #3] Ezetimibe [Zetia] 10 mg PO HS 09/19/22 09/19/22 History Vitamin E (Dl,Tocopheryl Acet) 400 unit PO DAILY 09/19/22 09/19/22 History [Vitamin E (400 Iu = 180 mg)] lisinopriL [Zestril] 5 mg PO DAILY 09/19/22 09/19/22 History Allergies Allergy/AdvReac Type Severity Reaction Status Date / Time oxaprozin [From Daypro] Allergy Severe Swelling Verified 02/10/23 21:50 throat & tongue, reddened face Physical Exam Vitals: Vital Signs Temp Pulse Resp BP Pulse Ox 02/10/23 23:45 86 18 140/79 94 L 02/10/23 23:30 87 18 159/82 96 02/10/23 23:15 90 18 160/81 96 02/10/23 23:00 82 18 154/73 94 L 02/10/23 22:45 91 18 150/73 95 02/10/23 22:30 91 18 152/77 95 02/10/23 22:20 93 20 154/79 96 02/10/23 22:05 95 20 165/85 95 02/10/23 22:00 93 22 163/84 95 02/10/23 21:46 97.4 F L 151 H 16 151/71 97 Intake and Output 02/10/23 02/10/23 02/11/23 14:59 22:59 06:59 Other: Weight 92.079 kg Results CBC & Chem 7: 02/10/23 22:02 02/10/23 22:02 Labs: Abnormal Lab Results - Last 24 Hours (Table) 02/10/23 02/10/23 Range/Units 22:02 22:02 WBC 11.5 H (3.8-10.6) k/uL Sodium 136 L (137-145) mmol/L Glucose 101 H (74-99) mg/dL Assessment and Plan Assessment: 67 year old male with remote stroke , no residual weakness, hypertension , DM , coming in for slurred speech , headache, I discussed the case with ED doc and I accepted the admission for TIA TIA resolution of presenting symptoms of slurred speech, and headache. neuro check s CT brain ,and CTA head and neck , no acute pathology blood work unremarkable Hgb 13.5 , WBC 11.5 Na 136 BUN 17 cr 0.7 unremarkable neuro consult fall precautions PT evaluation check lipid panel and A1c in AM check echocardiogram initiate on dual antiplatelet , ASA 81 mg po daily , Plavix 75 mg PO daily (for 21 days ) ABCD2 score =5 chronic conditions hypertension , elevated resume lisinopril and metoprolol DM , insulin sliding scale full code DVT PPX hepairn sc tid GI PPX protonix 40 mg po daily
[2023-02-11 08:42] LABS: Glucose,Whole Blood 115 mg/dL (70-110)
[2023-02-11] MEDS: METOPROLOL TARTRATE 50 MG TAB PO SCH (08:51)
[2023-02-11] MEDS: lisinopriL 5 MG TAB PO SCH (08:51)
[2023-02-11] MEDS: CLOPIDOGREL 75 MG TAB PO SCH (08:51)
[2023-02-11] MEDS: PANTOPRAZOLE 40 MG TABLET PO SCH (08:51)
[2023-02-11] MEDS: ATORVASTATIN 80 MG TAB PO SCH (08:52)
[2023-02-11] MEDS: HEPARIN SODIUM,PORCINE 5,000 UNIT/ML 1 ML VIAL SQ SCH ×2 (08:57→15:42)
[2023-02-11] MEDS: INSULIN ASPART (NovoLOG) 100 UNIT/ML VIAL SQ SCH ×4 (08:58→21:11)
[2023-02-11] MEDS ORDERED: ASPIRIN 325 MG TAB PO SCH (09:00)
--- NOTE | 2023-02-11 13:02 | P.CNNES ---
History of Present Illness Consult date: 02/11/23 Requesting physician: Kit Cho Reason for Consult: CVA History of Present Illness: Patient is a 67-year-old left-handed male with history of hypertension, diabetes, previous CVA, came to the hospital yesterday at 9:41 PM for strokelike symptoms. Patient states that he woke up yesterday morning at 9 AM and was fine. He was at daughter's house having [place] dinner at 4:30 PM, when he started trembling bad, both arms, right more than left. He then developed a very bad headache which involve the frontal region and then extended to the back of the head. This headache lasted for about an hour. Patient and his went back home at 6 PM, when he noticed that his left side of the face was droopy, an d when he tried to grab the water water from the fridge, it kept on dropping with his left hand, felt had no strength in the left hand. He could not open the medication bottle using his left hand. His hand was trembling, weak and couldn't hang onto the stuff. At around 9 PM, when he was trying to go to bed, he tried to say something, he couldn't talk. He tried to tell her something and could not get words out. Therefore his brought him to the hospital. Vital signs arrival blood pressure 151/71, pulse rate 151, which came down to 93 and temperature 97.4. Blood test shows WBC 11.5 normal hemoglobin, platelets PT/PTT, sodium 136, renal and hepatic panel is normal, CK and troponin is normal. CT head revealed no acute intracranial process. Chronic lacunar infarct right brady radiata/basal ganglia. On my review, there is evidence of chronic encephalomalacia in the right centrum semiovale, but also probably an old lacune in the left internal capsule. EKG shows sinus rhythm and chest x-ray are normal. Patient at present states that his symptoms have returned back to baseline. Overall the symptoms lasted for about 6-7 hours and he was fine before he went to sleep last night in the ER. Patient has been seen by Dr. Kay on 12/29/2020 for acute right basal ganglia CVA. Patient also has history of CAD, type 2 diabetes and hypertension. Patient was taking aspirin and Plavix at that time. Dr. Kay discontinued Plavix and started the patient on Brilinta 90 mg twice a day. Patient was also on Lipitor 80 mg daily at that time. Also was recommended to abstain from a lcoholism. Patient has history of diabetes since 2007. Also has hypertension and hyperlipidemia. He is a nonsmoker, never smoked on a regular basis. Patient does take metformin, omeprazole, insulin, Actos, Jardiance, Lipitor 80 mg, [place], metoprolol, Cymbalta 60 mg, Zetia 10 AM, lisinopril 5 mg. patient states that he does take aspirin 81 mg daily. He states that he took Brilinta after the stroke for a year, but that his doctor told him to stop taking it. Review of Systems Constitutional: Denies chills, Denies fever Eyes: denies blurred vision, denies diplopia, denies pain Ears: bilateral: decreased hearing, deny: ear discharge Ears, nose, mouth and throat: Denies headache, Denies sore throat Cardiovascular: Denies chest pain, Denies shortness of breath Respiratory: Reports cough, Denies excessive sputum Gastrointestinal: Denies abdominal pain, Denies diarrhea, Denies nausea, Denies vomiting Genitourinary: Reports incontinence (for 6-8 months), Denies dysuria Musculoskeletal: Reports low back pain, Denies myalgias, Denies neck pain Integumentary: Denies pruritus, Denies rash Neurological: Reports as per HPI Psychiatric: Reports depression, Denies anxiety Hematologic/Lymphatic: Denies easy bleeding, Denies easy bruising Past Medical History Past Medical History: Coronary Artery Disease (CAD), CVA/TIA, Diabetes Mellitus, GERD/Reflux, Hyperlipidemia, Hypertension, Myocardial Infarction ([place]), O steoarthritis (OA), Seizure Disorder, Sleep Apnea/CPAP/BIPAP Additional Past Medical History / Comment(s): Chronic back pain. 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 CPAP use. "Hx mild seizure when ran out of Xanax few months ago". Last Myocardial Infarction Date:: 11/17/16 History of Any Multi-Drug Resistant Organisms: None Reported Past Surgical History: Heart Catheterization With Stent, Hernia Repair, Joint Replacement, Orthopedic Surgery Additional Past Surgical History / Comment(s): Right rotator cuff repair X2. Left hip replacement. Bilateral inguinal hernia repair. Stent replacement 11/07. Past Anesthesia/Blood Transfusion Reactions: No Reported Reaction Additional Past Anesthesia/Blood Transfusion Reaction / Comment(s): States had transfusion at . Date of Last Stent Placement:: 10/2020 Past Psychological History: Anxiety, Depression Smoking Status: Never smoker Past Alcohol Use History: Occasional Past Drug Use History: None Reported - Past Family History Brother(s) Family Medical History: Cancer, Deep Vein Thrombosis (DVT) Additional Family Medical History / Comment(s): 1 brother with Esophageal CA. 2 brothers with DVT. Sister(s) Family Medical History: Cancer Additional Family Medical History / Comment(s): Brain CA. 2nd sister had breast CA. Medications and Allergies Home Medications Medication Instructions Recorded Confirmed Type Omeprazole 20 mg PO DAILY 02/23/16 02/11/23 History metFORMIN HCL [Glucophage] 1,000 mg PO BID 02/23/16 02/11/23 History Insulin Detemir [Levemir Flextouch 75 units SQ HS 03/03/18 02/11/23 History Pen] Pioglitazone HCl [Actos] 15 mg PO DAILY 08/16/18 02/11/23 History Empagliflozin [Jardiance] 10 mg PO DAILY 10/25/20 02/11/23 History Atorvastatin Calcium [Lipitor] 80 mg PO DAILY 12/27/20 02/11/23 History DULoxetine HCL [Cymbalta] 60 mg PO DAILY 12/27/20 02/11/23 History HYDROcodone/APAP 7.5-325MG [[place] 1 tab PO BID PRN 12/27/20 02/11/23 History 7.5-325] Metoprolol Tartrate [Lopressor] 100 mg PO DAILY 12/27/20 02/11/23 History Ezetimibe [Zetia] 10 mg PO HS 09/19/22 02/11/23 History Vitamin E (Dl,Tocopheryl Acet) 400 unit PO DAILY 09/19/22 02/11/23 History [Vitamin E (400 Iu = 180 mg)] lisinopriL [Zestril] 5 mg PO DAILY 09/19/22 02/11/23 History Allergies Allergy/AdvReac Type Severity Reaction Status Date / Time oxaprozin [From Daypro] Allergy Severe Swelling Verified 02/11/23 08:37 throat & tongue, reddened face Physical Examination - Vital Signs Vital Signs: Vital Signs Temp Pulse Resp BP Pulse Ox 02/11/23 09:00 84 17 136/74 93 L 02/11/23 08:52 84 17 02/11/23 06:00 87 18 156/74 96 02/11/23 05:00 84 18 151/81 94 L 02/11/23 04:00 85 18 168/68 95 02/11/23 03:00 87 18 145/85 96 02/11/23 02:00 98 18 143/92 02/11/23 01:00 85 18 137/74 94 L 02/11/23 00:00 86 18 137/68 95 02/10/23 23:45 86 18 140/79 94 L 02/10/23 23:30 87 18 159/82 96 02/10/23 23:15 90 18 160/81 96 02/10/23 23:00 82 18 154/73 94 L 02/10/23 22:45 91 18 150/73 95 02/10/23 22:30 91 18 152/77 95 02/10/23 22:20 93 20 154/79 96 02/10/23 22:05 95 20 165/85 95 02/10/23 22:00 93 22 163/84 95 02/10/23 21:46 97.4 F L 151 H 16 151/71 97 Intake and Output 02/10/23 02/11/23 02/11/23 22:59 06:59 14:59 Other: Weight 92.079 kg Patient is an elderly male, in no acute distress. Patient is alert awake oriented to time place and person. Speech and language functions are normal. Patient can name and repeat very well. No aphasia or dysarthria. Attention, concentration and fund of knowledge is adequate. On cranial nerve examination, pupils are equal, round and reacting to light, visual hardy are full on confrontation, with no neglect on double simultaneous stimulation. Extraocular muscles are intact with no nystagmus. Face is symmetric, tongue protrudes to the midline. Palatal elevation and sensation normal, hearing and shoulder shrug normal, facial sensation normal. On muscle strength testing, there is left pronation and some myoclonic twitching of the left hand. Overall strength is normal in arms and legs distally and proximally. Deep tendon reflexes are symmetric 1 at the biceps, 1 brachioradialis, trace to 1 at the knees, trace ankles and plantars are downgoing bilaterally. Sensory to touch is equal with no neglect on double simultaneous stimulation. Cerebellar function showed no ataxia for [id number] testing. No dysdiadochokinesia. No ataxia for [id number] testing on either side. Tone and bulk of muscles normal. Gait deferred.. On general examination, there is no carotid bruit or murmur, S1-S2 audible. Chest is clear on consultation. Abdomen is soft nontender. No organomegaly, bowel sounds present. Peripheral pulses are present. No peripheral edema. Results - Laboratory Findings CBC and BMP: 02/10/23 22:02 02/10/23 22:02 Abnormal Lab Findings: Abnormal Labs 02/10/23 02/10/23 02/11/23 22: 22: 08:40 WBC 11.5 H Sodium 136 L Glucose 101 H POC Glucose (mg/dL) 115 H Assessment and Plan Assessment: * Possible stroke/TIA, manifesting with left hand weakness, difficulty speaking, headache, and all symptoms seems to have resolved in about 6-7 hours. 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 Multifocal stenosis intracranially, with mild to moderate stenosis within the intracranial bila teral ICA. Severe stenosis in the midportion of the right vertebral artery. * CTA of the neck showed atherosclerosis producing 50% stenosis in the proximal segments of both ICAs. * Fasting a.m. lipid panel * Hemoglobin A1c * Optimize control of blood pressure. * Patient was taking aspirin 81 mg daily. Patient will be placed on dual antiplatelet medication including Plavix 75 mg daily. He should be maintained on DAPT due to significant intracranial vascular atherosclerotic disease. * Neuro checks every 4 hours. * Telemetry monitoring rule out any arrhythmia * PT, OT, speech therapy * DVT prophylaxis: Heparin 5000 units subcu every 8 hours * Dr. Angel Luis Kay will resume neurology service from the morning. Thank you for the consult.
--- NOTE | 2023-02-11 13:51 | CA ---
Transthoracic Echo Report Name: Palmer Cade Age: 67 Gender: M : 1955 Exam Date: 02/11/2023 10:27 Exam Location: [facility] Ht (in): 67 Wt (lb): 203 Ordering Physician: Irma Saldana MD Attending/Referring Phys: [id number], Les Metal Numerical Control Programmer Meghan Webster RDCS Procedure CPT: Indications: tia Cardiac Hx: Technical Quality: Technically difficult study Contrast 1: Definity Total Dose (mL): 2 Contrast 2: Total Dose (mL): MEASUREMENTS (Male / Female) Normal Values 2D ECHO LV Diastolic Diameter PLAX 3.9 cm 4.2 - 5.9 / 3.9 - 5.3 cm LV Systolic Diameter PLAX 3.1 cm IVS Diastolic Thickness 1.3 cm 0.6 - 1.0 / 0.6 - 0.9 cm LVPW Diastolic Thickness 1.3 cm 0.6 - 1.0 / 0.6 - 0.9 cm LV Relative Wall Thickness 0.7 RV Internal Dim ED PLAX 3.5 cm LA Volume 45.1 cm??? 18 - 58 / 22 - 52 cm??? LA Volume Index 21.3 cm???/m??? 16 - 28 cm???/m??? M-MODE Aortic Root Diameter MM 3.5 cm LA Systolic Diameter MM 3.6 cm LA Ao Ratio MM 1.0 AV Cusp Separation MM 1.8 cm DOPPLER AV Peak Velocity 142.9 cm/s AV Peak Gradient 8.2 mmHg AV Mean Velocity 101.7 cm/s AV Mean Gradient 4.5 mmHg AV Velocity Time Integral 27.9 cm LVOT Peak Velocity 117.9 cm/s LVOT Peak Gradient 5.6 mmHg LVOT Velocity Time Integral 27.9 cm MV Area PHT 2.8 cm??? Mitral E Point Velocity 120.3 cm/s Mitral A Point Velocity 129.1 cm/s Mitral E to A Ratio 0.9 MV Deceleration Time 272.2 ms MV E' Velocity 7.3 cm/s Mitral E to MV E' Ratio 16.5 TR Peak Velocity 175.3 cm/s TR Peak Gradient 12.3 mmHg Right Ventricular Systolic Press 17.3 mmHg FINDINGS Left Ventricle Mild concentric left ventricular hypertrophy. Normal left ventricular systolic function with no obvious regional wall motion abnormalities. Left ventricular ejection fraction is estimated at 55-60 %. Right Ventricle Mild right ventricular dilatation. Right Atrium Normal right atrial size. Left Atrium Normal left atrial size. Mitral Valve Structurally normal mitral valve. Moderate mitral annular calcification. Mitral valve thickened. [id number]-[id number] mitral regurgitation. Aortic Valve Trileaflet aortic valve. No aortic valve stenosis or regurgitation. Tricuspid Valve Structurally normal tricuspid valve. Mild tricuspid regurgitation. Pulmonic Valve Structurally normal pulmonic valve. Pericardium No pericardial effusion. Aorta Normal size aortic root and proximal ascending aorta. CONCLUSIONS Normal left ventricular ejection fraction 55-60% Mild increased left ventricular wall thickness Mild to moderate mitral regurgitation Mild tricuspid regurgitation No pericardial effusion Previewed by: Dr. Oscar Park DO (Electronically Signed) Final Date: 11 February 2023 13:50
[2023-02-11 14:14] LABS: Glucose,Whole Blood 127 mg/dL (70-110)
[2023-02-11] MEDS: HYDROcodone/APAP 7.5-325MG 1 EACH TAB PO PRN ×2 (14:17→22:28)
[2023-02-11 15:07] LABS: Chol/HDL Ratio 3.79 Ratio; LDL Cholesterol,Calculated 44.7 mg/dL (0.0-131.0)
[2023-02-11 17:08] LABS: Glucose,Whole Blood 131 mg/dL (70-110)
--- NOTE | 2023-02-11 17:19 | MR ---
EXAMINATION TYPE: MR brain wo con DATE OF EXAM: 02/11/2023 4:56 PM CLINICAL INDICATION:Male, 67 years old with history of Stroke/TIA, COMPARISON: 02/10/2023.. TECHNIQUE: Multi planar, multi sequence imaging was performed through the brain including: T1, T2, In version recovery, Diffusion weighted imaging, and gradient echo imaging. No gadolinium was given. FINDINGS: Patchy area of restricted diffusion within the right parietal lobe. Prominent perivascular spaces in the basal ganglia bilaterally. The serrano-white junctions, ventricular system, basal cisterns appear unremarkable. Scattered foci of high T2 signal intensity are seen within the periventricular white matter. Midline structures show n o abnormality. Diffusion-weighted imaging shows no evidence of restricted diffusion. The susceptibili ty weighted images do not reveal any evidence for micro-hemorrhage. The bone marrow signal is within normal limits. Paranasal sinuses and mastoid air cells: No significant paranasal sinus disease. Visualized orbits: Orbital contents are intact. IMPRESSION: 1. Patchy right parietal lobe acute to subacute CVA. 2. Nonspecific white matter changes, likely secondary to small vessel ischemic disease.
--- NOTE | 2023-02-11 18:15 | P.PN ---
Subjective Progress Note Date: 02/11/23 Hospital course: Patient is a 67-year-old male with history of previous CVA with previous left- sided deficits, CAD, hypertension, hyperlipidemia, and insulin-dependent diabetes mellitus. He presented to the emergency department secondary to reports of headache, slurred speech, worsening left-sided facial droop, and left hand weakness and inability to deli manager anything. Patient reports headache, slurred speech and left hand weakness lasted approximately one hour prior to resolving w ithout intervention. Patient reports left sided facial droop was present from previous CVA but is significantly worsened. Patient's at bedside confirms these reports. Patient underwent full evaluation in the emergency department. CT head was completed negative for acute intracranial process. EKG showing normal sinus rhythm at 90 bpm with no significant T-wave or ST abnormalities showing no signs of acute ischemia. CTA head and neck completed. CT head showing patent intracranial circulation with multifocal stenosis recommending MRI given the multiplicity of areas of intracranial stenosis. Chest x-ray completed negative for acute cardiopulmonary process. Physical exam: Vital signs reviewed and stable. General: Nontoxic, no distress and appears stated age. Derm: Skin warm and dry, normal coloration for ethnicity. Head: Atraumatic, normocephalic and symmetric. Eyes: EOMs intact, no lid lag, and anicteric sclera Mouth: no lip lesions, mucus membranes moist Cardiovascular: regular rate and rhythm with normal S1S2, no murmur, positive posterior tibial pulses bilaterally, and cap refill < 2 seconds. Lungs: Respirations even, regular, and unlabored on room air. Lungs CTA bilaterally, no rhonchi, no rales, no wheezing, and no accessory muscle usage. Abdominal: soft, nontender to palpation, no guarding, no appreciable organomegaly Ext: ROM intact. No gross muscle atrophy, no edema, no contractures Neuro: Speech clear, face symmetrical and CN II-XII grossly intact with no noted focal neuro deficits Psych: Alert and oriented to person, place, time, and situation. Appropriate and pleasant affect. Assessment and Plan of Care: Left-sided neuro deficits including left-sided facial droop, slurred speech, and left arm weakness. TIA w/ Exacerbation of previous CVA deficits versus new CVA Hypertension Hyperlipidemia History of CAD History of previous CVA Insulin-dependent diabetes mellitus -Continue aspirin 81 mg daily, atorvastatin 80 mg nightly, Zetia 10 mg nightly, and Plavix 75 mg daily. -Neurology consulted placed order for MRI brain -Echocardiogram completed pending results. -Consult placed to speech and language pathologist as well as PT/OT -Continue neuro checks -Telemetry monitoring -Patient may continue metoprolol 100 mg daily and lisinopril 5 mg daily. -Hold Jardiance and metformin, continue Levemir 75 units nightly, and place patient on glycemic protocol with NovoLog sliding scale to maintain tight glycemic control throughout hospitalization. -ABCD2 score =5 points showing moderate risk CODE STATUS: Full code DVT prophylaxis: Heparin Anticipated discharge date: 24-[address]: Home Patient was seen independently by Nurse Pracitioner. This document was prepared using [employer] dictation software. Please allow for errors in batch blender, while rare they do occur. Objective - Vital Signs Vital signs: Vital Signs Temp 97.4 F L 02/10/23 21:46 Pulse 87 02/11/23 06:00 Resp 18 02/11/23 06:00 BP 156/74 02/11/23 06:00 Pulse Ox 96 02/11/23 06:00 FiO2 Intake & Output 02/10/23 02/11/23 02/11/23 18:59 06:59 18:59 Weight 92.079 kg - Labs CBC & Chem 7: 02/10/23 22:02 02/10/23 22:02 Labs: Abnormal Lab Results - Last 24 Hours (Table) 02/10/23 02/10/23 02/11/23 Range/Units 22:02 22:02 08:40 WBC 11.5 H (3.8-10.6) k/uL Sodium 136 L (137-145) mmol/L Glucose 101 H (74-99) mg/dL POC Glucose (mg/dL) 115 H (70-110) mg/dL
[2023-02-11 20:44] LABS: Glucose,Whole Blood 195 mg/dL (70-110)
[2023-02-11] MEDS ORDERED: INSULIN DETEMIR (LEVEMIR) 100 UNIT/ML SYR SQ SCH (21:00)
[2023-02-11] MEDS ORDERED: EZETIMIBE 10 MG TAB PO SCH (21:00)
[2023-02-12] MEDS: HEPARIN SODIUM,PORCINE 5,000 UNIT/ML 1 ML VIAL SQ SCH ×3 (02:07→17:08)
[2023-02-12 05:34] VITALS: RESP 16
[2023-02-12 06:39] LABS: Glucose,Whole Blood 97 mg/dL (70-110)
[2023-02-12 08:14] LABS: Glucose,Whole Blood 97 mg/dL (70-110)
[2023-02-12] MEDS: INSULIN ASPART (NovoLOG) 100 UNIT/ML VIAL SQ SCH ×3 (08:25→17:06)
[2023-02-12] MEDS: lisinopriL 5 MG TAB PO SCH (08:29)
[2023-02-12] MEDS: CLOPIDOGREL 75 MG TAB PO SCH (08:29)
[2023-02-12] MEDS: PANTOPRAZOLE 40 MG TABLET PO SCH (08:29)
[2023-02-12] MEDS: ATORVASTATIN 80 MG TAB PO SCH (08:30)
[2023-02-12] MEDS: METOPROLOL TARTRATE 50 MG TAB PO SCH (08:30)
[2023-02-12] MEDS: HYDROcodone/APAP 7.5-325MG 1 EACH TAB PO PRN (08:32)
[2023-02-12 08:49] VITALS: TEMP 97.9
[2023-02-12] MEDS ORDERED: DULoxetine HCL 60 MG CAPSULE.DR PO SCH (09:00)
[2023-02-12] MEDS ORDERED: ASPIRIN 81 MG PO SCH (09:00)
[2023-02-12 12:03] LABS: Glucose,Whole Blood 139 mg/dL (70-110)
[2023-02-12 12:16] VITALS: PULSE 71
--- NOTE | 2023-02-12 15:47 | P.PN ---
Subjective Progress Note Date: 02/12/23 Hospital course: Patient is a 67-year-old male with history of previous CVA with previous left- sided deficits, CAD, hypertension, hyperlipidemia, and insulin-dependent diabetes mellitus. He presented to the emergency department secondary to reports of headache, slurred speech, worsening left-sided facial droop, and left hand weakness and inability to platinum smith anything. Patient reports headache, slurred speech and left hand weakness lasted approximately one hour prior to resolving without intervention. Patient reports left sided facial droop was present from previous CVA but is significantly worsened. Patient's at bedside confirms these reports. Patient underwent full evaluation in the emergency department. CT head was completed negative for acute intracranial process. EKG showing normal sinus rhythm at 90 bpm with no significant T-wave or ST abnormalities showing no signs of acute ischemia. CTA head and neck completed. CT head showing patent intracranial circulation with multifocal stenosis recommending MRI given the multiplicity of areas of intracranial stenosis. Chest x-ray completed negative for acute cardiopulmonary process. Physical exam: Patient initially with Left-sided neuro deficits including left-sided facial droop, slurred speech, and left arm weakness. Left upper extremity weakness and slurred speech reportedly resolved after approximately one hour. Patient continues with increased left-sided facial droop denies any other complaints at this time. Vital signs reviewed and stable. General: Nontoxic, no distress and appears stated age. Derm: Skin warm and dry, normal coloration for ethnicity. Head: Atraumatic, normocephalic and symmetric. Eyes: EOMs intact, no lid lag, and anicteric sclera Mouth: no lip lesions, mucus membranes moist Cardiovascular: regular rate and rhythm with normal S1S2, no murmur, positive posterior tibial pulses bilaterally, and cap refill < 2 seconds. Lungs: Respirations even, regular, and unlabored on room air. Lungs CTA bilaterally, no rhonchi, no rales, no wheezing, and no accessory muscle usage. Abdominal: soft, nontender to palpation, no guarding, no appreciable organomegaly Ext: ROM intact. No gross muscle atrophy, no edema, no contractures Neuro: Speech clear, face with continued left sided facial droop ( reports much worsened from baseline from previous stroke) Psych: Alert and oriented to person, place, time, and situation. Appropriate and pleasant affect. Assessment and Plan of Care: Acute/subacute right parietal lobe ischemic CVA Hypertension Hyperlipidemia History of CAD History of previous CVA Insulin-dependent diabetes mellitus -Continue aspirin 81 mg daily, atorvastatin 80 mg nightly, Zetia 10 mg nightly, and Plavix 75 mg daily. -Neurology following, appreciate recommendations -Echocardiogram completed revealing preserved EF of 55-60% with mild to moderate mitral regurgitation and mild tricuspid regurgitation. -MRI brain revealing patchy right parietal lobe acute to subacute CVA with nonspecific white matter changes likely secondary to small vessel ischemic disease. -Consult placed to speech and language pathologist as well as PT/OT -Continue neuro checks -Telemetry monitoring -Patient may continue metoprolol 100 mg daily and lisinopril 5 mg daily. -Hold Jardiance and metformin, continue Levemir 75 units nightly, and place patient on glycemic protocol with NovoLog sliding scale to maintain tight glycemic control throughout hospitalization. Data reviewed: Hemoglobin A1c 7.7%. Lipid profile showing elevated triglycerides of 185 and low HDL of 29.30. Little signs reviewed. Blood pressure 127/71, heart rate 83, respiratory rate 16, temp 97.8F, SpO2 of 96% on room air. CODE STATUS: Full code DVT prophylaxis: Heparin Anticipated discharge date: 24-[address]: Home Patient was seen independently by Nurse Pracitioner. This document was prepared using [employer] dictation software. Please allow for errors in mortgage processing manager, while rare they do occur. Objective - Vital Signs Vital signs: Vital Signs Temp 97.9 F 02/12/23 08:27 Pulse 88 02/12/23 08:27 Resp 16 02/12/23 08:27 BP 164/93 02/12/23 08:27 Pulse Ox 94 L 02/12/23 08:27 FiO2 - Labs CBC & Chem 7: 02/10/23 22:02 02/10/23 22:02 Labs: Abnormal Lab Results - Last 24 Hours (Table) 02/11/23 02/11/23 02/11/23 Range/Units 08:40 08:43 14:12 POC Glucose (mg/dL) 115 H 127 H (70-110) mg/dL Triglycerides 185.00 H (0.00-149.00) mg/dL HDL Cholesterol 29.30 L (40.00-60.00) mg/dL 02/11/23 02/11/23 Range/Units 17:06 20:43 POC Glucose (mg/dL) 131 H 195 H (70-110) mg/dL Triglycerides (0.00-149.00) mg/dL HDL Cholesterol (40.00-60.00) mg/dL
[2023-02-12 15:56] VITALS: BP 133/70
[2023-02-12 17:02] LABS: Glucose,Whole Blood 239 mg/dL (70-110)
--- NOTE | 2023-02-12 19:14 | P.PN ---
Subjective Progress Note Date: 02/12/23 I am seeing the patient for the first time during this admission. Please refer to Dr. Mack's note for further details. He stated he presented because of left facial droop, speech difficulty with headache. He had prior stroke in 2021. He has History of CAD s/p stent X2. He is on ASA at home. He was on Brilinta in past but was told to be off about a year ago. Objective - Vital Signs Vital signs: Vital Signs Temp 97.9 F 02/12/23 08:27 Pulse 71 02/12/23 15:48 Resp 16 02/12/23 15:48 BP 133/70 02/12/23 15:48 Pulse Ox 96 02/12/23 15:48 FiO2 Intake & Output 02/12/23 02/12/23 02/13/23 06:59 18:59 06:59 Intake Total 120 Balance 120 Weight 92.079 kg Intake: Oral 120 - Exam GENERAL: The patient is lying in bed and is not in acute distress. NEUROLOGICAL: Higher mental function: The patient is awake, alert, oriented to self, place and time. Patient is following commands. No aphasia and no neglect. Cranial nerves: The pupils are round, equal and reactive to light. Visual hardy are full to confrontation throughout. Extraocular movement is intact no nystagmus is noted. Facial sensation is normal to touch throughout. The facial strength is mild left lower facial weakness. Tongue is midline and moved [id number] without any difficulty. No dysarthria is noted. Shoulder shrug is normal bilaterally. Motor: The strength is 5 over 5 throughout. Normal tone and bulk. Cerebellum: Normal finger to nose bilaterally. Sensation: Sensation is normal to touch throughout. - Labs CBC & Chem 7: 02/10/23 22:02 02/10/23 22:02 Labs: Abnormal Lab Results - Last 24 Hours (Table) 02/11/23 02/11/23 02/12/23 Range/Units 20:43 22:02 12:01 POC Glucose (mg/dL) 195 H 139 H (70-110) mg/dL Hemoglobin A1c 7.7 H (<=6.0) % 02/12/23 Range/Units 17:00 POC Glucose (mg/dL) 239 H (70-110) mg/dL Hemoglobin A1c (<=6.0) % Assessment and Plan Assessment: Acute ischemic stroke Reported as right parietal but I feel parietal mainly and on border of temporal/occipital region. Presented with left facial droop, speech difficulty with headache. Etiology is crytopgenic. History of stroke in 2020 over the right basal ganglia History of CAD s/p stent X2 Hypertension Hyperlipidemia Diabetes History of Mustafa's palsy over the right face. Plan: * MRI of the brain: It is reported as patchy right parietal lobe acute to s ubacute CVA. Nonspecific white matter changes, likely secondary due to small vessel ischemic disease. I personally reviewed this MRI I feel large early [place] over the right parietal but it's on the border of occipital temporal region. * 2-D echo: Reported as normal left ventricular ejection fraction with 55-60%. Mild increased left ventricle wall thickness. Mild to moderate mitral regurgitation. * CTA head revealed: Patent intercranial circulation. Multifocal stenosis intracranially, with mild to moderate stenosis within the intracranial bilateral ICA. Severe stenosis in the midportion of the right vertebral artery. * CTA of the neck showed atherosclerosis producing 50% stenosis in the proximal segments of both ICAs. * Fasting a.m. lipid panel: Triglyceride of 185, cholesterol 111, LDLs 44 and HDL is 29. * Hemoglobin A1c: 7.7 * Optimize control of blood pressure. * Patient was taking aspirin [address] Mack dual antiplatelet medication including Plavix 75 mg daily. He should be maintained on DAPT due to significant intracranial vascular atherosclerotic disease. * She is on Lipitor 80 mg daily and that is home dose. * Neuro checks every 4 hours. * Telemetry monitoring rule out any arrhythmia * I recommended an event monitor for 30 days to evaluate his recurrent strokes. If negative then recommend a loop recorder. * PT, OT, speech therapy * On discharge recommend the patient to follow-up with a neurologist as an outpatient within 1-2 weeks especially since he's having recurrent strokes. * DVT prophylaxis: Heparin 5000 units subcu every 8 hours The plan was discussed with the patient, the primary team and his nurse. Otherwise, there is no further neurological work-up. Time with Patient: Less than 30
--- NOTE | 2023-02-13 08:47 | P.DS ---
Providers Date of admission: 02/10/23 23:45 Expected date of discharge: 02/12/23 Attending physician: Irma Saldana MD Consults: 02/10/23 23:45 Consult Physician Routine Consulting Provider: Keith Mack Consult Reason/Comments: CVA Do you want consulting provider notified?: Yes Primary care physician: Seven Varghese MD Hospital Course: THIS IS NOT A DISHCHARGE SUMMARY, BUT A SUMMARY OF CARE PATIENT LEFT AGAINST MEDICAL ADVICE on 02/12/23 at 7:13 PM Acute/subacute right parietal lobe ischemic CVA Hypertension Hyperlipidemia History of CAD History of previous CVA Insulin-dependent diabetes mellitus Hospital Course: Patient is a 67-year-old male with history of previous CVA with previous left- sided deficits, CAD, hypertension, hyperlipidemia, and insulin-dependent diabetes mellitus. 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 Patient reports headache, slurred speech and left hand weakness lasted approximately one hour prior to resolving without intervention. Patient reports left sided facial droop was present from previous CVA but is significantly worsened. Patient's at bedside confirms these reports. Patient underwent full evaluation in the emergency department. CT head was completed negative for acute intracranial process. EKG showing normal sinus rhythm at 90 bpm with no significant T-wave or ST abnormalities sh owing no signs of acute ischemia. CTA head and neck completed. CT head showing patent intracranial circulation with multifocal stenosis recommending MRI given the multiplicity of areas of intracranial stenosis. Chest x-ray completed negative for acute cardiopulmonary process. Patient was admitted under our services with consultation to neurology. Echocardiogram completed revealing preserved EF of 55-60% with mild to moderate mitral regurgitation and mild tricuspid regurgitation. Hemoglobin A1c was 7.7%. Lipid profile showing elevated triglycerides in the 185 and LOW HDL of 29.30. MRI brain revealing patchy right parietal lobe with acute to subacute CVA with nonspecific white matter changes likely secondary to small vessel ischemic disease. Neurology evaluated and recommended patient stay until morning to have a 30 day event monitor placed prior to discharge secondary to his recurrent strokes. However patient was reportedly very adamant regarding being discharged home and despite recommendations to stay he reportedly left the hospital AGAINST MEDICAL ADVICE on the evening of 02/12/23 at 7:13 PM. This morning at 8:30 AM I called to check up on patient and talked to him about the importance of follow-up despite his leaving AGAINST MEDICAL ADVICE. I sent prescriptions for aspirin 81 mg daily for the next 21 days and Plavix 75 mg daily. Patient was instructed that he will need to be on dual antiplatelet therapy with both aspirin and Plavix for the next 21 days and will then need to be on Plavix indefinitely. Patient verbalized understanding and stated his is going to car pick up driver the prescriptions now. Patient also encouraged to follow up outpatient with his PCP and he reports he has an appointment with Dr. Rodríguez on 02/27/22. Patient informed that he will need to follow-up with the neurologist and states he will call his PCP office and have them start the referral. Patient also encouraged to discuss event monitor placement with his primary care doctor as it is highly recommended to rule out an underlying arrhythmia causing these recurrent strokes. Patient verbalized understanding reassured me that he take his medications as prescribed and will follow up as instructed. Pt's PCP, Dr. Seven Varghese also notified of pt's hospitalization and recommendations forthgoing. Patient left AGAINST MEDICAL ADVICE on 02/12/23 at 7:13 PM Patient was seen independently by Nurse Practitioner. This document was prepared using Miew dictation software. Please allow for errors in set up technician while rare they do occur. Patient Condition at Discharge: Undetermined Plan - Discharge Summary Discharge Rx Participant: No New Discharge Prescriptions: No Action metFORMIN HCL [Glucophage] 1,000 mg PO BID Omeprazole 20 mg PO DAILY Insulin Detemir [Levemir Flextouch Pen] 75 units SQ HS Pioglitazone HCl [Actos] 15 mg PO DAILY Atorvastatin Calcium [Lipitor] 80 mg PO DAILY HYDROcodone/APAP 7.5-325MG [[place] 7.5-325] 1 tab PO BID PRN PRN Reason: Pain Metoprolol Tartrate [Lopressor] 100 mg PO DAILY Empagliflozin [Jardiance] 10 mg PO DAILY DULoxetine HCL [Cymbalta] 60 mg PO DAILY Ezetimibe [Zetia] 10 mg PO HS lisinopriL [Zestril] 5 mg PO DAILY Vitamin E (Dl,Tocopheryl Acet) [Vitamin E (400 Iu = 180 mg)] 400 unit PO DAILY Discharge Medication List Omeprazole 20 mg PO DAILY 02/23/16 [History] metFORMIN HCL [Glucophage] 1,000 mg PO BID 02/23/16 [History] Insulin Detemir [Levemir Flextouch Pen] 75 units SQ HS 03/03/18 [History] Pioglitazone HCl [Actos] 15 mg PO DAILY 08/16/18 [History] Empagliflozin [Jardiance] 10 mg PO DAILY 10/25/20 [History] Atorvastatin Calcium [Lipitor] 80 mg PO DAILY 12/27/20 [History] DULoxetine HCL [Cymbalta] 60 mg PO DAILY 12/27/20 [History] HYDROcodone/APAP 7.5-325MG [[place] 7.5-325] 1 tab PO BID PRN 12/27/20 [History] Metoprolol Tartrate [Lopressor] 100 mg PO DAILY 12/27/20 [History] Ezetimibe [Zetia] 10 mg PO HS 09/19/22 [History] Vitamin E (Dl,Tocopheryl Acet) [Vitamin E (400 Iu = 180 mg)] 400 unit PO DAILY 09/19/22 [History] lisinopriL [Zestril] 5 mg PO DAILY 09/19/22 [History] Follow up Appointment(s)/Referral(s): Seven Varghese MD [Primary Care Provider] - 1-2 days Discharge Disposition: LEFT AGAINST MEDICAL ADVICE
== END 2023-02-12 20:01 | disposition left against medical advice (07) | DRG 66 ==
LOC: EC 21:41 → 3SCARD 23:45
PROVIDERS: ADMIT Internal Medicine; ATTEND Internal Medicine
DX: I63.81 Other cerebral infarction due to occlusion or stenosis of small artery (principal); G83.24 Monoplegia of upper limb affecting left nondominant side; R47.81 Slurred speech; R29.702 NIHSS score 2; E11.9 Type 2 diabetes mellitus without complications; E78.1 Pure hyperglyceridemia; F32.A Depression, unspecified; F41.9 Anxiety disorder, unspecified; I25.10 Atherosclerotic heart disease of native coronary artery without angina pectoris; K21.9 Gastro-esophageal reflux disease without esophagitis; E78.5 Hyperlipidemia, unspecified; M54.50 Low back pain, unspecified; I10 Essential (primary) hypertension; M19.90 Unspecified osteoarthritis, unspecified site; G40.909 Epilepsy, unspecified, not intractable, without status epilepticus; I65.23 Occlusion and stenosis of bilateral carotid arteries; G47.30 Sleep apnea, unspecified; I34.0 Nonrheumatic mitral (valve) insufficiency; R32 Unspecified urinary incontinence; G93.89 Other specified disorders of brain; Z96.642 Presence of left artificial hip joint; Z28.310 Unvaccinated for COVID-19; I25.2 Old myocardial infarction; I69.392 Facial weakness following cerebral infarction; Z88.6 Allergy status to analgesic agent; Z95.5 Presence of coronary angioplasty implant and graft; Z79.899 Other long term (current) drug therapy; Z79.84 Long term (current) use of oral hypoglycemic drugs; Z79.82 Long term (current) use of aspirin; Z79.4 Long term (current) use of insulin
CPT/HCPCS: 36415; 70450; 70496; 70498; 70551; 71045; 80053; 80061; 82550; 83036; 84484; 85025; 85610; 85730; 93005; 93306; 96360; 96361; 99285

== ENCOUNTER 2023-02-28 10:06 | Observation (INO) | payer MEDICARE, BC ==
[2023-02-28 11:22] LABS: Basophils # (A) 0.1 k/uL (0-0.2); Basophils % (A) 1 %; Eosinophils # (A) 0.5 k/uL (0-0.7); Eosinophils % (A) 5 %; HCT 42.7 % (39.0-53.0); HGB 14.3 gm/dL (13.0-17.5); Lymphocytes % (A) 18 %; MCH 30.5 pg (25.0-35.0); MCHC 33.5 g/dL (31.0-37.0); Mean Platelet Volume 7.9; Monocytes # (A) 0.5 k/uL (0-1.0); Monocytes % (A) 5 %; Neutrophils # (A) 7.8 k/uL (1.3-7.7); Neutrophils % (A) 71 %; Platelet Count 352 k/uL (150-450); RBC 4.69 m/uL (4.30-5.90); RDW 13.1 % (11.5-15.5)
[2023-02-28 11:36] LABS: ALT 46 U/L (4-49); AST 29 U/L (17-59); African American GFR (CKD) >90 (>60 ml/min/1.73 sqM); Albumin 4.5 g/dL (3.5-5.0); Alkaline Phosphatase 113 U/L (38-126); Anion Gap 14 mmol/L; Blood Urea Nitrogen 17 mg/dL (9-20); Carbon Dioxide 22 mmol/L (22-30); Chloride 100 mmol/L (98-107); Glucose 228 mg/dL (74-99); INR 0.9 (<1.2); Non-African American GFR(CKD) >90 (>60 ml/min/1.73 sqM); Partial Thromboplastin Time 24.5 sec (22.0-30.0); Potassium 4.5 mmol/L (3.5-5.1); Prothrombin Time 10.4 sec (10.0-12.5); Sodium 136 mmol/L (137-145); Total Bilirubin 0.5 mg/dL (0.2-1.3); Total Protein 7.2 g/dL (6.3-8.2)
--- NOTE | 2023-02-28 11:55 | XR ---
EXAMINATION TYPE: XR chest 2V DATE OF EXAM: 02/28/2023 COMPARISON: 02/10/2023 HISTORY: Altered mental status, dizziness TECHNIQUE: 2 view chest FINDINGS: Heart size is normal. Pulmonary vasculature is normal. The lungs are clear. Osseous structu res are unremarkable. IMPRESSION: 1. No acute pulmonary process.
--- NOTE | 2023-02-28 12:16 | CT ---
EXAMINATION TYPE: CT brain wo con CT DLP: 1134.4 mGycm, Automated exposure control for dose reduction was used. DATE OF EXAM: 02/28/2023 11:33 AM COMPARISON: None. CLINICAL INDICATION:Male, 67 years old with history of Altered mental status, AMS, recent stroke TECHNIQUE: Brain: Axial CT images of the brain were obtained with coronal and sagittal reformats created and rev iewed. Contrast used: None. Oral contrast used: None. FINDINGS: Extra-axial spaces: No abnormal extra-axial fluid collections. Ventricular system: Ventricles appear dilated in proportion to the degree of cerebral atrophy. Cerebral parenchyma: No increased attenuation to suggest acute intraparenchymal hemorrhage. The gra y-white matter interface appears maintained. Moderate generalized brain atrophy. Scattered patchy a nd some confluent hypoattenuating areas are seen within the cerebral white matter, greatest in the fr ontal lobes right more than left; nonspecific but most often seen with chronic microvascular ischemic changes--these are moderate in degree. Small likely chronic lacunar infarct or prominent perivascula r space in the left basal ganglia region. Cerebellum: No acute abnormality. Mass effect: No evidence of mass effect or midline shift. Intracranial vasculature: Atherosclerotic calcifications of the larger arteries near the skull base. Includes moderate to heavy calcifications of the siphon portions ICAs. Soft tissues: Normal. Visualized orbits: Orbital contents appear grossly intact. Calvarium/osseous structures: No evidence of calvarial fracture. Paranasal sinuses and mastoid air cells: Gracie bullosa noted on the left. Mild nasal septal deviatio n to the right. Bilateral maxillary sinuses appear somewhat hypoplastic but roughly symmetric and dhara ar. Mild mucosal thickening throughout ethmoid air cells. No paranasal sinus fluid accumulation is se en. The bilateral mastoid air cells are very underpneumatized, likely developmental. MRI is more sensitive for detecting acute processes such as infarct, and may be considered if clinica lly warranted. IMPRESSION: No CT evidence of an acute intracranial abnormality. Atrophy and chronic microvascular ischemic white matter changes.
--- NOTE | 2023-02-28 12:50 | ED ---
Altered Mental Status HPI - General Chief Complaint: Altered Mental Status Stated Complaint: AMS Time Seen by Provider: 02/28/23 10:15 Source: patient, family Mode of arrival: ambulatory Limitations: no limitations - History of Present Illness Initial Comments: 67-year-old male with past history of CVA and left-sided facial droop presents emergency Department with altered mental status. is at bedside and helps provide history. States that the patient has had worsening ability to indicate over the past couple of days and has needed the use of a cane. She also reports that he has had some nonsensical speech. Today the patient was getting ready to go to a doctor's appointment when he was trying to get his dog into the car. was trying to confront him in regards to why the dog needed to go and the patient realized that he was not making any sense. He denies any chronic weakness in his extremities. No new weakness as of today. states that his speech has also been slowed. He is on Plavix and been taking it as directed. No fevers. No recent falls. Denies any changes in his bowel or bladder habits. No other alleviating, precipitating or modifying factors - Related Data Home Medications Medication Instructions Recorded Confirmed Omeprazole 20 mg PO DAILY 02/23/16 02/28/23 metFORMIN HCL [Glucophage] 1,000 mg PO BID 02/23/16 02/28/23 Insulin Detemir [Levemir Flextouch 75 units SQ HS 03/03/18 02/28/23 Pen] Pioglitazone HCl [Actos] 15 mg PO DAILY 08/16/18 02/28/23 Empagliflozin [Jardiance] 10 mg PO DAILY 10/25/20 02/28/23 Atorvastatin Calcium [Lipitor] 80 mg PO DAILY 12/27/20 02/28/23 DULoxetine HCL [Cymbalta] 60 mg PO DAILY 12/27/20 02/28/23 HYDROcodone/APAP 7.5-325MG [[place] 1 tab PO BID PRN 12/27/20 02/28/23 7.5-325] Metoprolol Tartrate [Lopressor] 100 mg PO DAILY 12/27/20 02/28/23 Ezetimibe [Zetia] 10 mg PO HS 09/19/22 02/28/23 Vitamin E (Dl,Tocopheryl Acet) 400 unit PO DAILY 09/19/22 02/28/23 [Vitamin E (400 Iu = 180 mg)] lisinopriL [Zestril] 5 mg PO DAILY 09/19/22 02/28/23 diazePAM 10 mg PO DIRECTED 02/28/23 02/28/23 Previous Rx's Medication Instructions Recorded Aspirin 81 mg PO DAILY 21 Days #21 tab 02/13/23 Clopidogrel [Plavix] 75 mg PO DAILY 90 Days #90 tablet 02/13/23 Allergies Allergy/AdvReac Type Severity Reaction Status Date / Time oxaprozin [From Daypro] Allergy Severe Swelling Verified 02/28/23 13:27 throat & tongue, reddened face Review of Systems ROS Statement: Those systems with pertinent positive or pertinent negative responses have been documented in the HPI. ROS Other: All systems not noted in ROS Statement are negative. Past Medical History Past Medical History: Coronary Artery Disease (CAD), CVA/TIA, Diabetes Mellitus, GERD/Reflux, Hyperlipidemia, Hypertension, Myocardial Infarction (GA), Osteoarthritis (OA), Seizure Disorder, Sleep Apnea/CPAP/BIPAP Additional Past Medical History / Comment(s): Chronic back pain. 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 CPAP use. "Hx mild seizure when ran out of Xanax few months ago". Last Myocardial Infarction Date:: 11/17/16 History of Any Multi-Drug Resistant Organisms: None Reported Past Surgical History: Heart Catheterization With Stent, Hernia Repair, Joint Replacement, Orthopedic Surgery Additional Past Surgical History / Comment(s): Right rotator cuff repair X2. Left hip replacement. Bilateral inguinal hernia repair. Stent replacement 11/07. Past Anesthesia/Blood Transfusion Reactions: No Reported Reaction Additional Past Anesthesia/Blood Transfusion Reaction / Comment(s): States had transfusion at . Date of Last Stent Placement:: 10/2020 Past Psychological History: Anxiety, Depression Smoking Status: Never smoker Past Alcohol Use History: Occasional Past Drug Use History: None Reported - Past Family History Brother(s) Family Medical History: Cancer, Deep Vein Thrombosis (DVT) Additional Family Medical History / Comment(s): 1 brother with Esophageal CA. 2 brothers with DVT. Sister(s) Family Medical History: Cancer Additional Family Medical History / Comment(s): Brain CA. 2nd sister had breast CA. General Exam Limitations: no limitations Course Vital Signs 02/28/23 02/28/23 10:14 13:47 Temperature 97.5 F L Pulse Rate 71 71 Respiratory 18 20 Rate Blood Pressure 123/81 140/90 O2 Sat by Pulse 96 94 L Oximetry Medical Decision Making - Medical Decision Making Was pt. sent in by a medical professional or institution (JASON Butt, MACHINE SPECIALIST, urgent care, hospital, or assisted...) When possible be specific @ -No Did you speak to anyone other than the patient for history (EMS, parent, family, police, friend...)? What history was obtained from this source @ -No Did you review nursing and triage notes (agree or disagree)? Why? @ -I reviewed and agree with nursing and triage notes Were old charts reviewed (outside hosp., previous admission, EMS record, old EKG, old radiological studies, urgent care reports/EKG's, assisted records)? Report findings @ -No old charts were reviewed Differential Diagnosis (chest pain, altered mental status, abdominal pain women, abdominal pain men, vaginal bleeding, weakness, fever, dyspnea, syncope, headache, dizziness, GI bleed, back pain, seizure, CVA, palpatations, mental health, musculoskeletal)? @ -not applicable EKG interpreted by me (3pts min.). @ -Yes and demonstrates sinus rhythm with a rate of 66. MI interval 167. QRS 81. QTC of 399. No acute ST segment elevations or depressions X-rays interpreted by me (1pt min.). @ -None done CT interpreted by me (1pt min.). @ -None done U/S interpreted by me (1pt. min.). @ -None done What testing was considered but not performed or refused? (CT, X-rays, U/S, labs)? Why? @ -None What meds were considered but not given or refused? Why? @ -None Did you discuss the management of the patient with other professionals (professionals i.e. JASON Butt, MACHINE SPECIALIST, lab, RT, psych nurse, social media community manager, manager new product, teacher, biological technical officer, adult protective caseworker)? Give summary @ -No Was smoking cessation discussed for >3mins.? @ -No Was critical care preformed (if so, how long)? @ -No Were there social determinants of health that impacted care today? How? (Homelessness, low income, unemployed, alcoholism, drug addiction, transportation, low edu. Level, literacy, decrease access to med. care, retirement, rehab)? @ -No Was there de-escalation of care discussed even if they declined (Discuss DNR or withdrawal of care, Hospice)? DNR status @ -No What co-morbidities impacted this encounter? (DM, HTN, Smoking, COPD, CAD, Cancer, CVA, ARF, Chemo, Hep., AIDS, mental health diagnosis, sleep apnea, morbid obesity)? @ -None Was patient admitted / discharged? Hospital course, mention meds given and route, prescriptions, significant lab abnormalities, going to OR and other pertinent info. @ -Upon arrival patient placed into room 20. There are history and physical exam was performed. Patient does have some chronic left-sided facial droop without acute neurologic deficit. IV is established and laboratory studies are conducted. CT is performed of the patient's brain which demonstrates chronic atrophic changes. feels uncomfortable taking the patient home due to his acute alteration of mental status. I did speak with [facility] in regards to admission of the patient with neurology to consult. Undiagnosed new problem with uncertain prognosis? @ -yes Drug Therapy requiring intensive monitoring for toxicity (Heparin, Nitro, Insulin, Cardizem)? @ -[No] Were any procedures done? @ -[No] Diagnosis/symptom? @ -[default] Acute, or Chronic, or Acute on Chronic? @ -[default] Uncomplicated (without systemic symptoms) or Complicated (systemic symptoms)? @ -[default] Side effects of treatment? @ -[No] Exacerbation, Progression, or Severe Exacerbation? @ -[No] Poses a threat to life or bodily function? How? (Chest pain, USA, GA, pneumonia, PE, COPD, DKA, ARF, appy, cholecystitis, CVA, Diverticulitis, Homicidal, Suicidal, threat to staff... and all critical care pts) @ -[No] - Lab Data Result diagrams: 02/28/23 11:03 02/28/23 11:03 Lab Results 02/28/23 02/28/23 02/28/23 Range/Units 11:03 11:03 11:03 WBC 11.0 H (3.8-10.6) k/uL RBC 4.69 (4.30-5.90) m/uL Hgb 14.3 (13.0-17.5) gm/dL Hct 42.7 (39.0-53.0) % MCV 91.0 (80.0-100.0) fL MCH 30.5 (25.0-35.0) pg MCHC 33.5 (31.0-37.0) g/dL RDW 13.1 (11.5-15.5) % Plt Count 352 (150-450) k/uL MPV 7.9 Neutrophils % 71 % Lymphocytes % 18 % Monocytes % 5 % Eosinophils % 5 % Basophils % 1 % Neutrophils # 7.8 H (1.3-7.7) k/uL Lymphocytes # 2.0 (1.0-4.8) k/uL Monocytes # 0.5 (0-1.0) k/uL Eosinophils # 0.5 (0-0.7) k/uL Basophils # 0.1 (0-0.2) k/uL PT 10.4 (10.0-12.5) sec INR 0.9 (<1.2) APTT 24.5 (22.0-30.0) sec Sodium 136 L (137-145) mmol/L Potassium 4.5 (3.5-5.1) mmol/L Chloride 100 (98-107) mmol/L Carbon Dioxide 22 (22-30) mmol/L Anion Gap 14 mmol/L BUN 17 (9-20) mg/dL Creatinine 0.75 (0.66-1.25) mg/dL Est GFR (CKD-EPI)AfAm >90 (>60 ml/min/1.73 sqM) Est GFR (CKD-EPI)NonAf >90 (>60 ml/min/1.73 sqM) Glucose 228 H (74-99) mg/dL Calcium 10.0 (8.4-10.2) mg/dL Total Bilirubin 0.5 (0.2-1.3) mg/dL AST 29 (17-59) U/L ALT 46 (4-49) U/L Alkaline Phosphatase 113 (38-126) U/L Troponin I (0.000-0.034) ng/mL Total Protein 7.2 (6.3-8.2) g/dL Albumin 4.5 (3.5-5.0) g/dL Urine Color Urine Appearance (Clear) Urine pH (5.0-8.0) Ur Specific [place] (1.001-1.035) Urine Protein (Negative) Urine Glucose (UA) (Negative) Urine Ketones (Negative) Urine Blood (Negative) Urine Nitrite (Negative) Urine Bilirubin (Negative) Urine Urobilinogen (<2.0) mg/dL Ur Leukocyte Esterase (Negative) Influenza Type A (PCR) (Not Detectd) Influenza Type B (PCR) (Not Detectd) RSV (PCR) (Not Detectd) SARS-CoV-2 (PCR) (Not Detectd) 02/28/23 02/28/23 02/28/23 Range/Units 11:03 11:08 13:20 WBC (3.8-10.6) k/uL RBC (4.30-5.90) m/uL Hgb (13.0-17.5) gm/dL Hct (39.0-53.0) % MCV (80.0-100.0) fL MCH (25.0-35.0) pg MCHC (31.0-37.0) g/dL RDW (11.5-15.5) % Plt Count (150-450) k/uL MPV Neutrophils % % Lymphocytes % % Monocytes % % Eosinophils % % Basophils % % Neutrophils # (1.3-7.7) k/uL Lymphocytes # (1.0-4.8) k/uL Monocytes # (0-1.0) k/uL Eosinophils # (0-0.7) k/uL Basophils # (0-0.2) k/uL PT (10.0-12.5) sec INR (<1.2) APTT (22.0-30.0) sec Sodium (137-145) mmol/L Potassium (3.5-5.1) mmol/L Chloride (98-107) mmol/L Carbon Dioxide (22-30) mmol/L Anion Gap mmol/L BUN (9-20) mg/dL Creatinine (0.66-1.25) mg/dL Est GFR (CKD-EPI)AfAm (>60 ml/min/1.73 sqM) Est GFR (CKD-EPI)NonAf (>60 ml/min/1.73 sqM) Glucose (74-99) mg/dL Calcium (8.4-10.2) mg/dL Total Bilirubin (0.2-1.3) mg/dL AST (17-59) U/L ALT (4-49) U/L Alkaline Phosphatase (38-126) U/L Troponin I <0.012 (0.000-0.034) ng/mL Total Protein (6.3-8.2) g/dL Albumin (3.5-5.0) g/dL Urine Color Colorless Urine Appearance Clear (Clear) Urine pH 5.0 (5.0-8.0) Ur Specific [place] 1.027 (1.001-1.035) Urine Protein Negative (Negative) Urine Glucose (UA) 4+ H (Negative) Urine Ketones Negative (Negative) Urine Blood Negative (Negative) Urine Nitrite Negative (Negative) Urine Bilirubin Negative (Negative) Urine Urobilinogen <2.0 (<2.0) mg/dL Ur Leukocyte Esterase Negative (Negative) Influenza Type A (PCR) Not Detected (Not Detectd) Influenza Type B (PCR) Not Detected (Not Detectd) RSV (PCR) Not Detected (Not Detectd) SARS-CoV-2 (PCR) Not Detected (Not Detectd) Disposition Clinical Impression: Altered mental status Disposition: ADMITTED IP TO THIS [facility] Condition: Stable Is patient prescribed a controlled substance at d/c from ED?: No Time of Disposition: 15:05 Decision to Admit Reason: Admit from EC Decision Date: 02/28/23 Decision Time: 15:05
[2023-02-28 13:47] LABS: Appearance,Urine Clear (Clear); Bilirubin,Urine Negative (Negative); Blood,Urine Negative (Negative); Color,Urine Colorless; Glucose,Urine (UA) 4+ (Negative); Ketones,Urine Negative (Negative); Leukocyte Esterase,Urine Negative (Negative); Nitrite,Urine Negative (Negative); Protein,Urine Negative (Negative); Specific Gravity,Urine 1.027 (1.001-1.035); Urobilinogen,Urine <2.0 mg/dL (<2.0)
[2023-02-28] MEDS ORDERED: NALOXONE 0.4 MG/ML 1 ML VIAL IV PRN (15:06)
[2023-02-28] MEDS: HYDROcodone/APAP 7.5-325MG 1 EACH TAB PO PRN (16:08)
[2023-02-28] MEDS: metFORMIN 500 MG TAB PO SCH (17:38)
[2023-02-28] MEDS ORDERED: EZETIMIBE 10 MG TAB PO SCH (21:00)
[2023-02-28] MEDS ORDERED: INSULIN DETEMIR (LEVEMIR) 100 UNIT/ML SYR SQ SCH (21:00)
--- NOTE | 2023-02-28 21:33 | P.CNNES ---
History of Present Illness Consult date: 02/28/23 Requesting physician: Angélica Allen Reason for Consult: acute encephalopathy, recent cva History of Present Illness: Patient is a 67-year-old left-handed male known to neurology service for recent history of stroke, which happened on 02/10/2023. Patient was seen by myself for consultation, an MRI of the brain performed revealed patchy right parietal lobe acute to subacute CVA. Patient was only taking aspirin 81 mg daily. He apparently signed out AGAINST MEDICAL ADVICE on 02/12/2023 and was discharged on aspirin 81 mg daily and Plavix 75 mg. Patient has history of chronic back pain. He follows up with Dr. Light, and he was scheduled for some procedure to the lumbar back as of today. Patient states that he was recommended to stop taking his blood thinners for 7 days prior to the procedure. Apparently patient stopped taking all of his medications including medications for blood pressure, diabetes, except he was still taking the insulin shots. Patient's mentions that for last couple days, he has been talking slow. This morning he woke up at 9 AM and was relatively fine and stable. He took his medication, and later patient's noticed that he was not acting right, not laying attention. She did not notice any facial droop, or any slurred speech, focal numbness, tingling or weakness. although he was just talking slow. She got concerned and informed his neurologist about his condition, who canceled the procedure and recommended him to go to the ER. Patient has been seen by Dr. Kay on 12/29/2020 for acute right basal ganglia CVA. Patient also has history of CAD, type 2 diabetes and hypertension. Patient was taking aspirin and Plavix at that time. Dr. Kay discontinued Plavix and started the patient on Brilinta 90 mg twice a day. Patient was also on Lipitor 80 mg daily at that time. Also was recommended to abstain from alcoholism. patient had mentioned that he took Brilinta for one year, and then stopped taking it, and continued just on aspirin. Patient has history of diabetes since 2007. Also has hypertension and hyperlipidemia. He is a nonsmoker, never smoked on a regular basis. He drinks about couple beers per night, but not every night. Review of Systems Constitutional: Reports chills, Denies fatigue, Denies fever Eyes: denies blurred vision, denies diplopia, denies pain Ears: bilateral: decreased hearing, deny: ear discharge Ears, nose, mouth and throat: Reports headache (Had bad LACEY, no LACEY at this time), Denies sore throat, Denies vertigo Cardiovascular: Denies chest pain, Denies lightheadedness, Denies shortness of breath Respiratory: Denies cough, Denies excessive sputum Gastrointestinal: Denies abdominal pain, Denies diarrhea, Denies nausea, Denies vomiting Genitourinary: Reports urinary frequency, Denies incontinence Musculoskeletal: Reports low back pain, Denies neck pain Integumentary: Denies pruritus, Denies rash Neurological: Reports as per HPI Psychiatric: Reports depression, Denies anxiety Hematologic/Lymphatic: Denies easy bleeding, Denies easy bruising Past Medical History Past Medical History: Coronary Artery Disease (CAD), CVA/TIA, Diabetes Mellitus, GERD/Reflux, Hyperlipidemia, Hypertension, Myocardial Infarction ([place]), Osteoarthritis (OA), Seizure Disorder, Sleep Apnea/CPAP/BIPAP Additional Past Medical History / Comment(s): Chronic back pain. 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 CPAP use. "Hx mild seizure when ran out of Xanax few months ago". Last Myocardial Infarction Date:: 11/17/16 History of Any Multi-Drug Resistant Organisms: None Reported Past Surgical History: Heart Catheterization With Stent, Hernia Repair, Joint R eplacement, Orthopedic Surgery Additional Past Surgical History / Comment(s): Right rotator cuff repair X2. Left hip replacement. Bilateral inguinal hernia repair. Stent replacement 11/07. Past Anesthesia/Blood Transfusion Reactions: No Reported Reaction Additional Past Anesthesia/Blood Transfusion Reaction / Comment(s): States had transfusion at . Date of Last Stent Placement:: 10/2020 Past Psychological History: Anxiety, Depression Smoking Status: Never smoker Past Alcohol Use History: Occasional Past Drug Use History: None Reported - Past Family History Brother(s) Family Medical History: Cancer, Deep Vein Thrombosis (DVT) Additional Family Medical History / Comment(s): 1 brother with Esophageal CA. 2 brothers with DVT. Sister(s) Family Medical History: Cancer Additional Family Medical History / Comment(s): Brain CA. 2nd sister had breast CA. Medications and Allergies Home Medications Medication Instructions Recorded Confirmed Type Omeprazole 20 mg PO DAILY 02/23/16 02/28/23 History metFORMIN HCL [Glucophage] 1,000 mg PO BID 02/23/16 02/28/23 History Insulin Detemir [Levemir Flextouch 75 units SQ HS 03/03/18 02/28/23 History Pen] Pioglitazone HCl [Actos] 15 mg PO DAILY 08/16/18 02/28/23 History Empagliflozin [Jardiance] 10 mg PO DAILY 10/25/20 02/28/23 History Atorvastatin Calcium [Lipitor] 80 mg PO DAILY 12/27/20 02/28/23 History DULoxetine HCL [Cymbalta] 60 mg PO DAILY 12/27/20 02/28/23 History HYDROcodone/APAP 7.5-325MG [[place] 1 tab PO BID PRN 12/27/20 02/28/23 History 7.5-325] Metoprolol Tartrate [Lopressor] 100 mg PO DAILY 12/27/20 02/28/23 History Ezetimibe [Zetia] 10 mg PO HS 09/19/22 02/28/23 History Vitamin E (Dl,Tocopheryl Acet) 400 unit PO DAILY 09/19/22 02/28/23 History [Vitamin E (400 Iu = 180 mg)] lisinopriL [Zestril] 5 mg PO DAILY 09/19/22 02/28/23 History Aspirin 81 mg PO DAILY 21 Days #21 tab 02/13/23 02/28/23 Rx Clopidogrel [Plavix] 75 mg PO DAILY 90 Days #90 tablet 02/13/23 02/28/23 Rx diazePAM 10 mg PO DIRECTED 02/28/23 02/28/23 History Allergies Allergy/AdvReac Type Severity Reaction Status Date / Time oxaprozin [From Daypro] Allergy Severe Swelling Verified 02/28/23 13:27 throat & tongue, reddened face Physical Examination - Vital Signs Vital Signs: Vital Signs Temp Pulse Resp BP Pulse Ox 02/28/23 13:47 71 20 140/90 94 L 02/28/23 10:14 97.5 F L 71 18 123/81 96 Intake and Output 02/28/23 02/28/23 02/28/23 06:59 14:59 22:59 Other: Weight 92.533 kg Patient is an elderly male, in no acute distress. Patient is alert awake oriented to time place and person. Speech and language functions are normal. Patient can name and repeat very well. No aphasia or dysarthria. Attention, concentration and fund of knowledge is adequate. On cranial nerve examination, pupils are equal, round and reacting to light, visual hardy are full on confrontation, with no neglect on double simultaneous stimulation. Extraocular muscles are intact with no nystagmus. Patient has mild flattening of the left nasolabial fold. His tongue protrudes to the midline. Palatal elevation and sensation normal, hearing and shoulder shrug normal, facial sensation normal. On muscle strength testing, there is no pronator drift. Overall strength is normal in arms and legs distally and proximally. Deep tendon reflexes are symmetric 2 at the biceps, 2 brachioradialis, 2 at the knees, trace ankles and plantars are downgoing bilaterally. Sensory to touch is equal with no neglect on double simultaneous stimulation. Cerebellar function showed no ataxia for [id number] testing. No dysdiadochokinesia. No ataxia for [id number] testing on either side. Tone and bulk of muscles normal. Gait deferred.. On general examination, there is no carotid bruit or murmur, S1-S2 audible. Chest is clear on consultation. Abdomen is soft nontender. No organomegaly, bowel sounds present. Peripheral pulses are present. No peripheral edema. Results - Laboratory Findings CBC and BMP: 02/28/23 11:03 02/28/23 11:03 Abnormal Lab Findings: Abnormal Labs 02/28/23 02/28/23 02/28/23 11:03 11:03 13:20 WBC 11.0 H Neutrophils # 7.8 H Sodium 136 L Glucose 228 H Urine Glucose (UA) 4+ H Assessment and Plan Assessment: * Questionable stroke/TIA. Patient presented with vague symptoms of "not acting right, not paying attention and talking slow". Examination only significant for flattening of the left nasolabial fold. Patient has stopped taking all medications for last 7 days for upcoming lumbar procedure for chronic back pain. Mechanism of possible stroke/TIA due to stopping medications. * Recent history of right parietal ischemic stroke 02/10/2023 * Previous history of stroke in 2020 over the right basal ganglia * History of CAD s/p stent X2 * Hypertension * Hyperlipidemia * Diabetes * History of Mustafa's palsy over the right face. Plan: * Patient had presented with vague neurological symptoms, without any lateralizing features, uncertain if related to stroke/TIA. Patient has s topped taking all of his medications (except Insulin) for last 7 days for upcoming procedure for his chronic low back pain. * Patient will be resumed on his dual antiplatelet medications including aspirin 81 mg and Plavix 75 mg daily. * Resume all medications, including for blood pressure, diabetes as well. * Patient already had a complete workup performed recently in the end of January 2023 as mentioned below. No need to repeat. * 2-D echo: Reported as normal left ventricular ejection fraction with 55-60%. Mild increased left ventricle wall thickness. Mild to moderate mitral regurgitation. * CTA head revealed: Patent intercranial circulation. Multifocal stenosis intracranially, with mild to moderate stenosis within the intracranial bilateral ICA. Severe stenosis in the midportion of the right vertebral artery. * CTA of the neck showed atherosclerosis producing 50% stenosis in the proximal segments of both ICAs. * Fasting a.m. lipid panel: Triglyceride of 185, cholesterol 111, LDLs 44 and HDL is 29. Continue Lipitor 80 mg daily. * Hemoglobin A1c: 7.7. Recommend optimize control of diabetes to target A1c < 7.0. * Optimize control of blood pressure. * If remains stable overnight, will be clear for discharge from neurology point. * Thank you for the consult. .
[2023-02-28 21:39] LABS: Glucose,Whole Blood 183 mg/dL (70-110)
[2023-03-01 06:28] LABS: Glucose,Whole Blood 103 mg/dL (70-110)
[2023-03-01] MEDS: metFORMIN 500 MG TAB PO SCH (06:51)
[2023-03-01] MEDS ORDERED: PANTOPRAZOLE 40 MG TABLET PO SCH (07:30)
[2023-03-01 08:25] VITALS: RESP 16
[2023-03-01 08:36] LABS: Basophils # (A) 0.1 k/uL (0-0.2); Basophils % (A) 1 %; Eosinophils # (A) 0.4 k/uL (0-0.7); Eosinophils % (A) 5 %; HCT 43.3 % (39.0-53.0); HGB 14.2 gm/dL (13.0-17.5); Lymphocytes # (A) 2.1 k/uL (1.0-4.8); Lymphocytes % (A) 24 %; MCHC 32.8 g/dL (31.0-37.0); MCV 91.4 fL (80.0-100.0); Monocytes # (A) 0.5 k/uL (0-1.0); Monocytes % (A) 6 %; Neutrophils # (A) 5.5 k/uL (1.3-7.7); Neutrophils % (A) 63 %; Platelet Count 294 k/uL (150-450); RBC 4.73 m/uL (4.30-5.90); RDW 12.9 % (11.5-15.5); WBC 8.8 k/uL (3.8-10.6)
[2023-03-01] MEDS ORDERED: DAPAGLIFLOZIN PROPANEDIOL 5 MG TABLET PO SCH (09:00)
[2023-03-01] MEDS ORDERED: CLOPIDOGREL 75 MG TAB PO SCH (09:00)
[2023-03-01] MEDS ORDERED: METOPROLOL TARTRATE 50 MG TAB PO SCH (09:00)
[2023-03-01] MEDS ORDERED: ATORVASTATIN 80 MG TAB PO SCH (09:00)
[2023-03-01] MEDS ORDERED: lisinopriL 5 MG TAB PO SCH (09:00)
[2023-03-01] MEDS ORDERED: ASPIRIN 81 MG PO SCH (09:00)
[2023-03-01] MEDS ORDERED: DULoxetine HCL 60 MG CAPSULE.DR PO SCH (09:00)
[2023-03-01] MEDS ORDERED: PIOGLITAZONE 15 MG TAB PO SCH (09:00)
[2023-03-01] MEDS: HYDROcodone/APAP 7.5-325MG 1 EACH TAB PO PRN (09:26)
[2023-03-01 09:46] LABS: African American GFR (CKD) >90 (>60 ml/min/1.73 sqM); Anion Gap 12 mmol/L; Blood Urea Nitrogen 18 mg/dL (9-20); Calcium 9.6 mg/dL (8.4-10.2); Carbon Dioxide 26 mmol/L (22-30); Chloride 101 mmol/L (98-107); Glucose 107 mg/dL (74-99); Non-African American GFR(CKD) >90 (>60 ml/min/1.73 sqM); Potassium 4.1 mmol/L (3.5-5.1); Sodium 139 mmol/L (137-145)
[2023-03-01] MEDS ORDERED: INSULIN ASPART (NovoLOG) 100 UNIT/ML VIAL SQ SCH (12:30)
[2023-03-01 13:27] LABS: Glucose,Whole Blood 168 mg/dL (70-110)
[2023-03-01 13:36] VITALS: BP 137/83; PULSE 74; TEMP 97.3
--- NOTE | 2023-03-01 14:04 | P.HPIM ---
History of Present Illness H&P Date: 03/01/23 Chief Complaint: Altered mental status * 67-year-old gentleman with past medical history significant for CVA involving right parietal lobe, history of diabetes mellitus, coronary artery disease, hypertension, hyperlipidemia presents to the emergency department with confusion. Per patient was not acting right. Patient was scheduled for lumbar back procedure for which he was asked to stop his antiplatelet for 7 days. Per family at the time of admission patient was noted be more confused and slow in general * CT head obtained in ER negative for acute intracranial process * Workup initiated in ER included CBC which were WBC of 11 hemoglobin 14.3 platelet 352 INR of 0.9 * Serum chemistry sodium 136 potassium 4.5 BUNs 70 and 0.74 blood glucose 118 * Consultation was obtained from neurology and patient was admitted to medical floor for further management * Recently in January 2023 patient had extensive workup done including echocardiogram CT angina head and neck as well as MRI brain. HbA1c 7.7. REVIEW OF SYSTEMS: Confusion, slow to this CONSTITUTIONAL: No fever, no malaise, no fatigue. HEENT: No recent visual problems or hearing problems. Denied any sore throat. CARDIOVASCULAR: No chest pain, orthopnea, PND, no palpitations, no syncope. PULMONARY: No shortness of breath, no cough, no hemoptysis. GASTROINTESTINAL: No diarrhea, no nausea, no vomiting, no abdominal pain. NEUROLOGICAL: No headaches, no weakness, no numbness. HEMATOLOGICAL: Denies any bleeding or petechiae. GENITOURINARY: Denies any burning micturition, frequency, or urgency. MUSCULOSKELETAL/RHEUMATOLOGICAL: Denies any joint pain, swelling, or any muscle pain. ENDOCRINE: Denies any polyuria or polydipsia. PHYSICAL EXAMINATION: GENERAL: The patient is alert and oriented x3, not in any acute distress. Well developed, well nourished. HEENT: Pupils are round and equally reacting to light. EOMI. CARDIOVASCULAR: S1 and S2 present. No murmurs, rubs, or gallops. PULMONARY: Chest is clear to auscultation, no wheezing or crackles. ABDOMEN: Soft, nontender, nondistended, normoactive bowel sounds. No palpable organomegaly. MUSCULOSKELETAL: No joint swelling or deformity. EXTREMITIES: No cyanosis, clubbing, or pedal edema. NEUROLOGICAL : On exam pupils are equal and reactive, muscle strength no pronator drift noted overall strength is normal sensory touch is equal Past Medical History Past Medical History: Coronary Artery Disease (CAD), CVA/TIA, Diabetes Mellitus, GERD/Reflux, Hyperlipidemia, Hypertension, Myocardial Infarction (PA), Osteoarthritis (OA), Seizure Disorder, Sleep Apnea/CPAP/BIPAP Additional Past Medical History / Comment(s): Chronic back pain. 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 CPAP use. "Hx mild seizure when ran out of Xanax few months ago". Last Myocardial Infarction Date:: 11/17/16 History of Any Multi-Drug Resistant Organisms: None Reported Past Surgical History: Heart Catheterization With Stent, Hernia Repair, Joint Replacement, Orthopedic Surgery Additional Past Surgical History / Comment(s): Right rotator cuff repair X2. Left hip replacement. Bilateral inguinal hernia repair. Stent replacement 11/07. Past Anesthesia/Blood Transfusion Reactions: No Reported Reaction Additional Past Anesthesia/Blood Transfusion Reaction / Comment(s): States had transfusion at . Date of Last Stent Placement:: 10/2020 Past Psychological History: Anxiety, Depression Smoking Status: Never smoker Past Alcohol Use History: Occasional Additional Past Alcohol Use History / Comment(s): Drinks2-7 beers per week. Past Drug Use History: None Reported - Past Family History Brother(s) Family Medical History: Cancer, Deep Vein Thrombosis (DVT) Additional Family Medical History / Comment(s): 1 brother with Esophageal CA. 2 brothers with DVT. Sister(s) Family Medical History: Cancer Additional Family Medical History / Comment(s): Brain CA. 2nd sister had breast CA. Medications and Allergies Home Medications Medication Instructions Recorded Confirmed Type Omeprazole 20 mg PO DAILY 02/23/16 02/28/23 History metFORMIN HCL [Glucophage] 1,000 mg PO BID 02/23/16 02/28/23 History Insulin Detemir [Levemir Flextouch 75 units SQ HS 03/03/18 02/28/23 History Pen] Pioglitazone HCl [Actos] 15 mg PO DAILY 08/16/18 02/28/23 History Empagliflozin [Jardiance] 10 mg PO DAILY 10/25/20 02/28/23 History Atorvastatin Calcium [Lipitor] 80 mg PO DAILY 12/27/20 02/28/23 History DULoxetine HCL [Cymbalta] 60 mg PO DAILY 12/27/20 02/28/23 History HYDROcodone/APAP 7.5-325MG [[place] 1 tab PO BID PRN 12/27/20 02/28/23 History 7.5-325] Metoprolol Tartrate [Lopressor] 100 mg PO DAILY 12/27/20 02/28/23 History Ezetimibe [Zetia] 10 mg PO HS 09/19/22 02/28/23 History Vitamin E (Dl,Tocopheryl Acet) 400 unit PO DAILY 09/19/22 02/28/23 History [Vitamin E (400 Iu = 180 mg)] lisinopriL [Zestril] 5 mg PO DAILY 09/19/22 02/28/23 History Aspirin 81 mg PO DAILY 21 Days #21 tab 02/13/23 02/28/23 Rx Clopidogrel [Plavix] 75 mg PO DAILY 90 Days #90 tablet 02/13/23 02/28/23 Rx diazePAM 10 mg PO DIRECTED 02/28/23 02/28/23 History Allergies Allergy/AdvReac Type Severity Reaction Status Date / Time oxaprozin [From Daypro] Allergy Severe Swelling Verified 02/28/23 13:27 throat & tongue, reddened face Physical Exam Vitals: Vital Signs Temp Pulse Pulse Resp BP BP Pulse Ox 03/01/23 07:00 97.4 F L 91 16 147/94 98 03/01/23 02:00 97.3 F L 87 18 144/75 97 02/28/23 21:15 98.0 F 89 16 152/94 95 02/28/23 20:55 87 18 165/98 92 L 02/28/23 17:41 86 18 95 02/28/23 16:07 77 20 150/86 95 02/28/23 13:47 71 20 140/90 94 L 02/28/23 10:14 97.5 F L 71 18 123/81 96 Intake and Output 02/28/23 03/01/23 03/01/23 22:59 06:59 14:59 Intake Total 118 Balance 118 Intake: Oral 118 Other: # Voids 2 2 Weight 92.533 kg Results CBC & Chem 7: 03/01/23 07:24 03/01/23 07:24 Labs: Abnormal Lab Results - Last 24 Hours (Table) 02/28/23 02/28/23 02/28/23 Range/Units 11:03 11:03 13:20 WBC 11.0 H (3.8-10.6) k/uL Neutrophils # 7.8 H (1.3-7.7) k/uL Sodium 136 L (137-145) mmol/L Glucose 228 H (74-99) mg/dL POC Glucose (mg/dL) (70-110) mg/dL Urine Glucose (UA) 4+ H (Negative) 02/28/23 Range/Units 21:38 WBC (3.8-10.6) k/uL Neutrophils # (1.3-7.7) k/uL Sodium (137-145) mmol/L Glucose (74-99) mg/dL POC Glucose (mg/dL) 183 H (70-110) mg/dL Urine Glucose (UA) (Negative) Thrombosis Risk Factor Assmnt - DVT/VTE Prophylaxis DVT/VTE Prophylaxis: Mechanical Prophylaxis ordered - Choose All That Apply Any of the Below Risk Factors Present?: Yes Each Factor Represents 1 point: Obesity (BMI >25) Other Risk Factors: Yes Each Risk Factor Represents 2 Points: Age 61-74 years Other congenital or acquired thrombophilia - If yes, enter type in comment: No Thrombosis Risk Factor Assessment Total Risk Factor Score: 3 Thrombosis Risk Factor Assessment Level: Moderate Risk Assessment and Plan Assessment: Assessment and plan * History of CVA with suspected TIA due to stopping medication * Recent parietal ischemic stroke January 2023 * History of CVA and right basal ganglia 2020 * Hypertension * Hyperlipidemia * Diabetes mellitus type 2 * History of Mustafa's palsy affecting her right side of face * In regard to suspect for recurrent CVA/TIA CT head obtained continue neuro checks, neurology consult * Continue patient on current home medication regimen including aspirin, Lipitor, Plavix * In regards to history of hypertension continue patient on lisinopril and metformin * In regards to diabetes mellitus continue correctional insulin, continue Levemir and continue metformin continue Actos * CODE STATUS is full code
--- NOTE | 2023-03-01 14:07 | P.DS ---
Providers Date of admission: 02/28/23 15:07 Expected date of discharge: 03/01/23 Attending physician: Erin Fernandez Consults: 02/28/23 15:06 Consult Physician Urgent Consulting Provider: Keith Mack Consult Reason/Comments: acute encephalopathy, recent cva Do you want consulting provider notified?: Yes Primary care physician: Donovan Varghese MD Hospital Course: * 67-year-old gentleman with past medical history significant for CVA involving right parietal lobe, history of diabetes mellitus, coronary artery disease, hypertension, hyperlipidemia presents to the emergency department with confusion. Per patient was not acting right. Patient was scheduled for lumbar back procedure for which he was asked to stop his antiplatelet for 7 days. Per family at the time of admission patient was noted be more confused and slow in general * CT head obtained in ER negative for acute intracranial process * Workup initiated in ER included CBC which were WBC of 11 hemoglobin 14.3 plate let 352 INR of 0.9 * Serum chemistry sodium 136 potassium 4.5 BUNs 70 and 0.74 blood glucose 118 * Consultation was obtained from neurology and patient was admitted to medical floor for further management * Recently in January 2023 patient had extensive workup done including echocardiogram CT angina head and neck as well as MRI brain. HbA1c 7.7. * Patient was seen by neurology during the hospital stay, patient remained at baseline mentation alert and oriented times or no focal deficit noted hence discharged home stable condition PHYSICAL EXAMINATION: GENERAL: The patient is alert and oriented x3, not in any acute distress. Well developed, well nourished. HEENT: Pupils are round and equally reacting to light. EOMI. CARDIOVASCULAR: S1 and S2 present. No murmurs, rubs, or gallops. PULMONARY: Chest is clear to auscultation, no wheezing or crackles. ABDOMEN: Soft, nontender, nondistended, normoactive bowel sounds. No palpable organomegaly. MUSCULOSKELETAL: No joint swelling or deformity. EXTREMITIES: No cyanosis, clubbing, or pedal edema. 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 * In regard to suspect for recurrent CVA/TIA CT head obtained , patient seen by neurology and cleared for discharge * Continue patient on current home medication regimen including aspirin, Lipitor, Plavix * In regards to history of hypertension continue patient on lisinopril and metformin * In regards to diabetes mellitus , continue home regimen * She'll counseled regarding medication compliance Patient Condition at Discharge: Fair Plan - Discharge Summary Discharge Rx Participant: No New Discharge Prescriptions: Continue metFORMIN HCL [Glucophage] 1,000 mg PO BID Omeprazole 20 mg PO DAILY Insulin Detemir [Levemir Flextouch Pen] 75 units SQ HS Pioglitazone HCl [Actos] 15 mg PO DAILY Atorvastatin Calcium [Lipitor] 80 mg PO DAILY HYDROcodone/APAP 7.5-325MG [[place] 7.5-325] 1 tab PO BID PRN PRN Reason: Pain Metoprolol Tartrate [Lopressor] 100 mg PO DAILY Aspirin 81 mg PO DAILY 21 Days #21 tab Clopidogrel [Plavix] 75 mg PO DAILY 90 Days #90 tablet diazePAM 10 mg PO DIRECTED Empagliflozin [Jardiance] 10 mg PO DAILY DULoxetine HCL [Cymbalta] 60 mg PO DAILY Ezetimibe [Zetia] 10 mg PO HS lisinopriL [Zestril] 5 mg PO DAILY Vitamin E (Dl,Tocopheryl Acet) [Vitamin E (400 Iu = 180 mg)] 400 unit PO DAILY Discharge Medication List Omeprazole 20 mg PO DAILY 02/23/16 [History] metFORMIN HCL [Glucophage] 1,000 mg PO BID 02/23/16 [History] Insulin Detemir [Levemir Flextouch Pen] 75 units SQ HS 03/03/18 [History] Pioglitazone HCl [Actos] 15 mg PO DAILY 08/16/18 [History] Empagliflozin [Jardiance] 10 mg PO DAILY 10/25/20 [History] Atorvastatin Calcium [Lipitor] 80 mg PO DAILY 12/27/20 [History] DULoxetine HCL [Cymbalta] 60 mg PO DAILY 12/27/20 [History] HYDROcodone/APAP 7.5-325MG [[place] 7.5-325] 1 tab PO BID PRN 12/27/20 [History] Metoprolol Tartrate [Lopressor] 100 mg PO DAILY 12/27/20 [History] Ezetimibe [Zetia] 10 mg PO HS 09/19/22 [History] Vitamin E (Dl,Tocopheryl Acet) [Vitamin E (400 Iu = 180 mg)] 400 unit PO DAILY 09/19/22 [History] lisinopriL [Zestril] 5 mg PO DAILY 09/19/22 [History] Aspirin 81 mg PO DAILY 21 Days #21 tab 02/13/23 [Rx] Clopidogrel [Plavix] 75 mg PO DAILY 90 Days #90 tablet 02/13/23 [Rx] diazePAM 10 mg PO DIRECTED 02/28/23 [History] Follow up Appointment(s)/Referral(s): Donovan Varghese MD [Primary Care Provider] - 1-2 days
--- NOTE | 2023-03-02 09:48 | P.PN ---
Subjective Progress Note Date: 03/01/23 Patient was seen for a follow-up. Patient is laying comfortably in the bed. Desperately wants to go home. Patient states all symptoms have mostly resolved. Objective - Vital Signs Vital signs: Vital Signs Temp 97.4 F L 03/01/23 07:00 Pulse 91 03/01/23 07:00 Resp 16 03/01/23 07:00 BP 147/94 03/01/23 07:00 Pulse Ox 98 03/01/23 07:00 FiO2 Intake & Output 02/28/23 03/01/23 03/01/23 18:59 06:59 18:59 Intake Total 118 Balance 118 Weight 92.533 kg 92.533 kg Intake: Oral 118 Other: # Voids 2 - Exam Unchanged. - Labs CBC & Chem 7: 03/01/23 07:24 03/01/23 07:24 Labs: Abnormal Lab Results - Last 24 Hours (Table) 02/28/23 02/28/23 03/01/23 Range/Units 13:20 21:38 07:24 Glucose 107 H (74-99) mg/dL POC Glucose (mg/dL) 183 H (70-110) mg/dL Urine Glucose (UA) 4+ H (Negative) Assessment and Plan Assessment: * Questionable stroke/TIA. Patient presented with vague symptoms of "not acting right, not paying attention and talking slow". Examination only significant for flattening of the left nasolabial fold. Patient has stopped taking all medications for last 7 days for upcoming lumbar procedure for chronic back pain. Mechanism of possible stroke/TIA due to stopping medications. * Recent history of right parietal ischemic stroke 02/10/2023 * Previous history of stroke in 2020 over the right basal ganglia * History of CAD s/p stent X2 * Hypertension * Hyperlipidemia * Diabetes * History of Mustafa's palsy over the right face. Plan: * Patient had presented with vague neurological symptoms, without any lateralizing features, uncertain if related to stroke/TIA. Patient has stopped taking all of his medications (except Insulin) for last 7 days for upcoming procedure for his chronic low back pain. * Patient will be resumed on his dual antiplatelet medications including aspirin 81 mg and Plavix 75 mg daily. * Resume all medications, including for blood pressure, diabetes as well. * Patient already had a complete workup performed recently in the end of 2022 as mentioned below. No need to repeat. * 2-D echo: Reported as normal left ventricular ejection fraction with 55-60%. Mild increased left ventricle wall thickness. Mild to moderate mitral r egurgitation. * CTA head revealed: Patent intercranial circulation. Multifocal stenosis intracranially, with mild to moderate stenosis within the intracranial bilateral ICA. Severe stenosis in the midportion of the right vertebral artery. * CTA of the neck showed atherosclerosis producing 50% stenosis in the proximal segments of both ICAs. * Fasting a.m. lipid panel: Triglyceride of 185, cholesterol 111, LDLs 44 and HDL is 29. Continue Lipitor 80 mg daily. * Hemoglobin A1c: 7.7. Recommend optimize control of diabetes to target A1c < 7.0. * Optimize control of blood pressure. * Patient is on symptoms have resolved. He wants to go home. Neurologically clear for discharge. .
== END 2023-03-01 15:20 | disposition home or self-care (01) ==
LOC: EC 10:06 → 6NMEDSUR 15:07
PROVIDERS: ADMIT Hospitalist; ATTEND Hospitalist
DX: G51.0 Bell's palsy (principal); R41.82 Altered mental status, unspecified; I25.10 Atherosclerotic heart disease of native coronary artery without angina pectoris; E11.9 Type 2 diabetes mellitus without complications; K21.9 Gastro-esophageal reflux disease without esophagitis; E78.5 Hyperlipidemia, unspecified; I10 Essential (primary) hypertension; G47.30 Sleep apnea, unspecified; F32.A Depression, unspecified; F41.9 Anxiety disorder, unspecified; G89.29 Other chronic pain; M54.9 Dorsalgia, unspecified; I25.2 Old myocardial infarction; Z20.822 Contact with and (suspected) exposure to COVID-19; Z86.73 Personal history of transient ischemic attack (TIA), and cerebral infarction without residual deficits; Z95.5 Presence of coronary angioplasty implant and graft; Z79.02 Long term (current) use of antithrombotics/antiplatelets; Z79.4 Long term (current) use of insulin; Z79.82 Long term (current) use of aspirin; Z79.84 Long term (current) use of oral hypoglycemic drugs; Z79.899 Other long term (current) drug therapy
CPT/HCPCS: 96372 ×2; 99285; 36415; 93005; 80053; 80048; 84484; 85025 ×2; 85610; 85730; 81003; 87636; 71046; 70450; G0378 ×2

== ENCOUNTER 2023-03-01 23:39 | Inpatient (IN) | payer MEDICARE, BC ==
[2023-03-01] MEDS ORDERED: SODIUM CHLORIDE 0.9% 1,000 ML IV STA (23:51)
[2023-03-01 23:56] LABS: Glucose,Whole Blood 244 mg/dL (70-110)
[2023-03-02 00:11] LABS: Basophils # (A) 0.1 k/uL (0-0.2); Basophils % (A) 1 %; Eosinophils # (A) 0.5 k/uL (0-0.7); Eosinophils % (A) 4 %; HGB 14.2 gm/dL (13.0-17.5); Lymphocytes # (A) 2.6 k/uL (1.0-4.8); Lymphocytes % (A) 24 %; MCHC 33.8 g/dL (31.0-37.0); MCV 91.7 fL (80.0-100.0); Mean Platelet Volume 8.5; Monocytes # (A) 0.7 k/uL (0-1.0); Monocytes % (A) 7 %; Neutrophils # (A) 6.6 k/uL (1.3-7.7); Neutrophils % (A) 61 %; Platelet Count 303 k/uL (150-450); RBC 4.58 m/uL (4.30-5.90); RDW 13.4 % (11.5-15.5); WBC 10.9 k/uL (3.8-10.6)
--- NOTE | 2023-03-02 00:12 | CT ---
EXAMINATION TYPE: CT brain wo con DATE OF EXAM: 03/02/2023 HISTORY: neuro deficit, acute, stroke suspected. CT DLP: 1208.3 mGycm. Automated Exposure Control for Dose Reduction was Utilized. TECHNIQUE: CT scan of the head is performed without contrast. COMPARISON: CT brain 2 days ago. FINDINGS: There is no acute intracranial hemorrhage or midline shift identified. There is mild diff use ventricular and sulcal prominence redemonstrated. There is mild to moderate low-attenuation in t he periventricular white matter redemonstrated. Old infarct right brady radiata axial image 38 is ag ain seen. The globes are intact and the visualized sinuses are clear. Calcification of the distal internal carotid arteries is redemonstrated. IMPRESSION: No acute intracranial hemorrhage or midline shift. There is mild diffuse age-related ce rebral atrophy and mild to moderate chronic small vessel ischemic change along with old right-sided i nfarct are all redemonstrated. No significant change from 2 days earlier. If clinical concern for ac stebbins stroke persists, MRI is noted more sensitive to further evaluate.
--- NOTE | 2023-03-02 00:20 | XR ---
EXAMINATION TYPE: XR chest 2V DATE OF EXAM: 03/02/2023 COMPARISON: Chest x-ray 2 days earlier HISTORY: Altered mental status TECHNIQUE: Frontal and lateral views of the chest are obtained. FINDINGS: There is mild cardiomegaly with perhaps mild central vascular congestion. No new focal a irspace opacity, pleural effusion, or pneumothorax seen bilaterally. The osseous structures are intac t. IMPRESSION: Mild cardiomegaly with perhaps mild central vascular congestion. No significant change f rom most recent prior.
[2023-03-02 00:21] LABS: ALT 41 U/L (4-49); AST 26 U/L (17-59); African American GFR (CKD) >90 (>60 ml/min/1.73 sqM); Albumin 4.4 g/dL (3.5-5.0); Alkaline Phosphatase 118 U/L (38-126); Anion Gap 14 mmol/L; Blood Urea Nitrogen 26 mg/dL (9-20); Calcium 9.6 mg/dL (8.4-10.2); Carbon Dioxide 23 mmol/L (22-30); Chloride 99 mmol/L (98-107); Creatine Kinase 41 U/L (55-170); Glucose 250 mg/dL (74-99); Non-African American GFR(CKD) 83 (>60 ml/min/1.73 sqM); Potassium 4.4 mmol/L (3.5-5.1); Sodium 136 mmol/L (137-145); Total Bilirubin 0.5 mg/dL (0.2-1.3)
[2023-03-02 00:24] LABS: INR 0.8 (<1.2); Partial Thromboplastin Time 23.7 sec (22.0-30.0); Prothrombin Time 9.6 sec (10.0-12.5)
--- NOTE | 2023-03-02 00:35 | CT ---
EXAMINATION TYPE: CT angio head neck DATE OF EXAM: 03/02/2023 HISTORY: neuro deficit, acute, stroke suspected COMPARISON: CTA head and neck February 10, 2023 CT DLP: 508.7 mGycm. Automated Exposure Control for Dose Reduction was Utilized. TECHNIQUE: CTA scan of the head and neck is performed with IV Contrast, patient injected with 100 mL of Isovue 370, axial images are obtained, coronal and sagittal reformatted images are reviewed. 3D r econstructed images are created on an independent workstation and reviewed. FINDINGS: Carotid/Vascular Structures: There is a 4 vessel origins from aortic arch which is normal variant red emonstrated. Moderate peripheral plaque in the aortic arch without significant stenosis. Persistent m oderate calcified plaque right carotid bulb into proximal internal carotid artery without significant stenosis. Moderate mixed plaque left carotid bulb extends into proximal left internal carotid artery without greater than 50% stenosis. No significant change from prior. Vertebral arteries are patent t o the basilar junction. Left vertebral artery is dominant. Hypoplastic right P1 segment with filling of the right P2 segment due to patent right-sided posterior communicating artery. [id number] na rrowing of the left P1 segment redemonstrated. No large vessel occlusion or aneurysm in the posterior circulation. Images of the anterior circulation show moderate to severe calcified plaque distal inte rnal carotid arteries bilaterally. Mild narrowing of the distal internal carotid arteries bilaterally is redemonstrated. Small caliber left A1 segment redemonstrated. No new large vessel occlusion or an eurysm in the anterior circulation. Other: Scoliotic curvature redemonstrated. IMPRESSION: 1. No worsening significant stenosis in the common or internal carotid arteries bilaterally. 2. No new large Vessel occlusion or aneurysm at the level of the [place]. NASCET criteria was used in interpretation of this exam?
[2023-03-02] MEDS ORDERED: ASPIRIN 325 MG TAB PO STA (00:44)
[2023-03-02] MEDS ORDERED: TICAGRELOR 90 MG TAB PO STA (00:44)
--- NOTE | 2023-03-02 01:19 | ED ---
General Adult HPI - General Chief complaint: Neuro Symptoms/Deficit Stated complaint: possible tia Time Seen by Provider: 03/01/23 23:51 Source: patient, family, EMS, RN notes reviewed, old records reviewed Mode of arrival: EMS Limitations: altered mental status - History of Present Illness Initial comments: Patient is a 67-year-old male presents with the Department as a code stroke activation. Has a history of a recent stroke. This was seen on MRI back in January. Has residual left-sided facial droop from that stroke. Patient was evaluated recently for similar complaints of confusion insulin altered mentation a few days ago. That resolved and he was discharged home earlier on 03/01/2023. He went home and last known well was 3 PM. He went down for nap and when he awoke approximately an hour prior to arrival around 10:30 PM, patient was confused again, and seemed to be somewhat aphasic. EMS was contacted and patient is brought here for further evaluation. Patient is a poor historian. Currently denies any acute complaints but seems confused to time and place. Vital signs within acceptable limits. Patient is on aspirin and Plavix. No known trauma. Per EMS, patient does appear improved compared to when they first evaluated him. - Related Data Home Medications Medication Instructions Recorded Confirmed Omeprazole 20 mg PO DAILY 02/23/16 02/28/23 metFORMIN HCL [Glucophage] 1,000 mg PO BID 02/23/16 02/28/23 Insulin Detemir [Levemir Flextouch 75 units SQ HS 03/03/18 02/28/23 Pen] Pioglitazone HCl [Actos] 15 mg PO DAILY 08/16/18 02/28/23 Empagliflozin [Jardiance] 10 mg PO DAILY 10/25/20 02/28/23 Atorvastatin Calcium [Lipitor] 80 mg PO DAILY 12/27/20 02/28/23 DULoxetine HCL [Cymbalta] 60 mg PO DAILY 12/27/20 02/28/23 HYDROcodone/APAP 7.5-325MG [[place] 1 tab PO BID PRN 12/27/20 02/28/23 7.5-325] Metoprolol Tartrate [Lopressor] 100 mg PO DAILY 12/27/20 02/28/23 Ezetimibe [Zetia] 10 mg PO HS 09/19/22 02/28/23 Vitamin E (Dl,Tocopheryl Acet) 400 unit PO DAILY 09/19/22 02/28/23 [Vitamin E (400 Iu = 180 mg)] lisinopriL [Zestril] 5 mg PO DAILY 09/19/22 02/28/23 diazePAM 10 mg PO DIRECTED 02/28/23 02/28/23 Previous Rx's Medication Instructions Recorded Aspirin 81 mg PO DAILY 21 Days #21 tab 02/13/23 Clopidogrel [Plavix] 75 mg PO DAILY 90 Days #90 tablet 02/13/23 Allergies Allergy/AdvReac Type Severity Reaction Status Date / Time oxaprozin [From Daypro] Allergy Severe Swelling Verified 02/28/23 13:27 throat & tongue, reddened face Review of Systems ROS Statement: Those systems with pertinent positive or pertinent negative responses have been documented in the HPI. Review of Systems: CONST: Denies fever EYES: Denies blurry vision ENT: Denies nasal congestion C/V: Denies Chest pain RESP: Denies shortness of breath GI: Denies abdominal pain : Denies dysuria SKIN: Denies rash. MSK: Denies joint pain. NEURO: Denies headache ROS Other: All systems not noted in ROS Statement are negative. Past Medical History Past Medical History: Coronary Artery Disease (CAD), CVA/TIA, Diabetes Mellitus, GERD/Reflux, Hyperlipidemia, Hypertension, Myocardial Infarction (OK), Osteoarthritis (OA), Seizure Disorder, Sleep Apnea/CPAP/BIPAP Additional Past Medical History / Comment(s): Chronic back pain. 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 CPAP use. "Hx mild seizure when ran out of Xanax few months ago". Last Myocardial Infarction Date:: 11/17/16 History of Any Multi-Drug Resistant Organisms: None Reported Past Surgical History: Heart Catheterization With Stent, Hernia Repair, Joint Replacement, Orthopedic Surgery Additional Past Surgical History / Comment(s): Right rotator cuff repair X2. Left hip replacement. Bilateral inguinal hernia repair. Stent replacement 11/07. Past Anesthesia/Blood Transfusion Reactions: No Reported Reaction Additional Past Anesthesia/Blood Transfusion Reaction / Comment(s): States had transfusion at . Date of Last Stent Placement:: 10/2020 Past Psychological History: Anxiety, Depression Smoking Status: Never smoker Past Alcohol Use History: Occasional Past Drug Use History: None Reported - Past Family History Brother(s) Family Medical History: Cancer, Deep Vein Thrombosis (DVT) Additional Family Medical History / Comment(s): 1 brother with Esophageal CA. 2 brothers with DVT. Sister(s) Family Medical History: Cancer Additional Family Medical History / Comment(s): Brain CA. 2nd sister had breast CA. General Exam - General Exam Comments Initial Comments: General: Appears in no acute distress. HEAD: Normal with no signs of head trauma. EYES: PERRLA, EOMI, conjunctiva normal, no discharge. Pupils are 3 mm equal bilaterally. ENT: Hearing grossly intact, normal oropharynx. RESPIRATORY: Clear breath sounds bilaterally. No wheezes, rales, or rhonchi. C/V: Regular rate and rhythm. S1 and S2 auscultated, no edema, peripheral pulses 2+ and intact throughout ABD: Abd is soft, nontender, nondistended EXT: Normal range of motion, no obvious deformity SKIN: No rashes or lesions observed on exposed skin. NEURO: Alert and oriented 2. NIH is 2 for new symptoms as he gets one question wrong as well has mild aphasia. GCS of 15. Last known well was 1500. It is currently 2350. Limitations: altered mental status Course Vital Signs 03/01/23 23:50 Temperature 97.1 F L Pulse Rate 101 H Respiratory 22 Rate Blood Pressure 142/76 O2 Sat by Pulse 97 Oximetry Medical Decision Making - Medical Decision Making Was pt. sent in by a medical professional or institution (JASON Butt, MARK UP DESIGNER, urgent care, hospital, or fdc...) When possible be specific @ -No Did you speak to anyone other than the patient for history (EMS, parent, family, police, friend...)? What history was obtained from this source @ -Spoke with family who endorses worsening confusion once again this evening. Did you review nursing and triage notes (agree or disagree)? Why? @ -I reviewed and agree with nursing and triage notes Were old charts reviewed (outside hosp., previous admission, EMS record, old EKG, old radiological studies, urgent care reports/EKG's, fdc records)? Report findings @ -Old charts reviewed Differential Diagnosis (chest pain, altered mental status, abdominal pain women, abdominal pain men, vaginal bleeding, weakness, fever, dyspnea, syncope, headache, dizziness, GI bleed, back pain, seizure, CVA, palpatations, mental health, musculoskeletal)? @ -Differential CVA Ischemic stroke, hemorrhagic stroke, brain tumor, atypical migraine, Wernicke's encephalopathy, seizure, multiple sclerosis, meningitis, encephalitis, hypoglycemia, Guillain-Shah, electrolytes disturbance, myasthenia gravis.... This is not meant to be an all-inclusive list EKG interpreted by me (3pts min.). @ -As above X-rays interpreted by me (1pt min.). @ -Chest x-ray reveals no obvious acute cardio pulmonary process. CT interpreted by me (1pt min.). @ -CT brain shows no obvious acute intracranial process. No significant change from recent CT 2 days ago. CTA head and neck shows no worsening stenosis or acute findings. U/S interpreted by me (1pt. min.). @ -None done What testing was considered but not performed or refused? (CT, X-rays, U/S, labs)? Why? @ -None What meds were considered but not given or refused? Why? @ -None Did you discuss the management of the patient with other professionals (professionals i.e. , PA, MARK UP DESIGNER, lab, RT, psych nurse, healthcare social worker, laboratory mechanic helper, teacher, promotions officer, showcase trimmer)? Give summary @ -I spoke with Dr. Santos of on-call neurosurgery care who was in agreement with plan for code stroke. Recommended changing the patient from aspirin and Plavix to aspirin and Brilinta after he reviewed imaging. He agreed there is no obvious findings a stroke at this time. Recommended admission for neurology evaluation. Would like to evaluate the patient on outpatient basis for narrowing of the right MCA. His information was placed on the patient's chart. I spoke with the admitting team, NUNU Mak of [facility] who accepted the patient. Was smoking cessation discussed for >3mins.? @ -No Was critical care preformed (if so, how long)? @ -Yes, 36 minutes. Were there social determinants of health that impacted care today? How? (Homelessness, low income, unemployed, alcoholism, drug addiction, trans portation, low edu. Level, literacy, decrease access to med. care, [facility], rehab)? @ -No Was there de-escalation of care discussed even if they declined (Discuss DNR or withdrawal of care, Hospice)? DNR status @ -No What co-morbidities impacted this encounter? (DM, HTN, Smoking, COPD, CAD, Cancer, CVA, ARF, Chemo, Hep., AIDS, mental health diagnosis, sleep apnea, morbid obesity)? @ -None Was patient admitted / discharged? Hospital course, mention meds given and route, prescriptions, significant lab abnormalities, going to OR and other pertinent info. @ -Based on the patient's presentation physical exam, patient presents complaining of strokelike symptoms. NIH is 2. Last known well was 1500. Patient is outside the window for TPA as it is currently after 11 PM. Risks far outweigh the benefits for TPA administration at this time. Patient is made a code stroke. We will obtain CT imaging and CTA. Patient's residual left-sided facial droop. He was in agreement this plan. Seems somewhat confused as well. I spoke with on-call neuro critical care physician Dr. Santos who is in agreement with the plan. If imaging is negative, recommended starting the patient on aspirin and Brilinta, and holding Plavix.. EKG shows no signs of acute ischemia. Imaging is unremarkable with no obvious findings of stroke. Laboratory studies within acceptable limits. Urine is still pending at this time. Patient's exam is somewhat improved at this time. Seems less confused intermittently. Updated patient as well as family and they were in agreement with admission for evaluation by neurology. Patient of given a dose of aspirin as well as started on twice a day Brilinta. There were in agreement this plan. Neurology consulted. Spoke with Obdulio EDDY of [facility] accepted the patient. Undiagnosed new problem with uncertain prognosis? @ -No Drug Therapy requiring intensive monitoring for toxicity (Heparin, Nitro, Insulin, Cardizem)? @ -No Were any procedures done? @ -No Diagnosis/symptom? @ -CVA, confusion, aphasia Acute, or Chronic, or Acute on Chronic? @ -Acute Uncomplicated (without systemic symptoms) or Complicated (systemic symptoms)? @ -Complicated Side effects of treatment? @ -No Exacerbation, Progression, or Severe Exacerbation? @ -No Poses a threat to life or bodily function? How? (Chest pain, [place], OK, pneumonia, PE, COPD, DKA, ARF, appy, cholecystitis, CVA, Diverticulitis, Homicidal, Suicidal, threat to staff... and all critical care pts) @ -yes - Lab Data Result diagrams: 03/02/23 00:26 03/01/23 23:51 Lab Results 03/01/23 03/01/23 03/02/23 Range/Units 23:51 23:54 00:26 WBC 10.9 H (3.8-10.6) k/uL RBC 4.58 (4.30-5.90) m/uL Hgb 14.2 (13.0-17.5) gm/dL Hct 42.0 (39.0-53.0) % MCV 91.7 (80.0-100.0) fL MCH 31.0 (25.0-35.0) pg MCHC 33.8 (31.0-37.0) g/dL RDW 13.4 (11.5-15.5) % Plt Count 303 (150-450) k/uL MPV 8.5 Neutrophils % 61 % Lymphocytes % 24 % Monocytes % 7 % Eosinophils % 4 % Basophils % 1 % Neutrophils # 6.6 (1.3-7.7) k/uL Lymphocytes # 2.6 (1.0-4.8) k/uL Monocytes # 0.7 (0-1.0) k/uL Eosinophils # 0.5 (0-0.7) k/uL Basophils # 0.1 (0-0.2) k/uL PT (10.0-12.5) sec INR (<1.2) APTT (22.0-30.0) sec Sodium 136 L (137-145) mmol/L Potassium 4.4 (3.5-5.1) mmol/L Chloride 99 (98-107) mmol/L Carbon Dioxide 23 (22-30) mmol/L Anion Gap 14 mmol/L BUN 26 H (9-20) mg/dL Creatinine 0.96 (0.66-1.25) mg/dL Est GFR (CKD-EPI)AfAm >90 (>60 ml/min/1.73 sqM) Est GFR (CKD-EPI)NonAf 83 (>60 ml/min/1.73 sqM) Glucose 250 H (74-99) mg/dL POC Glucose (mg/dL) 244 H (70-110) mg/dL POC Glu Sand Screener Operator CLAUDIO Annette Neumann Calcium 9.6 (8.4-10.2) mg/dL Total Bilirubin 0.5 (0.2-1.3) mg/dL AST 26 (17-59) U/L ALT 41 (4-49) U/L Alkaline Phosphatase 118 (38-126) U/L Creatine Kinase 41 L (55-170) U/L Troponin I (0.000-0.034) ng/mL Total Protein 7.0 (6.3-8.2) g/dL Albumin 4.4 (3.5-5.0) g/dL 03/02/23 03/02/23 Range/Units 00:26 00:26 WBC (3.8-10.6) k/uL RBC (4.30-5.90) m/uL Hgb (13.0-17.5) gm/dL Hct (39.0-53.0) % MCV (80.0-100.0) fL MCH (25.0-35.0) pg MCHC (31.0-37.0) g/dL RDW (11.5-15.5) % Plt Count (150-450) k/uL MPV Neutrophils % % Lymphocytes % % Monocytes % % Eosinophils % % Basophils % % Neutrophils # (1.3-7.7) k/uL Lymphocytes # (1.0-4.8) k/uL Monocytes # (0-1.0) k/uL Eosinophils # (0-0.7) k/uL Basophils # (0-0.2) k/uL PT 9.6 L (10.0-12.5) sec INR 0.8 (<1.2) APTT 23.7 (22.0-30.0) sec Sodium (137-145) mmol/L Potassium (3.5-5.1) mmol/L Chloride (98-107) mmol/L Carbon Dioxide (22-30) mmol/L Anion Gap mmol/L BUN (9-20) mg/dL Creatinine (0.66-1.25) mg/dL Est GFR (CKD-EPI)AfAm (>60 ml/min/1.73 sqM) Est GFR (CKD-EPI)NonAf (>60 ml/min/1.73 sqM) Glucose (74-99) mg/dL POC Glucose (mg/dL) (70-110) mg/dL POC Glu Sand Screener Operator ID Calcium (8.4-10.2) mg/dL Total Bilirubin (0.2-1.3) mg/dL AST (17-59) U/L ALT (4-49) U/L Alkaline Phosphatase (38-126) U/L Creatine Kinase (55-170) U/L Troponin I <0.012 (0.000-0.034) ng/mL Total Protein (6.3-8.2) g/dL Albumin (3.5-5.0) g/dL - EKG Data -: EKG Interpreted by Me EKG Comments: 12-lead Electrocardiogram Interpretation Note EKG was reviewed and interpreted by myself. 12-lead ECG performed at 2350 is interpreted by me as revealing axis is normal. MA interval is 155 ms, QRS duration 72 ms, QTc is 389 ms. at a rate of default value beats per minute. [place] is normal. There were no ST or T wave abnormalities to suggest myocardial ischemia or injury. R wave progression across the precordium was satisfactory. By my interpretation this EKG is non-diagnostic for acute ischemia. Critical Care Time Critical Care Time: Yes Total Critical Care Time: 36 Disposition Clinical Impression: Confusion, Aphasia Disposition: ADMITTED IP TO THIS HOSP Condition: Stable Time of Disposition: 01:10
[2023-03-02 04:59] LABS: Appearance,Urine Clear (Clear); Bilirubin,Urine Negative (Negative); Blood,Urine Negative (Negative); Color,Urine Colorless; Glucose,Urine (UA) 4+ (Negative); Ketones,Urine Negative (Negative); Leukocyte Esterase,Urine Negative (Negative); Nitrite,Urine Negative (Negative); Protein,Urine Negative (Negative); Urobilinogen,Urine <2.0 mg/dL (<2.0)
[2023-03-02] MEDS ORDERED: DEXTROSE 50% SYRINGE 50 ML IVP PRN ×2 (05:59)
[2023-03-02] MEDS ORDERED: LORazepam 2 MG/ML INJ IV STA (07:12)
[2023-03-02 07:16] LABS: Glucose,Whole Blood 192 mg/dL (70-110)
--- NOTE | 2023-03-02 07:30 | ED ---
Medical Decision Making - Medical Decision Making I was notified patient became more confused this morning. Could be from vascular dementia/CVA however with somewhat worsening symptoms we will obtain stat repeat CT brain to evaluate for any acute changes. Family in agreement with the plan. CT brain pending.Repeat CT brain interpreted by myself as showing no obvious acute intracranial process, unchanged - Lab Data Result diagrams: 03/03/23 08:36 03/03/23 08:36 Lab Results 03/01/23 03/01/23 03/02/23 Range/Units 23:51 23:54 00:26 WBC 10.9 H (3.8-10.6) k/uL RBC 4.58 (4.30-5.90) m/uL Hgb 14.2 (13.0-17.5) gm/dL Hct 42.0 (39.0-53.0) % MCV 91.7 (80.0-100.0) fL MCH 31.0 (25.0-35.0) pg MCHC 33.8 (31.0-37.0) g/dL RDW 13.4 (11.5-15.5) % Plt Count 303 (150-450) k/uL MPV 8.5 Neutrophils % 61 % Lymphocytes % 24 % Monocytes % 7 % Eosinophils % 4 % Basophils % 1 % Neutrophils # 6.6 (1.3-7.7) k/uL Lymphocytes # 2.6 (1.0-4.8) k/uL Monocytes # 0.7 (0-1.0) k/uL Eosinophils # 0.5 (0-0.7) k/uL Basophils # 0.1 (0-0.2) k/uL PT (10.0-12.5) sec INR (<1.2) APTT (22.0-30.0) sec Sodium 136 L (137-145) mmol/L Potassium 4.4 (3.5-5.1) mmol/L Chloride 99 (98-107) mmol/L Carbon Dioxide 23 (22-30) mmol/L Anion Gap 14 mmol/L BUN 26 H (9-20) mg/dL Creatinine 0.96 (0.66-1.25) mg/dL Est GFR (CKD-EPI)AfAm >90 (>60 ml/min/1.73 sqM) Est GFR (CKD-EPI)NonAf 83 (>60 ml/min/1.73 sqM) Glucose 250 H (74-99) mg/dL POC Glucose (mg/dL) 244 H (70-110) mg/dL POC Glu Java Lead Engineer Annette Lieberman Calcium 9.6 (8.4-10.2) mg/dL Total Bilirubin 0.5 (0.2-1.3) mg/dL AST 26 (17-59) U/L ALT 41 (4-49) U/L Alkaline Phosphatase 118 (38-126) U/L Creatine Kinase 41 L (55-170) U/L Troponin I (0.000-0.034) ng/mL Total Protein 7.0 (6.3-8.2) g/dL Albumin 4.4 (3.5-5.0) g/dL 03/02/23 03/02/23 Range/Units 00:26 00:26 WBC (3.8-10.6) k/uL RBC (4.30-5.90) m/uL Hgb (13.0-17.5) gm/dL Hct (39.0-53.0) % MCV (80.0-100.0) fL MCH (25.0-35.0) pg MCHC (31.0-37.0) g/dL RDW (11.5-15.5) % Plt Count (150-450) k/uL MPV Neutrophils % % Lymphocytes % % Monocytes % % Eosinophils % % Basophils % % Neutrophils # (1.3-7.7) k/uL Lymphocytes # (1.0-4.8) k/uL Monocytes # (0-1.0) k/uL Eosinophils # (0-0.7) k/uL Basophils # (0-0.2) k/uL PT 9.6 L (10.0-12.5) sec INR 0.8 (<1.2) APTT 23.7 (22.0-30.0) sec Sodium (137-145) mmol/L Potassium (3.5-5.1) mmol/L Chloride (98-107) mmol/L Carbon Dioxide (22-30) mmol/L Anion Gap mmol/L BUN (9-20) mg/dL Creatinine (0.66-1.25) mg/dL Est GFR (CKD-EPI)AfAm (>60 ml/min/1.73 sqM) Est GFR (CKD-EPI)NonAf (>60 ml/min/1.73 sqM) Glucose (74-99) mg/dL POC Glucose (mg/dL) (70-110) mg/dL POC Glu Java Lead Engineer ID Calcium (8.4-10.2) mg/dL Total Bilirubin (0.2-1.3) mg/dL AST (17-59) U/L ALT (4-49) U/L Alkaline Phosphatase (38-126) U/L Creatine Kinase (55-170) U/L Troponin I <0.012 (0.000-0.034) ng/mL Total Protein (6.3-8.2) g/dL Albumin (3.5-5.0) g/dL Disposition Clinical Impression: Confusion, Aphasia Disposition: ADMITTED IP TO THIS [facility] Condition: Stable
[2023-03-02] MEDS ORDERED: HYDROcodone/APAP 7.5-325MG 1 EACH TAB PO ONE (07:47)
--- NOTE | 2023-03-02 08:27 | CT ---
EXAMINATION TYPE: CT brain wo con DATE OF EXAM: 03/02/2023 COMPARISON: INDICATION: AMS DLP: 2388.4 mGycm, Automated exposure control for dose reduction was used. CONTRAST: None CT of the brain is performed utilizing 3 mm thick sections through the posterior fossa and 3 mm thick sections through the remaining calvarium. Study is performed within 24 hours of arrival to the hosp ital. Motion artifact is at the skull base limiting the lower calvarial evaluation. No abnormal hyperdensity is present to suggest an acute intracranial hemorrhage. No mass lesion is evident. No acute infarcts are evident. Persistent diffuse periventricular white matter hypodensity is present likely on the basis of chronic white matter ischemic change. This appears stable from comparison. Th ere may be an old lacunar infarct in the right periventricular white matter. Ventricles and sulci are mildly prominent for the patient age. Paranasal sinuses and mastoid air cells within the [id number] are clear. IMPRESSION: 1. CT brain stable from earlier exam. Chronic periventricular white matter ischemic changes and mil d age-related atrophy remaining present. Old right brady radiata lacunar infarct is stable. There is some limitation on fine detail due to motion artifact during this exam.
[2023-03-02] MEDS ORDERED: CLOPIDOGREL 75 MG TAB PO SCH (09:00)
[2023-03-02] MEDS ORDERED: SODIUM CHLORIDE 0.9% 1,000 ML IV ONE (09:55)
[2023-03-02] MEDS ORDERED: ACETAMINOPHEN IV (For NPO) 1,000 MG in EMPTY BAG 1 BAG IVPB PRN (09:55)
[2023-03-02 09:59] LABS: Glucose,Whole Blood 203 mg/dL (70-110)
[2023-03-02] MEDS: PANTOPRAZOLE 40 MG TABLET PO SCH (10:26)
[2023-03-02] MEDS: ATORVASTATIN 80 MG TAB PO SCH (10:27)
[2023-03-02] MEDS: PIOGLITAZONE 15 MG TAB PO SCH (10:27)
[2023-03-02] MEDS: metFORMIN 500 MG TAB PO SCH ×2 (10:27→21:07)
[2023-03-02] MEDS: METOPROLOL TARTRATE 50 MG TAB PO SCH (10:27)
[2023-03-02] MEDS: ASPIRIN 81 MG PO SCH (10:27)
[2023-03-02] MEDS: DULoxetine HCL 60 MG CAPSULE.DR PO SCH (10:28)
[2023-03-02] MEDS: INSULIN ASPART (NovoLOG) 100 UNIT/ML VIAL SQ SCH ×4 (10:28→21:11)
[2023-03-02] MEDS: HEPARIN SODIUM,PORCINE 5,000 UNIT/ML 1 ML VIAL SQ SCH ×3 (10:28→23:42)
[2023-03-02 11:22] LABS: Basophils # (A) 0.1 k/uL (0-0.2); Basophils % (A) 1 %; Eosinophils # (A) 0.1 k/uL (0-0.7); Eosinophils % (A) 1 %; HCT 40.1 % (39.0-53.0); HGB 13.9 gm/dL (13.0-17.5); Lymphocytes % (A) 12 %; MCH 31.1 pg (25.0-35.0); MCHC 34.8 g/dL (31.0-37.0); MCV 89.4 fL (80.0-100.0); Mean Platelet Volume 8.2; Monocytes # (A) 0.5 k/uL (0-1.0); Monocytes % (A) 3 %; Neutrophils # (A) 13.5 k/uL (1.3-7.7); Neutrophils % (A) 83 %; Platelet Count 327 k/uL (150-450); RBC 4.48 m/uL (4.30-5.90); RDW 12.8 % (11.5-15.5); WBC 16.3 k/uL (3.8-10.6)
[2023-03-02] MEDS ORDERED: SODIUM CHLORIDE 0.9% 1,500 ML IV ONE (12:38)
[2023-03-02] MEDS: AMPICILLIN-SULBACTAM 3 GM in SODIUM CHLORIDE 0.9% 100 ML IVPB SCH ×3 (12:59→23:42)
[2023-03-02] MEDS ORDERED: VANCOMYCIN IV PER PHARMACY 1 EACH MISC MISCELLANE PRN (13:10)
--- NOTE | 2023-03-02 13:12 | P.HPIM ---
History of Present Illness H&P Date: 03/02/23 Chief Complaint: Confusion, altered mentation * 67-year-old gentleman with past medical history of CVA, involving right parietal lobe, diabetes mellitus, coronary artery disease, hypertension, hyperlipidemia who was recently admitted from was placed in observation for complaints of confusion and right. patient was seen by neurology during this hospitalization and patient is significantly improved towards baseline. patient was discharged home with plans to follow-up with primary neurology outpatient. * Patient presented to ED has cold stroke activation, patient had MRI brain done in January 2023 and he had some residual left-sided facial droop from previous stroke. After being discharged home patient went for a nap when he woke up around 10:30 PM patient was confused again and was aphasic. EMS was contacted and patient was brought back to the hospital. * Patient mentation has been waxing and waning for the last 72 hours, while in ER patient continued to remain intermittently confused neurology was reconsulted, * Upon presentation a CT head and CT angina head and neck was obtained which showed chronic changes no acute intracranial process was noted to lacerations occlusion noted * Repeat CT head was obtained in ED on 03/02 2023 due to confusion which remained stable * Patient to be admitted to medical floor with consultations from neurology * While in ER patient was started becoming disoriented and febrile. Lactic acid was obtained stat which was elevated, patient was febrile as well. Patient was started on broad-spectrum antibiotic including Unasyn and vancomycin suspected aspiration pneumonitis, blood cultures collected as well REVIEW OF SYSTEMS: Confusion, aphasia, disorientation CONSTITUTIONAL: No fever, no malaise, no fatigue. HEENT: No recent visual problems or hearing problems. Denied any sore throat. CARDIOVASCULAR: No chest pain, orthopnea, PND, no palpitations, no syncope. PULMONARY: No shortness of breath, no cough, no hemoptysis. GASTROINTESTINAL: No diarrhea, no nausea, no vomiting, no abdominal pain. NEUROLOGICAL: No headaches, no weakness, no numbness. HEMATOLOGICAL: Denies any bleeding or petechiae. GENITOURINARY: Denies any burning micturition, frequency, or urgency. MUSCULOSKELETAL/RHEUMATOLOGICAL: Denies any joint pain, swelling, or any muscle pain. ENDOCRINE: Denies any polyuria or polydipsia. PHYSICAL EXAMINATION: GENERAL: The patient is alert and oriented x0, ill appearance,, HEENT: Pupils are round and equally reacting to light.. CARDIOVASCULAR: S1 and S2 present. Tachycardia PULMONARY: Chest is clear to auscultation, no wheezing or crackles. ABDOMEN: Soft, nontender, nondistended, normoactive bowel sounds. No palpable organomegaly. MUSCULOSKELETAL: No joint swelling or deformity. EXTREMITIES: No cyanosis, clubbing, or pedal edema. NEUROLOGICAL: Awake however disoriented moving upper and lower extremities nonfocal exam exam limited secondary to disorientation Past Medical History Past Medical History: Coronary Artery Disease (CAD), CVA/TIA, Diabetes Mellitus, GERD/Reflux, Hyperlipidemia, Hypertension, Myocardial Infarction ([place]), Osteoarthritis (OA), Seizure Disorder, Sleep Apnea/CPAP/BIPAP Additional Past Medical History / Comment(s): Chronic back pain. 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 CPAP use. "Hx mild seizure when ran out of Xanax few mo nths ago". Last Myocardial Infarction Date:: 11/17/16 History of Any Multi-Drug Resistant Organisms: None Reported Past Surgical History: Heart Catheterization With Stent, Hernia Repair, Joint Replacement, Orthopedic Surgery Additional Past Surgical History / Comment(s): Right rotator cuff repair X2. Left hip replacement. Bilateral inguinal hernia repair. Stent replacement 11/07. Past Anesthesia/Blood Transfusion Reactions: No Reported Reaction Additional Past Anesthesia/Blood Transfusion Reaction / Comment(s): States had transfusion at . Date of Last Stent Placement:: 10/2020 Past Psychological History: Anxiety, Depression Smoking Status: Never smoker Past Alcohol Use History: Occasional Past Drug Use History: None Reported - Past Family History Brother(s) Family Medical History: Cancer, Deep Vein Thrombosis (DVT) Additional Family Medical History / Comment(s): 1 brother with Esophageal CA. 2 brothers with DVT. Sister(s) Family Medical History: Cancer Additional Family Medical History / Comment(s): Brain CA. 2nd sister had breast CA. Medications and Allergies Home Medications Medication Instructions Recorded Confirmed Type Omeprazole 20 mg PO DAILY 02/23/16 03/02/23 History metFORMIN HCL [Glucophage] 1,000 mg PO BID 02/23/16 03/02/23 History Insulin Detemir [Levemir Flextouch 75 units SQ HS 03/03/18 03/02/23 History Pen] Pioglitazone HCl [Actos] 15 mg PO DAILY 08/16/18 03/02/23 History Empagliflozin [Jardiance] 10 mg PO DAILY 10/25/20 03/02/23 History Atorvastatin Calcium [Lipitor] 80 mg PO DAILY 12/27/20 03/02/23 History DULoxetine HCL [Cymbalta] 60 mg PO DAILY 12/27/20 03/02/23 History HYDROcodone/APAP 7.5-325MG [[place] 1 tab PO BID PRN 12/27/20 03/02/23 History 7.5-325] Metoprolol Tartrate [Lopressor] 100 mg PO DAILY 12/27/20 03/02/23 History Ezetimibe [Zetia] 10 mg PO HS 09/19/22 03/02/23 History Vitamin E (Dl,Tocopheryl Acet) 400 unit PO DAILY 09/19/22 03/02/23 History [Vitamin E (400 Iu = 180 mg)] lisinopriL [Zestril] 5 mg PO DAILY 09/19/22 03/02/23 History Aspirin 81 mg PO DAILY 21 Days #21 tab 02/13/23 03/02/23 Rx Clopidogrel [Plavix] 75 mg PO DAILY 90 Days #90 tablet 02/13/23 03/02/23 Rx diazePAM 10 mg PO DIRECTED 02/28/23 03/02/23 History Allergies Allergy/AdvReac Type Severity Reaction Status Date / Time oxaprozin [From Daypro] Allergy Severe Swelling Verified 03/02/23 11:09 throat & tongue, reddened face Physical Exam Vitals: Vital Signs Temp Pulse Resp BP Pulse Ox 03/02/23 07:30 97.3 F L 110 H 26 H 187/97 97 03/02/23 07:00 97.7 F 114 H 28 H 195/101 03/02/23 06:00 98 F 107 H 26 H 176/91 97 03/02/23 05:00 98.2 F 99 24 167/98 97 03/02/23 04:35 103 H 26 H 98 03/02/23 03:00 106 H 26 H 148/98 98 03/02/23 02:10 102 H 26 H 147/78 98 03/02/23 01:40 101 H 25 H 122/58 98 03/02/23 01:10 98 F 98 26 H 115/90 97 03/02/23 00:55 97.8 F 97 26 H 142/80 98 03/02/23 00:40 98 F 98 24 129/70 98 03/02/23 00:25 97.7 F 98 24 128/75 98 03/02/23 00:00 98.2 F 93 22 138/83 97 03/01/23 23:50 97.1 F L 87 22 142/74 97 Intake and Output 03/01/23 03/02/23 03/02/23 22:59 06:59 14:59 Output Total 900 Balance -900 Output: Urine 900 Other: Weight 81.647 kg Results CBC & Chem 7: 03/02/23 10:37 03/01/23 23:51 Labs: Abnormal Lab Results - Last 24 Hours (Table) 03/01/23 03/01/23 03/02/23 Range/Units 23:51 23:54 00:26 WBC 10.9 H (3.8-10.6) k/uL PT (10.0-12.5) sec Sodium 136 L (137-145) mmol/L BUN 26 H (9-20) mg/dL Glucose 250 H (74-99) mg/dL POC Glucose (mg/dL) 244 H (70-110) mg/dL Creatine Kinase 41 L (55-170) U/L Ur Specific [place] (1.001-1.035) Urine Glucose (UA) (Negative) 03/02/23 03/02/23 03/02/23 Range/Units 00:26 04:41 07:13 WBC (3.8-10.6) k/uL PT 9.6 L (10.0-12.5) sec Sodium (137-145) mmol/L BUN (9-20) mg/dL Glucose (74-99) mg/dL POC Glucose (mg/dL) 192 H (70-110) mg/dL Creatine Kinase (55-170) U/L Ur Specific [place] 1.050 H (1.001-1.035) Urine Glucose (UA) 4+ H (Negative) Assessment and Plan Assessment: Assessment and plan Acute encephalopathy with aphasia rule out CVA versus TIA Sepsis Aspiration pneumonia History of right parietal lobe CVA January 2023 History of right basal ganglia CVA 2020 Hypertensive urgency Hyperlipidemia Diabetes mellitus type 2 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 MRI brain ordered, neurology consulted continue patient on aspirin/Plavix/high intensity statin * In regards to hypertensive urgency low permissive hypertension home regimen continued * In regards to sepsis, blood cultures collected, appropriately resuscitated with fluid, started on Unasyn and vancomycin infectious disease consulted * In regards to diabetes mellitus Accu-Cheks before meals at bedtime continue patient on correctional insulin and metformin and Lantus, HbA1c 7.7 monitor for hypoglycemia * In regards to hyperlipidemia continue Lipitor * Patient will need physical therapy occupational therapy evaluation * CODE STATUS is full code Time with Patient: Greater than 30
[2023-03-02] MEDS ORDERED: VANCOMYCIN 1,500 MG in SODIUM CHLORIDE 0.9% 500 ML 500 ML IVPB ONE (14:00)
[2023-03-02] MEDS ORDERED: ASPIRIN 300 MG SUPP RECTAL SCH (14:30)
[2023-03-02 14:37] LABS: Glucose,Whole Blood 193 mg/dL (70-110)
[2023-03-02 15:34] LABS: Amphetamine Screen,Urine Not Detected (NotDetected); Barbiturate Screen,Urine Not Detected (NotDetected); Benzodiazepines Screen,Urine Detected (NotDetected); Cocaine Screen,Urine Not Detected (NotDetected); Methadone Screen, Urine Not Detected (NotDetected); Opiate Screen,Urine Detected (NotDetected); Oxycodone Screen, Urine Not Detected (NotDetected); Phencyclidine Screen,Urine Not Detected (NotDetected); Tricyclic Antidepressant,Urine Not Detected (NotDetected); Urn Cannabinoid Scrn Not Detected (NotDetected)
[2023-03-02 17:39] LABS: Glucose,Whole Blood 146 mg/dL (70-110)
[2023-03-02] MEDS: ACYCLOVIR SODIUM 800 MG in SODIUM CHLORIDE 0.9% 250 ML IVPB SCH ×2 (19:19→23:42)
[2023-03-02 20:49] LABS: Glucose,Whole Blood 182 mg/dL (70-110)
[2023-03-02] MEDS: TICAGRELOR 90 MG TAB PO SCH (21:07)
[2023-03-02] MEDS: ACETAMINOPHEN TAB 325 MG TAB PO PRN (21:10)
[2023-03-02] MEDS: INSULIN DETEMIR (LEVEMIR) 100 UNIT/ML SYR SQ SCH (21:11)
[2023-03-03] MEDS: VANCOMYCIN 1,500 MG in SODIUM CHLORIDE 0.9% 500 ML 500 ML IVPB SCH ×2 (00:13→11:59)
[2023-03-03 04:14] LABS: Glucose,Whole Blood 75 mg/dL (70-110)
[2023-03-03 06:13] LABS: Glucose,Whole Blood 84 mg/dL (70-110)
[2023-03-03] MEDS: INSULIN ASPART (NovoLOG) 100 UNIT/ML VIAL SQ SCH ×4 (06:20→20:30)
[2023-03-03] MEDS: PANTOPRAZOLE 40 MG TABLET PO SCH (06:34)
[2023-03-03] MEDS: AMPICILLIN-SULBACTAM 3 GM in SODIUM CHLORIDE 0.9% 100 ML IVPB SCH ×2 (06:34→23:36)
--- NOTE | 2023-03-03 07:37 | P.CONS ---
History of Present Illness - Reason for Consult Consult date: 03/02/23 Fever unknown source Requesting physician: Fernando Stallworth - Chief Complaint Mental status changes x 1 day - History of Present Illness Patient is a 67-year-old male with a past medical history negative for coronary disease CVA TIA diabetes mellitus reflux hypertension hyperlipidemia patient was recently admitted to this facility for some mental status changes with concern for possible TIA patient was back to his baseline and was discharged home yesterday patient has not been brought back to the hospital after midnight the patient was noticed to have confusion and mental status changes also noticed to be aphasic EMS was called and had the patient was brought into the hospital on arrival to the ER patient was afebrile however the patient did spike a fever this morning and at noon of 101.9 F patient was tachycardic but not hypotensive or hypoxic patient did have a white count of 10.9 with a repeat showing 16.3 with a left shift did have elevated lactic acid creatinine was normal liver enzymes are normal urine has been negative urine drug screen was positive for opiates and benzo influenza RSV COVID testing was negative patient did have a chest x-ray mild cardiomegaly with perhaps mild central vascular congestion no significant change from recent exam, CT of the brain chronic periventricular white matter ischemic changes mild age-related atrophy remaining present, infectious disease was consulted regarding his fever of unknown source most information has been obtained from review the chart and talking to the at the bedside as the patient is currently unresponsive and cannot provide any history Review of Systems Positive points has been mentioned in HPI complete review could not be obtained because of his underlying mental status Past Medical History Past Medical History: Coronary Artery Disease (CAD), CVA/TIA, Diabetes Mellitus, GERD/Reflux, Hyperlipidemia, Hypertension, Myocardial Infarction ([place]), Osteoarthritis (OA), Seizure Disorder, Sleep Apnea/CPAP/BIPAP Additional Past Medical History / Comment(s): Chronic back pain. 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 CPAP use. "Hx mild seizure when ran out of Xanax few months ago". Last Myocardial Infarction Date:: 11/17/16 History of Any Multi-Drug Resistant Organisms: None Reported Past Surgical History: Heart Catheterization With Stent, Hernia Repair, Joint Replacement, Orthopedic Surgery Additional Past Surgical History / Comment(s): Right rotator cuff repair X2. Left hip replacement. Bilateral inguinal hernia repair. Stent replacement 11/07. Past Anesthesia/Blood Transfusion Reactions: No Reported Reaction Additional Past Anesthesia/Blood Transfusion Reaction / Comm: States had transfusion at . Date of Last Stent Placement:: 10/2020 Past Psychological History: Anxiety, Depression Smoking Status: Never smoker Past Alcohol Use History: Occasional Past Drug Use History: None Reported - Past Family History Brother(s) Family Medical History: Cancer, Deep Vein Thrombosis (DVT) Additional Family Medical History / Comment(s): 1 brother with Esophageal CA. 2 brothers with DVT. Sister(s) Family Medical History: Cancer Additional Family Medical History / Comment(s): Brain CA. 2nd sister had breast CA. Medications and Allergies Home Medications Medication Instructions Recorded Confirmed Type Omeprazole 20 mg PO DAILY 02/23/16 03/02/23 History metFORMIN HCL [Glucophage] 1,000 mg PO BID 02/23/16 03/02/23 History Insulin Detemir [Levemir Flextouch 75 units SQ HS 03/03/18 03/02/23 History Pen] Pioglitazone HCl [Actos] 15 mg PO DAILY 08/16/18 03/02/23 History Empagliflozin [Jardiance] 10 mg PO DAILY 10/25/20 03/02/23 History Atorvastatin Calcium [Lipitor] 80 mg PO DAILY 12/27/20 03/02/23 History DULoxetine HCL [Cymbalta] 60 mg PO DAILY 12/27/20 03/02/23 History HYDROcodone/APAP 7.5-325MG [[place] 1 tab PO BID PRN 12/27/20 03/02/23 History 7.5-325] Metoprolol Tartrate [Lopressor] 100 mg PO DAILY 12/27/20 03/02/23 History Ezetimibe [Zetia] 10 mg PO HS 09/19/22 03/02/23 History Vitamin E (Dl,Tocopheryl Acet) 400 unit PO DAILY 09/19/22 03/02/23 History [Vitamin E (400 Iu = 180 mg)] lisinopriL [Zestril] 5 mg PO DAILY 09/19/22 03/02/23 History Aspirin 81 mg PO DAILY 21 Days #21 tab 02/13/23 03/02/23 Rx Clopidogrel [Plavix] 75 mg PO DAILY 90 Days #90 tablet 02/13/23 03/02/23 Rx diazePAM 10 mg PO DIRECTED 02/28/23 03/02/23 History Allergies Allergy/AdvReac Type Severity Reaction Status Date / Time oxaprozin [From Daypro] Allergy Severe Swelling Verified 03/02/23 11:09 throat & tongue, reddened face Physical Exam Vitals: Vital Signs Temp Pulse Resp BP Pulse Ox 03/02/23 14:44 124 H 18 167/88 100 03/02/23 13:06 135 H 18 180/97 99 03/02/23 12:00 101.9 F H 118 H 22 171/84 99 03/02/23 10:59 138 H 26 H 141/110 99 03/02/23 09:50 101.1 F H 137 H 18 187/96 99 03/02/23 08:30 131 H 18 170/104 99 03/02/23 07:30 97.3 F L 110 H 26 H 187/97 97 03/02/23 07:00 97.7 F 114 H 28 H 195/101 03/02/23 06:00 98 F 107 H 26 H 176/91 97 03/02/23 05:00 98.2 F 99 24 167/98 97 03/02/23 04:35 103 H 26 H 98 03/02/23 03:00 106 H 26 H 148/98 98 03/02/23 02:10 102 H 26 H 147/78 98 03/02/23 01:40 101 H 25 H 122/58 98 03/02/23 01:10 98 F 98 26 H 115/90 97 03/02/23 00:55 97.8 F 97 26 H 142/80 98 03/02/23 00:40 98 F 98 24 129/70 98 03/02/23 00:25 97.7 F 98 24 128/75 98 03/02/23 00:00 98.2 F 93 22 138/83 97 03/01/23 23:50 97.1 F L 87 22 142/74 97 Intake and Output 03/02/23 03/02/23 03/02/23 06:59 14:59 22:59 Output Total 900 Balance -900 Output: Urine 900 Other: Weight 81.647 kg GENERAL DESCRIPTION: Elderly male lying in bed, no distress. No tachypnea or accessory muscle of respiration use. HEENT: Shows Pallor , no scleral icterus. Oral mucous membrane is dry. NECK: Trachea central, no thyromegaly. LUNGS: Unlabored breathing. Decreased breath sound at the base. No wheeze or crackle. HEART: S1, S2, regular rate and rhythm. No loud murmur ABDOMEN: Soft, no tenderness , guarding or rigidity, no organomegaly EXTREMITIES: No edema of feet. SKIN: No rash, no masses palpable. NEUROLOGICAL: The patient is unresponsive mild neck rigidity Results CBC & Chem 7: 03/02/23 10:37 03/01/23 23:51 Labs: Abnormal Lab Results - Last 24 Hours (Table) 03/01/23 03/01/23 03/02/23 Range/Units 23:51 23:54 00:26 WBC 10.9 H (3.8-10.6) k/uL Neutrophils # (1.3-7.7) k/uL PT (10.0-12.5) sec Sodium 136 L (137-145) mmol/L BUN 26 H (9-20) mg/dL Glucose 250 H (74-99) mg/dL POC Glucose (mg/dL) 244 H (70-110) mg/dL Plasma Lactic Acid [place] (0.7-2.0) mmol/L Creatine Kinase 41 L (55-170) U/L Ur Specific [place] (1.001-1.035) Urine Glucose (UA) (Negative) 03/02/23 03/02/23 03/02/23 Range/Units 00:26 04:41 07:13 WBC (3.8-10.6) k/uL Neutrophils # (1.3-7.7) k/uL PT 9.6 L (10.0-12.5) sec Sodium (137-145) mmol/L BUN (9-20) mg/dL Glucose (74-99) mg/dL POC Glucose (mg/dL) 192 H (70-110) mg/dL Plasma Lactic Acid [place] (0.7-2.0) mmol/L Creatine Kinase (55-170) U/L Ur Specific [place] 1.050 H (1.001-1.035) Urine Glucose (UA) 4+ H (Negative) 03/02/23 03/02/23 03/02/23 Range/Units 09:58 10:37 10:37 WBC 16.3 H (3.8-10.6) k/uL Neutrophils # 13.5 H (1.3-7.7) k/uL PT (10.0-12.5) sec Sodium (137-145) mmol/L BUN (9-20) mg/dL Glucose (74-99) mg/dL POC Glucose (mg/dL) 203 H (70-110) mg/dL Plasma Lactic Acid [place] 3.5 H* (0.7-2.0) mmol/L Creatine Kinase (55-170) U/L Ur Specific [place] (1.001-1.035) Urine Glucose (UA) (Negative) 03/02/23 Range/Units 14:25 WBC (3.8-10.6) k/uL Neutrophils # (1.3-7.7) k/uL PT (10.0-12.5) sec Sodium (137-145) mmol/L BUN (9-20) mg/dL Glucose (74-99) mg/dL POC Glucose (mg/dL) 193 H (70-110) mg/dL Plasma Lactic Acid [place] (0.7-2.0) mmol/L Creatine Kinase (55-170) U/L Ur Specific [place] (1.001-1.035) Urine Glucose (UA) (Negative) Assessment and Plan (1) Sepsis Current Visit: Yes Status: Acute Code(s): A41.9 - SEPSIS, UNSPECIFIED ORGANISM SNOMED Code(s): 90568390 Plan: 1patient with a fever and this patient presented to hospital with confusion aphasia and concern for possible CVA however the patient also have elevated white count initial workup included a chest x-ray that has been negative for any consolidation urine has been negative abdominal was soft on clinical examination and no evidence of any cellulitis with a question of possible [employer] infection need s to be ruled out, and fortunately the patient has received Brilinta and was on Plavix so per discussion with the neurologist LP could not be completed, there is also concern for possible aspiration pneumonitis 2-for now we will keep the patient on Unasyn and vancomycin will add acyclovir empirically 3-once safe to do an LP LP should be completed 4-we will check inflammatory markers and HSV serology We will follow on clinical condition and cultures to further adjust medication if needed Thank you for this consultation we will follow the patient along with you Dictation was produced using [employer] software. please excuse any grammatical, word or spelling errors. Time with Patient: Greater than 30
[2023-03-03] MEDS: DULoxetine HCL 60 MG CAPSULE.DR PO SCH (08:21)
[2023-03-03] MEDS: METOPROLOL TARTRATE 50 MG TAB PO SCH (08:21)
[2023-03-03] MEDS: TICAGRELOR 90 MG TAB PO SCH ×2 (08:21→20:47)
[2023-03-03] MEDS: ASPIRIN 81 MG PO SCH (08:21)
[2023-03-03] MEDS: ATORVASTATIN 80 MG TAB PO SCH (08:21)
[2023-03-03] MEDS: metFORMIN 500 MG TAB PO SCH ×2 (08:21→20:47)
[2023-03-03] MEDS: ACYCLOVIR SODIUM 800 MG in SODIUM CHLORIDE 0.9% 250 ML IVPB SCH ×2 (08:22→16:23)
[2023-03-03] MEDS: HEPARIN SODIUM,PORCINE 5,000 UNIT/ML 1 ML VIAL SQ SCH ×3 (08:22→23:36)
[2023-03-03] MEDS: PIOGLITAZONE 15 MG TAB PO SCH (08:22)
[2023-03-03] MEDS: ACETAMINOPHEN TAB 325 MG TAB PO PRN (08:29)
[2023-03-03 09:28] LABS: Basophils # (A) 0.1 k/uL (0-0.2); Basophils % (A) 1 %; Eosinophils # (A) 0.4 k/uL (0-0.7); Eosinophils % (A) 3 %; HCT 41.7 % (39.0-53.0); HGB 13.3 gm/dL (13.0-17.5); Lymphocytes # (A) 2.8 k/uL (1.0-4.8); Lymphocytes % (A) 24 %; MCH 29.6 pg (25.0-35.0); MCHC 31.8 g/dL (31.0-37.0); MCV 93.2 fL (80.0-100.0); Mean Platelet Volume 8.3; Monocytes # (A) 0.7 k/uL (0-1.0); Monocytes % (A) 6 %; Neutrophils # (A) 7.5 k/uL (1.3-7.7); Neutrophils % (A) 65 %; Platelet Count 341 k/uL (150-450); RBC 4.47 m/uL (4.30-5.90); WBC 11.6 k/uL (3.8-10.6)
--- NOTE | 2023-03-03 10:55 | P.CNNES ---
History of Present Illness Consult date: 03/02/23 Requesting physician: Mark Omer Reason for Consult: confusion, aphasia, possible cva History of Present Illness: Patient is a 67-year-old left-handed male, who was just seen in hospital consultation 2 days ago on 02/28/2023 for questionable TIA, manifesting with "not acting right, not paying attention and talking slow". It appeared patient has been on dual antiplatelet medication including aspirin and Plavix since his recent stroke involving right parietal region on 02/10/2023. His antiplatelet medications has been put on hold by his outpatient neurologist for upcoming lumbar procedure, that was actually scheduled on 02/28/2023. As patient has some mental status change, the procedure was canceled and patient was referred to ER. Patient was seen by myself, his NIH stroke scale was 0, except for left facial droop, which has been chronic from a prior stroke. He was recommended to resume all his medications including antiplatelet medications. Patient was discharged home at 3 PM yesterday on 03/01/2023. Patient's mentioned that when he went home, he was fine for a while. He went to bed at around 7:45 PM. He woke up at 10 PM and wanted a bowel of cereal. He went downstairs to the kitchen and she accompanied him. She handed him the bowl of cereal. He took about 4 or 5 bite and then he became confused, could not understand what he was saying. He had dropped the napkin with his rig ht hand, and was not able to grab the napkin with his right hand. The symptoms came "real quick". She called the ambulance and he was brought to the hospital. As per EMS flow sheet, it was mentioned that patient has been acting abnormal since he woke up from sleep at around 10 PM. He has been confused and his speech is not normal. No recent history of falls or trauma. Patient has mentioned that patient has residual left facial droop since his stroke on 02/10/2023. Patient's denied any motor deficits from prior strokes. Patient denied any complaints and states he felt okay. Patient denied any chest pain, difficulty breathing, shortness of breath, headache, dizziness, blurred vision, tinnitus, jaw pain, neck pain, back pain. No numbness or tingling. Patient was noted to be aphasic. Patient was unable to identify simple objects and repeat sentences. Patient has a fast ED score of 1. Patient had left-sided facial droop, which is baseline. No motor deficits. Patient's blood pressure at the scene was 168/90, pulse rate 104, saturation 97%, respirations 16 and blood sugar 242. His blood pressure on arrival was 123/81 with temperature 97.5. His temperature has gone up to 101.9. Stroke code was activated. ED staff discuss case with Dr. Santos, and patient was considered not a candidate for TPA because of recent CVA within last 90 days, and also not a candidate for thrombectomy. It was recommended by neuro intervention for switching from Plavix to Brilinta. Patient did receive Brilinta 90 mg last night. Apparently this morning patient has become more aphasic. Repeat CT head showed no acute process. Patient since arrival to the hospital has been very confused, trying to get out of bed, wants to go home. Patient is aphasic, but sometimes says phrases n ormally like "I'm not sure of Doc.". "I need to get up". Patient is very encephalopathic. Patient apparently has received Ativan 7:30 AM because of agitation. Patient has history of chronic back pain. He follows up with Dr. Light. Patient has been seen by Dr. Kay on 12/29/2020 for acute right basal ganglia CVA. Patient also has history of CAD, type 2 diabetes and hypertension. Adolfo finch was taking aspirin and Plavix at that time. Dr. Kay discontinued Plavix and started the patient on Brilinta 90 mg twice a day. Patient was also on Lipitor 80 mg daily at that time. Also was recommended to abstain from alcoholism. patient had mentioned that he took Brilinta for one year, and then stopped taking it, and continued just on aspirin. Patient has history of diabetes since 2007. Also has hypertension and hyperlipidemia. He is a nonsmoker, never smoked on a regular basis. He drinks about couple beers per night, but not every night. Review of Systems As per report from patient's . ROS unobtainable: due to mental status Constitutional: Reports chills, Denies fever Eyes: denies blurred vision, denies diplopia, denies pain Ears: deny: ear discharge, earache Ears, nose, mouth and throat: Reports headache, Denies sore throat, Denies vertigo Cardiovascular: Denies chest pain, Denies shortness of breath Respiratory: Denies cough Gastrointestinal: Denies abdominal pain, Denies diarrhea, Denies nausea, Denies vomiting Musculoskeletal: Reports low back pain, Denies neck pain Integumentary: Denies pruritus, Denies rash Neurological: Reports as per HPI Psychiatric: Reports depression, Denies anxiety Hematologic/Lymphatic: Denies easy bleeding, Denies easy bruising Past Medical History Past Medical History: Coronary Artery Disease (CAD), CVA/TIA, Diabetes Mellitus, GERD/Reflux, Hyperlipidemia, Hypertension, Myocardial Infarction ([place]), Osteoarthritis (OA), Seizure Disorder, Sleep Apnea/CPAP/BIPAP Additional Past Medical History / Comment(s): Chronic back pain. 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 CPAP use. "Hx mild seizure when ran out of Xanax few months ago". Last Myocardial Infarction Date:: 11/17/16 History of Any Multi-Drug Resistant Organisms: None Reported Past Surgical History: Heart Catheterization With Stent, Hernia Repair, Joint Replacement, Orthopedic Surgery Additional Past Surgical History / Comment(s): Right rotator cuff repair X2. Left hip replacement. Bilateral inguinal hernia repair. Stent replacement 11/07. Past Anesthesia/Blood Transfusion Reactions: No Reported Reaction Additional Past Anesthesia/Blood Transfusion Reaction / Comment(s): States had transfusion at . Date of Last Stent Placement:: 10/2020 Past Psychological History: Anxiety, Depression Smoking Status: Never smoker Past Alcohol Use History: Occasional Past Drug Use History: None Reported - Past Family History Brother(s) Family Medical History: Cancer, Deep Vein Thrombosis (DVT) Additional Family Medical History / Comment(s): 1 brother with Esophageal CA. 2 brothers with DVT. Sister(s) Family Medical History: Cancer Additional Family Medical History / Comment(s): Brain CA. 2nd sister had breast CA. Medications and Allergies Home Medications Medication Instructions Recorded Confirmed Type Omeprazole 20 mg PO DAILY 02/23/16 03/02/23 History metFORMIN HCL [Glucophage] 1,000 mg PO BID 02/23/16 03/02/23 History Insulin Detemir [Levemir Flextouch 75 units SQ HS 03/03/18 03/02/23 History Pen] Pioglitazone HCl [Actos] 15 mg PO DAILY 08/16/18 03/02/23 History Empagliflozin [Jardiance] 10 mg PO DAILY 10/25/20 03/02/23 History Atorvastatin Calcium [Lipitor] 80 mg PO DAILY 12/27/20 03/02/23 History DULoxetine HCL [Cymbalta] 60 mg PO DAILY 12/27/20 03/02/23 History HYDROcodone/APAP 7.5-325MG [[place] 1 tab PO BID PRN 12/27/20 03/02/23 History 7.5-325] Metoprolol Tartrate [Lopressor] 100 mg PO DAILY 12/27/20 03/02/23 History Ezetimibe [Zetia] 10 mg PO HS 09/19/22 03/02/23 History Vitamin E (Dl,Tocopheryl Acet) 400 unit PO DAILY 09/19/22 03/02/23 History [Vitamin E (400 Iu = 180 mg)] lisinopriL [Zestril] 5 mg PO DAILY 09/19/22 03/02/23 History Aspirin 81 mg PO DAILY 21 Days #21 tab 02/13/23 03/02/23 Rx Clopidogrel [Plavix] 75 mg PO DAILY 90 Days #90 tablet 02/13/23 03/02/23 Rx diazePAM 10 mg PO DIRECTED 02/28/23 03/02/23 History Allergies Allergy/AdvReac Type Severity Reaction Status Date / Time oxaprozin [From Daypro] Allergy Severe Swelling Verified 03/02/23 11:09 throat & tongue, reddened face Physical Examination - Vital Signs Vital Signs: Vital Signs Temp Pulse Resp BP Pulse Ox 03/02/23 14:44 124 H 18 167/88 100 03/02/23 13:06 135 H 18 180/97 99 03/02/23 12:00 101.9 F H 118 H 22 171/84 99 03/02/23 10:59 138 H 26 H 141/110 99 03/02/23 09:50 101.1 F H 137 H 18 187/96 99 03/02/23 08:30 131 H 18 170/104 99 03/02/23 07:30 97.3 F L 110 H 26 H 187/97 97 03/02/23 07:00 97.7 F 114 H 28 H 195/101 03/02/23 06:00 98 F 107 H 26 H 176/91 97 03/02/23 05:00 98.2 F 99 24 167/98 97 03/02/23 04:35 103 H 26 H 98 03/02/23 03:00 106 H 26 H 148/98 98 03/02/23 02:10 102 H 26 H 147/78 98 03/02/23 01:40 101 H 25 H 122/58 98 03/02/23 01:10 98 F 98 26 H 115/90 97 03/02/23 00:55 97.8 F 97 26 H 142/80 98 03/02/23 00:40 98 F 98 24 129/70 98 03/02/23 00:25 97.7 F 98 24 128/75 98 03/02/23 00:00 98.2 F 93 22 138/83 97 03/01/23 23:50 97.1 F L 87 22 142/74 97 Intake and Output 03/01/23 03/02/23 03/02/23 22:59 06:59 14:59 Output Total 900 Balance -900 Output: Urine 900 Other: Weight 81.647 kg Patient is an elderly male, who appears encephalopathic. Patient is no distress. He sometimes get confused, and tries to get up and wants to go home. Patient's was also present. Patient although encephalopathic, slightly somnolent, but does become alert awake. Patient appears to have significant expressive aphasia. Patient is aphasic, but sometimes says phrases normally like "I'm not sure of DrTammy". "I need to get up". When he speaks those phrases, there is no dysarthria. However patient cannot name any objects presented, cannot repeat. Attention, concentration is severely limited and fund of knowledge cannot be assessed because of aphasia. On cranial nerve examination, pupils are equal, round and reacting to light, visual hardy appears full, as he squinches his his eye, whatever side my fingers are moving to check for peripheral vision. Extraocular muscles are intact with no nystagmus. Patient has left facial asymmetry, which is c hronic. His tongue protrudes to the midline. Palatal elevation and sensation normal, hearing and shoulder shrug normal, facial sensation normal. On muscle strength testing, there is right pronator drift about 10. The strength is normal in arms and legs distally and proximally. Deep tendon reflexes are symmetric 2 at the biceps, 2 brachioradialis, 2 at the knees, trace ankles and plantars are downgoing bilaterally. Sensory to touch is equal, could not be checked for neglect because of mental confusion. Cerebellar function showed no ataxia for [id number] testing. Cannot check f or ataxia in the lower limbs. Tone and bulk of muscles normal. Gait deferred.. On general examination, there is no carotid bruit or murmur, S1-S2 audible. Chest is clear on consultation. Abdomen is soft nontender. No organomegaly, bowel sounds present. Peripheral pulses are present. No peripheral edema. Results - Laboratory Findings CBC and BMP: 03/03/23 08:36 03/01/23 23:51 Abnormal Lab Findings: Abnormal Labs 03/01/23 03/01/23 03/02/23 23:51 23:54 00:26 WBC 10.9 H Neutrophils # PT Sodium 136 L BUN 26 H Glucose 250 H POC Glucose (mg/dL) 244 H Plasma Lactic Acid Galo Creatine Kinase 41 L Ur Specific [place] Urine Glucose (UA) 03/02/23 03/02/23 03/02/23 00:26 04:41 07:13 WBC Neutrophils # PT 9.6 L Sodium BUN Glucose POC Glucose (mg/dL) 192 H Plasma Lactic Acid Galo Creatine Kinase Ur Specific [place] 1.050 H Urine Glucose (UA) 4+ H 03/02/23 03/02/23 03/02/23 09:58 10:37 10:37 WBC 16.3 H Neutrophils # 13.5 H PT Sodium BUN Glucose POC Glucose (mg/dL) 203 H Plasma Lactic Acid Galo 3.5 H* Creatine Kinase Ur Specific [place] Urine Glucose (UA) 03/02/23 14:25 WBC Neutrophils # PT Sodium BUN Glucose POC Glucose (mg/dL) 193 H Plasma Lactic Acid Galo Creatine Kinase Ur Specific [place] Urine Glucose (UA) Assessment and Plan Assessment: * Altered mental status, with significant expressive aphasia, right arm drift. Rule out acute CVA. Patient's current NIH stroke scale is 6. * Fever, possible sepsis. Rule out intracranial infection. Rule out herpes encephalitis. * Vasculopathy, with previous CTA of head showed multifocal stenosis intracranially with [id number] stenosis within the intracranial kaci ateral ICA, severe stenosis in the midportion of the right vertebral artery. CTA of the neck showed atherosclerosis producing 50% stenosis in the proximal segment of both ICA. * Recent history of right parietal ischemic stroke 02/10/2023 * Previous history of stroke in 2020 over the right basal ganglia * History of CAD s/p stent X2 * Hypertension * Hyperlipidemia * Diabetes * History of Mustafa's palsy over the right face. Plan: * Patient has presented with acute aphasia, with NIH stroke scale of 6. Patient not a candidate for TPA or thrombectomy. * Patient started on Brilinta 90 mg twice a day by neuro intervention. This will be continued. However patient is not able to take anything by mouth. He is aspiration risk. Patient will be placed on aspirin 300 mg rectally daily for now. * Stat MRI of the brain with and without contrast, evaluate for acute CVA, rule out herpes encephalitis * 2-D echo performed 02/11/2023 revealed normal left ventricular EF 55-60%. Mild concentric LVH. No regional wall motion abnormalities. Normal left atrial size. Mild to moderate MR. Mild TR. * CTA head and neck showed: No worsening, significant stenosis in the common or internal carotid arteries bilaterally. No new large vessel occlusion or aneurysm at the level of the [place]. * Fasting a.m. lipid panel on 02/11/2023 with cholesterol 111, LDL 44, HDL 29, triglycerides 185. Continue Lipitor 80 mg daily (home dose). * Hemoglobin A1c 7.7 on 02/11/2023. Recommend optimize control of diabetes to target A1c < 7.0. * Urine drug screen positive for opiates and benzodiazepine, which probably he has received. * Patient has spiked temperature. Infectious disease has seen the patient, started on acyclovir, and ceftriaxone and vancomycin. Lumbar puncture not able to be performed because patient has received Plavix and more recently Brilinta. * EEG evaluate for any epileptiform activity. * Permissive hypertension for next 24-48 hours * Neuro checks every 4 hours. * Telemetry monitoring rule out any arrhythmia * PT, OT, speech therapy * DVT prophylaxis: Heparin 5000 units subcu every 8 hours * Neurology will continue to follow. Thank you for the consult. Time with Patient: Greater than 30
[2023-03-03 11:13] LABS: ALT 32 U/L (4-49); AST 23 U/L (17-59); African American GFR (CKD) >90 (>60 ml/min/1.73 sqM); Albumin 4.4 g/dL (3.5-5.0); Alkaline Phosphatase 124 U/L (38-126); Anion Gap 11 mmol/L; Blood Urea Nitrogen 9 mg/dL (9-20); C Reactive Protein 1.7 mg/dL (<1.0); Calcium 9.5 mg/dL (8.4-10.2); Carbon Dioxide 25 mmol/L (22-30); Chloride 106 mmol/L (98-107); Glucose 53 mg/dL (74-99); Non-African American GFR(CKD) >90 (>60 ml/min/1.73 sqM); Potassium 3.9 mmol/L (3.5-5.1); Sodium 142 mmol/L (137-145); Total Bilirubin 0.6 mg/dL (0.2-1.3); Total Protein 7.2 g/dL (6.3-8.2)
[2023-03-03 11:31] LABS: Glucose,Whole Blood 124 mg/dL (70-110)
--- NOTE | 2023-03-03 13:26 | MR ---
EXAMINATION TYPE: MR brain wo/w con DATE OF EXAM: 03/03/2023 12:48 PM CLINICAL INDICATION:Male, 67 years old with history of CVA, r/o HSV encephalitis; PHH, Aphasia, confu deepthi, evaluate for CVA, HSV encephalitis. COMPARISON: 02/11/2023. 03/02/2023 TECHNIQUE: Multi planar, multi sequence imaging was performed through the brain including: T1, T2, In version recovery, susceptibility weighted imaging and gradient echo imaging and Diffusion weighted im aging. The patient was then given intravenous contrast and multi planar, T1 fat-saturation images wer e obtained. IV Contrast: 8.5 cc Gadavist FINDINGS: T2 shine through within the diffusion-weighted imaging sequence is along the right perivent ricular deep white matter this has become increased in size from 02/11/2023 MRI. No evidence of hemor rhagic conversion. There is mild postcontrast enhancement in the area of prior acute/subacute CVA. Pr ominent perivascular Virchow robins spaces in the basal ganglia bilaterally. The serrano-white junctions, ventricular system, basal cisterns appear unremarkable. Diffusion-weighted imaging shows no evidence of new acute restricted diffusion to suggest acute/subacute infarct. T2 sh ine through as mentioned above. Intracranial arterial flow voids are maintained. Midline structures s how no abnormality. Scattered foci of high T2 signal intensity are seen within the periventricular wh ite matter. The susceptibility weighted images do not reveal any evidence for micro-hemorrhage. The bone marrow signal is within normal limits. Paranasal sinuses and mastoid air cells: Mild paranasal sinus disease. Trace high T2 signal within th e right mastoid air cells. Visualized orbits: Orbital contents are intact. IMPRESSION: 1. Evolution of infarct seen on prior MRI and 02/11/2023 with increased size of areas of white matte r change. No new acute/subacute CVA. This is similar increase in size compared to then. There is subt le postcontrast enhancement in this general region which could favored to represent luxury perfusion after ischemia. 2. Nonspecific white matter changes that significantly changed from prior.
--- NOTE | 2023-03-03 13:51 | XR ---
EXAMINATION TYPE: XR chest 2V DATE OF EXAM: 03/03/2023 COMPARISON: 03/02/2023 HISTORY: 67-year-old male cough and pneumonia TECHNIQUE: Frontal and lateral views FINDINGS: Heart normal size. Aorta and pulmonary vasculature within normal limits. Mild hyperinflation. Improve d aeration in the mid and lower lungs as compared to prior exam. No consolidation or pleural effusion seen. IMPRESSION: Significant interval improvement in patient's aeration within the mid and lower lungs. No focal infil trate identified.
--- NOTE | 2023-03-03 14:21 | P.PN ---
Subjective Progress Note Date: 03/03/23 * 67-year-old gentleman with past medical history of CVA, involving right parietal lobe, diabetes mellitus, coronary artery disease, hypertension, hyperlipidemia who was recently admitted from was placed in observation for complaints of confusion and right. patient was seen by neurology during this hospitalization and patient is significantly improved towards baseline. patient was discharged home with plans to follow-up with primary neurology outpatient. * Patient presented to ED has cold stroke activation, patient had MRI brain done in January 2023 and he had some residual left-sided facial droop from previous stroke. After being discharged home patient went for a nap when he woke up around 10:30 PM patient was confused again and was aphasic. EMS was contacted and patient was brought back to the hospital. * Patient mentation has been waxing and waning for the last 72 hours, while in ER patient continued to remain intermittently confused neurology was reconsulted, * Upon presentation a CT head and CT angina head and neck was obtained which showed chronic changes no acute intracranial process was noted to lacerations occlusion noted * Repeat CT head was obtained in ED on 03/02 2023 due to confusion which remained stable * Patient to be admitted to medical floor with consultations from neurology * While in ER patient was started becoming disoriented and febrile. Lactic acid was obtained stat which was elevated, patient was febrile as well. Patient was started on broad-spectrum antibiotic including Unasyn and vancomycin suspected aspiration pneumonitis, blood cultures collected as well * 03/03/2023: Patient seen and evaluated bedside, patient is alert and oriented to person place and situation. Significant improvement in mentation noted, MRI brain completed shows evolution of prior stroke with increased size areas of white matter changes no known acute/subacute stroke noted. Chest x-ray obtained showed interval improvement in aeration no focal infiltrate noted. Patient was started on IV acyclovir, transition to IV Rocephin, and vancomycin. Infectious disease following as well. WBC count improving trending down 11.6, electrolytes panel within normal limits blood glucose low at 55-year-old. 1.7. Calcitonin 0.05 REVIEW OF SYSTEMS: Confusion, aphasia, disorientation resolved CONSTITUTIONAL: No fever, no malaise, no fatigue. HEENT: No recent visual problems or hearing problems. Denied any sore throat. CARDIOVASCULAR: No chest pain, orthopnea, PND, no palpitations, no syncope. PULMONARY: No shortness of breath, no cough, no hemoptysis. GASTROINTESTINAL: No diarrhea, no nausea, no vomiting, no abdominal pain. NEUROLOGICAL: No headaches, no weakness, no numbness. HEMATOLOGICAL: Denies any bleeding or petechiae. GENITOURINARY: Denies any burning micturition, frequency, or urgency. MUSCULOSKELETAL/RHEUMATOLOGICAL: Denies any joint pain, swelling, or any muscle pain. ENDOCRINE: Denies any polyuria or polydipsia. PHYSICAL EXAMINATION: GENERAL: The patient is alert and oriented x 3 , ill appearance,, HEENT: Pupils are round and equally reacting to light.. CARDIOVASCULAR: S1 and S2 present. Heart rate is normal PULMONARY: Chest is clear to auscultation, no wheezing or crackles. ABDOMEN: Soft, nontender, nondistended, normoactive bowel sounds. No palpable organomegaly. MUSCULOSKELETAL: No joint swelling or deformity. EXTREMITIES: No cyanosis, clubbing, or pedal edema. NEUROLOGICAL: Alert and oriented to person place and situation, chronic left- sided facial droop noted, moving bilateral upper and lower extremity Objective - Vital Signs Vital signs: Vital Signs Temp 97.7 F 03/03/23 08:11 Pulse 78 03/03/23 11:09 Resp 15 03/03/23 11:09 BP 156/92 03/03/23 11:09 Pulse Ox 97 03/03/23 11:09 FiO2 Intake & Output 03/02/23 03/03/23 03/03/23 18:59 06:59 18:59 Output Total 900 2280 Balance -900 -2280 Weight 81.647 kg Output: Urine 900 2280 Other: Voiding Method External Catheter External Catheter - Labs CBC & Chem 7: 03/03/23 08:36 03/03/23 08:36 Labs: Abnormal Lab Results - Last 24 Hours (Table) 03/02/23 03/02/23 03/02/23 Range/Units 04:41 14:25 17:38 WBC (3.8-10.6) k/uL Creatinine (0.66-1.25) mg/dL Glucose (74-99) mg/dL POC Glucose (mg/dL) 193 H 146 H (70-110) mg/dL C-Reactive Protein (<1.0) mg/dL Urine Opiates Screen Detected H (NotDetected) U Benzodiazepines Scrn Detected H (NotDetected) 03/02/23 03/03/23 03/03/23 Range/Units 20:42 08:36 08:36 WBC 11.6 H (3.8-10.6) k/uL Creatinine 0.52 L (0.66-1.25) mg/dL Glucose 53 L (74-99) mg/dL POC Glucose (mg/dL) 182 H (70-110) mg/dL C-Reactive Protein 1.7 H (<1.0) mg/dL Urine Opiates Screen (NotDetected) U Benzodiazepines Scrn (NotDetected) 03/03/23 Range/Units 11:24 WBC (3.8-10.6) k/uL Creatinine (0.66-1.25) mg/dL Glucose (74-99) mg/dL POC Glucose (mg/dL) 124 H (70-110) mg/dL C-Reactive Protein (<1.0) mg/dL Urine Opiates Screen (NotDetected) U Benzodiazepines Scrn (NotDetected) Assessment and Plan Assessment: Assessment and plan Acute encephalopathy with aphasia secondary to TIA Sepsis Aspiration pneumonia History of right parietal lobe CVA January 2023 History of right basal ganglia CVA 2020 Hypertensive urgency Hyperlipidemia Diabetes mellitus type 2 History of Mustafa's palsy affecting her right side of face * In regards to dysphagia/confusion CT head CT angina head and neck obtained. MRI brain completed, prior strokes noted, neurology consulted continue patient on aspirin/Plavix/high intensity statin * In regards to hypertensive urgency, continue metoprolol and lisinopril * In regards to sepsis, blood cultures collected, appropriately resuscitated with fluid, continue Rocephin/vancomycin/acyclovir * In regards to diabetes mellitus Accu-Cheks before meals at bedtime continue patient on correctional insulin and metformin and Lantus, HbA1c 7.7 monitor for hypoglycemia * In regards to hyperlipidemia continue Lipitor * Patient will need physical therapy occupational therapy evaluation * CODE STATUS is full code
[2023-03-03] MEDS: lisinopriL 5 MG TAB PO SCH (15:37)
[2023-03-03 16:27] LABS: Chol/HDL Ratio 5.27 Ratio; LDL Cholesterol,Calculated 90.3 mg/dL (0.0-131.0)
[2023-03-03 16:32] LABS: Glucose,Whole Blood 139 mg/dL (70-110)
[2023-03-03 18:22] LABS: HSV I IgG Interp POSITIVE; HSV II IgG Interp Negative (Negative)
--- NOTE | 2023-03-03 19:12 | P.PN ---
Subjective Progress Note Date: 03/03/23 Patient was seen for a follow-up. Patient is doing remarkably better. Denies any headache. All neurological symptoms have resolved. Once to go home. Patient's and patient's daughter were present today. Objective - Vital Signs Vital signs: Vital Signs Temp 97.7 F 03/03/23 08:11 Pulse 89 03/03/23 15:28 Resp 18 03/03/23 15:28 BP 159/80 03/03/23 15:28 Pulse Ox 97 03/03/23 15:28 FiO2 Intake & Output 03/03/23 03/03/23 03/04/23 06:59 18:59 06:59 Intake Total 110 Output Total 2280 400 Balance -2280 -290 Weight 81.647 kg Intake: Oral 110 Output: Urine 2280 400 Other: Voiding Method External Catheter External Catheter # Bowel Movements 2 - Exam Patient's mental status, speech and language functions are perfectly normal. Patient name all objects presented, can repeat without any difficulty. No aphasia or dysarthria. On cranial nerve examination, pupils are equal, round and reactive to light, visual hardy are full to confrontation with no neglect. He has left facial asymmetry, which is chronic. Tongue protrudes the midline. On muscle strength testing, there is no pronator drift and the strength is normal in arms and legs. No ataxia for [id number] testing. Sensory to touch is equal with no neglect. - Labs CBC & Chem 7: 03/03/23 08:36 03/03/23 08:36 Labs: Abnormal Lab Results - Last 24 Hours (Table) 03/02/23 03/03/23 03/03/23 Range/Units 20:42 08:36 08:36 WBC 11.6 H (3.8-10.6) k/uL Creatinine 0.52 L (0.66-1.25) mg/dL Glucose 53 L (74-99) mg/dL POC Glucose (mg/dL) 182 H (70-110) mg/dL C-Reactive Protein 1.7 H (<1.0) mg/dL Triglycerides 290.00 H (0.00-149.00) mg/dL VLDL Cholesterol, Calc 58.00 H (5.00-40.00) mg/dL HDL Cholesterol 34.70 L (40.00-60.00) mg/dL 03/03/23 03/03/23 Range/Units 11:24 16:30 WBC (3.8-10.6) k/uL Creatinine (0.66-1.25) mg/dL Glucose (74-99) mg/dL POC Glucose (mg/dL) 124 H 139 H (70-110) mg/dL C-Reactive Protein (<1.0) mg/dL Triglycerides (0.00-149.00) mg/dL VLDL Cholesterol, Calc (5.00-40.00) mg/dL HDL Cholesterol (40.00-60.00) mg/dL Assessment and Plan Assessment: * Acute, recurrent ischemic stroke, involving the right parietal occipital region. Patient's NIH stroke scale is 6 yesterday, today is down to 0. He has mild residual left facial asymmetry, which is chronic. * Fever, possible sepsis. Rule out intracranial infection. Doubt herpes encephalitis. * Vasculopathy, with previous CTA of head showed multifocal stenosis intracranially with [id number] stenosis within the intracranial bilateral ICA, severe stenosis in the midportion of the right vertebral artery. CTA of the neck showed atherosclerosis producing 50% stenosis in the proximal segment of both ICA. * Recent history of right parietal ischemic stroke 02/10/2023 * Previous history of stroke in 2020 over the right basal ganglia * History of CAD s/p stent X2 * Hypertension * Hyperlipidemia * Diabetes * History of Mustafa's palsy over the right face. Plan: * Patient has remarkably improved. NIH stroke scale is down from 6 to 0. * Patient started on Brilinta 90 mg twice a day by neuro intervention. This will be continued. Continue aspirin 81 mg daily with Brilinta. * Stat MRI of the brain with and without contrast revealed new areas of acute/subacute CVA in the right parietal region with evolution of the prior acute/subacute CVA seen on 02/11/2023. Postcontrast enhancement within the area on prior MRI favored to represent luxury perfusion. On my review, there is evidence of acute/subacute ischemia, one of them in the right lateral aspect of the parietal lobe, appears new from prior. Additional areas more to the trigone also demonstrates restricted diffusion. Lastly the area of prior infarct has increased in size with decreased in DWI signal. * 2-D echo performed 02/11/2023 revealed normal left ventricular EF 55-60%. Mild concentric LVH. No regional wall motion abnormalities. Normal left atrial size. Mild to moderate MR. Mild TR. * CTA head and neck showed: No worsening, significant stenosis in the common or internal carotid arteries bilaterally. No new large vessel occlusion or aneurysm at the level of [place] of Rees. * Fasting a.m. lipid panel on 02/11/2023 with cholesterol 111, LDL 44, HDL 29, triglycerides 185. Continue Lipitor 80 mg daily (home dose). * Hemoglobin A1c 7.7 on 02/11/2023. Recommend optimize control of diabetes to target A1c < 7.0. * Urine drug screen positive for opiates and benzodiazepine, which probably he has received. * Patient has spiked temperature. Infectious disease has seen the patient, started on acyclovir, and ceftriaxone and vancomycin. Lumbar puncture not able to be performed because patient has received Plavix and more recently Brilinta. We will defer all antibiotics to the ID. * EEG was performed, and the preliminary report revealed background slowing of moderate degree, suggestive of encephalopathy. No epileptiform activity was seen. No electrographic evidence of herpes encephalitis. * Permissive hypertension for next 24-48 hours * Neuro checks every 4 hours. * Telemetry monitoring rule out any arrhythmia * PT, OT, speech therapy * DVT prophylaxis: Heparin 5000 units subcu every 8 hours * Dr. Angel Luis Kay to resume neurology service from the morning.
[2023-03-03 20:26] LABS: Glucose,Whole Blood 133 mg/dL (70-110)
[2023-03-03] MEDS: INSULIN DETEMIR (LEVEMIR) 100 UNIT/ML SYR SQ SCH (20:47)
[2023-03-03] MEDS: EZETIMIBE 10 MG TAB PO SCH (20:47)
[2023-03-03] MEDS: HYDROcodone/APAP 7.5-325MG 1 EACH TAB PO PRN (21:55)
[2023-03-04 01:51] LABS: Glucose,Whole Blood 79 mg/dL (70-110)
--- NOTE | 2023-03-04 02:25 | EEG ---
ELECTROENCEPHALOGRAM REPORT PREAMBLE: This is a 67-year-old male with altered mental status. This study is performed to evaluate for any epileptiform activity. EEG FINDINGS: This is a 21-channel digital EEG recorded with video component, utilizing 10/20 international system with referential and bipolar montages. Background consists of moderately well-developed and regulated, mixed frequencies of fast frequency beta, mixed with some theta and some delta slowing in bihemispheric region. Background does not seem to be clearly reactive to eye opening or closing. Photic driving response was not seen. Different stages of sleep were not clearly seen. No focal or generalized epileptiform activity was seen. IMPRESSION: This is an abnormal EEG due to presence of mixed fast and slow frequency activity, suggestive of mild encephalopathy or medication effect. Clinical correlation is recommended. No epileptiform activity was seen. MMODL / IJN: [id number] /
[2023-03-04 05:56] LABS: Glucose,Whole Blood 75 mg/dL (70-110)
[2023-03-04] MEDS: INSULIN ASPART (NovoLOG) 100 UNIT/ML VIAL SQ SCH ×4 (05:58→21:38)
[2023-03-04] MEDS: AMPICILLIN-SULBACTAM 3 GM in SODIUM CHLORIDE 0.9% 100 ML IVPB SCH ×4 (06:16→23:42)
[2023-03-04] MEDS: PANTOPRAZOLE 40 MG TABLET PO SCH (06:16)
[2023-03-04] MEDS: HYDROcodone/APAP 7.5-325MG 1 EACH TAB PO PRN ×2 (09:05→21:56)
[2023-03-04] MEDS: lisinopriL 5 MG TAB PO SCH (09:06)
[2023-03-04] MEDS: PIOGLITAZONE 15 MG TAB PO SCH (09:06)
[2023-03-04] MEDS: DULoxetine HCL 60 MG CAPSULE.DR PO SCH (09:06)
[2023-03-04] MEDS: ASPIRIN 81 MG PO SCH (09:06)
[2023-03-04] MEDS: metFORMIN 500 MG TAB PO SCH ×2 (09:06→21:55)
[2023-03-04] MEDS: HEPARIN SODIUM,PORCINE 5,000 UNIT/ML 1 ML VIAL SQ SCH ×3 (09:06→23:42)
[2023-03-04] MEDS: ATORVASTATIN 80 MG TAB PO SCH (09:06)
[2023-03-04] MEDS: METOPROLOL TARTRATE 50 MG TAB PO SCH (09:06)
[2023-03-04] MEDS: TICAGRELOR 90 MG TAB PO SCH ×2 (09:06→21:55)
[2023-03-04 09:32] LABS: HCT 36.1 % (39.0-53.0); HGB 11.8 gm/dL (13.0-17.5); MCH 30.3 pg (25.0-35.0); MCHC 32.7 g/dL (31.0-37.0); MCV 92.5 fL (80.0-100.0); Mean Platelet Volume 8.6; Platelet Count 249 k/uL (150-450); RDW 13.2 % (11.5-15.5)
[2023-03-04 10:12] LABS: African American GFR (CKD) >90 (>60 ml/min/1.73 sqM); Anion Gap 8 mmol/L; Blood Urea Nitrogen 9 mg/dL (9-20); Carbon Dioxide 23 mmol/L (22-30); Chloride 111 mmol/L (98-107); Glucose 60 mg/dL (74-99); Non-African American GFR(CKD) >90 (>60 ml/min/1.73 sqM); Potassium 3.7 mmol/L (3.5-5.1); Sodium 142 mmol/L (137-145)
[2023-03-04] MEDS ORDERED: VANCOMYCIN TROUGH DUE 1 EACH MISC MISCELLANE ONE (11:00)
[2023-03-04] MEDS: ACETAMINOPHEN TAB 325 MG TAB PO PRN ×2 (11:36→17:18)
[2023-03-04 11:43] LABS: Glucose,Whole Blood 101 mg/dL (70-110)
--- NOTE | 2023-03-04 12:25 | P.PN ---
Subjective Progress Note Date: 03/04/23 * 67-year-old gentleman with past medical history of CVA, involving right parietal lobe, diabetes mellitus, coronary artery disease, hypertension, hyperlipidemia who was recently admitted from was placed in observation for complaints of confusion and right. patient was seen by neurology during this hospitalization and patient is significantly improved towards baseline. patient was discharged home with plans to follow-up with primary neurology outpatient. * Patient presented to ED has cold stroke activation, patient had MRI brain done in January 2023 and he had some residual left-sided facial droop from previous stroke. After being discharged home patient went for a nap when he woke up around 10:30 PM patient was confused again and was aphasic. EMS was contacted and patient was brought back to the hospital. * Patient mentation has been waxing and waning for the last 72 hours, while in ER patient continued to remain intermittently confused neurology was reconsulted, * Upon presentation a CT head and CT angina head and neck was obtained which showed chronic changes no acute intracranial process was noted to lacerations occlusion noted * Repeat CT head was obtained in ED on 03/02 2023 due to confusion which remained stable * Patient to be admitted to medical floor with consultations from neurology * While in ER patient was started becoming disoriented and febrile. Lactic acid was obtained stat which was elevated, patient was febrile as well. Patient was started on broad-spectrum antibiotic including Unasyn and vancomycin suspected aspiration pneumonitis, blood cultures collected as well * 03/03/2023: Patient seen and evaluated bedside, patient is alert and oriented to person place and situation. Significant improvement in mentation noted, MRI brain completed shows evolution of prior stroke with increased size areas of white matter changes no known acute/subacute stroke noted. Chest x-ray obtained showed interval improvement in aeration no focal infiltrate noted. Patient was started on IV acyclovir, transition to IV Rocephin, and vancomycin. Infectious disease following as well. WBC count improving trending down 11.6, electrolytes panel within normal limits blood glucose low at 55-year-old. 1.7. Calcitonin 0.05 * 03/04/2023: Patient seen and evaluated bedside, patient is alert and oriented 3, patient seems to be close to baseline patient requesting discharge, explained we will need to monitor for cultures and potential discharge within the next 24 hours if remains stable. Blood work CBC improving within normal limits. REVIEW OF SYSTEMS: Confusion, aphasia, disorientation resolved CONSTITUTIONAL: No fever, no malaise, no fatigue. HEENT: No recent visual problems or hearing problems. Denied any sore throat. CARDIOVASCULAR: No chest pain, orthopnea, PND, no palpitations, no syncope. PULMONARY: No shortness of breath, no cough, no hemoptysis. GASTROINTESTINAL: No diarrhea, no nausea, no vomiting, no abdominal pain. NEUROLOGICAL: No headaches, no weakness, no numbness. HEMATOLOGICAL: Denies any bleeding or petechiae. GENITOURINARY: Denies any burning micturition, frequency, or urgency. MUSCULOSKELETAL/RHEUMATOLOGICAL: Denies any joint pain, swelling, or any muscle pain. ENDOCRINE: Denies any polyuria or polydipsia. PHYSICAL EXAMINATION: GENERAL: The patient is alert and oriented x 3 , ill appearance, HEENT: Pupils are round and equally reacting to light.. CARDIOVASCULAR: S1 and S2 present. Heart rate is normal PULMONARY: Chest is clear to auscultation, no wheezing or crackles. ABDOMEN: Soft, nontender, nondistended, normoactive bowel sounds. No palpable organomegaly. MUSCULOSKELETAL: No joint swelling or deformity. EXTREMITIES: No cyanosis, clubbing, or pedal edema. NEUROLOGICAL: Alert and oriented to person place and situation, chronic left- sided facial droop noted, moving bilateral upper and lower extremity Objective - Vital Signs Vital signs: Vital Signs Temp 97.6 F 03/04/23 09:02 Pulse 75 03/04/23 11:33 Resp 16 03/04/23 11:33 BP 139/84 03/04/23 11:33 Pulse Ox 98 03/04/23 11:33 FiO2 Intake & Output 03/03/23 03/04/23 03/04/23 18:59 06:59 18:59 Intake Total 110 Output Total 400 500 Balance -290 -500 Intake: Oral 110 Output: Urine 400 500 Other: Voiding Method External Catheter External Catheter Toilet Urinal # Voids 1 # Bowel Movements 2 1 - Labs CBC & Chem 7: 03/04/23 07:33 03/04/23 07:33 Labs: Abnormal Lab Results - Last 24 Hours (Table) 03/03/23 03/03/23 03/03/23 Range/Units 08:36 16:30 20:25 RBC (4.30-5.90) m/uL Hgb (13.0-17.5) gm/dL Hct (39.0-53.0) % Chloride (98-107) mmol/L Creatinine (0.66-1.25) mg/dL Glucose (74-99) mg/dL POC Glucose (mg/dL) 139 H 133 H (70-110) mg/dL Triglycerides 290.00 H (0.00-149.00) mg/dL VLDL Cholesterol, Calc 58.00 H (5.00-40.00) mg/dL HDL Cholesterol 34.70 L (40.00-60.00) mg/dL 03/04/23 03/04/23 Range/Units 07:33 07:33 RBC 3.90 L (4.30-5.90) m/uL Hgb 11.8 L (13.0-17.5) gm/dL Hct 36.1 L (39.0-53.0) % Chloride 111 H (98-107) mmol/L Creatinine 0.58 L (0.66-1.25) mg/dL Glucose 60 L (74-99) mg/dL POC Glucose (mg/dL) (70-110) mg/dL Triglycerides (0.00-149.00) mg/dL VLDL Cholesterol, Calc (5.00-40.00) mg/dL HDL Cholesterol (40.00-60.00) mg/dL Microbiology - Last 24 Hours (Table) 03/02/23 10:20 Blood Culture - Preliminary Blood Assessment and Plan Assessment: Assessment and plan Acute encephalopathy with aphasia secondary to CVA Acute /subacute CVA involving right parietal regions Sepsis Aspiration pneumonia History of right parietal lobe CVA January 2023 History of right basal ganglia CVA 2020 Hypertensive urgency Hyperlipidemia Diabetes mellitus type 2 History of Mustafa's palsy affecting her right side of face * In regards to dysphagia/confusion CT head CT angina head and neck obtained. MRI brain completed, prior strokes noted, PER neurology consulted >> new areas of acute/subacute CVA in the right parietal region with evolution of the prior acute/subacute CVA seen on 02/11/2023. Postcontrast enhancement within the area on prior MRI favored to represent luxury perfusion. On my review, there is evidence of acute/subacute ischemia, one of them in the right lateral aspect of the parietal lobe, appears new from prior. Additional areas more to the trigone also demonstrates restricted diffusion. Lastly the area of prior infarct has increased in size with decreased in DWI signal. * continue patient on aspirin/Brilanta /high intensity statin * In regards to hypertensive urgency, continue metoprolol and lisinopril * In regards to sepsis, blood cultures collected, appropriately resuscitated with fluid, Rocephin/vancomycin/acyclovir >> transition to Unasyn * In regards to diabetes mellitus Accu-Cheks before meals at bedtime continue patient on correctional insulin and metformin and Lantus, HbA1c 7.7 monitor for hypoglycemia * In regards to hyperlipidemia continue Lipitor * Patient will need physical therapy occupational therapy evaluation * CODE STATUS is full code Time with Patient: Greater than 30
--- NOTE | 2023-03-04 14:55 | P.PN ---
Subjective Progress Note Date: 03/04/23 I am seeing the patient for the first time during this admission. Please refer to Dr. Mack's notes for further details. It seems patient had speech difficulty a few days ago that resolved. He has acute on subacute stroke. He feels back to baseline. Objective - Vital Signs Vital signs: Vital Signs Temp 97.6 F 03/04/23 09:02 Pulse 75 03/04/23 11:33 Resp 16 03/04/23 11:33 BP 139/84 03/04/23 11:33 Pulse Ox 98 03/04/23 11:33 FiO2 Intake & Output 03/03/23 03/04/23 03/04/23 18:59 06:59 18:59 Intake Total 110 Output Total 400 500 Balance -290 -500 Intake: Oral 110 Output: Urine 400 500 Other: Voiding Method External Catheter External Catheter Toilet Urinal # Voids 1 # Bowel Movements 2 1 - Exam General: Lying in bed and is not in acute distress. Neuro: The patient is awake, alert, oriented to self, place and time. Is following simple commands. No aphasia or neglect. Visual hardy are full to confrontation. EOM is intact and no nystagmus. Mild left lower facial weakness. No dysarthria. Motor: Strength is 5/5 throughout. Sensation: Normal to touch throughout. - Labs CBC & Chem 7: 03/04/23 07:33 03/04/23 07:33 Labs: Abnormal Lab Results - Last 24 Hours (Table) 03/03/23 03/03/23 03/03/23 Range/Units 08:36 16:30 20:25 RBC (4.30-5.90) m/uL Hgb (13.0-17.5) gm/dL Hct (39.0-53.0) % Chloride (98-107) mmol/L Creatinine (0.66-1.25) mg/dL Glucose (74-99) mg/dL POC Glucose (mg/dL) 139 H 133 H (70-110) mg/dL Triglycerides 290.00 H (0.00-149.00) mg/dL VLDL Cholesterol, Calc 58.00 H (5.00-40.00) mg/dL HDL Cholesterol 34.70 L (40.00-60.00) mg/dL 03/04/23 03/04/23 Range/Units 07:33 07:33 RBC 3.90 L (4.30-5.90) m/uL Hgb 11.8 L (13.0-17.5) gm/dL Hct 36.1 L (39.0-53.0) % Chloride 111 H (98-107) mmol/L Creatinine 0.58 L (0.66-1.25) mg/dL Glucose 60 L (74-99) mg/dL POC Glucose (mg/dL) (70-110) mg/dL Triglycerides (0.00-149.00) mg/dL VLDL Cholesterol, Calc (5.00-40.00) mg/dL HDL Cholesterol (40.00-60.00) mg/dL Microbiology - Last 24 Hours (Table) 03/02/23 10:20 Blood Culture - Preliminary Blood Assessment and Plan Assessment: * Acute to subacute ischemic stroke. On top on his recurrent stroke in end of 01/2023 stroke over frontal/parietal region. Patient's NIH stroke scale is 6 yesterday, today is down to 0. He has mild residual left facial asymmetry, which is chronic. * Fever, possible sepsis. Rule out intracranial infection. Doubt herpes encephalitis. * Vasculopathy, with previous CTA of head showed multifocal stenosis intracranially with [id number]-[id number] stenosis within the intracranial bilateral ICA, severe stenosis in the midportion of the right vertebral artery. CTA of the neck showed atherosclerosis producing 50% stenosis in the proximal segment of both ICA. * Recent history of right parietal ischemic stroke 02/10/2023 * Previous history of stroke in 2020 over the right basal ganglia * History of CAD s/p stent X2 * Hypertension * Hyperlipidemia * Diabetes * History of Mustafa's palsy over the right face. Plan: * Patient started on Brilinta 90 mg twice a day by neuro intervention. This will be continued. Continue aspirin 81 mg daily with Brilinta. * MRI of the brain with and without contrast revealed new areas of acute/suba cute CVA in the right parietal region with evolution of the prior acute/subacute CVA seen on 02/11/2023. Postcontrast enhancement within the area on prior MRI favored to represent luxury perfusion. Per Dr. Mack review, there is evidence of acute/subacute ischemia, one of them in the right lateral aspect of the parietal lobe, appears new from prior. Additional areas more to the trigone also demonstrates restricted diffusion. Lastly the area of prior infarct has increased in size with decreased in DWI signal. I personally reviewed MRI and felt there is one additional new acute/subacute lesion compared to prior MRI in end of 01/2023 over the right parietal/frontal region. Otherwise there is evolution of prior stroke. * 2-D echo performed 02/11/2023 revealed normal left ventricular EF 55-60%. Mild concentric LVH. No regional wall motion abnormalities. Normal left atrial size. Mild to moderate MR. Mild TR. * CTA head and neck showed: No worsening, significant stenosis in the common or internal carotid arteries bilaterally. No new large vessel occlusion or aneurysm at the level of [place] of [place]. * Fasting a.m. lipid panel on 02/11/2023 with cholesterol 111, LDL 44, HDL 29, triglycerides 185. Continue Lipitor 80 mg daily (home dose). * Hemoglobin A1c 7.7 on 02/11/2023. Recommend optimize control of diabetes to target A1c < 7.0. * Urine drug screen positive for opiates and benzodiazepine, which probably he has received. * Patient has spiked temperature. Infectious disease has seen the patient, started on acyclovir, and ceftriaxone and vancomycin. Lumbar puncture not ab le to be performed because patient has received Plavix and more recently Brilinta. We will defer all antibiotics to the ID. Acylcovir was discontinued by I.D. team yesterday and patient is currently on Unasyn. I spoke with Dr. Rosado and felt possible aspiration pneumonia. * EEG was performed, and reported as abnormal due to presence of mixed fast and slow frequency activity, suggestive of mild encephalopathy or medication effect. Clinical correlation is recommended. * Normotensive recommended. * Neuro checks every 4 hours. * Telemetry monitoring rule out any arrhythmia * PT, OT, speech therapy * DVT prophylaxis: Heparin 5000 units subcu every 8 hours * UPon discharge, recommend the patient to follow-up with neurologist as outpatient within 1-2 weeks. Time with Patient: Less than 30
--- NOTE | 2023-03-04 15:56 | P.PN ---
Subjective Progress Note Date: 03/03/23 Principal diagnosis: Reason for follow-up is fever and leukocytosis Patient is a 67-year-old male with a past medical history negative for coronary disease CVA TIA diabetes mellitus reflux hypertension hyperlipidemia patient was recently admitted to this facility for some mental status changes with concern for possible TIA patient was back to his baseline and was dis charged, subsequent presented within 24 hours with mental status changes unresponsiveness and did have a fever with initial workup negative. On today's evaluation that is 03/03/2023, the patient did have resolution of his fever and the patient is afebrile this morning the patient is more awake and al ert today he know that he is at [facility] did have mild headache but no photophobia no nausea vomiting no abdominal pain no diarrhea. Patient white count is down to 11.6, creatinine 0.52 cultures currently pending, chest x-ray manage patient improved aeration in the mid and lower lung MRI of the brain new areas of acute/subacute CVA in the right parietal region. Objective - Vital Signs Vital signs: Vital Signs Temp 97.7 F 03/03/23 08:11 Pulse 78 03/03/23 11:09 Resp 15 03/03/23 11:09 BP 156/92 03/03/23 11:09 Pulse Ox 97 03/03/23 11:09 FiO2 Intake & Output 03/02/23 03/03/23 03/03/23 18:59 06:59 18:59 Output Total 900 2280 Balance -900 -2280 Weight 81.647 kg Output: Urine 900 2280 Other: Voiding Method External Catheter External Catheter - Exam GENERAL DESCRIPTION: An elderly male lying in bed in no distress RESPIRATORY SYSTEM: Unlabored breathing , decreased breath sounds at bases HEART: S1 S2 regular rate and rhythm , ABDOMEN: Soft , no tenderness EXTREMITIES: No edema feet - Labs CBC & Chem 7: 03/04/23 07:33 03/04/23 07:33 Labs: Abnormal Lab Results - Last 24 Hours (Table) 03/02/23 03/02/23 03/02/23 Range/Units 04:41 14:25 17:38 WBC (3.8-10.6) k/uL Creatinine (0.66-1.25) mg/dL Glucose (74-99) mg/dL POC Glucose (mg/dL) 193 H 146 H (70-110) mg/dL C-Reactive Protein (<1.0) mg/dL Urine Opiates Screen Detected H (NotDetected) U Benzodiazepines Scrn Detected H (NotDetected) 03/02/23 03/03/23 03/03/23 Range/Units 20:42 08:36 08:36 WBC 11.6 H (3.8-10.6) k/uL Creatinine 0.52 L (0.66-1.25) mg/dL Glucose 53 L (74-99) mg/dL POC Glucose (mg/dL) 182 H (70-110) mg/dL C-Reactive Protein 1.7 H (<1.0) mg/dL Urine Opiates Screen (NotDetected) U Benzodiazepines Scrn (NotDetected) 03/03/23 Range/Units 11:24 WBC (3.8-10.6) k/uL Creatinine (0.66-1.25) mg/dL Glucose (74-99) mg/dL POC Glucose (mg/dL) 124 H (70-110) mg/dL C-Reactive Protein (<1.0) mg/dL Urine Opiates Screen (NotDetected) U Benzodiazepines Scrn (NotDetected) Assessment and Plan (1) Aspiration pneumonitis Current Visit: Yes Status: Acute Code(s): J69.0 - PNEUMONITIS DUE TO INHALATION OF FOOD AND VOMIT SNOMED Code(s): 043109853 (2) Fever Current Visit: Yes Status: Acute Code(s): R50.9 - FEVER, UNSPECIFIED SNOMED Code(s): 990067120 (3) Leukocytosis Current Visit: Yes Status: Acute Code(s): D72.829 - ELEVATED WHITE BLOOD CELL COUNT, UNSPECIFIED SNOMED Code(s): 317495568 Plan: 1patient with a fever and this patient presented to hospital with confusion aphasia and concern for possible CVA however the patient also have elevated white count initial workup included a chest x-ray that has been negative for any consolidation urine has been negative abdominal was soft on clinical examination and no evidence of any cellulitis with a question of possible [employer] infection needs to be ruled out, and fortunately the patient has received Brilinta and was on Plavix so per discussion with the neurologist LP could not be completed, there is also concern for possible aspiration pneumonitis 2-patient did have a significant improvement in his clinical condition he is more awake and alert today clinically not behaving as encephalitis or meningitis MRI has been suggestive of subacute/acute CVA I will discontinue his Rocephin vancomycin and acyclovir start the patient on Unasyn for possible aspiration pneumonitis Dictation was produced using [employer] dictation software. please excuse any grammatical, word or spelling errors. Time with Patient: Less than 30
--- NOTE | 2023-03-04 15:58 | P.PN ---
Subjective Progress Note Date: 03/04/23 Principal diagnosis: Reason for follow-up is fever and leukocytosis Patient is a 67-year-old male with a past medical history negative for coronary disease CVA TIA diabetes mellitus reflux hypertension hyperlipidemia patient was recently admitted to this facility for some mental status changes with concern for possible TIA patient was back to his baseline and was dis charged, subsequent presented within 24 hours with mental status changes unresponsiveness and did have a fever with initial workup negative. On today's evaluation that is 03/04/2023, the patient remains to be afebrile, the patient is breathing comfortably on room air and the patient denies any short ness of breath, the patient denies chest pain or any cough , patient denies any nausea/vomiting abdominal pain or diarrhea Patient white count is normalized to 8.0, creatinine 0.58, cultures currently pending, chest x-ray manage patient improved aeration in the mid and lower lung MRI of the brain new areas of acute/subacute CVA in the right parietal region. Objective - Vital Signs Vital signs: Vital Signs Temp 97.6 F 03/04/23 09:02 Pulse 75 03/04/23 11:33 Resp 16 03/04/23 11:33 BP 139/84 03/04/23 11:33 Pulse Ox 98 03/04/23 11:33 FiO2 Intake & Output 03/03/23 03/04/23 03/04/23 18:59 06:59 18:59 Intake Total 110 Output Total 400 500 Balance -290 -500 Intake: Oral 110 Output: Urine 400 500 Other: Voiding Method External Catheter External Catheter Toilet Urinal # Voids 1 # Bowel Movements 2 1 - Exam GENERAL DESCRIPTION: An elderly male lying in bed in no distress RESPIRATORY SYSTEM: Unlabored breathing , decreased breath sounds at bases HEART: S1 S2 regular rate and rhythm , ABDOMEN: Soft , no tenderness EXTREMITIES: No edema feet - Labs CBC & Chem 7: 03/04/23 07:33 03/04/23 07:33 Labs: Abnormal Lab Results - Last 24 Hours (Table) 03/03/23 03/03/23 03/03/23 Range/Units 08:36 16:30 20:25 RBC (4.30-5.90) m/uL Hgb (13.0-17.5) gm/dL Hct (39.0-53.0) % Chloride (98-107) mmol/L Creatinine (0.66-1.25) mg/dL Glucose (74-99) mg/dL POC Glucose (mg/dL) 139 H 133 H (70-110) mg/dL Triglycerides 290.00 H (0.00-149.00) mg/dL VLDL Cholesterol, Calc 58.00 H (5.00-40.00) mg/dL HDL Cholesterol 34.70 L (40.00-60.00) mg/dL 03/04/23 03/04/23 Range/Units 07:33 07:33 RBC 3.90 L (4.30-5.90) m/uL Hgb 11.8 L (13.0-17.5) gm/dL Hct 36.1 L (39.0-53.0) % Chloride 111 H (98-107) mmol/L Creatinine 0.58 L (0.66-1.25) mg/dL Glucose 60 L (74-99) mg/dL POC Glucose (mg/dL) (70-110) mg/dL Triglycerides (0.00-149.00) mg/dL VLDL Cholesterol, Calc (5.00-40.00) mg/dL HDL Cholesterol (40.00-60.00) mg/dL Microbiology - Last 24 Hours (Table) 03/02/23 10:20 Blood Culture - Preliminary Blood Assessment and Plan (1) Aspiration pneumonitis Current Visit: Yes Status: Acute Code(s): J69.0 - PNEUMONITIS DUE TO INHALATION OF FOOD AND VOMIT SNOMED Code(s): 312843358 (2) Fever Current Visit: Yes Status: Acute Code(s): R50.9 - FEVER, UNSPECIFIED SNOMED Code(s): 695655287 (3) Leukocytosis Current Visit: Yes Status: Acute Code(s): D72.829 - ELEVATED WHITE BLOOD CELL COUNT, UNSPECIFIED SNOMED Code(s): 734808864 Plan: 1patient with a fever and this patient presented to hospital with confusion aphasia and concern for possible CVA however the patient also have elevated white count initial workup included a chest x-ray that has been negative for any consolidation urine has been negative abdominal was soft on clinical examination and no evidence of any cellulitis with a question of possible NON 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 infection needs to be ruled out, and fortunately the patient has received Brilinta and was on Plavix so per discussion with the neurologist LP could not be completed, there is also concern for possible aspiration pneumonitis 2-patient did have a significant improvement in his clinical condition, clinically not behaving as encephalitis or meningitis MRI has been suggestive of subacute/acute CVA 3-patient white count has normalized fever has resolved we will continue patient on Unasyn transition to short course of oral Augmentin on discharge Dictation was produced using [employer] dictation software. please excuse any grammatical, word or spelling errors. Time with Patient: Less than 30
[2023-03-04 16:49] LABS: Glucose,Whole Blood 103 mg/dL (70-110)
[2023-03-04 19:56] LABS: Glucose,Whole Blood 114 mg/dL (70-110)
[2023-03-04] MEDS: EZETIMIBE 10 MG TAB PO SCH (21:55)
[2023-03-04] MEDS: INSULIN DETEMIR (LEVEMIR) 100 UNIT/ML SYR SQ SCH (22:29)
[2023-03-05 02:05] VITALS: RESP 18
[2023-03-05 06:02] LABS: Glucose,Whole Blood 65 mg/dL (70-110)
[2023-03-05 06:16] LABS: Glucose,Whole Blood 102 mg/dL (70-110)
[2023-03-05] MEDS: AMPICILLIN-SULBACTAM 3 GM in SODIUM CHLORIDE 0.9% 100 ML IVPB SCH ×2 (06:24→12:13)
[2023-03-05] MEDS: INSULIN ASPART (NovoLOG) 100 UNIT/ML VIAL SQ SCH ×2 (06:25→12:32)
[2023-03-05] MEDS: PANTOPRAZOLE 40 MG TABLET PO SCH (06:25)
[2023-03-05 06:29] LABS: Herpes simplex I and/or II IgM 1.2 INDEX (<=0.90); Herpes simplex IgG I Ab 61.9 (< or = 0.90); Herpes simplex IgG II Ab 0.07 (< or = 0.90)
[2023-03-05] MEDS: HEPARIN SODIUM,PORCINE 5,000 UNIT/ML 1 ML VIAL SQ SCH (09:06)
[2023-03-05] MEDS: HYDROcodone/APAP 7.5-325MG 1 EACH TAB PO PRN (09:06)
[2023-03-05] MEDS: metFORMIN 500 MG TAB PO SCH (09:07)
[2023-03-05] MEDS: lisinopriL 5 MG TAB PO SCH (09:07)
[2023-03-05] MEDS: TICAGRELOR 90 MG TAB PO SCH (09:07)
[2023-03-05] MEDS: METOPROLOL TARTRATE 50 MG TAB PO SCH (09:07)
[2023-03-05] MEDS: ATORVASTATIN 80 MG TAB PO SCH (09:07)
[2023-03-05] MEDS: ASPIRIN 81 MG PO SCH (09:07)
[2023-03-05] MEDS: DULoxetine HCL 60 MG CAPSULE.DR PO SCH (09:07)
[2023-03-05] MEDS: PIOGLITAZONE 15 MG TAB PO SCH (09:10)
[2023-03-05 09:18] LABS: HCT 35.6 % (39.0-53.0); MCH 31.1 pg (25.0-35.0); MCHC 33.7 g/dL (31.0-37.0); MCV 92.2 fL (80.0-100.0); Mean Platelet Volume 8.6; Platelet Count 261 k/uL (150-450); RBC 3.86 m/uL (4.30-5.90); RDW 13.2 % (11.5-15.5); WBC 7.4 k/uL (3.8-10.6)
[2023-03-05 09:38] LABS: African American GFR (CKD) >90 (>60 ml/min/1.73 sqM); Anion Gap 10 mmol/L; Blood Urea Nitrogen 10 mg/dL (9-20); Calcium 9.2 mg/dL (8.4-10.2); Carbon Dioxide 24 mmol/L (22-30); Chloride 106 mmol/L (98-107); Glucose 168 mg/dL (74-99); Non-African American GFR(CKD) >90 (>60 ml/min/1.73 sqM); Potassium 4.1 mmol/L (3.5-5.1); Sodium 140 mmol/L (137-145)
[2023-03-05 11:58] LABS: Glucose,Whole Blood 86 mg/dL (70-110)
--- NOTE | 2023-03-05 12:06 | P.DS ---
Providers Date of admission: 03/02/23 01:18 Expected date of discharge: 03/05/23 Attending physician: Erin Fernandez Consults: 03/02/23 01:17 Consult Physician Routine Consulting Provider: Keith Mack Consult Reason/Comments: confusion, aphasia, possible cva Do you want consulting provider notified?: Yes 03/02/23 13:09 Consult Physician Routine Consulting Provider: Kris Rosado Consult Reason/Comments: Sepsis, source unknown Do you want consulting provider notified?: Yes Primary care physician: Stated None Hospital Course: * 67-year-old gentleman with past medical history of CVA, involving right parietal lobe, diabetes mellitus, coronary artery disease, hypertension, hyperlipidemia who was recently admitted from was placed in observation for complaints of confusion and right. patient was seen by neurology during this hospitalization and patient is significantly improved towards baseline. patient was discharged home with plans to follow-up with primary neurology outpatient. * Patient presented to ED has cold stroke activation, patient had MRI brain done in January 2023 and he had some residual left-sided facial droop from previous stroke. After being discharged home patient went for a nap when he woke up around 10:30 PM patient was confused again and was aphasic. EMS was contacted and patient was brought back to the hospital. * Patient mentation has been waxing and waning for the last 72 hours, while in ER patient continued to remain intermittently confused neurology was reconsulted, * Upon presentation a CT head and CT angina head and neck was obtained which showed chronic changes no acute intracranial process was noted to lacerations occlusion noted * Repeat CT head was obtained in ED on 03/02 2023 due to confusion which remained stable * Patient to be admitted to medical floor with consultations from neurology * While in ER patient was started becoming disoriented and febrile. Lactic acid was obtained stat which was elevated, patient was febrile as well. Patient was started on broad-spectrum antibiotic including Unasyn and vancomycin suspected aspiration pneumonitis, blood cultures collected as well * 03/03/2023: Patient seen and evaluated bedside, patient is alert and oriented to person place and situation. Significant improvement in mentation noted, MRI brain completed shows evolution of prior stroke with increased size areas of white matter changes no known acute/subacute stroke noted. Chest x-ray obtained showed interval improvement in aeration no focal infiltrate noted. Patient was started on IV acyclovir, transition to IV Rocephin, and vancomycin. Infectious disease following as well. WBC count improving trending down 11.6, electrolytes panel within normal limits blood glucose low at 55-year-old. 1.7. Calcitonin 0.05 * 03/04/2023: Patient seen and evaluated bedside, patient is alert and oriented 3, patient seems to be close to baseline patient requesting discharge, explained we will need to monitor for cultures and potential discharge within the next 24 hours if remains stable. Blood work CBC improving within normal limits. * 03/05/2023: Patient seen and evaluated bedside, patient remains afebrile a WBC count within normal limits hemodynamically stable back to baseline antiplatelet change to brittle enter along with aspirin seen by neurology cleared for discharge MRI brain reviewed. Patient was ambulated in the hallway, remains alert and oriented, repeat blood pressure obtained after morning meds given. Patient to be discharged home, patient's was counseled regarding polypharmacy. He does not take diazepam and status removed from home medication list REVIEW OF SYSTEMS: Confusion resolved, aphasi a RESOLVED disorientation resolved CONSTITUTIONAL: No fever, no malaise, no fatigue. HEENT: No recent visual problems or hearing problems. Denied any sore throat. CARDIOVASCULAR: No chest pain, orthopnea, PND, no palpitations, no syncope. PULMONARY: No shortness of breath, no cough, no hemoptysis. GASTROINTESTINAL: No diarrhea, no nausea, no vomiting, no abdominal pain. NEUROLOGICAL: No headaches, no weakness, no numbness. HEMATOLOGICAL: Denies any bleeding or petechiae. GENITOURINARY: Denies any burning micturition, frequency, or urgency. MUSCULOSKELETAL/RHEUMATOLOGICAL: Denies any joint pain, swelling, or any muscle pain. ENDOCRINE: Denies any polyuria or polydipsia. PHYSICAL EXAMINATION: GENERAL: The patient is alert and oriented x 3 , appearing well HEENT: Pupils are round and equally reacting to light.. CARDIOVASCULAR: S1 and S2 present. Heart rate is normal PULMONARY: Chest is clear to auscultation, no wheezing or crackles. ABDOMEN: Soft, nontender, nondistended, normoactive bowel sounds. No palpable organomegaly. MUSCULOSKELETAL: No joint swelling or deformity. EXTREMITIES: No cyanosis, clubbing, or pedal edema. 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 MRI brain completed, prior strokes noted, PER neurology consulted >> new areas of acute/subacute CVA in the right parietal region with evolution of the prior acute/subacute CVA seen on 02/11/2023. Postcontrast enhancement within the area on prior MRI favored to represent luxury perfusion. On my review, there is evidence of acute/subacute ischemia, one of them in the right lateral aspect of the parietal lobe, appears new from prior. Additional areas more to the trigone also demonstrates restricted diffusion. Lastly the area of prior infarct has increased in size with decreased in DWI signal. * continue patient on aspirin/Brilanta /high intensity statin * In regards to hypertensive urgency, continue metoprolol and lisinopril * In regards to sepsis, blood cultures collected no growth to date, appropriately resuscitated with fluid, Rocephin/vancomycin/acyclovir >> lopez sition to Unasyn, upon discharge switched to Augmentin to complete course of antibiotic, additional 4 more days provided * In regards to diabetes mellitus Accu-Cheks before meals at bedtime continue patient on correctional insulin and metformin and Lantus, HbA1c 7.7 monitor for hypoglycemia * In regards to hyperlipidemia continue Lipitor * physical therapy occupational therapy evaluation while inpatient, discharge home Patient Condition at Discharge: Fair Plan - Discharge Summary Discharge Rx Participant: No New Discharge Prescriptions: New Amoxic-Pot Clav 875-125Mg [Augmentin 875-125] 1 tab PO BID 4 Days #8 tab Ticagrelor [Brilinta] 90 mg PO BID 30 Days #60 tab Continue metFORMIN HCL [Glucophage] 1,000 mg PO BID Omeprazole 20 mg PO DAILY Insulin Detemir [Levemir Flextouch Pen] 75 units SQ HS Pioglitazone HCl [Actos] 15 mg PO DAILY Atorvastatin Calcium [Lipitor] 80 mg PO DAILY HYDROcodone/APAP 7.5-325MG [Saline 7.5-325] 1 tab PO BID PRN PRN Reason: Pain Metoprolol Tartrate [Lopressor] 100 mg PO DAILY Aspirin 81 mg PO DAILY 21 Days #21 tab Empagliflozin [Jardiance] 10 mg PO DAILY DULoxetine HCL [Cymbalta] 60 mg PO DAILY Ezetimibe [Zetia] 10 mg PO HS lisinopriL [Zestril] 5 mg PO DAILY Vitamin E (Dl,Tocopheryl Acet) [Vitamin E (400 Iu = 180 mg)] 400 unit PO DAILY Discontinued Clopidogrel [Plavix] 75 mg PO DAILY 90 Days #90 tablet diazePAM 10 mg PO DIRECTED Discharge Medication List Omeprazole 20 mg PO DAILY 02/23/16 [History] metFORMIN HCL [Glucophage] 1,000 mg PO BID 02/23/16 [History] Insulin Detemir [Levemir Flextouch Pen] 75 units SQ HS 03/03/18 [History] Pioglitazone HCl [Actos] 15 mg PO DAILY 08/16/18 [History] Empagliflozin [Jardiance] 10 mg PO DAILY 10/25/20 [History] Atorvastatin Calcium [Lipitor] 80 mg PO DAILY 12/27/20 [History] DULoxetine HCL [Cymbalta] 60 mg PO DAILY 12/27/20 [History] HYDROcodone/APAP 7.5-325MG [Saline 7.5-325] 1 tab PO BID PRN 12/27/20 [History] Metoprolol Tartrate [Lopressor] 100 mg PO DAILY 12/27/20 [History] Ezetimibe [Zetia] 10 mg PO HS 09/19/22 [History] Vitamin E (Dl,Tocopheryl Acet) [Vitamin E (400 Iu = 180 mg)] 400 unit PO DAILY 09/19/22 [History] lisinopriL [Zestril] 5 mg PO DAILY 09/19/22 [History] Aspirin 81 mg PO DAILY 21 Days #21 tab 02/13/23 [Rx] Amoxic-Pot Clav 875-125Mg [Augmentin 875-125] 1 tab PO BID 4 Days #8 tab 03/05/23 [Rx] Ticagrelor [Brilinta] 90 mg PO BID 30 Days #60 tab 03/05/23 [Rx] Follow up Appointment(s)/Referral(s): Sofía Mercado MD [STAFF PHYSICIAN] - 1-2 days None,Stated [Primary Care Provider] - 1-2 days Activity/Diet/Wound Care/Special Instructions: follow up with Dr. Mercado on outpatient basis for right MCA stenosis Discharge/Stand Alone Forms: Who Do I Call?, Area PCPs Discharge Disposition: HOME SELF-CARE
--- NOTE | 2023-03-05 12:24 | P.PN ---
Subjective Progress Note Date: 03/05/23 Principal diagnosis: Reason for follow-up is fever and leukocytosis Patient is a 67-year-old male with a past medical history negative for coronary disease CVA TIA diabetes mellitus reflux hypertension hyperlipidemia patient was recently admitted to this facility for some mental status changes with concern for possible TIA patient was back to his baseline and was dis charged, subsequent presented within 24 hours with mental status changes unresponsiveness and did have a fever with initial workup negative. On today's evaluation that is 03/05/2023, the patient continues to be afebrile patient is breathing comfortably on room air, no need for supplemental oxygen, patient denies any chest pain or cough no nausea no vomiting and no diarrhea has been reported Patient white count is 7.4, creatinine 0.65, cultures currently pending, chest x-ray manage patient improved aeration in the mid and lower lung MRI of the brain new areas of acute/subacute CVA in the right parietal region. Objective - Vital Signs Vital signs: Vital Signs Temp 97.7 F 03/05/23 12:00 Pulse 68 03/05/23 12:00 Resp 18 03/05/23 12:00 BP 169/99 03/05/23 12:00 Pulse Ox 96 03/05/23 12:00 FiO2 Intake & Output 03/04/23 03/05/23 03/05/23 18:59 06:59 18:59 Intake Total 358 240 Output Total 700 350 Balance 358 -700 -110 Intake: Oral 358 240 Output: Urine 700 350 Other: Voiding Method Toilet Toilet Toilet Urinal Urinal Urinal # Voids 2 # Bowel Movements 1 - Exam GENERAL DESCRIPTION: An elderly male lying in bed in no distress RESPIRATORY SYSTEM: Unlabored breathing , decreased breath sounds at bases HEART: S1 S2 regular rate and rhythm , ABDOMEN: Soft , no tenderness EXTREMITIES: No edema feet - Labs CBC & Chem 7: 03/05/23 08:43 03/05/23 08:43 Labs: Abnormal Lab Results - Last 24 Hours (Table) 03/03/23 03/04/23 03/05/23 Range/Units 08:36 19:55 06:00 RBC (4.30-5.90) m/uL Hgb (13.0-17.5) gm/dL Hct (39.0-53.0) % Creatinine (0.66-1.25) mg/dL Glucose (74-99) mg/dL POC Glucose (mg/dL) 114 H 65 L (70-110) mg/dL HSV I&II IgM Ab 1.20 H (<=0.90) INDEX HSV I IgG Ab 61.90 H (< or = 0.90) 03/05/23 03/05/23 Range/Units 08:43 08:43 RBC 3.86 L (4.30-5.90) m/uL Hgb 12.0 L (13.0-17.5) gm/dL Hct 35.6 L (39.0-53.0) % Creatinine 0.65 L (0.66-1.25) mg/dL Glucose 168 H (74-99) mg/dL POC Glucose (mg/dL) (70-110) mg/dL HSV I&II IgM Ab (<=0.90) INDEX HSV I IgG Ab (< or = 0.90) Microbiology - Last 24 Hours (Table) 03/02/23 10:20 Blood Culture - Preliminary Blood Assessment and Plan (1) Aspiration pneumonitis Current Visit: Yes Status: Acute Code(s): J69.0 - PNEUMONITIS DUE TO INHALATION OF FOOD AND VOMIT SNOMED Code(s): 095308630 (2) Fever Current Visit: Yes Status: Acute Code(s): R50.9 - FEVER, UNSPECIFIED SNOMED Code(s): 723969361 (3) Leukocytosis Current Visit: Yes Status: Acute Code(s): D72.829 - ELEVATED WHITE BLOOD CELL COUNT, UNSPECIFIED SNOMED Code(s): 729399573 Plan: 1patient with a fever and this patient presented to hospital with confusion aphasia and concern for possible CVA however the patient also have elevated white count initial workup included a chest x-ray that has been negative for any consolidation urine has been negative abdominal was soft on clinical examination and no evidence of any cellulitis with a question of 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 infection needs to be ruled out, and fortunately the patient has received Brilinta and was on Plavix so per discussion with the neurologist LP could not be completed, there is also concern for possible aspiration pneumonitis 2-patient did have a significant improvement in his clinical condition, clinically not behaving as encephalitis or meningitis MRI has been suggestive of subacute/acute CVA 3-patient white count has normalized fever has resolved culture has been negative patient insisting on going home short course of oral Augmentin on discharge discussed with admitting team working on discharge Dictation was produced using [employer] dictation software. please excuse any grammatical, word or spelling errors. Time with Patient: Less than 30
[2023-03-05 12:34] VITALS: BP 169/99; PULSE 68; TEMP 97.7
[2023-03-05] MEDS ORDERED: hydrALAZINE HCL 20 MG/ML 1 ML VIAL IVP PRN (12:34)
--- NOTE | 2023-03-05 13:13 | P.PN ---
Subjective Progress Note Date: 03/05/23 I am following-up with patient and he feels he is doing well and no new neurological issues. Objective - Vital Signs Vital signs: Vital Signs Temp 97.7 F 03/05/23 12:00 Pulse 68 03/05/23 12:00 Resp 18 03/05/23 12:00 BP 169/99 03/05/23 12:00 Pulse Ox 96 03/05/23 12:00 FiO2 Intake & Output 03/04/23 03/05/23 03/05/23 18:59 06:59 18:59 Intake Total 358 240 Output Total 700 350 Balance 358 -700 -110 Intake: Oral 358 240 Output: Urine 700 350 Other: Voiding Method Toilet Toilet Toilet Urinal Urinal Urinal # Voids 2 # Bowel Movements 1 - Exam General: Lying in bed and is not in acute distress. Neuro: The patient is awake, alert, oriented to self, place and time. Is following simple commands. No aphasia or neglect. Visual hardy are full to confrontation. EOM is intact and no nystagmus. Mild left lower facial weakness. No dysarthria. Motor: Strength is 5/5 throughout. Sensation: Normal to touch throughout. - Labs CBC & Chem 7: 03/05/23 08:43 03/05/23 08:43 Labs: Abnormal Lab Results - Last 24 Hours (Table) 03/03/23 03/04/23 03/05/23 Range/Units 08:36 19:55 06:00 RBC (4.30-5.90) m/uL Hgb (13.0-17.5) gm/dL Hct (39.0-53.0) % Creatinine (0.66-1.25) mg/dL Glucose (74-99) mg/dL POC Glucose (mg/dL) 114 H 65 L (70-110) mg/dL C-Reactive Protein (<1.0) mg/dL HSV I&II IgM Ab 1.20 H (<=0.90) INDEX HSV I IgG Ab 61.90 H (< or = 0.90) 03/05/23 03/05/23 Range/Units 08:43 08:43 RBC 3.86 L (4.30-5.90) m/uL Hgb 12.0 L (13.0-17.5) gm/dL Hct 35.6 L (39.0-53.0) % Creatinine 0.65 L (0.66-1.25) mg/dL Glucose 168 H (74-99) mg/dL POC Glucose (mg/dL) (70-110) mg/dL C-Reactive Protein 1.0 H (<1.0) mg/dL HSV I&II IgM Ab (<=0.90) INDEX HSV I IgG Ab (< or = 0.90) Microbiology - Last 24 Hours (Table) 03/02/23 10:20 Blood Culture - Preliminary Blood Assessment and Plan Assessment: * Acute to subacute ischemic stroke. On top on his recurrent stroke in end of 01/2023 stroke over frontal/parietal region. Patient's NIH stroke scale is 6 yesterday, today is down to 0. He has mild residual left facial asymmetry, which is chronic. * Fever, possible sepsis. Rule out intracranial infection. Doubt herpes encephalitis. * Vasculopathy, with previous CTA of head showed multifocal stenosis intracranially with [id number] stenosis within the intracranial bilateral ICA, severe stenosis in the midportion of the right vertebral ar mary. CTA of the neck showed atherosclerosis producing 50% stenosis in the proximal segment of both ICA. * Recent history of right parietal ischemic stroke 02/10/2023 * Previous history of stroke in 2020 over the right basal ganglia * History of CAD s/p stent X2 * Hypertension * Hyperlipidemia * Diabetes * History of Mustafa's palsy over the right face. Plan: * Patient started on Brilinta 90 mg twice a day by neuro intervention. This will be continued. Continue aspirin 81 mg daily with Brilinta. * MRI of the brain with and without contrast revealed new areas of acute/subacute CVA in the right parietal region with evolution of the prior acute/subacute CVA seen on 02/11/2023. Postcontrast enhancement within the area on prior MRI favored to represent luxury perfusion. Per Dr. Mack review, there is evidence of acute/subacute ischemia, one of them in the right lateral aspect of the parietal lobe, appears new from prior. Additional areas more to the trigone also demonstrates restricted diffusion. Lastly the area of prior infarct has increased in size with decreased in DWI signal. I personally reviewed MRI and felt there is one additional new acute/subacute lesion compared to prior MRI in end of 01/2023 over the right parietal/frontal region. Otherwise there is evolution of prior stroke. * 2-D echo performed 02/11/2023 revealed normal left ventricular EF 55-60%. Mild concentric LVH. No regional wall motion abnormalities. Normal left atrial size. Mild to moderate MR. Mild TR. * CTA head and neck showed: No worsening, significant stenosis in the common or internal carotid arteries bilaterally. No new large vessel occlusion or a neurysm at the level of jackson of Rees. * Fasting a.m. lipid panel on 02/11/2023 with cholesterol 111, LDL 44, HDL 29, triglycerides 185. Continue Lipitor 80 mg daily (home dose). * Hemoglobin A1c 7.7 on 02/11/2023. Recommend optimize control of diabetes to target A1c < 7.0. * Urine drug screen positive for opiates and benzodiazepine, which probably he has received. * Patient has spiked temperature. Infectious disease has seen the patient, started on acyclovir, and ceftriaxone and vancomycin. Lumbar puncture not able to be performed because patient has received Plavix and more recently Brilinta. We will defer all antibiotics to the ID. Acylcovir was discontinued by I.D. team and patient is currently on Unasyn. I spoke with Dr. Rosado yesterday and felt possible aspiration pneumonia. * EEG was performed, and reported as abnormal due to presence of mixed fast and slow frequency activity, suggestive of mild encephalopathy or medication effect. Clinical correlation is recommended. * Normotensive recommended. * Neuro checks every 4 hours. * Telemetry monitoring rule out any arrhythmia * PT, OT, speech therapy * DVT prophylaxis: Heparin 5000 units subcu every 8 hours * Upon discharge, recommend the patient to follow-up with neurologist as outpatient within 1-2 weeks. There is no further neurological work-up. Time with Patient: Less than 30
== END 2023-03-05 15:36 | disposition home or self-care (01) | DRG 64 ==
LOC: EC 23:39 → 3SCARD 03-02 01:18
PROVIDERS: ADMIT Hospitalist; ATTEND Hospitalist
DX: I63.81 Other cerebral infarction due to occlusion or stenosis of small artery (principal); A41.9 Sepsis, unspecified organism; J69.0 Pneumonitis due to inhalation of food and vomit; R65.20 Severe sepsis without septic shock; E87.20 Acidosis, unspecified; R47.01 Aphasia; Z11.52 Encounter for screening for COVID-19; I10 Essential (primary) hypertension; F32.A Depression, unspecified; M19.90 Unspecified osteoarthritis, unspecified site; E11.9 Type 2 diabetes mellitus without complications; I16.0 Hypertensive urgency; I69.392 Facial weakness following cerebral infarction; I25.10 Atherosclerotic heart disease of native coronary artery without angina pectoris; I25.2 Old myocardial infarction; Z96.642 Presence of left artificial hip joint; F41.9 Anxiety disorder, unspecified; E78.5 Hyperlipidemia, unspecified; G51.0 Bell's palsy; K21.9 Gastro-esophageal reflux disease without esophagitis; R13.10 Dysphagia, unspecified; G89.29 Other chronic pain; M54.9 Dorsalgia, unspecified; Z79.4 Long term (current) use of insulin; Z79.84 Long term (current) use of oral hypoglycemic drugs; Z79.82 Long term (current) use of aspirin; Z79.02 Long term (current) use of antithrombotics/antiplatelets; Z79.899 Other long term (current) drug therapy
CPT/HCPCS: 36415; 70450; 70496; 70498; 70553; 71046; 80048; 80053; 80061; 80306; 80320; 81003; 82140; 82550; 83605; 84145; 84484; 85025; 85027; 85610; 85730; 86140; 86694; 86695; 86696; 87040; 87636; 93005; 94760; 95816; 96361; 96365; 96366; 96368; 96372; 96375; 99291

== ENCOUNTER 2023-03-11 23:27 | Inpatient (IN) | payer MEDICARE, BC ==
[2023-03-11 23:49] LABS: Basophils # (A) 0.1 k/uL (0-0.2); Basophils % (A) 1 %; Eosinophils # (A) 0.5 k/uL (0-0.7); Eosinophils % (A) 4 %; HCT 42.5 % (39.0-53.0); HGB 14.2 gm/dL (13.0-17.5); Lymphocytes # (A) 3.2 k/uL (1.0-4.8); Lymphocytes % (A) 26 %; MCH 30.5 pg (25.0-35.0); MCHC 33.5 g/dL (31.0-37.0); MCV 91.2 fL (80.0-100.0); Mean Platelet Volume 8.6; Monocytes # (A) 0.6 k/uL (0-1.0); Monocytes % (A) 5 %; Neutrophils # (A) 7.8 k/uL (1.3-7.7); Neutrophils % (A) 63 %; Platelet Count 346 k/uL (150-450); RBC 4.66 m/uL (4.30-5.90); RDW 13.3 % (11.5-15.5); WBC 12.3 k/uL (3.8-10.6)
[2023-03-11 23:54] LABS: Glucose,Whole Blood 193 mg/dL (70-110)
[2023-03-11 23:58] LABS: ALT 55 U/L (4-49); AST 31 U/L (17-59); African American GFR (CKD) >90 (>60 ml/min/1.73 sqM); Albumin 4.7 g/dL (3.5-5.0); Alkaline Phosphatase 98 U/L (38-126); Anion Gap 11 mmol/L; Blood Urea Nitrogen 20 mg/dL (9-20); Carbon Dioxide 24 mmol/L (22-30); Chloride 105 mmol/L (98-107); Creatine Kinase 54 U/L (55-170); Glucose 213 mg/dL (74-99); Non-African American GFR(CKD) >90 (>60 ml/min/1.73 sqM); Potassium 3.8 mmol/L (3.5-5.1); Sodium 140 mmol/L (137-145); Total Bilirubin 0.5 mg/dL (0.2-1.3); Total Protein 7.4 g/dL (6.3-8.2)
[2023-03-11 23:59] LABS: INR 0.9 (<1.2); Partial Thromboplastin Time 23.5 sec (22.0-30.0); Prothrombin Time 10.2 sec (10.0-12.5)
--- NOTE | 2023-03-12 00:10 | CT ---
EXAM: CT Head Without Intravenous Contrast CLINICAL HISTORY: ITS.REASON CT Reason: Neuro deficit, acute, stroke suspected TECHNIQUE: Axial computed tomography images of the head/brain without intravenous contrast. CTDI is 48.8 mGy and DLP is 1159.9 mGy-cm. This CT exam was performed using one or more of the following dose reduction techniques: automated exposure control, adjustment of the mA and/or kV according to patient size, and/or use of iterative reconstruction technique. COMPARISON: 02/10/2023 FINDINGS: Brain: Mild periventricular white matter changes, likely related to micro-angiopathy. No hemorrhage. Ventricles: Unremarkable. No ventriculomegaly. Bones/joints: Unremarkable. No acute fracture. Soft tissues: Unremarkable. Sinuses: Unremarkable as visualized. No acute sinusitis. Mastoid air cells: Unremarkable as visualized. No mastoid effusion. IMPRESSION: No acute findings in the head/brain.
--- NOTE | 2023-03-12 00:27 | CT ---
EXAM: CT Angiography Head With Intravenous Contrast CLINICAL HISTORY: ITS.REASON CT Reason: Neuro deficit, acute, stroke suspected TECHNIQUE: Axial computed tomographic angiography images of the head with intravenous contrast. CTDI is 14.2 mGy and DLP is 264 mGy-cm. This CT exam was performed using one or more of the following dose reduction techniques: automated exposure control, adjustment of the mA and/or kV according to patient size, and/or use of iterative reconstruction technique. MIP reconstructed images were created and reviewed. COMPARISON: 02/10/2023 FINDINGS: Right internal carotid artery: Severe atherosclerotic disease of the cavernous and clinoid portions of the distal right internal carotid artery causing up to 50% stenosis. No aneurysm. Right anterior cerebral artery: Unremarkable. No occlusion or significant stenosis. No aneurysm. Right middle cerebral artery: Similar to prior study there is a severe stenosis/occlusion of the proximal right M2 branch supplying the medial sylvian fissure branches with opacification of the branches distal to the point of occlusion/stenosis. No aneurysm. Right posterior cerebral artery: Absent right P1 segment with origin to the right posterior cerebral artery territory. Right posterior communicating artery is on remarkable. Right vertebral artery: Severe multiple 90% stenosis of the distal intracranial right vertebral artery. Left internal carotid artery: Severe atherosclerotic disease of the cavernous and clinoid portions of the distal intracranial left internal carotid artery causing up to 80% stenosis of the ophthalmic segment. No aneurysm. Left anterior cerebral artery: Unremarkable. No occlusion or significant stenosis. No aneurysm. Left middle cerebral artery: Unremarkable. No occlusion or significant stenosis. No aneurysm. Left posterior cerebral artery: Unremarkable. No occlusion or significant stenosis. No aneurysm. Left vertebral artery: Unremarkable as visualized. Basilar artery: Unremarkable. No occlusion or significant stenosis. No aneurysm. IMPRESSION: 1. No large vessel intracranial occlusion. 2. Severe stenosis/occlusion of the proximal right M2 branch supplying the medial sylvian fissure branches blood flow distal to the point of occlusion unchanged from prior exam. 2. Severe multiple 90% stenosis of the distal intracranial right vertebral artery. 3. Severe atherosclerotic disease of the cavernous and clinoid portions of the distal intracranial left internal carotid artery causing up to 80% stenosis of the ophthalmic segment. 4. Severe atherosclerotic disease of the cavernous and clinoid portions of the distal right internal carotid artery causing up to 50% stenosis. EXAM: CT Angiography Neck With Intravenous Contrast CLINICAL HISTORY: ITS.REASON CT Reason: Neuro deficit, acute, stroke suspected TECHNIQUE: Routine carotid CT angiography protocol was performed with intravenous contrast. NASCET criteria using the distal ICAs for comparison were used for evaluation of stenoses. CTDI is 14.2 mGy and DLP is 264 mGy-cm. This CT exam was performed using one or more of the following dose reduction techniques: automated exposure control, adjustment of the mA and/or kV according to patient size, and/or use of iterative reconstruction technique. MIP reconstructed images were created and reviewed. COMPARISON: 02/10/2023 FINDINGS: VASCULATURE: Right common carotid artery: Unremarkable. No occlusion or significant stenosis. No dissection. Right internal carotid artery: Moderate plaque of the right carotid bulb and proximal left internal carotid artery causing up to 30% stenosis. No dissection. Right external carotid artery: Unremarkable. No occlusion. Right vertebral artery: Unremarkable. No occlusion or significant stenosis. No dissection. Left common carotid artery: Unremarkable. No occlusion or significant stenosis. No dissection. Left internal carotid artery: Moderate plaque of the left carotid bulb and proximal left internal carotid artery causing up to 30% stenosis. Left external carotid artery: Unremarkable. No occlusion. Left vertebral artery: Unremarkable. No occlusion or significant stenosis. No dissection. Aorta: Left vertebral artery arises directly off the aortic arch. NECK: Bones/joints: Unremarkable. No acute fracture. Soft tissues: Unremarkable. Lung apices: Clear. CAROTID STENOSIS REFERENCE USING NASCET CRITERIA: % ICA stenosis = (1 - narrowest ICA diameter/diameter of distal cervical ICA) x 100. Mild - <50% stenosis. Moderate - 50-69% stenosis. Severe - 70-94% stenosis. Near occlusion - 95-99% stenosis. Occluded - 100% stenosis. IMPRESSION: 1. Moderate plaque within bilateral carotid bulbs and proximal internal carotid arteries causing no greater than 30% stenosis. 2. Patent bilateral vertebral arteries along their cervical course without occlusion or dissection.
--- NOTE | 2023-03-12 00:31 | XR ---
EXAM: XR Chest, 1 View CLINICAL HISTORY: ITS.REASON XR Reason: altered mental status TECHNIQUE: Frontal view of the chest. COMPARISON: 03/02/2023 FINDINGS: Lungs: Unremarkable. No consolidation. Pleural space: Unremarkable. No pneumothorax. No pleural effusions. Heart: Unremarkable. No cardiomegaly. Mediastinum: Unremarkable. Normal mediastinal contour. Bones/joints: No acute osseous abnormalities. IMPRESSION: No acute cardiopulmonary disease.
--- NOTE | 2023-03-12 00:57 | ED ---
Weakness HPI - General Chief complaint: Weakness Stated complaint: Possible stroke Source: EMS Mode of arrival: EMS Limitations: no limitations - History of Present Illness Initial comments: 67-year-old male with past medical history of stroke presents emergency department for with strokelike symptoms. Patient had a recent stroke on [place]. He was left with some left-sided facial droop and left arm weakness. Patient reports that he is taking his Brilinta as directed with no missed doses. Approximately 20 minutes prior to hospital arrival the patient had acute worsening of his left-sided facial droop and left upper extremity weakness. EMS was called at this time. He denies any injuries. Does admit to a headache. No other alleviating, precipitating or modifying -tccm-pcs male with past medical history of stroke presents emergency department for with strokelike symptoms. Patient had a recent stroke on [place]. He was left with some left-sided facial droop and left arm weakness. Patient reports that he is taking his Brilinta as directed with no missed doses. Approximately 20 minutes prior to hospital arrival the patient had acute worsening of his left- sided facial droop and left upper extremity weakness. EMS was called at this time. He denies any injuries. Does admit to a headache. No other alleviating, precipitating or modifying factors - Related Data Home Medications Medication Instructions Recorded Confirmed Omeprazole 20 mg PO DAILY 02/23/16 03/12/23 metFORMIN HCL [Glucophage] 1,000 mg PO BID 02/23/16 03/12/23 Insulin Detemir [Levemir Flextouch 75 units SQ HS 03/03/18 03/12/23 Pen] Pioglitazone HCl [Actos] 15 mg PO DAILY 08/16/18 03/12/23 Empagliflozin [Jardiance] 10 mg PO DAILY 10/25/20 03/12/23 Atorvastatin Calcium [Lipitor] 80 mg PO DAILY 12/27/20 03/12/23 DULoxetine HCL [Cymbalta] 60 mg PO DAILY 12/27/20 03/12/23 HYDROcodone/APAP 7.5-325MG [Hope 1 tab PO BID PRN 12/27/20 03/12/23 7.5-325] Metoprolol Tartrate [Lopressor] 100 mg PO DAILY 12/27/20 03/12/23 Ezetimibe [Zetia] 10 mg PO HS 09/19/22 03/12/23 Vitamin E (Dl,Tocopheryl Acet) 400 unit PO DAILY 09/19/22 03/12/23 [Vitamin E (400 Iu = 180 mg)] lisinopriL [Zestril] 5 mg PO DAILY 09/19/22 03/12/23 Previous Rx's Medication Instructions Recorded Aspirin 81 mg PO DAILY 21 Days #21 tab 02/13/23 Ticagrelor [Brilinta] 90 mg PO BID 30 Days #60 tab 03/05/23 Allergies Allergy/AdvReac Type Severity Reaction Status Date / Time oxaprozin [From Daypro] Allergy Severe Swelling Verified 03/12/23 06:57 throat & tongue, reddened face Review of Systems ROS Statement: Those systems with pertinent positive or pertinent negative responses have been documented in the HPI. ROS Other: All systems not noted in ROS Statement are negative. Past Medical History Past Medical History: Coronary Artery Disease (CAD), CVA/TIA, Diabetes Mellitus, GERD/Reflux, Hyperlipidemia, Hypertension, Myocardial Infarction ([place]), Osteoarthritis (OA), Seizure Disorder, Sleep Apnea/CPAP/BIPAP Additional Past Medical History / Comment(s): Chronic back pain. 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 CPAP use. "Hx mild seizure when ran out of Xanax few months ago". Last Myocardial Infarction Date:: 11/17/16 History of Any Multi-Drug Resistant Organisms: None Reported Past Surgical History: Heart Catheterization With Stent, Hernia Repair, Joint Replacement, Orthopedic Surgery Additional Past Surgical History / Comment(s): Right rotator cuff repair X2. Left hip replacement. Bilateral inguinal hernia repair. Stent replacement 11/07. Past Anesthesia/Blood Transfusion Reactions: No Reported Reaction Additional Past Anesthesia/Blood Transfusion Reaction / Comment(s): States had transfusion at . Date of Last Stent Placement:: 10/2020 Past Psychological History: Anxiety, Depression Smoking Status: Never smoker Past Alcohol Use History: Occasional Past Drug Use History: None Reported - Past Family History Brother(s) Family Medical History: Cancer, Deep Vein Thrombosis (DVT) Additional Family Medical History / Comment(s): 1 brother with Esophageal CA. 2 brothers with DVT. Sister(s) Family Medical History: Cancer Additional Family Medical History / Comment(s): Brain CA. 2nd sister had breast CA. General Exam Limitations: no limitations General appearance: alert, in no apparent distress Head exam: Present: atraumatic, normocephalic, other (left sided facial droop) Eye exam: Present: normal appearance, PERRL, EOMI. Absent: scleral icterus, conjunctival injection, periorbital swelling ENT exam: Present: mucous membranes moist Neck exam: Present: normal inspection. Absent: tenderness, meningismus, lymphadenopathy Respiratory exam: Present: normal lung sounds bilaterally. Absent: respiratory distress, wheezes, rales, rhonchi, stridor Cardiovascular Exam: Present: regular rate, normal rhythm, normal heart sounds. Absent: systolic murmur, diastolic murmur, rubs, gallop, clicks GI/Abdominal exam: Present: soft, normal bowel sounds. Absent: distended, tenderness, guarding, rebound, rigid Extremities exam: Present: full ROM, normal capillary refill, other (4/5 strength lue. 5/5 strength remaining extremities). Absent: tenderness, pedal edema, joint swelling, calf tenderness Back exam: Present: normal inspection Neurological exam: Present: alert, oriented X3, CN II-XII intact Psychiatric exam: Present: normal affect, normal mood Skin exam: Present: warm, dry, intact, normal color. Absent: rash Course Vital Signs 03/11/23 03/12/23 03/12/23 23:28 00:07 01:20 Temperature 98.2 F Pulse Rate 105 H 112 H 97 Respiratory 18 20 18 Rate Blood Pressure 203/89 160/86 142/74 O2 Sat by Pulse 95 95 94 L Oximetry Medical Decision Making - Medical Decision Making Was pt. sent in by a medical professional or institution (, PA, MALT HOUSE KILN OPERATOR, urgent care, hospital, or [facility]...) When possible be specific @ -No Did you speak to anyone other than the patient for history (EMS, parent, family, police, friend...)? What history was obtained from this source @ -EMS Did you review nursing and triage notes (agree or disagree)? Why? @ -I reviewed and agree with nursing and triage notes Were old charts reviewed (outside hosp., previous admission, EMS record, old EKG, old radiological studies, urgent care reports/EKG's, [facility] records)? Report findings @ -MRI from patient's admission in January was reviewed Differential Diagnosis (chest pain, altered mental status, abdominal pain women, abdominal pain men, vaginal bleeding, weakness, fever, dyspnea, syncope, headache, dizziness, GI bleed, back pain, seizure, CVA, palpatations, mental hea lth, musculoskeletal)? @ -Differential CVA Ischemic stroke, hemorrhagic stroke, brain tumor, atypical migraine, Wernicke's encephalopathy, seizure, multiple sclerosis, meningitis, encephalitis, hypo glycemia, Guillain-Shah, electrolytes disturbance, myasthenia gravis.... This is not meant to be an all-inclusive list EKG interpreted by me (3pts min.). @ -Yes and demonstrates sinus rhythm with a rate of 97. W[place] interval 153. QRS 82. QTc of 390. No acute ST segment elevations or depressions X-rays interpreted by me (1pt min.). @ -Yes and demonstrates no acute process CT interpreted by me (1pt min.). @ -CT demonstrates no acute process U/S interpreted by me (1pt. min.). @ -None done What testing was considered but not performed or refused? (CT, X-rays, U/S, labs)? Why? @ -None What meds were considered but not given or refused? Why? @ -None Did you discuss the management of the patient with other professionals (professionals i.e. , PA, M[employer]N OPERATOR, lab, RT, psych nurse, social security assessor, shoe stock associate, teacher, senior credit officer, case finishing machine adjuster)? Give summary @ -I spoke with Dr. Urrutia Was smoking cessation discussed for >3mins.? @ -No Was critical care preformed (if so, how long)? @ -Yes, 35 minutes for code stroke activation Were there social determinants of health that impacted care today? How? (Homelessness, low income, unemployed, alcoholism, drug addiction, transportation, low edu. Level, literacy, decrease access to med. care, long-term, rehab)? @ -No Was there de-escalation of care discussed even if they declined (Discuss DNR or withdrawal of care, Hospice)? DNR status @ -No What co-morbidities impacted this encounter? (DM, HTN, Smoking, COPD, CAD, Cancer, CVA, ARF, Chemo, Hep., AIDS, mental health diagnosis, sleep apnea, morbid obesity)? @ -History of CVA Was patient admitted / discharged? Hospital course, mention meds given and route, prescriptions, significant lab abnormalities, going to OR and other pertinent info. @ -Upon arrival patient was placed into room 2. Code thrombolytics is activated. Patient does have an NIH of 6. He is sent for CT and CTA. I discus sed the case with Dr. patton. He does not recommend tenecteplase at this time due to patient's recent ischemic CVA within the past 3 months. I did discuss this with the patient who was agreeable. At this time the patient will be admitted for further stroke workup. I spoke with Dr. haywood for the admission Undiagnosed new problem with uncertain prognosis? @ -Yes Drug Therapy requiring intensive monitoring for toxicity (Heparin, Nitro, Insulin, Cardizem)? @ -No Were any procedures done? @ -No Diagnosis/symptom? @ -Acute left-sided facial droop, suspected CVA, history of recurrent CVA Acute, or Chronic, or Acute on Chronic? @ -Acute Uncomplicated (without systemic symptoms) or Complicated (systemic symptoms)? @ -Complicated Side effects of treatment? @ -No Exacerbation, Progression, or Severe Exacerbation? @ -No Poses a threat to life or bodily function? How? (Chest pain, [place], [place], pneumonia, PE, COPD, DKA, ARF, appy, cholecystitis, CVA, Diverticulitis, Homicidal, Suicidal, threat to staff... and all critical care pts) @ -Yes patient presents with strokelike symptoms - Lab Data Result diagrams: 03/11/23 23:35 03/11/23 23:35 Lab Results 03/11/23 03/11/23 03/11/23 Range/Units 23:35 23:35 23:35 WBC 12.3 H (3.8-10.6) k/uL RBC 4.66 (4.30-5.90) m/uL Hgb 14.2 (13.0-17.5) gm/dL Hct 42.5 (39.0-53.0) % MCV 91.2 (80.0-100.0) fL MCH 30.5 (25.0-35.0) pg MCHC 33.5 (31.0-37.0) g/dL RDW 13.3 (11.5-15.5) % Plt Count 346 (150-450) k/uL MPV 8.6 Neutrophils % 63 % Lymphocytes % 26 % Monocytes % 5 % Eosinophils % 4 % Basophils % 1 % Neutrophils # 7.8 H (1.3-7.7) k/uL Lymphocytes # 3.2 (1.0-4.8) k/uL Monocytes # 0.6 (0-1.0) k/uL Eosinophils # 0.5 (0-0.7) k/uL Basophils # 0.1 (0-0.2) k/uL PT 10.2 (10.0-12.5) sec INR 0.9 (<1.2) APTT 23.5 (22.0-30.0) sec Sodium 140 (137-145) mmol/L Potassium 3.8 (3.5-5.1) mmol/L Chloride 105 (98-107) mmol/L Carbon Dioxide 24 (22-30) mmol/L Anion Gap 11 mmol/L BUN 20 (9-20) mg/dL Creatinine 0.72 (0.66-1.25) mg/dL Est GFR (CKD-EPI)AfAm >90 (>60 ml/min/1.73 sqM) Est GFR (CKD-EPI)NonAf >90 (>60 ml/min/1.73 sqM) Glucose 213 H (74-99) mg/dL POC Glucose (mg/dL) (70-110) mg/dL POC Glu Brancher ID Calcium 10.0 (8.4-10.2) mg/dL Total Bilirubin 0.5 (0.2-1.3) mg/dL AST 31 (17-59) U/L ALT 55 H (4-49) U/L Alkaline Phosphatase 98 (38-126) U/L Creatine Kinase 54 L (55-170) U/L Troponin I (0.000-0.034) ng/mL Total Protein 7.4 (6.3-8.2) g/dL Albumin 4.7 (3.5-5.0) g/dL 03/11/23 03/11/23 Range/Units 23:35 23:53 WBC (3.8-10.6) k/uL RBC (4.30-5.90) m/uL Hgb (13.0-17.5) gm/dL Hct (39.0-53.0) % MCV (80.0-100.0) fL MCH (25.0-35.0) pg MCHC (31.0-37.0) g/dL RDW (11.5-15.5) % Plt Count (150-450) k/uL MPV Neutrophils % % Lymphocytes % % Monocytes % % Eosinophils % % Basophils % % Neutrophils # (1.3-7.7) k/uL Lymphocytes # (1.0-4.8) k/uL Monocytes # (0-1.0) k/uL Eosinophils # (0-0.7) k/uL Basophils # (0-0.2) k/uL PT (10.0-12.5) sec INR (<1.2) APTT (22.0-30.0) sec Sodium (137-145) mmol/L Potassium (3.5-5.1) mmol/L Chloride (98-107) mmol/L Carbon Dioxide (22-30) mmol/L Anion Gap mmol/L BUN (9-20) mg/dL Creatinine (0.66-1.25) mg/dL Est GFR (CKD-EPI)AfAm (>60 ml/min/1.73 sqM) Est GFR (CKD-EPI)NonAf (>60 ml/min/1.73 sqM) Glucose (74-99) mg/dL POC Glucose (mg/dL) 193 H (70-110) mg/dL POC Glu Brancher ID [place] Calcium (8.4-10.2) mg/dL Total Bilirubin (0.2-1.3) mg/dL AST (17-59) U/L ALT (4-49) U/L Alkaline Phosphatase (38-126) U/L Creatine Kinase (55-170) U/L Troponin I <0.012 (0.000-0.034) ng/mL Total Protein (6.3-8.2) g/dL Albumin (3.5-5.0) g/dL Disposition Clinical Impression: Cerebrovascular accident (CVA) Disposition: ADMITTED IP TO THIS [facility] Condition: Fair Is patient prescribed a controlled substance at d/c from ED?: No Time of Disposition: 01:12 Decision to Admit Reason: Admit from EC Decision Date: 03/12/23 Decision Time: 01:12
[2023-03-12] MEDS ORDERED: ACETAMINOPHEN TAB 500 MG TAB PO STA (01:12)
[2023-03-12] MEDS ORDERED: MORPHINE SULFATE 4 MG/ML SYRINGE IVP STA (01:12)
[2023-03-12] MEDS ORDERED: DEXTROSE 50% SYRINGE 50 ML IVP PRN ×2 (03:26)
--- NOTE | 2023-03-12 03:54 | P.HPIM ---
History of Present Illness H&P Date: 03/12/23 Chief Complaint: left sided weakness 67-year-old male with diabetes mellitus, history of stroke, CAD hypertension Patient was recently hospitalized for encephalopathy found to have pneumonia was discharged on antibiotics he was doing fine today he claims that he was on the toilet seat when suddenly felt left-sided weakness he felt clumsy and weak in his left upper extremity he is left-handed normally and was having left facial droop for which he notified his who notified EMS and brought him to the hospital for evaluation he denies any headache denies any changes in vision or hearing denies any other focal neurodeficits. Patient denies any head injury he does report slipping and falling on his couch but no passing out no palpitations. He claims to be compliant with his medications he is on aspirin and Brilinta for recurrent strokes episode Patient otherwise denies any history of blood clots denies any recent travel. Patient denies any chest pain trouble breathing fevers chills sore throat nausea vomiting Patient denies tobacco smoking illicit drugs or heavy alcohol Code stroke was activated in the ED upon arrival CT of the brain and CT angio of the head and neck showed no acute pathology At time of my evaluation patient reports that his symptoms has completely resolved review of systems Pertinent positives as noted in HPI. All other systems were reviewed and are negative on exam Constitutional: No acute distress, conversant, pleasant Eyes: Anicteric sclerae, moist conjunctiva, Pupils equal round reactive to light ENMT: NC/AT Oropharynx clear, no erythema, or exudates Neck: Supple, no masses, or JVD No carotid bruits No thyromegaly Lungs: Clear to auscultation Clear to percussion Normal respiratory effort, no accessory muscle use Cardiovascular: Heart regular in rate and rhythm, No murmurs, gallops, or rubs No peripheral edema Abdominal: Soft Nontender, no guarding, rebound or rigidity Abdomen moving with respiration Normoactive bowel sounds No hepatomegaly, No splenomegaly No palpable mass No abdominal wall hernia noted Extremities: No digital cyanosis No clubbing Pedal pulses intact and symmetrical Radial pulses intact and symmetrical No calf tenderness Psychiatric: Alert and oriented to person, place and time Appropriate affect fair judgement Neuro Muscles Strength 5/5 in all 4 extremities Sensation to light touch grossly present throughout Cranial nerves II-XII grossly intact Finger-nose exam showing very slight dysmetria on the left side, heel gu exam showed slight hesitation when using his left leg Lymphatics: no palpable cervical or supraclavicular lymph nodes Past Medical History Past Medical History: Coronary Artery Disease (CAD), CVA/TIA, Diabetes Mellitus, GERD/Reflux, Hyperlipidemia, Hypertension, Myocardial Infarction (CT), Osteoarthritis (OA), Seizure Disorder, Sleep Apnea/CPAP/BIPAP Additional Past Medical History / Comment(s): Chronic back pain. 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 CPAP use. "Hx mild seizure when ran out of Xanax few months ago". Last Myocardial Infarction Date:: 11/17/16 History of Any Multi-Drug Resistant Organisms: None Reported Past Surgical History: Heart Catheterization With Stent, Hernia Repair, Joint Replacement, Orthopedic Surgery Additional Past Surgical History / Comment(s): Right rotator cuff repair X2. Left hip replacement. Bilateral inguinal hernia repair. Stent replacement 11/07. Past Anesthesia/Blood Transfusion Reactions: No Reported Reaction Additional Past Anesthesia/Blood Transfusion Reaction / Comment(s): States had transfusion at . Date of Last Stent Placement:: 10/2020 Past Psychological History: Anxiety, Depression Smoking Status: Never smoker Past Alcohol Use History: Occasional Past Drug Use History: None Reported - Past Family History Brother(s) Family Medical History: Cancer, Deep Vein Thrombosis (DVT) Additional Family Medical History / Comment(s): 1 brother with Esophageal CA. 2 brothers with DVT. Sister(s) Family Medical History: Cancer Additional Family Medical History / Comment(s): Brain CA. 2nd sister had breast CA. Medications and Allergies Home Medications Medication Instructions Recorded Confirmed Type Omeprazole 20 mg PO DAILY 02/23/16 03/02/23 History metFORMIN HCL [Glucophage] 1,000 mg PO BID 02/23/16 03/02/23 History Insulin Detemir [Levemir Flextouch 75 units SQ HS 03/03/18 03/02/23 History Pen] Pioglitazone HCl [Actos] 15 mg PO DAILY 08/16/18 03/02/23 History Empagliflozin [Jardiance] 10 mg PO DAILY 10/25/20 03/02/23 History Atorvastatin Calcium [Lipitor] 80 mg PO DAILY 12/27/20 03/02/23 History DULoxetine HCL [Cymbalta] 60 mg PO DAILY 12/27/20 03/02/23 History HYDROcodone/APAP 7.5-325MG [[place] 1 tab PO BID PRN 12/27/20 03/02/23 History 7.5-325] Metoprolol Tartrate [Lopressor] 100 mg PO DAILY 12/27/20 03/02/23 History Ezetimibe [Zetia] 10 mg PO HS 09/19/22 03/02/23 History Vitamin E (Dl,Tocopheryl Acet) 400 unit PO DAILY 09/19/22 03/02/23 History [Vitamin E (400 Iu = 180 mg)] lisinopriL [Zestril] 5 mg PO DAILY 09/19/22 03/02/23 History Aspirin 81 mg PO DAILY 21 Days #21 tab 02/13/23 03/02/23 Rx Amoxic-Pot Clav 875-125Mg 1 tab PO BID 4 Days #8 tab 03/05/23 Rx [Augmentin 875-125] Ticagrelor [Brilinta] 90 mg PO BID 30 Days #60 tab 03/05/23 Rx Allergies Allergy/AdvReac Type Severity Reaction Status Date / Time oxaprozin [From Daypro] Allergy Severe Swelling Verified 03/11/23 23:37 throat & tongue, reddened face Physical Exam Vitals: Vital Signs Temp Pulse Resp BP Pulse Ox 03/12/23 01:20 97 18 142/74 94 L 03/12/23 00:07 112 H 20 160/86 95 03/11/23 23:28 98.2 F 105 H 18 203/89 95 Intake and Output 03/11/23 03/11/23 03/12/23 14:59 22:59 06:59 Other: Weight 96.5 kg Results CBC & Chem 7: 03/11/23 23:35 03/11/23 23:35 Labs: Abnormal Lab Results - Last 24 Hours (Table) 03/11/23 03/11/23 03/11/23 Range/Units 23:35 23:35 23:53 WBC 12.3 H (3.8-10.6) k/uL Neutrophils # 7.8 H (1.3-7.7) k/uL Glucose 213 H (74-99) mg/dL POC Glucose (mg/dL) 193 H (70-110) mg/dL ALT 55 H (4-49) U/L Creatine Kinase 54 L (55-170) U/L Assessment and Plan Assessment: 67-year-old male with recurrent episodes of strokes coming in with strokelike symptoms code stroke activated imaging failed to show any acute pathology, patient's symptoms completely resolved I discussed case with ED doctor and accepted the admission for neurologic consultation and evaluation and monitoring with anticipated length of stay less than 2 midnights Transient ischemic attack with history of recurrent strokes Continue with aspirin Brilinta and atorvastatin Resume lisinopril and metoprolol Neurochecks Neurologic consultation Recent echocardiogram was done last month showing no evidence of PFO PT/OT evaluation Gentle IV fluid hydration normal saline 75 cc/h CT of the brain showed no acute pathology CT angio of the head and neck no acute pathology Hypertension, presented with elevated blood pressure Currently blood pressure under control Continue lisinopril and metoprolol Monitor vital signs Chronic conditions Diabetes mellitus Insulin sliding scale Check A1c Blood work overall unremarkable Hemoglobin 14.2, white count 12.3 Sodium 140 potassium 3.8 BUN 20 creatinine 0.72 Tropes negative Full code DVT prophylaxis heparin subcu 3 times daily
[2023-03-12] MEDS: SODIUM CHLORIDE 0.9% 1,000 ML IV SCH ×2 (05:46→16:23)
[2023-03-12 06:09] LABS: Glucose,Whole Blood 119 mg/dL (70-110)
[2023-03-12] MEDS: INSULIN ASPART (NovoLOG) 100 UNIT/ML VIAL SQ SCH ×4 (06:10→20:19)
[2023-03-12] MEDS ORDERED: HYDROcodone/APAP 7.5-325MG 1 EACH TAB PO ONE (06:45)
[2023-03-12] MEDS ORDERED: PANTOPRAZOLE 40 MG TABLET PO SCH (07:30)
[2023-03-12] MEDS: HEPARIN SODIUM,PORCINE 5,000 UNIT/ML 1 ML VIAL SQ SCH ×2 (08:27→16:23)
[2023-03-12] MEDS: TICAGRELOR 90 MG TAB PO SCH ×2 (08:27→20:06)
[2023-03-12] MEDS ORDERED: lisinopriL 5 MG TAB PO SCH (09:00)
[2023-03-12] MEDS ORDERED: METOPROLOL TARTRATE 50 MG TAB PO SCH (09:00)
[2023-03-12] MEDS ORDERED: DULoxetine HCL 60 MG CAPSULE.DR PO SCH (09:00)
[2023-03-12 11:32] LABS: Glucose,Whole Blood 170 mg/dL (70-110)
--- NOTE | 2023-03-12 11:45 | P.PN ---
Subjective Progress Note Date: 03/12/23 Hospital course: Patient is a pleasant 67-year-old male with a past medical history of CAD status post stent placement, hypertension, hyperlipidemia, GERD, insulin-dependent diabetes mellitus type II and recent CVA on 02/09/2023 currently on dual antiplatelet therapy with aspirin and Brilinta. He presented to the emergency department overnight with a chief complaint of sudden onset left-sided weakness accompanied by left-sided facial droop, he reports previous left-sided deficits but minimal compared to presenting symptoms. Upon arrival to the emergency [facility], patient underwent full evaluation. Initial NIH score was reported to be 6 and a code stroke was called. Vital signs upon arrival show blood pressure 203/89, heart rate 105, respiratory rate 18, temp 98.2 F, SpO2 of 95% on room air. CT head was completed negative for acute intracranial process. EKG completed showing normal sinus rhythm at 97 bpm with no significant T wave or ST abnormalities showing no signs of acute ischemia. Labs completed and reviewed. CBC showing leukocytosis with WBC count of 12.3. BMP unremarkable. Liver profile showing elevated ALT of 55 otherwise normal findings. Creatinine kinase was low at 54. Troponin was negative at less than 0.012. CTA head and neck was completed. CTA head showing no large vessel intracranial occlusion but severe stenosis/occlusion of the proximal right M2 branch supplying the medial sylvian fissure branches with blood flow distal to the point of occlusion unchanged when compared to previous exam, severe multiple 90% stenosis of the distal intracranial right vertebral artery, and severe atherosclerotic disease of the cavernous and clinoid portions of the distal right internal carotid artery measuring up to 50% stenosis. CTA neck showing moderate plaque within bilateral carotid bulbs and proximal internal carotid arteries causing no greater than 30% stenosis and patent bilateral vertebral arteries along thyrocervical course without occlusion or dissection reported. ER physician discussed with interventional neurologist who did not recommend tPA at this time secondary to patient's recent ischemic stroke. Patient was admitted under our services with consultation to neurology. Physical exam: Vital signs reviewed and stable. General: Nontoxic, no distress and appears stated age. Derm: Skin warm and dry, normal coloration for ethnicity. Head: Atraumatic, normocephalic and symmetric. Eyes: EOMs intact, no lid lag, and anicteric sclera Mouth: no lip lesions, mucus membranes moist Cardiovascular: regular rate and rhythm with normal S1S2, no murmur, positive posterior tibial pulses bilaterally, and cap refill < 2 seconds. Lungs: Respirations even, regular, and unlabored on room air. Lungs CTA bilaterally, no rhonchi, no rales, no wheezing, and no accessory muscle usage. Abdominal: soft, nontender to palpation, no guarding, no appreciable organom egaly Ext: No gross muscle atrophy, no edema, no contractures. Movement and sensation intact. Slight left lower extremity weakness noted. Neuro: Speech clear, face with mild left-sided facial droop and CN II-XII otherwise grossly intact. Psych: Alert and oriented to person, place, time, and situation. Appropriate and pleasant affect. Assessment and Plan of Care: Transient ischemic attack with history of recurrent strokes most recently 02/09/2023. -Continue with aspirin 81 mg daily, Brilinta 90 mg twice daily, Zetia 10 mg nightly, and atorvastatin 80 mg nightly -Continue neurochecks every 4 hours -Neurology consulted, appreciate recommendations -Recent echocardiogram was completed 02/11/2023 showing a preserved EF of 55 to 60% and reported no evidence of PFO -PT/OT consulted -Continue gentle IV fluid hydration normal saline 75 cc/hr -CT of the brain showed no acute pathology -CTA head showing no large vessel intracranial occlusion but severe stenosis/occlusion of the proximal right M2 branch supplying the medial sylvian fissure branches with blood flow distal to the point of occlusion unchanged when compared to previous exam, severe multiple 90% stenosis of the distal intracranial right vertebral artery, and severe atherosclerotic disease of the cavernous and clinoid portions of the distal right internal carotid artery measuring up to 50% stenosis. -CTA neck showing moderate plaque within bilateral carotid bulbs and proximal in ternal carotid arteries causing no greater than 30% stenosis and patent bilateral vertebral arteries along thyrocervical course without occlusion or dissection reported. Hypertension, presented with elevated poorly controlled blood pressures Hyperlipidemia History of CAD status post stent placement -Currently blood pressure remains uncontrolled at 187/117. -Lisinopril increased to 40 mg a day and patient to continue aspirin 81 mg daily, atorvastatin 80 mg daily, Zetia 10 mg nightly, metoprolol 100 mg daily, and Brilinta 90 mg twice daily. -Monitor vital signs Diabetes mellitus with hyperglycemia -Hold Jardiance and metformin, continue Levemir [address] patient on glycemic protocol with NovoLog sliding scale. Data reviewed: -Vital signs reviewed. Blood pressure remains elevated at 187/117, heart rate 116, respiratory rate 18, temp 97.8 F, and SpO2 of 95% on room air. CODE STATUS: Full code DVT prophylaxis: Heparin Anticipated discharge date: Clinical course to determine Anticipated discharge place: Clinical course to determine Patient was seen independently by Nurse Pracitioner. This document was prepared using [email or web address] dictation software. Please allow for errors in frit burner, while rare they do occur. Michael Arizmendi NP rendered care for this patient independently, reviewed the findings and plan as documented in the note above. I did not physically speak with or examine the patient on this date. Objective - Vital Signs Vital signs: Vital Signs Temp 98.0 F 03/12/23 03:05 Pulse 116 H 03/12/23 08:00 Resp 18 03/12/23 08:00 BP 187/117 03/12/23 08:00 Pulse Ox 95 03/12/23 08:00 FiO2 Intake & Output 03/11/23 03/12/23 03/12/23 18:59 06:59 18:59 Weight 96.5 kg Other: Voiding Method Toilet # Voids 2 - Labs CBC & Chem 7: 03/11/23 23:35 03/11/23 23:35 Labs: Abnormal Lab Results - Last 24 Hours (Table) 03/11/23 03/11/23 03/11/23 Range/Units 23:35 23:35 23:53 WBC 12.3 H (3.8-10.6) k/uL Neutrophils # 7.8 H (1.3-7.7) k/uL Glucose 213 H (74-99) mg/dL POC Glucose (mg/dL) 193 H (70-110) mg/dL ALT 55 H (4-49) U/L Creatine Kinase 54 L (55-170) U/L 03/12/23 Range/Units 06:07 WBC (3.8-10.6) k/uL Neutrophils # (1.3-7.7) k/uL Glucose (74-99) mg/dL POC Glucose (mg/dL) 119 H (70-110) mg/dL ALT (4-49) U/L Creatine Kinase (55-170) U/L
[2023-03-12] MEDS ORDERED: HYDROcodone/APAP 7.5-325MG 1 EACH TAB PO PRN (12:00)
[2023-03-12] MEDS ORDERED: ACETAMINOPHEN TAB 325 MG TAB PO PRN (12:01)
[2023-03-12] MEDS ORDERED: lisinopriL 10 MG TAB PO STA (12:15)
[2023-03-12] MEDS ORDERED: amLODIPine 10 MG TAB PO SCH (12:15)
[2023-03-12 16:21] LABS: Glucose,Whole Blood 129 mg/dL (70-110)
[2023-03-12 16:34] VITALS: RESP 16
--- NOTE | 2023-03-12 16:56 | P.CNNES ---
History of Present Illness Consult date: 03/12/23 Requesting physician: Angélica Allen Reason for Consult: CVA, history of CVA History of Present Illness: Patient is a 67-year-old left handed male came to the hospital by ambulance yesterday at 11:27 PM for recurrent stroke symptoms. Patient states that he was doing really well after he was discharged from the hospital after last admission for acute stroke. He is fully compliant with medications, denies missing any dose of medication. Patient states that yesterday he developed acute onset of left facial droop, left arm weakness, could not wipe himself with his left hand. Patient's was present, who mentions that patient also has fell on the couch about couple times yesterday. He also has been biting his left side of his tongue. His speech is more slurred. Therefore they called the ambulance and was brought to the hospital. As per EMS flowsheet, when they arrived, patient was sitting in the chair, alert and oriented x 4, pink, warm and dry. Patient was noted to have left facial droop that started about 20 minutes ago, worsening left-sided weakness, dizziness and a headache. Patient has history of CVA, with the last 1 being about a week ago, and also in January 2023. Patient mentioned that the left- sided facial droop and left-sided weakness is normal for him after his previous strokes, however feels that it has worsened since 20 minutes prior. Patient's blood sugar was 202. No slurred speech or dysarthria noted. No blurred vision, numbness, tingling in his upper extremities or lower extremities. Patient had an unsteady gait throughout the day as well. EKG showed sinus rhythm with sinus tachycardia. Patient's vitals at the scene was blood pressure 193/101, pulse rate 109, respirations 16, saturation 94%. CT head showed no acute findings in the head/brain. Mild periventricular white matter changes, likely related to microangiopathy. On my review, there is evidence of multiple lacunar strokes involving bilateral basal ganglia, right external capsule and right centrum semiovale extending to the periventricular region. EKG and chest x-ray are normal. Blood test shows WBC 12.3, hemoglobin 14.2, normal platelets, PT PTT, normal basic metabolic panel. AST 31, ALT 55. Troponin negative. Patient was recently seen by neurology team including myself and Dr. Kay with his last admission on 03/02/2023. MRI of the brain 02/11/2023 revealed patchy right parietal lobe acute to subacute CVA. Patient was taking aspirin 81 mg daily prior to arrival. He was placed on aspirin and Plavix. Patient returned to the hospital on 02/28/2023 after he has stopped taking aspirin and Plavix, and all medications for 7 days for upcoming lumbar injection on 02/28/2023. Patient was resumed on aspirin and Plavix. Patient returned to the hospital 03/02/2023 with new CVA. MRI of the brain from 03/03/2023 revealed new areas of acute/subacute CVA, one of them in the right lateral aspect of the parietal lobe appears new from prior. Additional areas more to the trigone also demonstrate restricted diffusion. Lastly, the area of prior infarct has increased in size with decrease in DWI signal. Postcontrast enhancement within the area on the prior MRI favored to represent luxury perfusion. Patient was placed on aspirin 81 mg and Brilinta, by neurointervention. Patient had a 2D echo performed 02/11/2023, revealed normal left ventricular EF 55 to 60%, mild concentric LVH, no regional wall motion abnormalities, normal left atrial size and mild to moderate MR. Mild TR. Fasting a.m. lipid panel on 02/11/2023 with cholesterol 111, LDL 44, HDL 29, triglycerides 185. Patient has been on Lipitor 80 mg daily. Hemoglobin A1c 7.7 on 02/11/2023. Recommend optimize control of diabetes. Patient has history of chronic back pain. He follows up with Dr. Light. Patient has been seen by Dr. Kay on 12/29/2020 for acute right basal ganglia CVA. Patient also has history of CAD, type 2 diabetes and hypertension. Patie nt was taking aspirin and Plavix at that time. Dr. Kay discontinued Plavix and started the patient on Brilinta 90 mg twice a day. Patient was also on Lipitor 80 mg daily at that time. Also was recommended to abstain from alcoholism. Patient had mentioned that he took Brilinta for one year, and then stopped taking it, and continued just on aspirin. Patient has history of diabetes since 2007. Also has hypertension and hyperlipidemia. He is a nonsmoker, never smoked on a regular basis. He drinks about couple beers per night, but not every night. Review of Systems Constitutional: Denies chills, Denies fever Eyes: denies blurred vision, denies diplopia, denies pain, denies loss of vision Ears: deny: decreased hearing, ear discharge Ears, nose, mouth and throat: Reports headache, Denies sore throat, Denies vertigo Cardiovascular: Reports lightheadedness, Denies chest pain, Denies shortness of breath Respiratory: Denies cough, Denies excessive sputum Gastrointestinal: Reports diarrhea, Denies abdominal pain, Denies nausea, Denies vomiting Genitourinary: Reports incontinence, Reports urinary frequency, Reports urinary hesitancy Musculoskeletal: Reports low back pain, Denies myalgias, Denies neck pain Integumentary: Denies pruritus, Denies rash Neurological: Reports as per HPI Psychiatric: Reports anxiety, Reports depression Endocrine: Reports fatigue, Denies weight change Hematologic/Lymphatic: Denies easy bleeding, Denies easy bruising Past Medical History Past Medical History: Coronary Artery Disease (CAD), CVA/TIA, Diabetes Mellitus, GERD/Reflux, Hyperlipidemia, Hypertension, Myocardial Infarction (NH), Osteoarthritis (OA), Seizure Disorder, Sleep Apnea/CPAP/BIPAP Additional Past Medical History / Comment(s): Chronic back pain. 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 CPAP use. "Hx mild seizure when ran out of Xanax few months ago". Last Myocardial Infarction Date:: 11/17/16 History of Any Multi-Drug Resistant Organisms: None Reported Past Surgical History: Heart Catheterization With Stent, Hernia Repair, Joint Replacement, Orthopedic Surgery Additional Past Surgical History / Comment(s): Right rotator cuff repair X2. Left hip replacement. Bilateral inguinal hernia repair. Stent replacement 11/07. Past Anesthesia/Blood Transfusion Reactions: No Reported Reaction Additional Past Anesthesia/Blood Transfusion Reaction / Comment(s): States had transfusion at . Date of Last Stent Placement:: 10/2020 Past Psychological History: Anxiety, Depression Smoking Status: Never smoker Past Alcohol Use History: Occasional Past Drug Use History: None Reported - Past Family History Brother(s) Family Medical History: Cancer, Deep Vein Thrombosis (DVT) Additional Family Medical History / Comment(s): 1 brother with Esophageal CA. 2 brothers with DVT. Sister(s) Family Medical History: Cancer Additional Family Medical History / Comment(s): Brain CA. 2nd sister had breast CA. Medications and Allergies Home Medications Medication Instructions Recorded Confirmed Type Omeprazole 20 mg PO DAILY 02/23/16 03/12/23 History metFORMIN HCL [Glucophage] 1,000 mg PO BID 02/23/16 03/12/23 History Insulin Detemir [Levemir Flextouch 75 units SQ HS 03/03/18 03/12/23 History Pen] Pioglitazone HCl [Actos] 15 mg PO DAILY 08/16/18 03/12/23 History Empagliflozin [Jardiance] 10 mg PO DAILY 10/25/20 03/12/23 History Atorvastatin Calcium [Lipitor] 80 mg PO DAILY 12/27/20 03/12/23 History DULoxetine HCL [Cymbalta] 60 mg PO DAILY 12/27/20 03/12/23 History HYDROcodone/APAP 7.5-325MG [[place] 1 tab PO BID PRN 12/27/20 03/12/23 History 7.5-325] Metoprolol Tartrate [Lopressor] 100 mg PO DAILY 12/27/20 03/12/23 History Ezetimibe [Zetia] 10 mg PO HS 09/19/22 03/12/23 History Vitamin E (Dl,Tocopheryl Acet) 400 unit PO DAILY 09/19/22 03/12/23 History [Vitamin E (400 Iu = 180 mg)] lisinopriL [Zestril] 5 mg PO DAILY 09/19/22 03/12/23 History Aspirin 81 mg PO DAILY 21 Days #21 tab 02/13/23 03/12/23 Rx Ticagrelor [Brilinta] 90 mg PO BID 30 Days #60 tab 03/05/23 03/12/23 Rx Allergies Allergy/AdvReac Type Severity Reaction Status Date / Time oxaprozin [From Daypro] Allergy Severe Swelling Verified 03/12/23 06:57 throat & tongue, reddened face Physical Examination - Vital Signs Vital Signs: Vital Signs Temp Pulse Pulse Pulse Resp BP BP 03/12/23 11:57 97.8 F 77 20 160/93 03/12/23 08:00 116 H 18 187/117 03/12/23 03:05 98.0 F 91 18 154/78 03/12/23 03:00 18 03/12/23 01:20 97 18 142/74 03/12/23 00:07 112 H 20 160/86 03/11/23 23:28 98.2 F 105 H 18 203/89 Pulse Ox 03/12/23 11:57 97 03/12/23 08:00 95 03/12/23 03:05 98 03/12/23 03:00 03/12/23 01:20 94 L 03/12/23 00:07 95 03/11/23 23:28 95 Intake and Output 03/11/23 03/12/23 03/12/23 22:59 06:59 14:59 Intake Total 110 Balance 110 Intake: Oral 110 Other: Voiding Method Toilet Toilet # Voids 2 Weight 96.5 kg Patient is an elderly male, in no acute distress. Patient is alert awake oriented to time place and person. Patient can name and repeat very well. No aphasia, but patient has mild dysarthria. Attention, concentration and fund of knowledge is adequate. On cranial nerve examination, pupils are equal, round and reacting to light, visual hardy are full on confrontation, with no neglect on double simultaneous stimulation. Extraocular muscles are intact with no nystagmus. Patient has left facial weakness, which is somewhat chronic, but appears worse than his baseline. His tongue protrudes to the midline. Palatal elevation and sensation normal, hearing and shoulder shrug normal, facial sensation normal. On muscle strength testing, there is left pronation, but no drift, and the strength is normal in arms and legs distally and proximally. Deep tendon reflexes are symmetric 2 at the biceps, 2 brachioradialis, 1 at the knees, plantars down on the right, upgoing on the left. Sensory to touch is equal, however patient slightly neglects left hand on double simultaneous stimulation. No neglect in the lower limbs. Cerebellar function showed mild ataxia for [id number] and [id number] testing on the left side only. Tone and bulk of muscles normal. Gait deferred.. On general examination, there is no carotid bruit or murmur, S1-S2 audible. Chest is clear on consultation. Abdomen is soft nontender. No organomegaly, bowel sounds present. Peripheral pulses are present. No peripheral edema. Results - Laboratory Findings CBC and BMP: 03/11/23 23:35 03/11/23 23:35 Abnormal Lab Findings: Abnormal Labs 03/11/23 03/11/23 03/11/23 23:35 23:35 23:53 WBC 12.3 H Neutrophils # 7.8 H Glucose 213 H POC Glucose (mg/dL) 193 H ALT 55 H Creatine Kinase 54 L 03/12/23 03/12/23 06:07 11:31 WBC Neutrophils # Glucose POC Glucose (mg/dL) 119 H 170 H ALT Creatine Kinase Assessment and Plan Assessment: * Probable recurrent acute ischemic stroke, came with recurrence of left facial weakness, and left arm weakness. Patient's current NIH stroke scale is 6. * Status post recent stroke involving the right parietal region 02/10/2023, and then more areas of ischemic infarction in the right parietal region on 03/02/2023. * Previous history of stroke in 2020 over the right basal ganglia * Vasculopathy, with significant intracranial atherosclerotic disease. * History of CAD s/p stent X2 * Hypertension * Hyperlipidemia * Diabetes * History of Mustafa's palsy over the right face. Plan: * Patient is presenting with recurrent ischemic stroke, all involving the right hemispheric region. This is the fourth admission for ischemic stroke in the last 30 days. Patient has failed combination of aspirin and Plavix, and now aspirin and Brilinta. He is completely compliant with medications. * CTA of the head showed no large vessel intracranial occlusion. Severe stenosis/occlusion of the proximal right M2 branch supplying the medial sylvian fissure branches blood flow distal to the point of occlusion unchanged from prior exam. Severe multiple 90% stenosis of the distal intracranial right vertebral artery. Severe atherosclerotic disease of the cavernous and clinoid portions of the distal intracranial left ICA causing up to 80% stenosis of the ophthalmic segment. Severe atherosclerotic disease of the cavernous and clinoid portion of the distal right ICA causing up to 50% stenosis. * CTA of the neck showed moderate plaque within the bilateral carotid bulbs and proximal ICA causing no greater than 30% stenosis. Patent bilateral vertebral arteries along their cervical course without occlusion or dissection. * Fasting lipid panel * Hemoglobin A1c * Aggressive control of vascular risk factors. * Continue aspirin 81 mg and Brilinta 90 mg twice daily for now. * Permissive hypertension * I spoke to Dr. Mercado, neurointervention about the case. He agreed that patient probably will need transfer to [facility] for cerebral angiogram, to assess if any intervention could be performed. He will review at the imag es, and call us with possible transfer. Spoke to the patient, he is completely in agreement for further workup/treatment to prevent recurrent strokes. * Neurology will follow. Thank you for the consult. Addendum: Primary team called me, and informed patient is accepted to [facility], as per recommendation from Dr. Mercado. Time with Patient: Greater than 30
--- NOTE | 2023-03-12 19:13 | P.DS ---
Providers Date of admission: 03/12/23 01:21 Expected date of discharge: 03/12/23 Attending physician: Irma Saldana MD Consults: 03/12/23 01:20 Consult Physician Urgent Consulting Provider: Keith Mack Consult Reason/Comments: cva, hx cva Do you want consulting provider notified?: Yes Primary care physician: Seven Varghese MD Hospital Course: Discharge Diagnosis at time of Transfer to [facility] Left sided weakness and facial droop, concerns for recurrent ischemic CVA with history of recurrent strokes most recently 02/09/2023. Hypertension, presented with elevated poorly controlled blood pressures. Hyperlipidemia History of CAD status post stent placement Diabetes mellitus with hyperglycemia Hospital course: Patient is a pleasant 67-year-old male with a past medical history of CAD status post stent placement, hypertension, hyperlipidemia, GERD, insulin-dependent diabetes mellitus type II and recent CVA on 02/09/2023 currently on dual antiplatelet therapy with aspirin and Brilinta. He presented to the emergency department overnight with a chief complaint of sudden onset left-sided weakness accompanied by left-sided facial droop, he reports previous left-sided deficits but minimal compared to presenting symptoms. Upon arrival to the emergency department, patient underwent full evaluation. Initial NIH score was reported to be 6 and a code stroke was called. Vital signs upon arrival show blood pressure 203/89, heart rate 105, respiratory rate 18, temp 98.2 F, SpO2 of 95% on room air. CT head was completed negative for acute intracranial process. EKG completed showing normal sinus rhythm at 97 bpm with no significant T wave or ST abnormalities showing no signs of acute ischemia. Labs completed and reviewed. CBC showing leukocytosis with WBC count of 12.3. BMP unremarkable. Liver profile showing elevated ALT of 55 otherwise normal findings. Creatinine kinase was low at 54. Troponin was negative at less than 0.012. CTA head and neck was completed. CTA head showing no large vessel intracranial occlusion but severe stenosis/occlusion of the proximal right M2 branch supplying the medial sylvian fissure branches with blood flow distal to the point of occlusion unchanged when compared to previous exam, severe multiple 90% stenosis of the d istal intracranial right vertebral artery, and severe atherosclerotic disease of the cavernous and clinoid portions of the distal right internal carotid artery measuring up to 50% stenosis. CTA neck showing moderate plaque within bilateral carotid bulbs and proximal internal carotid arteries causing no greater than 30% stenosis and patent bilateral vertebral arteries along thyrocervical course wi thout occlusion or dissection reported. ER physician discussed with interventional neurologist who did not recommend tPA at this time secondary to patient's recent ischemic stroke. Patient was admitted under our services with consultation to neurology. Lisinopril increased to 40 mg a day and patient to continue aspirin 81 mg daily, atorvastatin 80 mg daily, Zetia 10 mg nightly, metoprolol 100 mg daily, and Brilinta 90 mg twice daily. Neurology evaluated and concerned pt having another acute ischemic stroke and discussed case with neurointerventionalist and arranged for transport to [facility] for evaluation by neurointerventionalist. Pt being transferred to [facility] for evaluation by Neurosurgery. Notified of transfer at this time. Per report pt was accepted by Dr. Mercado and is being transferred via EMS to [facility] room 265. Michael Arizmendi NP rendered care for this patient independently, reviewed the findings and plan as documented in the note above. I did not physically speak with or examine the patient on this date. Patient Condition at Discharge: Fair Plan - Discharge Summary Discharge Rx Participant: No New Discharge Prescriptions: No Action metFORMIN HCL [Glucophage] 1,000 mg PO BID Omeprazole 20 mg PO DAILY Insulin Detemir [Levemir Flextouch Pen] 75 units SQ HS Pioglitazone HCl [Actos] 15 mg PO DAILY Atorvastatin Calcium [Lipitor] 80 mg PO DAILY HYDROcodone/APAP 7.5-325MG [[place] 7.5-325] 1 tab PO BID PRN PRN Reason: Pain Metoprolol Tartrate [Lopressor] 100 mg PO DAILY Aspirin 81 mg PO DAILY 21 Days #21 tab Empagliflozin [Jardiance] 10 mg PO DAILY DULoxetine HCL [Cymbalta] 60 mg PO DAILY Ezetimibe [Zetia] 10 mg PO HS lisinopriL [Zestril] 5 mg PO DAILY Vitamin E (Dl,Tocopheryl Acet) [Vitamin E (400 Iu = 180 mg)] 400 unit PO DAILY Ticagrelor [Brilinta] 90 mg PO BID 30 Days #60 tab Discharge Medication List Omeprazole 20 mg PO DAILY 02/23/16 [History] metFORMIN HCL [Glucophage] 1,000 mg PO BID 02/23/16 [History] Insulin Detemir [Levemir Flextouch Pen] 75 units SQ HS 03/03/18 [History] Pioglitazone HCl [Actos] 15 mg PO DAILY 08/16/18 [History] Empagliflozin [Jardiance] 10 mg PO DAILY 10/25/20 [History] Atorvastatin Calcium [Lipitor] 80 mg PO DAILY 12/27/20 [History] DULoxetine HCL [Cymbalta] 60 mg PO DAILY 12/27/20 [History] HYDROcodone/APAP 7.5-325MG [[place] 7.5-325] 1 tab PO BID PRN 12/27/20 [History] Metoprolol Tartrate [Lopressor] 100 mg PO DAILY 12/27/20 [History] Ezetimibe [Zetia] 10 mg PO HS 09/19/22 [History] Vitamin E (Dl,Tocopheryl Acet) [Vitamin E (400 Iu = 180 mg)] 400 unit PO DAILY 09/19/22 [History] lisinopriL [Zestril] 5 mg PO DAILY 09/19/22 [History] Aspirin 81 mg PO DAILY 21 Days #21 tab 02/13/23 [Rx] Ticagrelor [Brilinta] 90 mg PO BID 30 Days #60 tab 03/05/23 [Rx] Follow up Appointment(s)/Referral(s): Seven Varghese MD [Primary Care Provider] - 1-2 days Activity/Diet/Wound Care/Special Instructions: Pt being transferred to [facility] for evaluation by Neurosurgery. Notified of transfer at this time. Per report pt was accepted by Dr. Mercado and is being transferred via EMS to [facility] room 265. Discharge Disposition: TRANSFER TO SHORT TERM HOSP
[2023-03-12 20:17] LABS: Glucose,Whole Blood 189 mg/dL (70-110)
[2023-03-12 20:38] VITALS: BP 146/82; PULSE 82; TEMP 97.4
[2023-03-12] MEDS ORDERED: ATORVASTATIN 80 MG TAB PO SCH (21:00)
[2023-03-12] MEDS ORDERED: EZETIMIBE 10 MG TAB PO SCH (21:00)
[2023-03-12] MEDS ORDERED: INSULIN DETEMIR (LEVEMIR) 100 UNIT/ML SYR SQ SCH (21:00)
[2023-03-13] MEDS ORDERED: lisinopriL 20 MG TAB PO SCH (09:00)
[2023-03-13] MEDS ORDERED: ASPIRIN 81 MG PO SCH (09:00)
== END 2023-03-12 20:15 | disposition short-term general hospital (02) | DRG 65 ==
LOC: EC 23:27 → 3SCARD 03-12 01:21
PROVIDERS: ADMIT Internal Medicine; ATTEND Internal Medicine
DX: I63.9 Cerebral infarction, unspecified (principal); G81.94 Hemiplegia, unspecified affecting left nondominant side; I67.2 Cerebral atherosclerosis; E11.65 Type 2 diabetes mellitus with hyperglycemia; F32.A Depression, unspecified; I10 Essential (primary) hypertension; Z79.4 Long term (current) use of insulin; R29.706 NIHSS score 6; R47.81 Slurred speech; E78.5 Hyperlipidemia, unspecified; F41.9 Anxiety disorder, unspecified; I25.10 Atherosclerotic heart disease of native coronary artery without angina pectoris; I25.2 Old myocardial infarction; G47.30 Sleep apnea, unspecified; G89.29 Other chronic pain; M54.9 Dorsalgia, unspecified; K21.9 Gastro-esophageal reflux disease without esophagitis; M19.90 Unspecified osteoarthritis, unspecified site; R74.01 Elevation of levels of liver transaminase levels; Z79.02 Long term (current) use of antithrombotics/antiplatelets; Z79.82 Long term (current) use of aspirin; Z79.84 Long term (current) use of oral hypoglycemic drugs; Z79.899 Other long term (current) drug therapy; Z95.5 Presence of coronary angioplasty implant and graft; Z96.642 Presence of left artificial hip joint; Z86.69 Personal history of other diseases of the nervous system and sense organs; Z86.73 Personal history of transient ischemic attack (TIA), and cerebral infarction without residual deficits; Z88.8 Allergy status to other drugs, medicaments and biological substances
CPT/HCPCS: 36415; 70450; 70496; 70498; 71045; 80053; 82550; 84484; 85025; 85610; 85730; 93005; 96374; 99291

== ENCOUNTER 2023-03-31 08:45 | Inpatient (IN) | payer MEDICARE, BC ==
[2023-03-31 08:52] LABS: Glucose,Whole Blood 93 mg/dL (70-110)
--- NOTE | 2023-03-31 08:52 | ED ---
Neuro HPI - General Stated Complaint: Stroke like symptoms Time Seen by Provider: 03/31/23 08:47 Source: RN notes reviewed, old records reviewed, Caregiver Mode of arrival: EMS Limitations: no limitations - History of Present Illness Is the patient presenting with stroke symptoms?: Yes -: days(s) Initial Comments: This is a 67-year-old male to the ER for evaluation today. Patient was seen for altered mental status possible stroke. Patient's left side of his face is weak left arm left leg is severely weak. Patient has no headache no recent fevers or illness. Patient does have history of CVA. Patient presented today under concern of possible CVA confusion slurred speech and left-sided weakness, patient woke up with the symptoms tonight Location: left face History of same: Yes Place: home Severity: mild Quality: weak, numb Improves With: none Worsens With: none On Anticoagulants: Yes Context: gradual onset Associated Symptoms: denies other symptoms Treatments Prior to Arrival: none - Related Data Home Medications: Home Medications Medication Instructions Recorded Confirmed Omeprazole 20 mg PO DAILY 02/23/16 03/31/23 metFORMIN HCL [Glucophage] 1,000 mg PO BID 02/23/16 03/31/23 Insulin Detemir [Levemir Flextouch 75 units SQ HS 03/03/18 03/31/23 Pen] Pioglitazone HCl [Actos] 15 mg PO DAILY 08/16/18 03/31/23 Empagliflozin [Jardiance] 10 mg PO DAILY 10/25/20 03/31/23 Atorvastatin Calcium [Lipitor] 80 mg PO DAILY 12/27/20 03/31/23 DULoxetine HCL [Cymbalta] 60 mg PO DAILY 12/27/20 03/31/23 HYDROcodone/APAP 7.5-325MG [Boling 1 tab PO BID PRN 12/27/20 03/31/23 7.5-325] Metoprolol Tartrate [Lopressor] 100 mg PO DAILY 12/27/20 03/31/23 Ezetimibe [Zetia] 10 mg PO HS 09/19/22 03/31/23 Vitamin E (Dl,Tocopheryl Acet) 400 unit PO DAILY 09/19/22 03/31/23 [Vitamin E (400 Iu = 180 mg)] lisinopriL [Zestril] 5 mg PO DAILY 09/19/22 03/31/23 Previous Rx's Medication Instructions Recorded Aspirin 81 mg PO DAILY 21 Days #21 tab 02/13/23 Ticagrelor [Brilinta] 90 mg PO BID 30 Days #60 tab 03/05/23 Allergies/Adverse Reactions: Allergies Allergy/AdvReac Type Severity Reaction Status Date / Time oxaprozin [From Daypro] Allergy Severe Swelling Verified 03/31/23 11:26 throat & tongue, reddened face Review of Systems ROS Statement: Those systems with pertinent positive or pertinent negative responses have been documented in the HPI. ROS Other: All systems not noted in ROS Statement are negative. General Exam General appearance: alert, in no apparent distress Head exam: Present: atraumatic, normocephalic, normal inspection Eye exam: Present: normal appearance, PERRL, EOMI. Absent: scleral icterus, c onjunctival injection, periorbital swelling ENT exam: Present: normal exam, mucous membranes moist Neck exam: Present: normal inspection. Absent: tenderness, meningismus, lymphadenopathy Respiratory exam: Present: normal lung sounds bilaterally. Absent: respiratory distress, wheezes, rales, rhonchi, stridor Cardiovascular Exam: Present: regular rate, normal rhythm, normal heart sounds. Absent: systolic murmur, diastolic murmur, rubs, gallop, clicks GI/Abdominal exam: Present: soft, normal bowel sounds. Absent: distended, tenderness, guarding, rebound, rigid Extremities exam: Present: normal inspection, full ROM, normal capillary refill. Absent: tenderness, pedal edema, joint swelling, calf tenderness Back exam: Present: normal inspection Neurological exam: Present: alert, oriented X3, CN II-XII intact Psychiatric exam: Present: normal affect, normal mood Skin exam: Present: warm, dry, intact, normal color. Absent: rash Stroke MDM - Lab Data Result diagrams: 04/02/23 07:38 04/02/23 07:38 Lab Results 03/31/23 03/31/23 03/31/23 Range/Units 08:45 08:45 08:45 WBC 9.0 (3.8-10.6) k/uL RBC 4.32 (4.30-5.90) m/uL Hgb 13.2 (13.0-17.5) gm/dL Hct 39.6 (39.0-53.0) % MCV 91.5 (80.0-100.0) fL MCH 30.5 (25.0-35.0) pg MCHC 33.4 (31.0-37.0) g/dL RDW 13.2 (11.5-15.5) % Plt Count 325 (150-450) k/uL MPV 8.4 Neutrophils % 70 % Lymphocytes % 17 % Monocytes % 7 % Eosinophils % 4 % Basophils % 1 % Neutrophils # 6.3 (1.3-7.7) k/uL Lymphocytes # 1.5 (1.0-4.8) k/uL Monocytes # 0.6 (0-1.0) k/uL Eosinophils # 0.3 (0-0.7) k/uL Basophils # 0.1 (0-0.2) k/uL PT 10.5 (10.0-12.5) sec INR 1.0 (<1.2) APTT 19.5 L (22.0-30.0) sec Sodium 142 (137-145) mmol/L Potassium 3.6 (3.5-5.1) mmol/L Chloride 105 (98-107) mmol/L Carbon Dioxide 27 (22-30) mmol/L Anion Gap 10 mmol/L BUN 10 (9-20) mg/dL Creatinine 0.69 (0.66-1.25) mg/dL Est GFR (CKD-EPI)AfAm >90 (>60 ml/min/1.73 sqM) Est GFR (CKD-EPI)NonAf >90 (>60 ml/min/1.73 sqM) Glucose 82 (74-99) mg/dL POC Glucose (mg/dL) (70-110) mg/dL POC Glu Line Builder ID Plasma Lactic Acid Galo (0.7-2.0) mmol/L Calcium 9.5 (8.4-10.2) mg/dL Phosphorus 4.7 H (2.5-4.5) mg/dL Magnesium 1.7 (1.6-2.3) mg/dL Total Bilirubin 0.7 (0.2-1.3) mg/dL AST 22 (17-59) U/L ALT 32 (4-49) U/L Alkaline Phosphatase 115 (38-126) U/L Troponin I (0.000-0.034) ng/mL NT-Pro-B Natriuret Pep 163 pg/mL Total Protein 7.0 (6.3-8.2) g/dL Albumin 4.3 (3.5-5.0) g/dL 03/31/23 03/31/23 03/31/23 Range/Units 08:45 08:45 08:51 WBC (3.8-10.6) k/uL RBC (4.30-5.90) m/uL Hgb (13.0-17.5) gm/dL Hct (39.0-53.0) % MCV (80.0-100.0) fL MCH (25.0-35.0) pg MCHC (31.0-37.0) g/dL RDW (11.5-15.5) % Plt Count (150-450) k/uL MPV Neutrophils % % Lymphocytes % % Monocytes % % Eosinophils % % Basophils % % Neutrophils # (1.3-7.7) k/uL Lymphocytes # (1.0-4.8) k/uL Monocytes # (0-1.0) k/uL Eosinophils # (0-0.7) k/uL Basophils # (0-0.2) k/uL PT (10.0-12.5) sec INR (<1.2) APTT (22.0-30.0) sec Sodium (137-145) mmol/L Potassium (3.5-5.1) mmol/L Chloride (98-107) mmol/L Carbon Dioxide (22-30) mmol/L Anion Gap mmol/L BUN (9-20) mg/dL Creatinine (0.66-1.25) mg/dL Est GFR (CKD-EPI)AfAm (>60 ml/min/1.73 sqM) Est GFR (CKD-EPI)NonAf (>60 ml/min/1.73 sqM) Glucose (74-99) mg/dL POC Glucose (mg/dL) 93 (70-110) mg/dL POC Glu Line Builder ID Levon Rousseau Plasma Lactic Acid Galo 1.4 (0.7-2.0) mmol/L Calcium (8.4-10.2) mg/dL Phosphorus (2.5-4.5) mg/dL Magnesium (1.6-2.3) mg/dL Total Bilirubin (0.2-1.3) mg/dL AST (17-59) U/L ALT (4-49) U/L Alkaline Phosphatase (38-126) U/L Troponin I <0.012 (0.000-0.034) ng/mL NT-Pro-B Natriuret Pep pg/mL Total Protein (6.3-8.2) g/dL Albumin (3.5-5.0) g/dL - NIH Stroke Scale 1a. Level of Consciousness: (0) alert 1b. LOC Questions: (0) answers correctly 1c. LOC Commands: (0) performs tasks correctly 2. Best Gaze: (0) normal 3. Visual: (0) no visual loss 4. Facial Palsy: (1) minor paralysis 5a. Motor Arm Left: (1) drift 5b. Motor Arm Right: (0) no drift 6a. Motor Leg Left: (1) drift 6b. Motor Leg Right: (0) no drift 7. Limb Ataxia: (1) present 1 limb 8. Sensory: (0) normal 9. Best Language: (1) mild/moderate aphasia 10. Dysarthria: (0) normal 11. Extinction/Inattention: (0) no abnormality - Thrombolytic Inclusion/Exclusion Thrombolytic Exclusion Criteria: Symptom Onset > 4.5 Hours (Patient awoke with symptoms) - Medical Decision Making 67 male to ER for CVA symptoms are mildly improving, patient's symptoms are c onsistent with a wake-up stroke and history of CVA, symptoms continuing to persistently improve - Radiology Data Radiology results: report reviewed (CT brain CTA head neck negative for acute disease), image reviewed - EKG Data -: EKG Interpreted by Me (EKG is sinus 70 IA 163 QRS 96 QTc 381) Past Medical History Past Medical History: Coronary Artery Disease (CAD), CVA/TIA, Diabetes Mellitus, GERD/Reflux, Hyperlipidemia, Hypertension, Myocardial Infarction (MO), Osteoarthritis (OA), Seizure Disorder, Sleep Apnea/CPAP/BIPAP Additional Past Medical History / Comment(s): Chronic back pain. 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 CPAP use. "Hx mild seizure when ran out of Xanax few months ago". Last Myocardial Infarction Date:: 11/17/16 History of Any Multi-Drug Resistant Organisms: None Reported Past Surgical History: Heart Catheterization With Stent, Hernia Repair, Joint Replacement, Orthopedic Surgery Additional Past Surgical History / Comment(s): Right rotator cuff repair X2. Left hip replacement. Bilateral inguinal hernia repair. Stent replacement 11/07. Past Anesthesia/Blood Transfusion Reactions: No Reported Reaction Additional Past Anesthesia/Blood Transfusion Reaction / Comment(s): States had transfusion at . Date of Last Stent Placement:: 10/2020 Past Psychological History: Anxiety, Depression Smoking Status: Never smoker Past Alcohol Use History: Occasional Past Drug Use History: None Reported - Past Family History Brother(s) Family Medical History: Cancer, Deep Vein Thrombosis (DVT) Additional Family Medical History / Comment(s): 1 brother with Esophageal CA. 2 brothers with DVT. Sister(s) Family Medical History: Cancer Additional Family Medical History / Comment(s): Brain CA. 2nd sister had breast CA. Course Vital Signs 03/31/23 03/31/23 03/31/23 08:47 09:15 09:17 Temperature 97.8 F Pulse Rate 71 65 68 Respiratory 20 16 20 Rate Blood Pressure 153/102 165/94 149/91 O2 Sat by Pulse 95 95 95 Oximetry 03/31/23 03/31/23 03/31/23 10:00 11:00 12:36 Temperature 98 F Pulse Rate 68 70 72 Respiratory 16 16 16 Rate Blood Pressure 145/93 134/84 121/69 O2 Sat by Pulse 99 97 96 Oximetry 03/31/23 03/31/23 14:00 17:02 Temperature 98.0 F Pulse Rate 68 74 Respiratory 16 18 Rate Blood Pressure 140/86 162/84 O2 Sat by Pulse 98 98 Oximetry - Reevaluation(s) Reevaluation #1: 03/31/23 13:25 Medical record is reviewed Code stroke is i paged, not a call alteplase secondary to patient waking up with stroke symptoms Reevaluation #2: 03/31/23 13:26 Patient symptoms are improving Reevaluation #3: 03/31/23 13:26 Patient informed of results and questions answered Reevaluation #4: Was pt. sent in by a medical professional or institution (, PA, [employer], urgent care, hospital, or shelter...) When possible be specific @ -no Did you speak to anyone other than the patient for history (EMS, parent, family, police, friend...)? What history was obtained from this source @ -no Did you review nursing and triage notes (agree or disagree)? Why? @ -agree Are old charts reviewed (outside hosp., previous admission, EMS record, old EKG, old radiological studies, urgent care reports/EKG's, shelter records)? Report findings @ -yes Differential Diagnosis (chest pain, altered mental status, abdominal pain women, abdominal pain men, vaginal bleeding, weakness, fever, dyspnea, syncope, headache, dizziness, GI bleed, back pain, seizure, CVA, palpatations, mental health, musculoskeletal)? @ -prior EKG interpreted by me (3pts min.). @ -yes X-rays interpreted by me (1pt min.). @ -no CT interpreted by me (1pt min.). @ -Yes negative for acute disease U/S interpreted by me (1pt. min.). @ -no What testing was considered but not performed or refused? (CT, X-rays, U/S, labs)? Why? @ -none What meds were considered but not given or refused? Why? @ -none Did you discuss the management of the patient with other professionals (professionals i.e. , PA, [employer], lab, RT, psych nurse, medical social worker, supervisor respiratory, teacher, credit review officer, case packer)? Give summary @ -no Was smoking cessation discussed for >3mins.? @ -no Was critical care preformed (if so, how long)? @ -no Were there social determinants of health that impacted care today? How? (Homelessness, low income, unemployed, alcoholism, drug addiction, transportation, low edu. Level, literacy, decrease access to med. care, correction, rehab)? @ -none Was there de-escalation of care discussed even if they declined (Discuss DNR or withdrawal of care, Hospice)? DNR status @ -no What co-morbidities impacted this encounter? (DM, HTN, Smoking, COPD, CAD, Cancer, CVA, ARF, Chemo, Hep., AIDS, mental health diagnosis, sleep apnea, morbid obesity)? @ -none Was patient admitted / discharged? Hospital course, mention meds given and route, prescriptions, significant lab abnormalities, going to OR and other pert inent info. @ - 67 male to ER for CVA symptoms are mildly improving, patient's symptoms are consistent with a wake-up stroke and history of CVA, symptoms continuing to persistently improve Admitted Undiagnosed new problem with uncertain prognosis? @ -no Drug Therapy requiring intensive monitoring for toxicity (Heparin, Nitro, Insulin, Cardizem)? @ -no Were any procedures done? @ -no Diagnosis/symptom? @ -CVA Acute, or Chronic, or Acute on Chronic? @ -Acute Uncomplicated (without systemic symptoms) or Complicated (systemic symptoms)? @ -Complicated Side effects of treatment? @ -no Exacerbation, Progression, or Severe Exacerbation? @ -exacerbation Poses a threat to life or bodily function? How? (Chest pain, USA, MO, pneumonia, PE, COPD, DKA, ARF, appy, cholecystitis, CVA, Diverticulitis, Homicidal, Suicidal, threat to staff... and all critical care pts) @ -yes 04/08/23 06:20 Reevaluation #5: Differential CVA Ischemic stroke, hemorrhagic stroke, brain tumor, atypical migraine, Wernicke's encephalopathy, seizure, multiple sclerosis, meningitis, encephalitis, hypoglycemia, Guillain-Shah, electrolytes disturbance, myasthenia gravis.... This is not meant to be an all-inclusive list - Consultations Consultation #1: Spoke with admitting physicians who agreed to admit this patient Critical Care Time Critical Care Time: Yes Total Critical Care Time: 31 Disposition Clinical Impression: Weakness, Altered mental status, Cerebrovascular accident (CVA) Disposition: ADMITTED IP TO THIS HOSP Condition: Stable Is patient prescribed a controlled substance at d/c from ED?: No Time of Disposition: 10:50
[2023-03-31 09:05] LABS: Basophils # (A) 0.1 k/uL (0-0.2); Basophils % (A) 1 %; Eosinophils # (A) 0.3 k/uL (0-0.7); Eosinophils % (A) 4 %; HCT 39.6 % (39.0-53.0); HGB 13.2 gm/dL (13.0-17.5); Lymphocytes # (A) 1.5 k/uL (1.0-4.8); Lymphocytes % (A) 17 %; MCH 30.5 pg (25.0-35.0); MCHC 33.4 g/dL (31.0-37.0); MCV 91.5 fL (80.0-100.0); Mean Platelet Volume 8.4; Monocytes # (A) 0.6 k/uL (0-1.0); Monocytes % (A) 7 %; Neutrophils # (A) 6.3 k/uL (1.3-7.7); Neutrophils % (A) 70 %; Platelet Count 325 k/uL (150-450); RBC 4.32 m/uL (4.30-5.90); RDW 13.2 % (11.5-15.5)
[2023-03-31 09:19] LABS: ALT 32 U/L (4-49); AST 22 U/L (17-59); African American GFR (CKD) >90 (>60 ml/min/1.73 sqM); Albumin 4.3 g/dL (3.5-5.0); Alkaline Phosphatase 115 U/L (38-126); Anion Gap 10 mmol/L; Blood Urea Nitrogen 10 mg/dL (9-20); Calcium 9.5 mg/dL (8.4-10.2); Carbon Dioxide 27 mmol/L (22-30); Chloride 105 mmol/L (98-107); Glucose 82 mg/dL (74-99); Magnesium 1.7 mg/dL (1.6-2.3); Non-African American GFR(CKD) >90 (>60 ml/min/1.73 sqM); Phosphorus 4.7 mg/dL (2.5-4.5); Potassium 3.6 mmol/L (3.5-5.1); Sodium 142 mmol/L (137-145); Total Bilirubin 0.7 mg/dL (0.2-1.3)
--- NOTE | 2023-03-31 09:24 | CT ---
EXAMINATION TYPE: CT brain wo con DATE OF EXAM: 03/31/2023 COMPARISON: 03/02/2023 INDICATION: CODE STROKE DLP: 1185.0 mGycm, Automated exposure control for dose reduction was used. CONTRAST: None CT of the brain is performed utilizing 3 mm thick sections through the posterior fossa and 3 mm thick sections through the remaining calvarium. Study is performed within 24 hours of arrival to the hosp ital. No abnormal hyperdensity is present to suggest an acute intracranial hemorrhage. No mass lesion is evident. No acute infarcts are evident. Hypodensities in the right periventricular white matter. There is some milder periventricular white matter hypodensity within the left cerebrum. Findings are stable from c omparison. Ventricles and sulci are appropriate for the patient age. Paranasal sinuses within the [id number] are clear. Mastoid air cells are underpneumatized. No flui d is evident. IMPRESSION: 1. Patchy periventricular white matter ischemic-type changes greater on the right, stable from comp arison. 2. No acute intracranial process. Follow-up MRI can be performed as clinically indicated.
[2023-03-31 09:27] LABS: NT-Pro-B-Type Natriuretic Pept 163 pg/mL
[2023-03-31] MEDS: SODIUM CHLORIDE 0.9% 1,000 ML IV STA (09:35)
--- NOTE | 2023-03-31 10:11 | CT ---
EXAMINATION TYPE: CT angio head neck DATE OF EXAM: 03/31/2023 HISTORY: CVA COMPARISON: 03/11/2023 CT DLP: 542.3 mGycm. Automated Exposure Control for Dose Reduction was Utilized. TECHNIQUE: CTA scan of the neck is performed without and with IV Contrast, patient injected with 65 ml mL of Isovue 370, axial images are obtained, coronal and sagittal reformatted images are reviewed. Three-D reconstructed images are created on an independent workstation and reviewed. Source images are reviewed. FINDINGS: Carotid/Vascular Structures: There is a two-vessel arch with the left common carotid artery coming fr om the innominate artery. Common carotid arteries bifurcate into internal and external carotid arteries without significant marianela w limiting stenosis. Some atheromatous plaquing is present causing narrowing of less than 50% bilater al internal carotid artery origins.0 Vertebral arteries are codominant. Internal carotid arteries and vertebral arteries are patent to the skull base. Cervical of Rees: Vertebral basilar system appears normal. Posterior cerebral vasculature is unrema rkable. Internal carotid arteries bifurcate normally into A1 and M1 segments. A2 segments are normal. The anterior communicating artery is patent. The right posterior communicating artery is patent. The left posterior communicating artery is absent. IMPRESSION: 1. No flow-limiting stenosis bilateral carotid bifurcations. Mild atheromatous plaque is present. 2. Normal [place] of [place] NASCET criteria was used in interpretation of this exam?
[2023-03-31 10:21] LABS: Prothrombin Time 10.5 sec (10.0-12.5)
[2023-03-31 10:34] LABS: Partial Thromboplastin Time 19.5 sec (22.0-30.0)
[2023-03-31] MEDS: ASPIRIN 325 MG TAB PO STA (11:19)
[2023-03-31] MEDS: MORPHINE SULFATE 4 MG/ML SYRINGE IM STA (11:19)
[2023-03-31] MEDS: SODIUM CHLORIDE 0.9% 1,000 ML IV SCH (11:20)
[2023-03-31] MEDS: ATORVASTATIN 80 MG TAB PO SCH (13:43)
[2023-03-31] MEDS: HYDROcodone/APAP 7.5-325MG 1 EACH TAB PO PRN ×2 (13:43→21:27)
[2023-03-31] MEDS: DULoxetine HCL 60 MG CAPSULE.DR PO SCH (14:25)
[2023-03-31] MEDS: MORPHINE SULFATE 4 MG/ML SYRINGE IVP PRN (17:45)
[2023-03-31 17:48] LABS: Glucose,Whole Blood 76 mg/dL (70-110)
[2023-03-31] MEDS ORDERED: DEXTROSE 50% SYRINGE 50 ML IVP PRN ×2 (17:49)
--- NOTE | 2023-03-31 17:53 | P.HPIM ---
History of Present Illness H&P Date: 03/31/23 History of Presenting Illness: Patient is a pleasant 67-year-old male with a past medical history of CAD status post stent placement, hypertension, hyperlipidemia, GERD, insulin-dependent diabetes mellitus type II and recent recurrent ischemic strokes on 02/11/2023, 03/02/2023, and 03/12/2023 reasonable [facility] where patient reportedly underwent procedure with neuro interventionalists and is currently on dual antiplatelet therapy with aspirin and Brilinta. Patient and at bedside unable to state exact procedure that patient underwent but reports the procedure went well and although he continued to report mild left-sided weakness and facial droop, he was overall doing well. He states this morning upon awakening around 7:30 AM, he again noticed his left-sided weakness and facial droop had significantly worsened, just as they had when he experienced his previous recurrent ischemic stroke. Patient's reports her was doing so well in the rehab they did not even keep him a whole week when he was supposed to stay there for 3 weeks because he was doing so well, but reports today he could not even walk or talk. Patient currently with significant left-sided facial droop, slurred speech, moderate left upper extremity weakness, and mild left lower extremity weakness. He denies having any headache, lightheadedness, dizziness, changes in vision or hearing, chest pain or palpitations, shortness of breath, cough or congestion, difficulty swallowing. He underwent full evaluation in the emergency department. Upon arrival vital signs as follows blood pressure 153/102, heart rate 71, respiratory rate 20, temp 97.8 F, SpO2 of 95% on room air. EKG completed showing normal sinus rhythm at 70 bpm with no noted T wave or ST abnormalities showing no signs of acute ischemia. CT brain showing patchy periventricular white matter ischemic changes greater on the right but negative for acute intracranial process. CTA head negative for acute process and CTA neck showing mild atheromatous plaque present but reporting no flow-limiting stenosis of bilateral carotid bifurcation. Patient was admitted under our services with consultation to neurology. Review of systems: Pertinent positives and negatives as discussed in HPI, a complete review of systems was performed and all other systems are negative. Physical exam: Vital signs reviewed and stable. General: Nontoxic, no distress and appears stated age. Derm: Skin warm and dry, normal coloration for ethnicity. Head: Atraumatic, normocephalic and symmetric. Eyes: EOMs intact, no lid lag, and anicteric sclera Mouth: no lip lesions, mucus membranes moist Cardiovascular: regular rate and rhythm with normal S1S2, no murmur, positive posterior tibial pulses bilaterally, and cap refill < 2 seconds. Lungs: Respirations even, regular, and unlabored on room air. Lungs CTA bilater ally, no rhonchi, no rales, no wheezing, and no accessory muscle usage. Abdominal: soft, nontender to palpation, no guarding, no appreciable organomegaly Ext: No gross muscle atrophy, no edema, no contractures. Sensation intact. Moderate left upper extremity weakness and mild left lower extremity weakness noted. Neuro: Speech slurred face with moderate left-sided facial droop Psych: Alert and oriented to person, place, time, and situation. Appropriate and pleasant affect. Assessment and Plan of Care: Left-sided neurodeficits with left upper and lower extremity weakness, left- sided facial droop, and slurred speech. Concerns of recurrent CVA with history of recurrent ischemic strokes most recently 02/11/2023, 03/02/2023, and 03/12/2023 -Unclear if worsening deficits from previous ischemic CVA resulting in left- sided deficits or if these deficits are occurring from new CVA. -Continue with aspirin 81 mg daily, Brilinta 90 mg twice daily, Zetia 10 mg nightly, and atorvastatin 80 mg nightly -Obtain records from [facility] -Continue NIH scale with neurochecks every 4 hours -Neurology consulted, appreciate recommendations -Recent echocardiogram was completed 02/11/2023 showing a preserved EF of 55 to 60% and reported no evidence of PFO -PT/OT consulted -Continue gentle IV fluid hydration normal saline 100 cc/hr -CT brain showing patchy periventricular white matter ischemic changes greater on the right but negative for acute intracranial process. -CTA head negative for acute process and CTA neck showing mild atheromatous plaque present but reporting no flow-limiting stenosis of bilateral carotid bifurcation. Hypertension, presented with elevated poorly controlled blood pressures Hyperlipidemia History of CAD status post stent placement -Continue aspirin 81 mg daily, atorvastatin 80 mg daily, Zetia 10 mg nightly, lisinopril 5 mg daily, metoprolol 100 mg daily, and Brilinta 90 mg twice daily. -Monitor vital signs Insulin-dependent type 2 diabetes mellitus -Hold Jardiance and metformin, continue Levemir [address] patient on glycemic protocol with NovoLog sliding scale. Data and imaging reviewed: -As stated above with HPI CODE STATUS: Full code DVT prophylaxis: Lovenox Anticipated discharge date: Clinical course to determine Anticipated discharge place: Clinical course to determine Patient was seen independently by Nurse Pracitioner. This document was prepared using [employer] dictation software. Please allow for errors in wood processing worker, while rare they do occur. Michael Arizmendi NP rendered care for this patient independently, reviewed the findings and plan as documented in the note above. I did not physically speak with or examine the patient on this date. Past Medical History Past Medical History: Coronary Artery Disease (CAD), CVA/TIA, Diabetes Mellitus, GERD/Reflux, Hyperlipidemia, Hypertension, Myocardial Infarction ([place]), Osteoarthritis (OA), Seizure Disorder, Sleep Apnea/CPAP/BIPAP Additional Past Medical History / Comment(s): Chronic back pain. 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 CPAP use. "Hx mild seizure when ran out of Xanax few months ago". Last Myocardial Infarction Date:: 11/17/16 History of Any Multi-Drug Resistant Organisms: None Reported Past Surgical History: Heart Catheterization With Stent, Hernia Repair, Joint Replacement, Orthopedic Surgery Additional Past Surgical History / Comment(s): Right rotator cuff repair X2. Left hip replacement. Bilateral inguinal hernia repair. Stent replacement 11/07. Past Anesthesia/Blood Transfusion Reactions: No Reported Reaction Additional Past Anesthesia/Blood Transfusion Reaction / Comment(s): States had transfusion at . Date of Last Stent Placement:: 10/2020 Past Psychological History: Anxiety, Depression Smoking Status: Never smoker Past Alcohol Use History: Occasional Past Drug Use History: None Reported - Past Family History Brother(s) Family Medical History: Cancer, Deep Vein Thrombosis (DVT) Additional Family Medical History / Comment(s): 1 brother with Esophageal CA. 2 brothers with DVT. Sister(s) Family Medical History: Cancer Additional Family Medical History / Comment(s): Brain CA. 2nd sister had breast CA. Medications and Allergies Home Medications Medication Instructions Recorded Confirmed Type Omeprazole 20 mg PO DAILY 02/23/16 03/31/23 History metFORMIN HCL [Glucophage] 1,000 mg PO BID 02/23/16 03/31/23 History Insulin Detemir [Levemir Flextouch 75 units SQ HS 03/03/18 03/31/23 History Pen] Pioglitazone HCl [Actos] 15 mg PO DAILY 08/16/18 03/31/23 History Empagliflozin [Jardiance] 10 mg PO DAILY 10/25/20 03/31/23 History Atorvastatin Calcium [Lipitor] 80 mg PO DAILY 12/27/20 03/31/23 History DULoxetine HCL [Cymbalta] 60 mg PO DAILY 12/27/20 03/31/23 History HYDROcodone/APAP 7.5-325MG [[place] 1 tab PO BID PRN 12/27/20 03/31/23 History 7.5-325] Metoprolol Tartrate [Lopressor] 100 mg PO DAILY 12/27/20 03/31/23 History Ezetimibe [Zetia] 10 mg PO HS 09/19/22 03/31/23 History Vitamin E (Dl,Tocopheryl Acet) 400 unit PO DAILY 09/19/22 03/31/23 History [Vitamin E (400 Iu = 180 mg)] lisinopriL [Zestril] 5 mg PO DAILY 09/19/22 03/31/23 History Aspirin 81 mg PO DAILY 21 Days #21 tab 02/13/23 03/31/23 Rx Ticagrelor [Brilinta] 90 mg PO BID 30 Days #60 tab 03/05/23 03/31/23 Rx Allergies Allergy/AdvReac Type Severity Reaction Status Date / Time oxaprozin [From Daypro] Allergy Severe Swelling Verified 03/31/23 11:26 throat & tongue, reddened face Physical Exam Osteopathic Statement: *. No significant issues noted on an osteopathic structural exam other than those noted in the History and Physical/Consult. Vitals: Vital Signs Temp Pulse Resp BP Pulse Ox 03/31/23 11:00 70 16 134/84 97 03/31/23 10:00 68 16 145/93 99 03/31/23 09:17 68 20 149/91 95 03/31/23 09:15 65 16 165/94 95 03/31/23 08:47 97.8 F 71 20 153/102 95 Intake and Output 03/30/23 03/31/23 03/31/23 22:59 06:59 14:59 Other: Weight 88.904 kg Results CBC & Chem 7: 02/12/24 08:45 03/31/23 08:45 Labs: Abnormal Lab Results - Last 24 Hours (Table) 03/31/23 03/31/23 Range/Units 08:45 08:45 APTT 19.5 L (22.0-30.0) sec Phosphorus 4.7 H (2.5-4.5) mg/dL
[2023-03-31 20:06] LABS: Glucose,Whole Blood 122 mg/dL (70-110)
[2023-03-31] MEDS: INSULIN DETEMIR (LEVEMIR) 100 UNIT/ML SYR SQ SCH (21:27)
[2023-03-31] MEDS: TICAGRELOR 90 MG TAB PO SCH (21:28)
[2023-03-31] MEDS: EZETIMIBE 10 MG TAB PO SCH (21:28)
[2023-03-31] MEDS: MELATONIN 3 MG TABLET PO PRN (21:28)
[2023-03-31] MEDS: INSULIN ASPART (NovoLOG) 100 UNIT/ML VIAL SQ SCH (21:38)
[2023-04-01] MEDS: ONDANSETRON 4 MG/2 ML VIAL IVP STA (03:15)
[2023-04-01 05:58] LABS: Glucose,Whole Blood 78 mg/dL (70-110)
[2023-04-01] MEDS: PANTOPRAZOLE 40 MG TABLET PO SCH (06:05)
[2023-04-01] MEDS: lisinopriL 5 MG TAB PO SCH (08:23)
[2023-04-01] MEDS: ENOXAPARIN 40 MG/0.4 ML SYRINGE SQ SCH (08:23)
[2023-04-01] MEDS: VITAMIN E (DL,TOCOPHERYL ACET) 400 UNIT (180 MG) CAP PO SCH (08:23)
[2023-04-01] MEDS: CALCIUM CARBONATE 500 MG CHEWABLE PO PRN (08:23)
[2023-04-01] MEDS: METOPROLOL TARTRATE 50 MG TAB PO SCH (08:23)
[2023-04-01] MEDS: ASPIRIN 81 MG PO SCH (08:23)
[2023-04-01] MEDS ORDERED: ASPIRIN 325 MG TAB PO SCH (09:00)
[2023-04-01 12:01] LABS: Glucose,Whole Blood 83 mg/dL (70-110)
--- NOTE | 2023-04-01 12:56 | P.CNNES ---
History of Present Illness Consult date: 04/01/23 Requesting physician: Phil Myrick Reason for Consult: cva History of Present Illness: This is a 67-year-old gentleman with history of recurrent strokes who presented emergency department because of worsening weakness of the left arm since this past weekend and he feels is dropping things over the left hand. He states that he has a history of weakness over the left side but the left arm is weaker than baseline. He is taking aspirin 81 mg and Brilinta 90mg 1 tab bid and is compliant taking medication. Patient is known to our neurology team and was last seen by Dr. Mack, on 03/12/2023 and that time patient had the left facial weakness, left arm weakness NIH stroke score at over 6. He had CTA of the head showed no large vessel intracranial occlusion. Severe stenosis/occlusion of the proximal right M2 branch supplying the medial sylvian fissure branches blood flow distal to the point of occlusion unchanged from prior exam. Severe multiple 90% stenosis of the distal intracranial right vertebral artery. Severe atherosclerotic disease of the cavernous and clinoid portions of the distal intracranial left ICA causing up to 80% stenosis of the ophthalmic segment. Severe atherosclerotic disease of the cavernous and clinoid portion of the distal right ICA causing up to 50% stenosis. CTA of the neck showed moderate plaque within the bilateral carotid bulbs and proximal ICA causing no greater than 30% stenosis. Patent bilateral vertebral arteries along their cervical course without occlusion or dissection. and the patient was transferred to [facility] for diagnostic cerebral angiogram and according to the patient he did not have any intervention. Please refer to Dr. Mack's note for further details. Some of the work-up during this hospital visit consisted of: Per ED attending patient had NIH stroke scale of 5. 1 for facial paralysis, 1 for left arm motor, 1 for motor left leg, 1 for limb ataxia, 1 for the best language. No IV thrombolytics since outside the window4.5 hours. The risk outweighed the benefit. CT of the head is reported as patchy periventricular white matter ischemic type changes greater on the right, stable from comparison. No acute intracranial process. I personally reviewed the CT of the head and there is no acute or subacute ischemia that's appreciable. There is no bleed. CTA head and neck is reported as no flow-limiting stenosis, bilateral carotid bifurcation. Mild atheromatous plaque is present. Normal [place]. Review of Systems Review of system: The 12 point system was reviewed and apparent positive and negative per HPI. Past Medical History Past Medical History: Coronary Artery Disease (CAD), CVA/TIA, Diabetes Mellitus, GERD/Reflux, Hyperlipidemia, Hypertension, Myocardial Infarction ([place]), Osteoarthritis (OA), Seizure Disorder, Sleep Apnea/CPAP/BIPAP Additional Past Medical History / Comment(s): Chronic back pain. 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 CPAP use. "Hx mild seizure when ran out of Xanax few months ago". Last Myocardial Infarction Date:: 11/17/16 History of Any Multi-Drug Resistant Organisms: None Reported Past Surgical History: Heart Catheterization With Stent, Hernia Repair, Joint Replacement, Orthopedic Surgery Additional Past Surgical History / Comment(s): Right rotator cuff repair X2. Left hip replacement. Bilateral inguinal hernia repair. Stent replacement 11/07. Past Anesthesia/Blood Transfusion Reactions: No Reported Reaction Additional Past Anesthesia/Blood Transfusion Reaction / Comment(s): States had transfusion at . Date of Last Stent Placement:: 10/2020 Past Psychological History: Anxiety, Depression Smoking Status: Never smoker Past Alcohol Use History: Occasional Past Drug Use History: None Reported - Past Family History Brother(s) Family Medical History: Cancer, Deep Vein Thrombosis (DVT) Additional Family Medical History / Comment(s): 1 brother with Esophageal CA. 2 brothers with DVT. Sister(s) Family Medical History: Cancer Additional Family Medical History / Comment(s): Brain CA. 2nd sister had breast CA. Medications and Allergies Home Medications Medication Instructions Recorded Confirmed Type Omeprazole 20 mg PO DAILY 02/23/16 03/31/23 History metFORMIN HCL [Glucophage] 1,000 mg PO BID 02/23/16 03/31/23 History Insulin Detemir [Levemir Flextouch 75 units SQ HS 03/03/18 03/31/23 History Pen] Pioglitazone HCl [Actos] 15 mg PO DAILY 08/16/18 03/31/23 History Empagliflozin [Jardiance] 10 mg PO DAILY 10/25/20 03/31/23 History Atorvastatin Calcium [Lipitor] 80 mg PO DAILY 12/27/20 03/31/23 History DULoxetine HCL [Cymbalta] 60 mg PO DAILY 12/27/20 03/31/23 History HYDROcodone/APAP 7.5-325MG [[place] 1 tab PO BID PRN 12/27/20 03/31/23 History 7.5-325] Metoprolol Tartrate [Lopressor] 100 mg PO DAILY 12/27/20 03/31/23 History Ezetimibe [Zetia] 10 mg PO HS 09/19/22 03/31/23 History Vitamin E (Dl,Tocopheryl Acet) 400 unit PO DAILY 09/19/22 03/31/23 History [Vitamin E (400 Iu = 180 mg)] lisinopriL [Zestril] 5 mg PO DAILY 09/19/22 03/31/23 History Aspirin 81 mg PO DAILY 21 Days #21 tab 02/13/23 03/31/23 Rx Ticagrelor [Brilinta] 90 mg PO BID 30 Days #60 tab 03/05/23 03/31/23 Rx Allergies Allergy/AdvReac Type Severity Reaction Status Date / Time oxaprozin [From Daypro] Allergy Severe Swelling Verified 03/31/23 11:26 throat & tongue, reddened face Physical Examination - Vital Signs Vital Signs: Vital Signs Temp Pulse Pulse Resp BP BP Pulse Ox 04/01/23 11:19 97.9 F 73 18 152/89 95 04/01/23 08:14 84 04/01/23 08:00 98.3 F 84 17 167/81 95 04/01/23 03:18 98.0 F 94 18 176/98 94 L 04/01/23 02:00 94 18 04/01/23 00:00 98.7 F 87 18 162/79 96 03/31/23 20:00 98.8 F 85 18 185/85 98 03/31/23 18:19 79 03/31/23 17:47 98.1 F 79 20 131/60 96 03/31/23 17:02 98.0 F 74 18 162/84 98 03/31/23 14:00 68 16 140/86 98 Intake and Output 03/31/23 04/01/23 04/01/23 22:59 06:59 14:59 Intake Total 120 360 Balance 120 360 Intake: Oral 120 360 Other: Voiding Method Toilet Toilet Toilet # Voids 1 1 1 Weight 88.904 kg GENERAL: The patient is lying in bed and is not in acute distress. NEUROLOGICAL: Higher mental function: The patient is awake, alert, oriented to self, place and time. Patient is following commands. No aphasia and no neglect. Cranial nerves: The pupils are round, equal and reactive to light and accommodation. Visual hardy are full to confrontation throughout. Extraocular movement is intact no nystagmus is noted. Facial sensation is normal to touch throughout. Has left lower facial weakness. Hearing is normal bilaterally to hand rub. Tongue is midline and moved [id number] without any difficulty. No dysarthria is noted. Shoulder shrug is normal bilaterally. Motor: The strength is left upper is 4 while left hip is 4+ to 5-. Otherwise 5/5 throughout. Normal tone and bulk. Cerebellum: Normal finger to nose bilaterally. Sensation: Sensation is normal to touch throughout. Reflexes (right/left): 2+ throughout. Plantars are mute bilaterally. Results - Laboratory Findings CBC and BMP: 03/31/23 08:45 03/31/23 08:45 Abnormal Lab Findings: Abnormal Labs 03/31/23 03/31/23 03/31/23 08:45 08:45 20:04 APTT 19.5 L POC Glucose (mg/dL) 122 H Phosphorus 4.7 H Assessment and Plan Assessment: * Worsening of left arm weakness dropping things on the left arm probable acute/subacute stroke. * Recurrent strokes involving the right parietal region 02/10/2023, and then more areas of ischemic infarction in the right parietal region on 03/02/2023. Then on 03/11/23 presented for left facial weakness left arm weakness and was transferred to [facility] for diagnostic cerebral angiogram and the patient did not have any intervention * Previous history of stroke in 2020 over the right basal ganglia * Vasculopathy, with significant intracranial atherosclerotic disease. * History of CAD s/p stent X2 * Hypertension * Hyperlipidemia * Diabetes * History of Mustafa's palsy over the right face. Plan: Patient was given aspirin 325 once in the ED and resumed on his all medications aspirin 81 mg and Brilinta 90mg 1 tab bid. He is on Lipitor 80mg daily. I ordered MRI of the brain. I ordered a limited 2-D echo. Hemoglobin A1c is ordered by the primary team is pending Continue neuro checks Cardiac monitoring PT, OT and RN [id number] are consulted We'll defer the rest of the medical management to primary team For DVT prophylaxis the patient is on Lovenox Discussed with the patient and his nurses who is at bedside Thank you for the consultation Time with Patient: Greater than 30
--- NOTE | 2023-04-01 13:12 | P.PN ---
Subjective Progress Note Date: 04/01/23 Hospital Course: Patient is a pleasant 67-year-old male with a past medical history of CAD status post stent placement, hypertension, hyperlipidemia, GERD, insulin-dependent diabetes mellitus type II and recent recurrent ischemic strokes on 02/11/2023, 03/02/2023, and 03/12/2023 reasonable [facility] where patient reportedly underwent procedure with neuro interventionalists and is currently on dual antiplatelet therapy with aspirin and Brilinta. Patient and at bedside unable to state exact procedure that patient underwent but reports the procedure went well and although he continued to report mild left-sided weakness and facial droop, he was overall doing well. He states this morning upon awakening around 7:30 AM, he again noticed his left-sided weakness and facial droop had significantly worsened, just as they had when he experienced his previous recurrent ischemic stroke. Patient's reports her was doing so well in the rehab they did not even keep him a whole week when he was supposed to stay there for 3 weeks because he was doing so well, but reports today he could not even walk or talk. Patient currently with significant left-sided facial droop, slurred speech, moderate left upper extremity weakness, and mild left low er extremity weakness. He denies having any headache, lightheadedness, dizziness, changes in vision or hearing, chest pain or palpitations, shortness of breath, cough or congestion, difficulty swallowing. He underwent full evaluation in the emergency department. Upon arrival vital signs as follows blood pressure 153/102, heart rate 71, respiratory rate 20, temp 97.8 F, SpO2 of 95% on room air. EKG completed showing normal sinus rhythm at 70 bpm with no noted T wave or ST abnormalities showing no signs of acute ischemia. CT brain showing patchy periventricular white matter ischemic changes greater on the right but negative for acute intracranial process. CTA head negative for acute process and CTA neck showing mild atheromatous plaque present but reporting no flow-limiting stenosis of bilateral carotid bifurcation. Patient was admitted under our services with consultation to neurology. Physical exam: Patient seen and fully evaluated at the bedside. He continues to have significant left-sided facial droop along with mild to moderate left upper and lower extremity weakness. He currently denies having any headache, lightheadedness, dizziness, chest pain, palpitations, or any new complaints at this time. Vital signs reviewed and stable. General: Nontoxic, no distress and appears stated age. Derm: Skin warm and dry, normal coloration for ethnicity. Head: Atraumatic, normocephalic and symmetric. Eyes: EOMs intact, no lid lag, and anicteric sclera Mouth: no lip lesions, mucus membranes moist Cardiovascular: regular rate and rhythm with normal S1S2, no murmur, positive posterior tibial pulses bilaterally, and cap refill < 2 seconds. Lungs: Respirations even, regular, and unlabored on room air. Lungs CTA bilaterally, no rhonchi, no rales, no wheezing, and no accessory muscle usage. Abdominal: soft, nontender to palpation, no guarding, no appreciable organomegaly Ext: No gross muscle atrophy, no edema, no contractures. Sensation intact. Moderate left upper extremity weakness and mild left lower extremity weakness noted. Neuro: Speech slurred face with moderate left-sided facial droop Psych: Alert and oriented to person, place, time, and situation. Appropriate and pleasant affect. Assessment and Plan of Care: Left-sided neurodeficits with left upper and lower extremity weakness, left- sided facial droop, and slurred speech. Concerns of recurrent CVA with history of recurrent ischemic strokes most recently 02/11/2023, 03/02/2023, and 03/12/2023 -Unclear if worsening deficits from previous ischemic CVA resulting in left- sided deficits or if these deficits are occurring from new CVA. -Continue with aspirin 81 mg daily, Brilinta 90 mg twice daily, Zetia 10 mg nightly, and atorvastatin 80 mg nightly -Obtain records from [facility] -Continue NIH scale with neurochecks every 4 hours -Neurology consulted, appreciate recommendations -Recent echocardiogram was completed 02/11/2023 showing a preserved EF of 55 to 60% and reported no evidence of PFO -PT/OT consulted -Continue gentle IV fluid hydration normal saline 100 cc/hr -CT brain showing patchy periventricular white matter ischemic changes greater on the right but negative for acute intracranial process. -CTA head negative for acute process and CTA neck showing mild atheromatous plaque present but reporting no flow-limiting stenosis of bilateral carotid b ifurcation. -Request sent for medical records from [facility]. Hypertension, presented with elevated poorly controlled blood pressures Hyperlipidemia History of CAD status post stent placement -Continue aspirin 81 mg daily, atorvastatin 80 mg daily, Zetia 10 mg nightly, lisinopril 5 mg daily, metoprolol 100 mg daily, and Brilinta 90 mg twice daily. -Monitor vital signs Insulin-dependent type 2 diabetes mellitus -Hold Jardiance and metformin, continue Levemir [address] patient on glycemic protocol with NovoLog sliding scale. Data and imaging reviewed: -Vital signs reviewed. Blood pressure 167/81, heart rate 84, respiratory rate 17, temp 98.3 F, and SpO2 of 95% on 2 L. CODE STATUS: Full code DVT prophylaxis: Lovenox Anticipated discharge date: Clinical course to determine Anticipated discharge place: Clinical course to determine Patient was seen independently by Nurse Pracitioner. This document was prepared using [employer] dictation software. Please allow for errors in vice president of business development, while rare they do occur. Michael Arizmendi NP rendered care for this patient independently, reviewed the findings and plan as documented in the note above. I did not physically speak with or examine the patient on this date. Objective - Vital Signs Vital signs: Vital Signs Temp 98.0 F 04/01/23 03:18 Pulse 94 04/01/23 03:18 Resp 18 04/01/23 03:18 BP 176/98 04/01/23 03:18 Pulse Ox 94 L 04/01/23 03:18 FiO2 Intake & Output 03/31/23 04/01/23 04/01/23 18:59 06:59 18:59 Intake Total 120 Balance 120 Weight 88.904 kg Intake: Oral 120 Other: Voiding Method Toilet Toilet # Voids 1 1 - Labs CBC & Chem 7: 03/31/23 08:45 03/31/23 08:45 Labs: Abnormal Lab Results - Last 24 Hours (Table) 03/31/23 03/31/23 03/31/23 Range/Units 08:45 08:45 20:04 APTT 19.5 L (22.0-30.0) sec POC Glucose (mg/dL) 122 H (70-110) mg/dL Phosphorus 4.7 H (2.5-4.5) mg/dL
[2023-04-01 16:39] LABS: Glucose,Whole Blood 106 mg/dL (70-110)
[2023-04-01 20:30] LABS: Glucose,Whole Blood 114 mg/dL (70-110)
[2023-04-01] MEDS: INSULIN DETEMIR (LEVEMIR) 100 UNIT/ML SYR SQ SCH (22:05)
[2023-04-02 05:59] LABS: Glucose,Whole Blood 78 mg/dL (70-110)
[2023-04-02 08:36] LABS: HGB 12.4 gm/dL (13.0-17.5); MCH 29.9 pg (25.0-35.0); MCHC 32.6 g/dL (31.0-37.0); MCV 91.6 fL (80.0-100.0); Platelet Count 303 k/uL (150-450); RBC 4.15 m/uL (4.30-5.90); RDW 13.1 % (11.5-15.5); WBC 7.9 k/uL (3.8-10.6)
[2023-04-02 09:37] LABS: ALT 27 U/L (4-49); AST 22 U/L (17-59); African American GFR (CKD) >90 (>60 ml/min/1.73 sqM); Albumin 3.9 g/dL (3.5-5.0); Alkaline Phosphatase 107 U/L (38-126); Anion Gap 10 mmol/L; Blood Urea Nitrogen 10 mg/dL (9-20); Calcium 9.1 mg/dL (8.4-10.2); Carbon Dioxide 26 mmol/L (22-30); Chloride 105 mmol/L (98-107); Glucose 64 mg/dL (74-99); Magnesium 1.7 mg/dL (1.6-2.3); Non-African American GFR(CKD) >90 (>60 ml/min/1.73 sqM); Sodium 141 mmol/L (137-145); Total Bilirubin 0.8 mg/dL (0.2-1.3); Total Protein 6.3 g/dL (6.3-8.2)
[2023-04-02 11:26] LABS: Glucose,Whole Blood 90 mg/dL (70-110)
--- NOTE | 2023-04-02 12:04 | P.CONS ---
History of Present Illness - Reason for Consult Consult date: 04/02/23 rehab recommendations - Chief Complaint CVA - History of Present Illness Palmer Price a 67 y.o.male, left-handed, lives with his in a two- story home with 5 steps to enter with 1 handrail. His bed bath is on the second floor, 1 flight of stairs. He intermittently uses a cane as needed. He was independent with ADLs prior to admission. He does not drive, his drives. Said his does work and is not home all the time. But he does have 3 children that live local that can assist if needed. Patient presented to [facility] with AMS and concerns for stroke. Patient' s left side of his face is weak left arm left leg is severely weak. Patient has no headache no recent fevers or illness. Patient does have history of CVA and was just recently discharged from [facility] IPR last week after right MCA CVA. He progressed well with his therapy and was discharged home with homecare. He has a past medical history of CAD status post stent placement, hypertension, hyperlipidemia, GERD, insulin-dependent diabetes mellitus type II and recent recurrent ischemic strokes. On presentation he had significant left-sided facial droop, slurred speech, moderate left upper extremity weakness, and mild left lower extremity weakness. blood pressure 153/102, heart rate 71, respiratory rate 20, temp 97.8 F, SpO2 of 95% on room air. EKG completed showing normal sinus rhythm at 70 bpm with no noted T wave or ST abnormalities showing no signs of acute ischemia. CT brain showing patchy periventricular white matter ischemic changes greater on the right but negative for acute intracranial process. CTA head negative for acute process and CTA neck showing mild atheromatous plaque present but reporting no flow-limiting stenosis of bilateral carotid bifurcation. Neurology consulted, MRI pending, echo pending. Patient seen by therapy, mod assist with bathing and min assist with dressing, pending PT. Doing well today, notes waiting for MRI. Has had a LACEY, but improved, is tired. Has a cough but denies SOB. Some nausea yesterday. Last BM 1-2 days ago. States would like to go home. Review of Systems reviewed negative unless stated above Past Medical History Past Medical History: Coronary Artery Disease (CAD), CVA/TIA, Diabetes Mellitus, GERD/Reflux, Hyperlipidemia, Hypertension, Myocardial Infarction ([place]), Osteoarthritis (OA), Seizure Disorder, Sleep Apnea/CPAP/BIPAP Additional Past Medical History / Comment(s): Chronic back pain. 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 CPAP use. "Hx mild seizure when ran out of Xanax few months ago". Last Myocardial Infarction Date:: 11/17/16 History of Any Multi-Drug Resistant Organisms: None Reported Past Surgical History: Heart Catheterization With Stent, Hernia Repair, Joint Replacement, Orthopedic Surgery Additional Past Surgical History / Comment(s): Right rotator cuff repair X2. Left hip replacement. Bilateral inguinal hernia repair. Stent replacement 11/07. Past Anesthesia/Blood Transfusion Reactions: No Reported Reaction Additional Past Anesthesia/Blood Transfusion Reaction / Comm: States had transfusion at . Date of Last Stent Placement:: 10/2020 Past Psychological History: Anxiety, Depression Smoking Status: Never smoker Past Alcohol Use History: Occasional Past Drug Use History: None Reported - Past Family History Brother(s) Family Medical History: Cancer, Deep Vein Thrombosis (DVT) Additional Family Medical History / Comment(s): 1 brother with Esophageal CA. 2 brothers with DVT. Sister(s) Family Medical History: Cancer Additional Family Medical History / Comment(s): Brain CA. 2nd sister had breast CA. Medications and Allergies Home Medications Medication Instructions Recorded Confirmed Type Omeprazole 20 mg PO DAILY 02/23/16 03/31/23 History metFORMIN HCL [Glucophage] 1,000 mg PO BID 02/23/16 03/31/23 History Insulin Detemir [Levemir Flextouch 75 units SQ HS 03/03/18 03/31/23 History Pen] Pioglitazone HCl [Actos] 15 mg PO DAILY 08/16/18 03/31/23 History Empagliflozin [Jardiance] 10 mg PO DAILY 10/25/20 03/31/23 History Atorvastatin Calcium [Lipitor] 80 mg PO DAILY 12/27/20 03/31/23 History DULoxetine HCL [Cymbalta] 60 mg PO DAILY 12/27/20 03/31/23 History HYDROcodone/APAP 7.5-325MG [Whiteriver 1 tab PO BID PRN 12/27/20 03/31/23 History 7.5-325] Metoprolol Tartrate [Lopressor] 100 mg PO DAILY 12/27/20 03/31/23 History Ezetimibe [Zetia] 10 mg PO HS 09/19/22 03/31/23 History Vitamin E (Dl,Tocopheryl Acet) 400 unit PO DAILY 09/19/22 03/31/23 History [Vitamin E (400 Iu = 180 mg)] lisinopriL [Zestril] 5 mg PO DAILY 09/19/22 03/31/23 History Aspirin 81 mg PO DAILY 21 Days #21 tab 02/13/23 03/31/23 Rx Ticagrelor [Brilinta] 90 mg PO BID 30 Days #60 tab 03/05/23 03/31/23 Rx Allergies Allergy/AdvReac Type Severity Reaction Status Date / Time oxaprozin [From Daypro] Allergy Severe Swelling Verified 03/31/23 11:26 throat & tongue, reddened face Physical Exam Vitals: Vital Signs Temp Pulse Resp BP Pulse Ox 04/02/23 11:19 97.5 F L 63 16 146/84 96 04/02/23 08:10 96 18 04/02/23 08:00 97.9 F 96 18 152/96 99 04/02/23 04:00 97.6 F 79 18 159/90 95 04/01/23 23:12 97.5 F L 79 18 168/93 94 L 04/01/23 19:52 97.6 F 79 18 158/87 98 04/01/23 16:39 95 04/01/23 16:36 98.1 F 72 16 161/93 96 04/01/23 15:10 98.0 F 69 20 164/77 96 04/01/23 13:16 73 Intake and Output 04/01/23 04/02/23 04/02/23 22:59 06:59 14:59 Intake Total 240 Balance 240 Intake: Oral 240 Other: Voiding Method Toilet Toilet Toilet # Voids 2 2 General: Well-developed well-nourished male sitting on the side of the bed, no acute distress Head: Normocephalic, atraumatic. Eyes: Symmetric Ears: Symmetric. Hearing within normal limits. Mouth: Clear, left facial droop, Neck: Supple. Cardiac: Calves supple, non tender, no lower extremity edema Lungs: Breathing comfortably, Chest symmetric. Abdomen: Soft, nontender. Extremities: Arthritic changes consistent with age. Neurological: Alert and oriented x 4. slightly dysarthric, good processing speed, repeats no ifs ands or buts. CN with left facial droop, tongue deviation Finger to nose and heel to gu intact with very slight dysmetria on left Sensation light touch intact UE/LE. Musculoskeletal: ROM WFL EXCEPT: Left hemiparesis; lower extremity greater than upper extremity MMT UE Sh Abd EE EF FABD WE HG Right 5 5 5 5 5 Left 4 4 4+ 4+ 4+ MMT LE HF KE DF EHL Right 5 5 5 5 Left 4 5 5 5 Skin: Skin intact where visible to head, neck, and bilateral upper and lower extremities Psych: Calm, cooperative Results CBC & Chem 7: 04/02/23 07:38 04/02/23 07:38 Labs: Abnormal Lab Results - Last 24 Hours (Table) 04/01/23 04/01/23 04/02/23 Range/Units 08:13 20:28 07:38 RBC 4.15 L (4.30-5.90) m/uL Hgb 12.4 L (13.0-17.5) gm/dL Hct 38.0 L (39.0-53.0) % Creatinine (0.66-1.25) mg/dL Glucose (74-99) mg/dL POC Glucose (mg/dL) 114 H (70-110) mg/dL Hemoglobin A1c 7.6 H (<=6.0) % 04/02/23 Range/Units 07:38 RBC (4.30-5.90) m/uL Hgb (13.0-17.5) gm/dL Hct (39.0-53.0) % Creatinine 0.63 L (0.66-1.25) mg/dL Glucose 64 L (74-99) mg/dL POC Glucose (mg/dL) (70-110) mg/dL Hemoglobin A1c (<=6.0) % Assessment and Plan Assessment: # Left sided weakness with suspected CVA #Left-sided neurodeficits with left upper and lower extremity weakness, left- sided facial droop, and slurred speech. Concerns of recurrent CVA with history of recurrent ischemic strokes most recently 02/11/2023, 03/02/2023, and 03/12/2023 -Neurology consulted, appreciate recommendations. MRI pending -Recent echocardiogram was completed 02/11/2023 showing a preserved EF of 55 to 60% and reported no evidence of PFO -PT/OT consulted #Hypertension, presented with elevated poorly controlled blood pressures #Hyperlipidemia #History of CAD status post stent placement -Continue aspirin 81 mg daily, atorvastatin 80 mg daily, Zetia 10 mg nightly, lisinopril 5 mg daily, metoprolol 100 mg daily, and Brilinta 90 mg twice daily. -Monitor vital signs #Insulin-dependent type 2 diabetes mellitus #History of Mustafa's palsy over the right face. # DVT Proph -Lovenox # Pain Management -Whiteriver 7.5/325 mg Q 6 hrs prn, Morphine Sulfate 4 mg IVP # Your medical dx and management Disposition: Will continue to follow and reassess as work up continues and he works with therapies. If new CVA per imaging, and unable to go home with [facility], anticipate will need higher level therapies such as IPR. Patient seen and examined by Dr Millan, note prepped by Leda Funes PA-C
--- NOTE | 2023-04-02 13:21 | P.PN ---
Subjective Progress Note Date: 04/02/23 67-year-old male with a past medical history of CAD status post stent placement, hypertension, hyperlipidemia, GERD, insulin-dependent diabetes mellitus type II and recent recurrent ischemic strokes on 02/11/2023, 03/02/2023, and 03/12/2023 at [facility] where patient reportedly underwent procedure with neuro interventionalists and is currently on dual antiplatelet therapy with aspirin and Brilinta. Unable to state exact procedure he underwent but reports the procedure went well and although he continued to report mild left-sided weakness and facial droop, he was overall doing well. He states this morning upon awakening around 7:30 AM, he again noticed his left- sided weakness and facial droop had significantly worsened, just as they had when he experienced his previous recurrent ischemic stroke. Patient's reports her was doing so well in the rehab they did not even keep him a whole week when he was supposed to stay there for 3 weeks because he was doing so well, but reports today he could not even walk or talk. Patient currently with significant left-sided facial droop, slurred speech, moderate left upper extremity weakness, and mild left lower extremity weakness. He underwent full evaluation in the emergency department. Vital signs BP 153/102, HR 71, RR 20, T 97.8 F, SpO2 of 95% on room air. EKG completed showing normal sinus rhythm with no signs of acute ischemia. CT brain showing patchy periventricular white matter ischemic changes greater on the right but negative for acute intracranial process. CTA head negative for acute process and CTA neck showing mild atheromatous plaque present. Patient was admitted under our services with consultation to neurology. Neurology recommended CVA workup. MRI brain and Echo is pending at the time of this note. 04/02 Patient was seen and examined. Reports continued left sided weakness. No other complaints. CBC Hg 12.4 Hct 38. CMP Cr 0.63, glu 64. Vital signs reviewed and stable. General: Nontoxic, no distress and appears stated age. Derm: Skin warm and dry, normal coloration for ethnicity. Head: Atraumatic, normocephalic and symmetric. Eyes: EOMs intact, no lid lag, and anicteric sclera Cardiovascular: regular rate and rhythm with normal S1S2, no murmur Lungs: Respirations even, regular, and unlabored on room air. Lungs CTA bilaterally, no rhonchi, no rales, no wheezing, and no accessory muscle usage. Ext: No gross muscle atrophy, no edema, no contractures. Sensation intact. Mod erate left upper extremity weakness and mild left lower extremity weakness noted. Neuro: Speech slurred face with moderate left-sided facial droop Psych: Alert and oriented to person, place, time, and situation. Appropriate and pleasant affect. Based on my assessment of this patient, this patient meets a high complexity level of care. Patient has an acute diagnosis of chest pain with hypokinetic wall motion seen on stress Echo that poses a threat to life or bodily function. Left-sided neurodeficits with left upper and lower extremity weakness, left- sided facial droop, and slurred speech: Concerns of recurrent CVA with history of recurrent ischemic strokes most recently 02/11/2023, 03/02/2023, and 03/12/2023. ASA 81 mg PO QD. Lipitor 80 mg PO QD. Brilinta 90 mg PO BID. Neurochecks. Telemetry monitoring. Fall precautions. Discussed with Dr. Kay, obtain MRI brain and Echo. PT/OT/ST on board. IPR on board. Diabetes mellitus with hypoglycemia: Discontinue Levemir. Continue ISS. Accuch ecks ACHS. Encourage PO intake. Hypoglycemic precautions. Hypertension: Metoprolol 100 mg PO QD. Lisinopril 5 mg PO QD. Hyperlipidemia: Lipitor as above. History of CAD status post stent placement: ASA, Lipitor, Metoprolol as above. CODE STATUS: FULL CODE. DVT Prophylaxis: Lovenox SQ. GI Prophylaxis: Protonix PO. Designated medical POA if patient is not able to make medical decisions for themselves: I have reviewed the following travel consultant notes: IPR note. I have reviewed the results of the following tests: CBC, CMP. I have ordered the following tests: Pending: Echo, MRI brain I have discussed the care of this patient with the following independent historian: I have independently interpreted the following test below: I have discussed the management of this patient with the following physician: Discussed with Dr. Kay Objective - Vital Signs Vital signs: Vital Signs Temp 97.5 F L 04/02/23 11:19 Pulse 63 04/02/23 11:19 Resp 16 04/02/23 11:19 BP 146/84 04/02/23 11:19 Pulse Ox 96 04/02/23 11:19 FiO2 Intake & Output 04/01/23 04/02/23 04/02/23 18:59 06:59 18:59 Intake Total 1560 1200 Balance 1560 1200 Intake: Oral 1560 1200 Other: Voiding Method Toilet Toilet Toilet # Voids 1 2 2 - Labs CBC & Chem 7: 04/02/23 07:38 04/02/23 07:38 Labs: Abnormal Lab Results - Last 24 Hours (Table) 04/01/23 04/01/23 04/02/23 Range/Units 08:13 20:28 07:38 RBC 4.15 L (4.30-5.90) m/uL Hgb 12.4 L (13.0-17.5) gm/dL Hct 38.0 L (39.0-53.0) % Creatinine (0.66-1.25) mg/dL Glucose (74-99) mg/dL POC Glucose (mg/dL) 114 H (70-110) mg/dL Hemoglobin A1c 7.6 H (<=6.0) % 04/02/23 Range/Units 07:38 RBC (4.30-5.90) m/uL Hgb (13.0-17.5) gm/dL Hct (39.0-53.0) % Creatinine 0.63 L (0.66-1.25) mg/dL Glucose 64 L (74-99) mg/dL POC Glucose (mg/dL) (70-110) mg/dL Hemoglobin A1c (<=6.0) %
--- NOTE | 2023-04-02 14:57 | P.PN ---
Subjective Progress Note Date: 04/02/23 I am following-up with patient and he feels he is about the same. Denies worsening of symptoms. Objective - Vital Signs Vital signs: Vital Signs Temp 97.5 F L 04/02/23 11:19 Pulse 63 04/02/23 11:19 Resp 16 04/02/23 11:19 BP 146/84 04/02/23 11:19 Pulse Ox 96 04/02/23 11:19 FiO2 Intake & Output 04/01/23 04/02/23 04/02/23 18:59 06:59 18:59 Intake Total 1560 1200 Balance 1560 1200 Intake: Oral 1560 1200 Other: Voiding Method Toilet Toilet Toilet # Voids 1 2 2 - Exam GENERAL: The patient is lying in bed and is not in acute distress. NEUROLOGICAL: Higher mental function: The patient is awake, alert, oriented to self, place and time. Patient is following commands. No aphasia and no neglect. Cranial nerves: The pupils are round, equal and reactive to light and accommodation. Visual hardy are full to confrontation throughout. Extraocular movement is intact no nystagmus is noted. Facial sensation is normal to touch throughout. Has left lower facial weakness. Hearing is normal bilaterally to hand rub. Tongue is midline and moved [id number] without any difficulty. No dysarthria is noted. Shoulder shrug is normal bilaterally. Motor: The strength is left upper is 4 while left hip is 4+ to 5-. Otherwise 5/5 throughout. Normal tone and bulk. Cerebellum: Normal finger to nose bilaterally. Sensation: Sensation is normal to touch throughout. Reflexes (right/left): 2+ throughout. Plantars are mute bilaterally. Some of the work-up during this hospital visit consisted of: CT of the head is reported as patchy periventricular white matter ischemic type changes greater on the right, stable from comparison. No acute intracranial process. I personally reviewed the CT of the head and there is no acute or subacute ischemia that's appreciable. There is no bleed. CTA head and neck is reported as no flow-limiting stenosis, bilateral carotid bifurcation. Mild atheromatous plaque is present. Normal [place] of [place]. - Labs CBC & Chem 7: 04/02/23 07:38 04/02/23 07:38 Labs: Abnormal Lab Results - Last 24 Hours (Table) 0204/01/23 04/02/23 Range/Units 08:13 20:28 07:38 RBC 4.15 L (4.30-5.90) m/uL Hgb 12.4 L (13.0-17.5) gm/dL Hct 38.0 L (39.0-53.0) % Creatinine (0.66-1.25) mg/dL Glucose (74-99) mg/dL POC Glucose (mg/dL) 114 H (70-110) mg/dL Hemoglobin A1c 7.6 H (<=6.0) % 04/02/23 Range/Units 07:38 RBC (4.30-5.90) m/uL Hgb (13.0-17.5) gm/dL Hct (39.0-53.0) % Creatinine 0.63 L (0.66-1.25) mg/dL Glucose 64 L (74-99) mg/dL POC Glucose (mg/dL) (70-110) mg/dL Hemoglobin A1c (<=6.0) % Assessment and Plan Assessment: * Worsening of left arm weakness dropping things on the left arm probable acute/subacute stroke. * Recurrent strokes involving the right parietal region 02/10/2023, and then more areas of ischemic infarction in the right parietal region on 03/02/2023. Then on 03/11/23 presented for left facial weakness left arm weakness and was transferred to [facility] for diagnostic cerebral angiogram and the patient did not have any intervention * Previous history of stroke in 2020 over the right basal ganglia * Vasculopathy, with significant intracranial atherosclerotic disease. * History of CAD s/p stent X2 * Hypertension * Hyperlipidemia * Diabetes and HbA1c: 7.6 * History of Mustafa's palsy over the right face. Plan: Patient was given aspirin 325 once in the ED and resumed on his all medications aspirin 81 mg and Brilinta 90mg 1 tab bid. He is on Lipitor 80mg daily. Pending MRI of the brain and limited 2D echo. Patient had recent lipid panel last month so need for repeat. Continue neuro checks Cardiac monitoring PT, OT and QUANTITATIVE ANALYST are consulted We'll defer the rest of the medical management to primary team For DVT prophylaxis the patient is on Lovenox Upon discharge, the patient needs to follow-up with neurologist as outpatient within 2 weeks. Discussed with the patient and primary attending. Time with Patient: Less than 30
[2023-04-02 16:26] LABS: Glucose,Whole Blood 99 mg/dL (70-110)
--- NOTE | 2023-04-02 16:46 | MR ---
EXAMINATION TYPE: MR brain wo con DATE OF EXAM: 04/02/2023 3:59 PM CLINICAL INDICATION:Male, 67 years old with history of stroke COMPARISON: 03/31/2023. TECHNIQUE: Multi planar, multi sequence imaging was performed through the brain including: T1, T2, In version recovery, Diffusion weighted imaging, and gradient echo imaging. No gadolinium was given. FINDINGS: Restricted diffusion within the right MCA territory involving the temporal, parietal and fr ontal lobe. Mild cerebral atrophy with proportional dilation of ventricular system. Scattered foci of high T2 signal intensity are seen within the periventricular white matter. Midline structures show no abnormality. The susceptibility weighted images do not reveal any evidence for micro-hemorrhage. The bone marrow signal is within normal limits. Paranasal sinuses and mastoid air cells: No significant paranasal sinus disease. Visualized orbits: Orbital contents are intact. IMPRESSION: 1. Right MCA territory acute/subacute CVA. 2. Nonspecific white matter changes, likely secondary to small vessel ischemic disease.
[2023-04-02 20:21] LABS: Glucose,Whole Blood 139 mg/dL (70-110)
[2023-04-03 05:36] LABS: Glucose,Whole Blood 107 mg/dL (70-110)
[2023-04-03 10:23] VITALS: TEMP 97.9
[2023-04-03 11:24] LABS: Glucose,Whole Blood 246 mg/dL (70-110)
--- NOTE | 2023-04-03 13:19 | P.PN ---
Subjective Progress Note Date: 04/03/23 67-year-old male with a past medical history of CAD status post stent placement, hypertension, hyperlipidemia, GERD, insulin-dependent diabetes mellitus type II and recent recurrent ischemic strokes on 02/11/2023, 03/02/2023, and 03/12/2023 at [facility] where patient reportedly underwent procedure with neuro interventionalists and is currently on dual antiplatelet therapy with aspirin and Brilinta. Unable to state exact procedure he underwent but reports the procedure went well and although he continued to report mild left-sided weakness and facial droop, he was overall doing well. He states this morning upon awakening around 7:30 AM, he again noticed his left- sided weakness and facial droop had significantly worsened, just as they had when he experienced his previous recurrent ischemic stroke. Patient's reports her was doing so well in the rehab they did not even keep him a whole week when he was supposed to stay there for 3 weeks because he was doing so well, but reports today he could not even walk or talk. Patient currently with significant left-sided facial droop, slurred speech, moderate left upper extremity weakness, and mild left lower extremity weakness. He underwent full evaluation in the emergency department. Vital signs BP 153/102, HR 71, RR 20, T 97.8 F, SpO2 of 95% on room air. EKG completed showing normal sinus rhythm with no signs of acute ischemia. CT brain showing patchy periventricular white matter ischemic changes greater on the right but negative for acute intracranial process. CTA head negative for acute process and CTA neck showing mild atheromatous plaque present. Patient was admitted under our services with consultation to neurology. Neurology recommended CVA workup. MRI brain and Echo is pending at the time of this note. 04/02 Patient was seen and examined. Reports continued left sided weakness. No other complaints. CBC Hg 12.4 Hct 38. CMP Cr 0.63, glu 64. 04/03 Patient was seen and examined. Clinically unchanged. Discussed with at bedside, patient has been off Brilinta for an unspecified period of time but has been taking ASA and Plavix. MRI brain shows MCA CVA. Discussed with Dr. Kay, CVA appears worse than previous admission MRI. Plans for possible transfer per Dr. Kay for neurointerventional evaluation. Vital signs reviewed and stable. General: Nontoxic, no distress and appears stated age. Derm: Skin warm and dry, normal coloration for ethnicity. Head: Atraumatic, normocephalic and symmetric. Eyes: EOMs intact, no lid lag, and anicteric sclera Cardiovascular: regular rate and rhythm with normal S1S2, no murmur Lungs: Respirations even, regular, and unlabored on room air. Lungs CTA bilaterally, no rhonchi, no rales, no wheezing, and no accessory muscle usage. Ext: No gross muscle atrophy, no edema, no contractures. Sensation intact. Moderate left upper extremity weakness and mild left lower extremity weakness noted. Neuro: Speech slurred face with moderate left-sided facial droop Psych: Alert and oriented to person, place, time, and situation. Appropriate and pleasant affect. Based on my assessment of this patient, this patient meets a high complexity level of care. Patient has an acute diagnosis of chest pain with hypokinetic wall motion seen on stress Echo that poses a threat to life or bodily function. Left-sided neurodeficits with left upper and lower extremity weakness, left- sided facial droop, and slurred speech: Concerns of recurrent CVA with history of recurrent ischemic strokes most recently 02/11/2023, 03/02/2023, and 03/12/2023. ASA 81 mg PO QD. Lipitor 80 mg PO QD. Brilinta 90 mg PO BID. Neurochecks. Telemetry monitoring. Fall precautions. Discussed with Dr. Kay, CVA appears worse than previous admission MRI, possible transfer to [facility] or [facility] for neurointerventional evaluation. PT/OT/ST on board. IPR on board. Diabetes mellitus with hypoglycemia: Discontinue Levemir. Continue ISS. Accuchecks ACHS. Encourage PO intake. Hypoglycemic precautions. Hypertension: Metoprolol 100 mg PO QD. Lisinopril 5 mg PO QD. Hyperlipidemia: Lipitor as above. History of CAD status post stent placement: ASA, Lipitor, Metoprolol as above. CODE STATUS: FULL CODE. DVT Prophylaxis: Lovenox SQ. GI Prophylaxis: Protonix PO. Designated medical POA if patient is not able to make medical decisions for themselves: I have reviewed the following design center consultant notes: I have reviewed the results of the following tests: I have ordered the following tests: Pending: Echo I have discussed the care of this patient with the following independent h istorian: at bedside. I have independently interpreted the following test below: MRI brain images viewed with Dr. Kay. I have discussed the management of this patient with the following physician: Discussed with Dr. Kay Objective - Vital Signs Vital signs: Vital Signs Temp 97.9 F 04/03/23 08:00 Pulse 75 04/03/23 11:50 Resp 16 04/03/23 11:50 BP 142/83 04/03/23 11:50 Pulse Ox 93 L 04/03/23 11:50 FiO2 Intake & Output 04/02/23 04/03/23 04/03/23 18:59 06:59 18:59 Intake Total 1200 350 Balance 1200 350 Intake: Oral 1200 350 Other: Voiding Method Toilet Toilet Toilet # Voids 2 1 1 # Bowel Movements 1 - Labs CBC & Chem 7: 04/02/23 07:38 04/02/23 07:38 Labs: Abnormal Lab Results - Last 24 Hours (Table) 04/02/23 04/03/23 Range/Units 20:20 11:23 POC Glucose (mg/dL) 139 H 246 H (70-110) mg/dL
--- NOTE | 2023-04-03 14:22 | P.PN ---
Subjective Progress Note Date: 04/03/23 Principal diagnosis: CVA Palmer Price a 67 y.o.male, left-handed, lives with his in a two- story home with 5 steps to enter with 1 handrail. His bed bath is on the second floor, 1 flight of stairs. He intermittently uses a cane as needed. He was independent with ADLs prior to admission. He does not drive, his drives. Said his does work and is not home all the time. But he does have 3 children that live local that can assist if needed. Patient presented to [facility] with AMS and concerns for stroke. Patient's left side of his face is weak left arm left leg is severely weak. Patient has no headache no recent fevers or illness. Patient does have history of CVA and was just recently discharged from [facility] IPR last week after right MCA CVA. He progressed well with his therapy and was discharged home with homecare. He has a past medical history of CAD status post stent placement, hypertension, hyperlipidemia, GERD, insulin-dependent diabetes mellitus type II and recent recurrent ischemic strokes. On presentation he had significant left-sided facial droop, slurred speech, moderate left upper extremity weakness, and mild left lower extremity weakness. blood pressure 153/102, heart rate 71, respiratory rate 20, temp 97.8 F, SpO2 of 95% on room air. EKG completed showing normal sinus rhythm at 70 bpm with no noted T wave or ST abnormalities showing no signs of acute ischemia. CT brain showing patchy periventricular white matter ischemic changes greater on the right but negative for acute intracranial process. CTA head negative for acute process and CTA neck showing mild atheromatous plaque present but reporting no flow-limiting stenosis of bilateral carotid bifurcation. Neurology consulted, MRI pending, echo pending. Patient seen by therapy, mod assist with bathing and min assist with dressing, pending PT. Doing well today, notes waiting for MRI. Has had a LACEY, but improved, is tired. Has a cough but denies SOB. Some nausea yesterday. Last BM 1-2 days ago. States would like to go home if he improves. 04/03/23: MRI with right MCA CVA, per neurology notes, appears to be worse from prior MRI and they recommended transfer to [facility] for neurointervential evaluation. Patient states he feels "awful, I just don't feel right". He feels that his left side weakness and coordination with worse than it was from his prior CVA. He is having some trouble with feeding himself. He denies CP, SOB, and abdominal pain. He denies issues with bowel and bladder. He has no current complaints of pain. Patient needed supervision with PT. Objective - Vital Signs Vital signs: Vital Signs Temp 97.9 F 04/03/23 08:00 Pulse 75 04/03/23 11:50 Resp 16 04/03/23 11:50 BP 142/83 04/03/23 11:50 Pulse Ox 93 L 04/03/23 11:50 FiO2 Intake & Output 04/02/23 04/03/23 04/03/23 18:59 06:59 18:59 Intake Total 1200 460 Balance 1200 460 Intake: Oral 1200 460 Other: Voiding Method Toilet Toilet Toilet # Voids 2 1 1 # Bowel Movements 1 - Exam General: Well-developed well-nourished male sitting on the side of the bed eating lunch, no acute distress Head: Normocephalic, atraumatic. Eyes: Symmetric Ears: Symmetric. Hearing within normal limits. Mouth: Clear, left facial droop Neck: Supple. Cardiac: Calves supple, non tender, no lower extremity edema Lungs: Breathing comfortably on O2 via NC, Chest symmetric. Abdomen: Soft, nontender. Extremities: Arthritic changes consistent with age. Neurological: Alert and oriented x 4. slightly dysarthric, good processing speed CN with left facial droop, tongue deviation Slight left FTN dysmetria, HTS intact Sensation light touch intact UE/LE. Musculoskeletal: ROM WFL EXCEPT: Left hemiparesis MMT UE Sh Abd EE EF FABD WE HG Right 5 5 5 5 5 Left 4 4- 4+ 4+ 4 MMT LE HF KE DF EHL Right 5 5 5 5 Left 4 4+ 4+ 4+ Skin: Skin intact where visible to head, neck, and bilateral upper and lower extremities Psych: Calm, cooperative - Labs CBC & Chem 7: 04/02/23 07:38 04/02/23 07:38 Labs: Abnormal Lab Results - Last 24 Hours (Table) 04/02/23 04/03/23 Range/Units 20:20 11:23 POC Glucose (mg/dL) 139 H 246 H (70-110) mg/dL Assessment and Plan Assessment: # Left sided weakness with acute on subacute infact of right MCA CVA -MRI brain completed, per neurology appears worse from prior MRI, recommended transfer to [place] for neurointervention evaluation #Left-sided neurodeficits with left upper and lower extremity weakness, left- sided facial droop, and slurred speech. Concerns of recurrent CVA with history of recurrent ischemic strokes most recently 02/11/2023, 03/02/2023, and 03/12/2023 -Neurology consulted, appreciate recommendations -Recent echocardiogram was completed 02/11/2023 showing a preserved EF of 55 to 60% and reported no evidence of PFO -PT/OT consulted #Hypertension, presented with elevated poorly controlled blood pressures #Hyperlipidemia #History of CAD status post stent placement #Insulin-dependent type 2 diabetes mellitus #History of Mustafa's palsy over the right face. # DVT Proph -Lovenox # Pain Management -[place] 7.5/325 mg Q 6 hrs prn, Morphine Sulfate 4 mg IVP # Your medical dx and management Disposition: Patient is a potential IPR candidate once work up has been completed, planning for transfer to [place] for neurointerventialist evaluation. Patient seen and examined by Leda Funes PA-C
--- NOTE | 2023-04-03 14:37 | P.PN ---
Subjective Progress Note Date: 04/03/23 I am following-up with patient and he feels about the same. Objective - Vital Signs Vital signs: Vital Signs Temp 97.9 F 04/03/23 08:00 Pulse 75 04/03/23 11:50 Resp 16 04/03/23 11:50 BP 142/83 04/03/23 11:50 Pulse Ox 93 L 04/03/23 11:50 FiO2 Intake & Output 04/02/23 04/03/23 04/03/23 18:59 06:59 18:59 Intake Total 1200 460 Balance 1200 460 Intake: Oral 1200 460 Other: Voiding Method Toilet Toilet Toilet # Voids 2 1 1 # Bowel Movements 1 - Exam GENERAL: The patient is lying in bed and is not in acute distress. NEUROLOGICAL: Higher mental function: The patient is awake, alert, oriented to self, place and time. Patient is following commands. No aphasia and no neglect. Cranial nerves: The pupils are round, equal and reactive to light and accommodation. Visual hardy are full to confrontation throughout. Extraocular movement is intact no nystagmus is noted. Facial sensation is normal to touch throughout. Has left lower facial weakness. Hearing is normal bilaterally to hand rub. Tongue is midline and moved [id number] without any difficulty. No dysarthria is noted. Shoulder shrug is normal bilaterally. Motor: The strength is left upper is 4 while left hip is 4+ to 5-. Otherwise 5/5 throughout. Normal tone and bulk. Cerebellum: Normal finger to nose bilaterally. Sensation: Sensation is normal to touch throughout. Reflexes (right/left): 2+ throughout. Plantars are mute bilaterally. Some of the work-up during this hospital visit consisted of: CT of the head is reported as patchy periventricular white matter ischemic type changes greater on the right, stable from comparison. No acute intracranial process. I personally reviewed the CT of the head and there is no acute or s ubacute ischemia that's appreciable. There is no bleed. CTA head and neck is reported as no flow-limiting stenosis, bilateral carotid bifurcation. Mild atheromatous plaque is present. Normal [place]. MRI Brain is reported as RIght MCA territory acute/subactue CVA. Nonspecific white matter changes, likely secondary to small vessel ischemic disease. I personally reviewed MRI and compared with his most recent on 03/03/23 which there is new lesions on right MCA compared to prior. - Labs CBC & Chem 7: 04/02/23 07:38 04/02/23 07:38 Labs: Abnormal Lab Results - Last 24 Hours (Table) 04/02/23 04/03/23 Range/Units 20:20 11:23 POC Glucose (mg/dL) 139 H 246 H (70-110) mg/dL Assessment and Plan Assessment: * Acute to subacute right MCA (when compared to MRI 03/03/23). Presented with Worsening of left arm weakness dropping things on the left arm probable acute/subacute stroke. Etiology seems seems embolic. * Recurrent strokes involving the right parietal region 02/10/2023, and then more areas of ischemic infarction in the right parietal region on 03/02/2023. Then on 03/11/23 presented for left facial weakness left arm weakness and was transferred to [facility] for diagnostic cerebral angiogram and the patient did not have any intervention. I was notified by Dr. Mercado he had right MCA stenosis. * Previous history of stroke in 2020 over the right basal ganglia * Vasculopathy, with significant intracranial atherosclerotic disease. * History of CAD s/p stent X2 * Hypertension * Hyperlipidemia * Diabetes and HbA1c: 7.6 * History of Mustafa's palsy over the right face. Plan: Patient was given aspirin 325 once in the ED and resumed on his all medications aspirin 81 mg and Brilinta 90mg 1 tab bid. He is on Lipitor 80mg daily. Pending limited 2D echo. I spoke with Dr. Mercado (Interventional neurologist) and he stated he performed the diagnostic cerebral angiogram on last admission in which he was transferred from out facility to [facility] and he had right MCA stenosis. Will have patient transferred for intervention of MCA stenosis. Patient had recent lipid panel last month so no need for repeat. Ordered carotid duplex. Continue neuro checks Cardiac monitoring PT, OT and GAME MODERATOR are consulted Recommend an event monitor for 30 days. We'll defer the rest of the medical management to primary team For DVT prophylaxis the patient is on Lovenox Upon discharge, the patient needs to follow-up with neurologist as outpatient within 2 weeks. Discussed with the patient, his who is at bedside and primary attending multiple times. Time with Patient: Greater than 30
[2023-04-03 16:24] LABS: Glucose,Whole Blood 161 mg/dL (70-110)
[2023-04-03 16:33] VITALS: BP 162/80; PULSE 82; RESP 18
--- NOTE | 2023-04-03 16:39 | US ---
EXAMINATION TYPE: US carotid duplex BILAT DATE OF EXAM: 04/03/2023 COMPARISON: 12/27/2020 - US Carotid CLINICAL INDICATION: Male, 67 years old with history of stroke; Multiple strokes since January; Shayla ent denies any signs or symptoms at this time TECHNIQUE: Carotid duplex ultrasound examination. Indirect Doppler criteria was utilized. FINDINGS: EXAM MEASUREMENTS: RIGHT: Peak Systolic Velocity (PSV) cm/sec ----- Right CCA: 94 ----- Right ICA: 171 ----- Right ECA: 187 ICA/CCA ratio: 1.8 RIGHT: End Diastole cm/sec ----- Right CCA: 26 ----- Right ICA: 20 ----- Right ECA: 22 LEFT: Peak Systolic Velocity (PSV) cm/sec ----- Left CCA: 98 ----- Left ICA: 108 ----- Left ECA: 114 ICA/CCA ratio: 1.1 LEFT: End Diastole cm/sec ----- Left CCA: 17 ----- Left ICA: 9 ----- Left ECA: 11 VERTEBRALS (direction of flow): Right Vertebral: Antegrade Left Vertebral: Antegrade Rhythm: Normal GAS COLLECTION SYSTEM OPERATOR NOTES: Calcified plaque seen at bilateral CCA bulbs and bifurcations, elevated velocity w ithin the right mid ICA and ECA. IMPRESSION: 1. 50-69% stenosis of the right carotid bifurcation. 2. Less than 50% stenosis on the left carotid bifurcation. Criteria for Assigning % of Stenosis / Diameter reduction (Estimation based on the indirect measurements of the internal carotid artery velocities (ICA PSV). 1. Normal (no stenosis)=ICA PSV < 125 cm/s: ratio < 2.0: ICA EDV<40 cm/s. 2. Less than 50% stenosis=ICA PSV < 125 cm/s: ratio < 2.0: ICA EDV<40 cm/s. 3. 50 to 69% stenosis=ICA PSV of 125 to 230 cm/s: ration 2.0 ? 4.0: ICA EDV 40-100 cm/s. 4. Greater than 70% stenosis to near occlusion= ICA PSV > 230 cm/s: ratio > 4.0: ICA EDV > 100 cm/s. 5. Near occlusion= ICA PSV velocities may be low or undetectable: variable ratio and ICA EDV. 6. Total occlusion=unable to detect flow.
--- NOTE | 2023-04-04 07:42 | P.DS ---
Providers Date of admission: 03/31/23 10:49 Expected date of discharge: 04/04/23 Attending physician: Buster Kulkarni MD Consults: 03/31/23 10:48 Consult Physician Routine Consulting Provider: Angel Luis Kay Consult Reason/Comments: cva Do you want consulting provider notified?: Yes 04/01/23 14:54 Consult Physician Routine Consulting Provider: Barry Heredia Consult Reason/Comments: eval for IPR Do you want consulting provider notified?: Yes Primary care physician: Seven Varghese MD Hospital Course: 67-year-old male with a past medical history of CAD status post stent placement, hypertension, hyperlipidemia, GERD, insulin-dependent diabetes mellitus type II and recent recurrent ischemic strokes on 02/11/2023, 03/02/2023, and 03/12/2023 at [facility] where patient reportedly underwent procedure with neuro interventionalists and is currently on dual antiplatelet therapy with aspirin and Brilinta. Unable to state exact procedure he underwent but reports the procedure went well and although he continued to report mild left-sided weakness and facial droop, he was overall doing well. He states this morning upon awakening around 7:30 AM, he again noticed his left- sided weakness and facial droop had significantly worsened, just as they had when he experienced his previous recurrent ischemic stroke. Patient's reports her was doing so well in the rehab they did not even keep him a whole week when he was supposed to stay there for 3 weeks because he was doing so well, but reports today he could not even walk or talk. Patient currently with significant left-sided facial droop, slurred speech, moderate left upper extremity weakness, and mild left lower extremity weakness. He underwent full evaluation in the emergency department. Vital signs BP 153/102, HR 71, RR 20, T 97.8 F, SpO2 of 95% on room air. EKG completed showing normal sinus rhythm with no signs of acute ischemia. CT brain showing patchy periventricular white matter ischemic changes greater on the right but negative for acute intracranial process. CTA head negative for acute process and CTA neck showing mild atheromatous plaque present. Patient was admitted under our services with consultation to neurology. Neurology recommended CVA workup. MRI brain confirmed R MCA CVA. Echo is pending at the time of this note. CUS showed 50-69% stenosis right carotid, < 50% left carotid stenosis. The case was discussed with Dr. Kay who was able to discuss the case with neurointerventionalist at [facility]. MRI brain obtained this admission appears worse than MRI brain from his previous admission. The patient was transferred on 04/03 for a higher level of care due to recurrent R MCA stroke. Vital signs reviewed and stable. General: Nontoxic, no distress and appears stated age. Derm: Skin warm and dry, normal coloration for ethnicity. Head: Atraumatic, normocephalic and symmetric. Eyes: EOMs intact, no lid lag, and anicteric sclera Cardiovascular: regular rate and rhythm with normal S1S2, no murmur Lungs: Respirations even, regular, and unlabored on room air. Lungs CTA bilaterally, no rhonchi, no rales, no wheezing, and no accessory muscle usage. Ext: No gross muscle atrophy, no edema, no contractures. Sensation intact. Moderate left upper extremity weakness and mild left lower extremity weakness noted. Neuro: Speech slurred face with moderate left-sided facial droop Psych: Alert and oriented to person, place, time, and situation. Appropriate and pleasant affect. Discharge Diagnosis: Recurrent right MCA CVA Diabetes mellitus with hypoglycemia Hypertension Hyperlipidemia History of CAD status post stent placement This complex discharge took 35 minutes to complete. Patient Condition at Discharge: Stable Plan - Discharge Summary Discharge Rx Participant: No New Discharge Prescriptions: No Action metFORMIN HCL [Glucophage] 1,000 mg PO BID Omeprazole 20 mg PO DAILY Insulin Detemir [Levemir Flextouch Pen] 75 units SQ HS Pioglitazone HCl [Actos] 15 mg PO DAILY Atorvastatin Calcium [Lipitor] 80 mg PO DAILY HYDROcodone/APAP 7.5-325MG [[place] 7.5-325] 1 tab PO BID PRN PRN Reason: Pain Metoprolol Tartrate [Lopressor] 100 mg PO DAILY Aspirin 81 mg PO DAILY 21 Days #21 tab Empagliflozin [Jardiance] 10 mg PO DAILY DULoxetine HCL [Cymbalta] 60 mg PO DAILY Ezetimibe [Zetia] 10 mg PO HS lisinopriL [Zestril] 5 mg PO DAILY Vitamin E (Dl,Tocopheryl Acet) [Vitamin E (400 Iu = 180 mg)] 400 unit PO DAILY Ticagrelor [Brilinta] 90 mg PO BID 30 Days #60 tab Discharge Medication List Omeprazole 20 mg PO DAILY 02/23/16 [History] metFORMIN HCL [Glucophage] 1,000 mg PO BID 02/23/16 [History] Insulin Detemir [Levemir Flextouch Pen] 75 units SQ HS 03/03/18 [History] Pioglitazone HCl [Actos] 15 mg PO DAILY 08/16/18 [History] Empagliflozin [Jardiance] 10 mg PO DAILY 10/25/20 [History] Atorvastatin Calcium [Lipitor] 80 mg PO DAILY 12/27/20 [History] DULoxetine HCL [Cymbalta] 60 mg PO DAILY 12/27/20 [History] HYDROcodone/APAP 7.5-325MG [[place] 7.5-325] 1 tab PO BID PRN 12/27/20 [History] Metoprolol Tartrate [Lopressor] 100 mg PO DAILY 12/27/20 [History] Ezetimibe [Zetia] 10 mg PO HS 09/19/22 [History] Vitamin E (Dl,Tocopheryl Acet) [Vitamin E (400 Iu = 180 mg)] 400 unit PO DAILY 09/19/22 [History] lisinopriL [Zestril] 5 mg PO DAILY 09/19/22 [History] Aspirin 81 mg PO DAILY 21 Days #21 tab 02/13/23 [Rx] Ticagrelor [Brilinta] 90 mg PO BID 30 Days #60 tab 03/05/23 [Rx] Follow up Appointment(s)/Referral(s): Seven Varghese MD [Primary Care Provider] - 1-2 days Discharge Disposition: TRANSFER TO SHORT TERM HOSP
== END 2023-04-03 17:48 | disposition short-term general hospital (02) | DRG 65 ==
LOC: EC 08:45 → 3SCARD 10:49
PROVIDERS: ADMIT Internal Medicine; ATTEND Internal Medicine
DX: I63.511 Cerebral infarction due to unspecified occlusion or stenosis of right middle cerebral artery (principal); I69.354 Hemiplegia and hemiparesis following cerebral infarction affecting left non-dominant side; K21.9 Gastro-esophageal reflux disease without esophagitis; Z95.5 Presence of coronary angioplasty implant and graft; I25.10 Atherosclerotic heart disease of native coronary artery without angina pectoris; I10 Essential (primary) hypertension; E11.9 Type 2 diabetes mellitus without complications; R53.1 Weakness; G51.0 Bell's palsy; I69.392 Facial weakness following cerebral infarction; R47.81 Slurred speech; Z79.4 Long term (current) use of insulin; Z79.899 Other long term (current) drug therapy; E11.649 Type 2 diabetes mellitus with hypoglycemia without coma; E78.5 Hyperlipidemia, unspecified; F32.A Depression, unspecified; F41.9 Anxiety disorder, unspecified; I25.2 Old myocardial infarction; I65.01 Occlusion and stenosis of right vertebral artery; I65.22 Occlusion and stenosis of left carotid artery; R29.705 NIHSS score 5; G40.909 Epilepsy, unspecified, not intractable, without status epilepticus; M19.90 Unspecified osteoarthritis, unspecified site; G89.29 Other chronic pain; Z79.02 Long term (current) use of antithrombotics/antiplatelets; Z79.82 Long term (current) use of aspirin; Z79.84 Long term (current) use of oral hypoglycemic drugs; Z96.642 Presence of left artificial hip joint; Z88.8 Allergy status to other drugs, medicaments and biological substances; Z87.19 Personal history of other diseases of the digestive system
CPT/HCPCS: 36415; 70450; 70496; 70498; 70551; 80053; 83036; 83605; 83735; 83880; 84100; 84484; 85025; 85027; 85610; 85730; 93005; 93880; 94760; 96361; 96372; 96374; 99291

== ENCOUNTER → 2023-06-13 | Outpatient (CLI) | payer BC, MEDICARE ==
[2023-06-13 20:13] LABS: Cardiolipin Ab IgG Interp Negative (Negative); Cardiolipin Ab IgM Interp Negative (Negative); Cardiolipin IgA Antibody <2.0 U/mL; Cardiolipin IgM Antibody <1.5 U/mL
[2023-06-16 14:00] LABS: APTT 39 Sec(s) (<43); Dilute Russell Viper Venom 38 Sec(s) (<44)
--- NOTE | 2023-07-15 09:56 | P.EN ---
30 DAY EVENT MONITOR REPORT: INDICATION: Permanent atrial fibrillation I48.21. START DATE: 06/13/2023 END DATE: 07/12/2023 Patient wore the monitor for 11 hours 6 minutes only. FINDINGS: Overall poor quality study as patient was only monitored for 11 hours 6 minutes out of 30 days. Patient's baseline rhythm was [normal sinus rhythm]. During the monitored time, There were no observed atrial fibrillation, atrial flutter or sustained ventricular rhythm. There were no observed sinus pauses which were more than 2 second long. There were no significant PAC or PVC burden noticed Conclusion Overall poor quality study as patient was only monitored for 11 hours 6 minutes out of 30 days. During the monitored time, there were no evidence of cardiac arrhythmias or any ectopic beats. Please correlate clinically and consider repeating event monitor if clinically indicated. Edi Ayala MD, FACC, RPVI Thank you for allowing [facility] to participate in this patient's care. Feel free to reach out in case of any followup questions.
--- NOTE | 2023-07-16 07:57 | EM ---
30 DAY EVENT MONITOR REPORT: INDICATION: Permanent atrial fibrillation I48.21. START DATE: 06/13/2023 END DATE: 07/12/2023 Patient wore the monitor for 11 hours 6 minutes only. FINDINGS: Overall poor quality study as patient was only monitored for 11 hours 6 minutes out of 30 days. Patient's baseline rhythm was [normal sinus rhythm]. During the monitored time, There were no observed atrial fibrillation, atrial flutter or sustained ventricular rhythm. There were no observed sinus pauses which were more than 2 second long. There were no significant PAC or PVC burden noticed Conclusion Overall poor quality study as patient was only monitored for 11 hours 6 minutes out of 30 days. During the monitored time, there were no evidence of cardiac arrhythmias or any ectopic beats. Please correlate clinically and consider repeating event monitor if clinically indicated. ZANDRAD
== END | disposition home or self-care (01) ==
LOC: RADECHMAIN 07:15
PROVIDERS: ATTEND Psychiatry & Neurology Neurology
DX: I48.21 Permanent atrial fibrillation (principal); G45.2 Multiple and bilateral precerebral artery syndromes
CPT/HCPCS: 83036; 83090; 85613; 85652; 85730; 86140; 86146; 86147; 93270

== ENCOUNTER → 2023-06-19 | Outpatient (CLI) | payer MEDICARE, BC ==
[2023-06-19 14:35] VITALS: BP 136/83; PULSE 72; RESP 16; TEMP 97.9
--- NOTE | 2023-06-19 14:57 | P.PN ---
Subjective DATE: 06/19/2023 FOLLOW UP VISIT. Patient with obstructive sleep apnea hypopnea syndrome return to sleep center for follow-up visit. Information from previous visit have been reviewed. Patient was seen in April 2021 in our office. Since that time patient had 5 strokes and stent was placed into his head in March 2023. Patient is using PAP equipment every night for the whole night heated humidifier does not work. [place] sleepiness scale is in very high range of 16. I checked information from PAP unit. Heated humidifier does not work PAP unit pressure 14 cm H2O. Usage is 100% for more then 4 hours, average 8.3 hours per night. Leak is increased to 41 l/m. Nasal pillow mask is extremely old. Apnea Hypopnea Index is 1.8, which is normal. MEDICATIONS:1. Lisinopril 2. Guardians 3. Aspirin 4. Brilinta 5. Atorvastatin 6. Levemir During physical exam: GENERAL: A pleasant patient without any distress. VITAL SIGNS: Please see below, weight 191.2. HEENT: PERRLA, EOMI.low position of soft palate, Mallapati[] . NECK: Supple. No JVD. LUNGS: Clear to percussion and to auscultation. Good air exchange. No wheezing or rhonchi. HEART: S1, S2 regular. ABDOMEN: Soft and nontender.[] EXTREMITIES: No clubbing or cyanosis. PC MAINTENANCE TECHNICIAN: Awake, alert, and oriented x3. Left-sided weakness. Impressions: 1. Obstructive sleep apnea-hypopnea syndrome. Patient demonstrated great compliance with treatment, benefiting from treatment. CPAP unit is old, heated humidifier does not work. 2. Status post 5 strokes and stent insertion into the head in 2023. Left-sided weakness. 3. Hypertension. 4. Coronary artery disease, status post several heart attacks and stent insertion to coronary arteries. 5. Diabetes mellitus. 6. Acid reflux. 7. Hyperlipidemia. 8. Back problems. 9. Shoulder problems. 10. Status post UPPP. 11. Status post left hip replacement. Plan: 1. Continue using PAP equipment every night for the whole night. Prescription to replace CPAP unit. 2. To change air filter at least 1-2 times per month. 3. PAP unit should stay lower then position of the head. 4. Advised patient to remove all remaining water from humidifier canister daily and make it dry after each usage. Refill canister with fresh distilled water before each usage. 5. Sleep hygiene with regular time in bed for at least 8 hours. 6. Precautions related to driving. No driving if feel any sleepiness. 7. I will maintain prescription for PAP supplies including mask, tube, filters. 8. Follow up visit in 31-90 days after getting new CPAP unit or earlier if patient has any problems. 9. Watching weight. Thank you very much for allowing me to participate in the management of your patient. Cameron Garcia MD, PhD, FAASM. Diplomat of [employer], Sleep Medicine Board by [employer] [facility] [place] Objective - Vital Signs Vital signs: Vital Signs Temp 97.9 F 06/19/23 14:18 Pulse 72 06/19/23 14:18 Resp 16 06/19/23 14:18 BP 136/83 06/19/23 14:18 Pulse Ox 96 06/19/23 14:18 FiO2 Intake & Output 06/18/23 06/19/23 06/19/23 18:59 06:59 18:59 Weight 86.693 kg
== END ==
LOC: 3 N SLEEP 13:39
PROVIDERS: ATTEND Internal Medicine
DX: G47.33 Obstructive sleep apnea (adult) (pediatric) (principal); I10 Essential (primary) hypertension; I25.10 Atherosclerotic heart disease of native coronary artery without angina pectoris; E11.9 Type 2 diabetes mellitus without complications; K21.9 Gastro-esophageal reflux disease without esophagitis; E78.5 Hyperlipidemia, unspecified; M51.9 Unspecified thoracic, thoracolumbar and lumbosacral intervertebral disc disorder; M54.9 Dorsalgia, unspecified; M25.519 Pain in unspecified shoulder; Z96.642 Presence of left artificial hip joint; Z99.89 Dependence on other enabling machines and devices; Z98.890 Other specified postprocedural states; Z95.5 Presence of coronary angioplasty implant and graft; Z79.899 Other long term (current) drug therapy; Z88.8 Allergy status to other drugs, medicaments and biological substances; Z79.84 Long term (current) use of oral hypoglycemic drugs; Z79.85 Long-term (current) use of injectable non-insulin antidiabetic drugs; Z87.891 Personal history of nicotine dependence
CPT/HCPCS: 99212

== ENCOUNTER → 2024-03-13 | Outpatient (CLI) | payer BC, MEDICARE ==
[2024-03-13 12:50] LABS: Basophils # (A) 0.08 X 10*3/uL (0.00-0.10); Eosinophils # (A) 0.39 X 10*3/uL (0.04-0.35); Eosinophils % (A) 4.9 %; HCT 45.5 % (39.6-50.0); HGB 14.1 g/dL (13.0-17.0); Lymphocytes # (A) 1.91 X 10*3/uL (0.90-5.00); Lymphocytes % (A) 23.9 %; MCH 28.6 pg (27.0-32.0); MCV 92.3 FL (80.0-97.0); Mean Platelet Volume 10.5 FL (9.5-12.2); Monocytes # (A) 0.67 X 10*3/uL (0.20-1.00); Monocytes % (A) 8.4 %; NRBC Per 100 WBC 0 X 10*3/uL (0.00-0.01); Neutrophils % (A) 61.3 %; Platelet Count 289 X 10*3/uL (140-440); RBC 4.93 X 10*6/uL (4.40-5.60); RDW 13.1 % (11.5-14.5); WBC 7.99 X 10*3/uL (4.50-10.00)
[2024-03-13 13:25] LABS: ALT 30 U/L (10-49); AST 19 U/L (14-35); Albumin 4.4 g/dL (3.8-4.9); Albumin/Globulin Ratio 1.69 Ratio (1.60-3.17); Alkaline Phosphatase 120 U/L (41-126); BUN/Creat Ratio 20.75 Ratio (12.00-20.00); Blood Urea Nitrogen 16.6 mg/dL (9.0-27.0); Calcium 9.4 mg/dL (8.7-10.3); Carbon Dioxide 22.9 mmol/L (21.6-31.8); Chloride 102 mmol/L (96-109); Chol/HDL Ratio 5.84 Ratio; Globulin 2.6 g/dL (1.6-3.3); Glucose 153 mg/dL (70-110); LDL Cholesterol,Calculated 135.5 mg/dL (0.0-131.0); Potassium 4.5 mmol/L (3.5-5.5); Sodium 139 mmol/L (135-145); Total Bilirubin 0.3 mg/dL (0.3-1.2)
[2024-03-13 18:54] LABS: Microalbumin Creatinine Ratio <16 mg/g Cr (0-30); Urine Creatinine 74.8 mg/dL (39.0-259.0)
== END | disposition home or self-care (01) ==
LOC: LABWHC1 08:28
DX: I10 Essential (primary) hypertension (principal); E78.5 Hyperlipidemia, unspecified; E11.9 Type 2 diabetes mellitus without complications; R74.8 Abnormal levels of other serum enzymes
CPT/HCPCS: 36415; 80053; 80061; 82043; 82570; 83036; 85025

== ENCOUNTER → 2024-04-23 | Outpatient (CLI) | payer BC, MEDICARE | END | disposition home or self-care (01) | LOC: LABWHC1 08:13 | PROVIDERS: ATTEND Internal Medicine | DX: R41.0 Disorientation, unspecified (principal); R41.3 Other amnesia | CPT/HCPCS: 36415; 82607; 82746; 84443; 86780 ==

== ENCOUNTER 2024-06-12 14:12 | Emergency (ER) | payer BC, MEDICARE ==
[2024-06-12 14:17] VITALS: RESP 18; TEMP 97.6
--- NOTE | 2024-06-12 15:45 | ED ---
General Adult HPI - General Chief complaint: Recheck/Abnormal Lab/Rx Stated complaint: tremors Time Seen by Provider: 06/12/24 14:30 Source: patient, family, RN notes reviewed Mode of arrival: ambulatory Limitations: no limitations - History of Present Illness Initial comments: Patient is a 68-year-old male presents the emergency department with concerns for tremor. Tremors have been occurring for the past 6 months intermittently. Today tremors are lasting longer, approximately 12 hours now. Typically they only last for a few hours. Patient has seen primary care physician. Patient does have referral for neurology however needs to make appointment still. No new weakness. Patient does have history of several previous strokes. No change in mental status. No new medications. - Related Data Home Medications Medication Instructions Recorded Confirmed Omeprazole 20 mg PO DAILY 02/23/16 03/31/23 metFORMIN HCL [Glucophage] 1,000 mg PO BID 02/23/16 03/31/23 Insulin Detemir [Levemir Flextouch 75 units SQ HS 03/03/18 03/31/23 Pen] Pioglitazone HCl [Actos] 15 mg PO DAILY 08/16/18 03/31/23 Empagliflozin [Jardiance] 10 mg PO DAILY 10/25/20 03/31/23 Atorvastatin Calcium [Lipitor] 80 mg PO DAILY 12/27/20 03/31/23 DULoxetine HCL [Cymbalta] 60 mg PO DAILY 12/27/20 03/31/23 HYDROcodone/APAP 7.5-325MG [[place] 1 tab PO BID PRN 12/27/20 03/31/23 7.5-325] Metoprolol Tartrate [Lopressor] 100 mg PO DAILY 12/27/20 03/31/23 Ezetimibe [Zetia] 10 mg PO HS 09/19/22 03/31/23 Vitamin E (Dl,Tocopheryl Acet) 400 unit PO DAILY 09/19/22 03/31/23 [Vitamin E (400 Iu = 180 mg)] lisinopriL [Zestril] 5 mg PO DAILY 09/19/22 03/31/23 Previous Rx's Medication Instructions Recorded Aspirin 81 mg PO DAILY 21 Days #21 tab 02/13/23 Ticagrelor [Brilinta] 90 mg PO BID 30 Days #60 tab 03/05/23 Allergies Allergy/AdvReac Type Severity Reaction Status Date / Time oxaprozin [From Daypro] Allergy Severe Swelling Verified 06/12/24 14:17 throat & tongue, reddened face Review of Systems ROS Statement: Those systems with pertinent positive or pertinent negative responses have been documented in the HPI. ROS Other: All systems not noted in ROS Statement are negative. Constitutional: Denies: fever Eyes: Denies: eye pain ENT: Denies: ear pain Respiratory: Denies: cough Cardiovascular: Denies: chest pain Endocrine: Denies: fatigue Gastrointestinal: Denies: abdominal pain Neurological: Reports: as per HPI. Denies: headache, weakness Past Medical History Past Medical History: Coronary Artery Disease (CAD), CVA/TIA, Diabetes Mellitus, GERD/Reflux, Hyperlipidemia, Hypertension, Myocardial Infarction (MD), Osteoarthritis (OA), Seizure Disorder, Sleep Apnea/CPAP/BIPAP Additional Past Medical History / Comment(s): Chronic back pain. 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 CPAP use. "Hx mild seizure when ran out of Xanax few months ago". Last Myocardial Infarction Date:: 11/17/16 History of Any Multi-Drug Resistant Organisms: None Reported Past Surgical History: Heart Catheterization With Stent, Hernia Repair, Joint Replacement, Orthopedic Surgery Additional Past Surgical History / Comment(s): Right rotator cuff repair X2. Left hip replacement. Bilateral inguinal hernia repair. Stent replacement 11/07. Past Anesthesia/Blood Transfusion Reactions: No Reported Reaction Additional Past Anesthesia/Blood Transfusion Reaction / Comment(s): States had transfusion at . Date of Last Stent Placement:: 10/2020 Past Psychological History: Anxiety, Depression Smoking Status: Never smoker Past Alcohol Use History: Occasional Past Drug Use History: None Reported - Past Family History Brother(s) Family Medical History: Cancer, Deep Vein Thrombosis (DVT) Additional Family Medical History / Comment(s): 1 brother with Esophageal CA. 2 brothers with DVT. Sister(s) Family Medical History: Cancer Additional Family Medical History / Comment(s): Brain CA. 2nd sister had breast CA. General Exam Limitations: no limitations General appearance: alert, in no apparent distress Head exam: Present: normocephalic Eye exam: Present: normal appearance, PERRL, EOMI ENT exam: Present: normal oropharynx Neck exam: Present: normal inspection Respiratory exam: Present: normal lung sounds bilaterally Cardiovascular Exam: Present: regular rate, normal rhythm GI/Abdominal exam: Present: soft. Absent: tenderness Extremities exam: Present: normal inspection Neurological exam: Present: alert, oriented X3, CN II-XII intact (Except for left facial weakness, mild), other (Minimal weakness/drift left upper and lower extremity which patient and family both confirms chronic and unchanged) Psychiatric exam: Present: normal affect, normal mood Skin exam: Present: normal color Course Vital Signs 06/12/24 06/12/24 14:13 17:22 Temperature 97.6 F Pulse Rate 76 91 Respiratory 18 18 Rate Blood Pressure 119/70 159/84 O2 Sat by Pulse 97 97 Oximetry Medical Decision Making - Medical Decision Making Was pt. sent in by a medical professional or institution (, PA, VAULT MANAGER, urgent care, hospital, or prison...) When possible be specific @ -No Did you speak to anyone other than the patient for history (EMS, parent, family, police, friend...)? What history was obtained from this source @ - is present helps provide history including onset of patient's symptoms around 6 months ago as well as history of previous strokes Did you review nursing and triage notes (agree or disagree)? Why? @ -I reviewed and agree with nursing and triage notes Were old charts reviewed (outside hosp., previous admission, EMS record, old EKG, old radiological studies, urgent care reports/EKG's, prison records)? Report findings @ -No old charts were reviewed Differential Diagnosis (chest pain, altered mental status, abdominal pain women, abdominal pain men, vaginal bleeding, weakness, fever, dyspnea, syncope, headache, dizziness, GI bleed, back pain, seizure, CVA, palpatations, mental health, musculoskeletal)? @ -Differential Weakness: Hypoglycemia, shock, sepsis, hyponatremia, anemia, infection, MD, ETOH, adverse medicine reaction, overdose, stroke, this is not meant to be an all-inclusive list. EKG interpreted by me (3pts min.). @ -As above X-rays interpreted by me (1pt min.). @ -None done CT interpreted by me (1pt min.). @ -CT scan of the brain does not reveal acute abnormality U/S interpreted by me (1pt. min.). @ -None done What testing was considered but not performed or refused? (CT, X-rays, U/S, labs)? Why? @ -None What meds were considered but not given or refused? Why? @ -None Did you discuss the management of the patient with other professionals (professionals i.e. , PA, VAULT MANAGER, lab, RT, psych nurse, social director, electrical sign servicer, teacher, chief lifestyle officer, case technician)? Give summary @ -No Was smoking cessation discussed for >3mins.? @ -No Was critical care preformed (if so, how long)? @ -No Were there social determinants of health that impacted care today? How? (Homelessness, low income, unemployed, alcoholism, drug addiction, transportation, low edu. Level, literacy, decrease access to med. care, usp, rehab)? @ -No Was there de-escalation of care discussed even if they declined (Discuss DNR or withdrawal of care, Hospice)? DNR status @ -No What co-morbidities impacted this encounter? (DM, HTN, Smoking, COPD, CAD, Cancer, CVA, ARF, Chemo, Hep., AIDS, mental health diagnosis, sleep apnea, morbid obesity)? @ -None Was patient admitted / discharged? Hospital course, mention meds given and route, prescriptions, significant lab abnormalities, going to OR and other pertinent info. @ -Patient presents with tremors for 6 months, intermittently worse today. On reevaluation patient got significant improvement with Ativan. Patient will be provided 1 to take with him. Patient and family updated on results and need for follow-up. They are agreeable to call Friday morning with neurology referral for appointment Undiagnosed new problem with uncertain prognosis? @ -No Drug Therapy requiring intensive monitoring for toxicity (Heparin, Nitro, Insulin, Cardizem)? @ -No Were any procedures done? @ -No Diagnosis/symptom? @ -Tremor Acute, or Chronic, or Acute on Chronic? @ acute on chronic Uncomplicated (without systemic symptoms) or Complicated (systemic symptoms)? @ -Default Side effects of treatment? @ -No Exacerbation, Progression, or Severe Exacerbation? @ -No Poses a threat to life or bodily function? How? (Chest pain, USA, MD, pneumonia, PE, COPD, DKA, ARF, appy, cholecystitis, CVA, Diverticulitis, Homicidal, Suicidal, threat to staff... and all critical care pts) @ -No - Lab Data Result diagrams: 06/12/24 16:06 06/12/24 16:06 Lab Results 06/12/24 06/12/24 Range/Units 16:06 16:06 WBC 9.59 (4.50-10.00) 10*3/uL RBC 5.10 (4.40-5.60) 10*6/uL Hgb 15.4 (13.0-17.0) g/dL Hct 46.8 (39.6-50.0) % MCV 91.8 (80.0-97.0) fL MCH 30.2 (27.0-32.0) pg MCHC 32.9 (32.0-37.0) g/dL Plt Count 383 (140-440) 10*3/uL MPV 10.1 (9.5-12.2) fL Immature Gran % (Auto) 0.2 % Neutrophils % 58.0 % Lymphocytes % 25.2 % Monocytes % 9.1 % Eosinophils % 6.5 % Basophils % 1.0 % Immature Gran # 0.02 (0.00-0.04) 10*3/uL Neutrophils # 5.56 (1.80-7.70) 10*3/uL Lymphocytes # 2.42 (0.90-5.00) 10*3/uL Monocytes # 0.87 (0.20-1.00) 10*3/uL Eosinophils # 0.62 H (0.04-0.35) 10*3/uL Basophils # 0.10 (0.00-0.10) 10*3/uL Sodium 139 (137-145) mmol/L Potassium 4.2 (3.5-5.1) mmol/L Chloride 96 L (98-107) mmol/L Carbon Dioxide 27 (22-30) mmol/L Anion Gap 16 mmol/L BUN 12 (9-20) mg/dL Creatinine 0.75 (0.66-1.25) mg/dL Est GFR (CKD-EPI)AfAm >90 (>60 ml/min/1.73 sqM) Est GFR (CKD-EPI)NonAf >90 (>60 ml/min/1.73 sqM) Glucose 153 H (74-99) mg/dL Calcium 10.2 (8.4-10.2) mg/dL Magnesium 2.0 (1.6-2.3) mg/dL Total Bilirubin 0.8 (0.2-1.3) mg/dL AST 25 (17-59) U/L ALT 41 (4-49) U/L Alkaline Phosphatase 138 H (38-126) U/L Total Protein 8.2 (6.3-8.2) g/dL Albumin 5.0 (3.5-5.0) g/dL Disposition Clinical Impression: Tremor Disposition: HOME SELF-CARE Condition: Stable Instructions (If sedation given, give patient instructions): Tremors (ED) Additional Instructions: Please do follow-up with your primary care physician this week. Please follow- up with neurology in the next couple of days for recheck. Return for increased tremor, weakness, confusion, fever, worsening or changing symptoms or other concerns. Is patient prescribed a controlled substance at d/c from ED?: No Referrals: Seven Varghese MD [Primary Care Provider] - 1-2 days Time of Disposition: 17:30
[2024-06-12] MEDS: LORazepam 2 MG/ML INJ IV STA (16:09)
[2024-06-12 16:10] LABS: Eosinophils # (A) 0.62 10*3/uL (0.04-0.35); Eosinophils % (A) 6.5 %; HCT 46.8 % (39.6-50.0); HGB 15.4 g/dL (13.0-17.0); Lymphocytes # (A) 2.42 10*3/uL (0.90-5.00); Lymphocytes % (A) 25.2 %; MCH 30.2 pg (27.0-32.0); MCHC 32.9 g/dL (32.0-37.0); MCV 91.8 fL (80.0-97.0); Mean Platelet Volume 10.1 fL (9.5-12.2); Monocytes # (A) 0.87 10*3/uL (0.20-1.00); Monocytes % (A) 9.1 %; Neutrophils # (A) 5.56 10*3/uL (1.80-7.70); Platelet Count 383 10*3/uL (140-440); RDW 13.7 % (11.5-14.5); WBC 9.59 10*3/uL (4.50-10.00)
[2024-06-12 16:21] LABS: ALT 41 U/L (4-49); AST 25 U/L (17-59); African American GFR (CKD) >90 (>60 ml/min/1.73 sqM); Alkaline Phosphatase 138 U/L (38-126); Anion Gap 16 mmol/L; Blood Urea Nitrogen 12 mg/dL (9-20); Calcium 10.2 mg/dL (8.4-10.2); Carbon Dioxide 27 mmol/L (22-30); Chloride 96 mmol/L (98-107); Glucose 153 mg/dL (74-99); Non-African American GFR(CKD) >90 (>60 ml/min/1.73 sqM); Potassium 4.2 mmol/L (3.5-5.1); Sodium 139 mmol/L (137-145); Total Bilirubin 0.8 mg/dL (0.2-1.3); Total Protein 8.2 g/dL (6.3-8.2)
--- NOTE | 2024-06-12 16:59 | CT ---
EXAMINATION TYPE: CT brain wo con DATE OF EXAM: 06/12/2024 COMPARISON: 03/31/2023 CLINICAL INDICATION: Male, 68 years old with history of tremmor; PHH, Tremors and unsteady gait, hist ory of seizures and stroke. TECHNIQUE: CT scan of the head is performed without contrast. CT DLP: 1171.[address] CTDI: mGy Automated exposure control for dose reduction was used. FINDINGS: There is no acute intracranial hemorrhage or midline shift identified. There is diffuse v entricular and sulcal prominence consistent with diffuse age-related cerebral atrophy. Remote lacunar infarct seen. There is low-attenuation in the periventricular white matter consistent with chronic s mall vessel ischemic change. The globes are intact and the visualized sinuses are clear. IMPRESSION: No acute intracranial hemorrhage or midline shift. There is diffuse age-related cerebra l atrophy and chronic small vessel ischemic change noted. [facility], , 06/12/2024 4:57 PM
[2024-06-12 17:23] VITALS: BP 159/84; PULSE 91
[2024-06-12] MEDS: LORazepam 1 MG TAB PO STA (17:33)
== END 2024-06-12 17:56 | disposition home or self-care (01) ==
LOC: EC 14:12 → SUPCPDRO 14:12 → EC 17:56
DX: R25.1 Tremor, unspecified (principal); Z86.73 Personal history of transient ischemic attack (TIA), and cerebral infarction without residual deficits; Z88.8 Allergy status to other drugs, medicaments and biological substances
CPT/HCPCS: 36415; 80053; 83735; 85025; 70450; 99284; 96374; J2060